=== PATIENT | female | born 1945 | race Caucasian/White ===

== ENCOUNTER → 2016-11-06 | Outpatient (CLI) | payer MEDICARE ==
[~2016-11-06] MED LIST: AC500T PO; ACHYD1T PO; ATRV10T PO; HYDR1TAB PO; LOSA1TAB23 PO; METO25TA2 PO; NFR150C PO; SENN1TAB76 PO; WARF2.5T PO; WRF2.5T PO
--- NOTE | 2016-11-06 19:35 | Diagnostic Imaging Report ---
Renal ultrasound. INDICATION: Chronic renal disease. FINDINGS: The right kidney is 10.9 cm and the left kidney is 9.4 cm in length. No hydronephrosis or focal lesion is seen. The bladder is not seen, probably because it is completely empty. IMPRESSION: No hydronephrosis or focal lesion seen in either kidney. Dictated by: Dictated on workstation # [id number]
== END ==
LOC: RAD 10:40
PROVIDERS: ATTEND Internal Medicine Nephrology
DX: I12.9 Hypertensive chronic kidney disease with stage 1 through stage 4 chronic kidney disease, or unspecified chronic kidney disease (principal); N18.3 Chronic kidney disease, stage 3 (moderate); D50.9 Iron deficiency anemia, unspecified
CPT/HCPCS: 76770

== ENCOUNTER → 2016-12-06 | Outpatient (CLI) | payer MEDICARE ==
--- NOTE | 2016-12-07 09:04 | Diagnostic Imaging Report ---
Bilateral screening mammogram 2D views with tomosynthesis The current study was also evaluated with a Computer Aided Detection (CAD) system. Indication: Screening. No current complaints stated on the questionnaire. COMPARISON: 12/06/15. FINDINGS: The breasts are composed of heterogeneously dense parenchyma which may decrease mammographic sensitivity. There are punctate benign-appearing calcifications seen. Allowing for technique and positional differences, no suspicious change is seen. IMPRESSION: Dense breasts with no definite change. ACR BI-RADS Category 2: Benign findings. Result letter will be mailed to the patient. Note: At least 10% of breast cancer is not imaged by mammography. Dictated by: Dictated on workstation # [id number]
== END ==
LOC: RAD 08:58
PROVIDERS: ATTEND Family Medicine
DX: Z12.31 Encounter for screening mammogram for malignant neoplasm of breast (principal)
CPT/HCPCS: 77067

== ENCOUNTER → 2017-12-23 | Outpatient (CLI) | payer MEDICARE ==
--- NOTE | 2017-12-24 18:59 | Diagnostic Imaging Report ---
INDICATION: Routine screening. Comparison is made with prior exams from 12/06/2016 and 12/06/2015. 2-D and 3-D bilateral screening mammography was performed with computer-aided detection (CAD) system. FINDINGS: Both breasts are heterogeneously dense, limiting the sensitivity of mammography. No mass or malignant-appearing microcalcifications are seen. The axillae are unremarkable. IMPRESSION: No mammographic features suspicious for malignancy are identified. ACR BI-RADS Category 1: Negative. Result letter will be mailed to the patient. Note: At least 10% of breast cancer is not imaged by mammography. Dictated by: Dictated on workstation # [id number]
== END ==
LOC: RAD 11:24
PROVIDERS: ATTEND Family Medicine
DX: Z12.31 Encounter for screening mammogram for malignant neoplasm of breast (principal)
CPT/HCPCS: 77067

== ENCOUNTER → 2018-02-24 | Outpatient (RCR) | payer MEDICARE | END | disposition home or self-care (01) | PROVIDERS: ATTEND Nurse Practitioner | DX: Z47.1 Aftercare following joint replacement surgery (principal); Z96.642 Presence of left artificial hip joint ==

== ENCOUNTER 2018-03-14 15:07 | Outpatient (RCR) | payer MEDICARE | END 2018-05-27 | disposition home or self-care (01) | PROVIDERS: ATTEND Nurse Practitioner | DX: Z47.1 Aftercare following joint replacement surgery (principal); Z96.642 Presence of left artificial hip joint ==

== ENCOUNTER → 2019-01-29 | Outpatient (CLI) | payer MEDICARE ==
[~2019-01-29] MED LIST changes: +GADOBUTROL 10 MMOL/10 ML (GADAVIST) VIAL IV ONE
--- NOTE | 2019-01-29 19:26 | Diagnostic Imaging Report ---
PROCEDURE: MR imaging of the brain with and without contrast. TECHNIQUE: Multiplanar, multisequence MR imaging of the brain was performed with and without contrast. INDICATION: Right frontal mass. COMPARISON: CT head without contrast 01/29/2019. FINDINGS: Large extra-axial enhancing mass overlying the right frontal lobe measuring approximately 4.5 x 7.0 x 6.5 cm. Mass effect results in approximately 1.4 cm right to left midline shift. Moderate edema in the affected right frontal lobe. No other abnormal intracranial mass or enhancement. Normal morphology of the sella, posterior fossa and cerebellar pontine angle. The orbits are unremarkable. Normal intracranial flow voids. No hydrocephalus. Tiny air-fluid level in the left maxillary sinus. Scant fluid in the left mastoid. Normal bone marrow signal. IMPRESSION: Large extra-axial enhancing mass overlying the right frontal lobe measuring up to 7.0 cm should represent a meningioma. This results in approximately 1.4 cm of axrvp-vz-qels midline shift and edema throughout much of the right frontal lobe. Dictated by: Dictated on workstation # [id number]
== END ==
LOC: RAD 18:09
PROVIDERS: ATTEND Family Medicine
DX: J81.1 Chronic pulmonary edema (principal); R91.8 Other nonspecific abnormal finding of lung field
CPT/HCPCS: 70553

== ENCOUNTER → 2019-01-29 | Outpatient (CLI) | payer MEDICARE ==
[~2019-01-29] MED LIST changes: -GADOBUTROL 10 MMOL/10 ML (GADAVIST) VIAL IV ONE
--- NOTE | 2019-01-29 13:20 | Diagnostic Imaging Report ---
INDICATION: Left-sided weakness and facial droop. TECHNIQUE: Multiple contiguous axial images were obtained through the brain without the use of intravenous contrast. Auto Exposure Controls were utilized during the CT exam to meet ALARA standards for radiation dose reduction. COMPARISON: There is no prior study for comparison. FINDINGS: There is a large mass in the right frontal region, measuring about 5.5 x 3.6 cm. A contrast study would be helpful to determine if this is intra-axial or extra-axial. There is about 10 mm of right to left midline shift. There is no focal abnormality in the left hemisphere or posterior fossa. Calvarial windows show no fracture. IMPRESSION: Large right frontal mass as described above with significant midline shift. Recommend MRI for further characterization, pre and post IV contrast. Results were discussed with Dr. Denise at the time of dictation. Dictated by: Dictated on workstation # [id number]
== END ==
LOC: RAD 12:08
PROVIDERS: ATTEND Family Medicine
DX: R29.810 Facial weakness (principal); R22.0 Localized swelling, mass and lump, head
CPT/HCPCS: 70450

== ENCOUNTER 2019-02-09 10:48 | Inpatient (IN) | payer MEDICARE ==
[~2019-02-09] VITALS: Ht 154.9 cm; Wt 113.6 kg
[2019-02-09] MEDS ORDERED: HYDROcodone/APAP 5 MG/325 MG (LORTAB) TAB PO PRN ×2 (12:00→18:15)
[2019-02-09] MEDS ORDERED: ALPRAZolam 0.25 MG (XANAX) TAB PO PRN (12:00)
[2019-02-09] MEDS ORDERED: diphenhydrAMINE 25 MG TAB (BENADRYL) PO PRN (12:00)
[2019-02-09] MEDS ORDERED: CALCIUM CARBONATE 500 MG (TUMS) TAB.CHEW PO PRN (12:00)
[2019-02-09] MEDS ORDERED: FLEET ENEMA ADULT 1 EA BTL PR PRN (12:00)
[2019-02-09] MEDS ORDERED: LACTULOSE SYRUP 10GM/15ML (ENULOSE) 30ML UDC PO PRN (12:00)
[2019-02-09] MEDS ORDERED: DOCUSATE SODIUM 100 MG (COLACE) CAP PO PRN (12:00)
[2019-02-09] MEDS ORDERED: guaiFENesin/CODEINE (ROBITUSSIN AC) 10ML UDC PO PRN (12:00)
[2019-02-09] MEDS ORDERED: LOPERAMIDE 2 MG (IMODIUM) TABLET PO PRN (12:00)
[2019-02-09] MEDS ORDERED: ONDANSETRON 4 MG (ZOFRAN) ORAL DISSOLVE TAB PO PRN (12:00)
--- NOTE | 2019-02-09 15:23 | NUR ---
Pt admitted to room 229-1, with an admitting diagnosis of S/P Craniotomy on 02/09/19 from [facility] via w/c van, accompanied by starting gate driver. CHAGO RUFF introduced to surroundings, call light, bed controls, phone, TV, temperature control, lights, meal times, smoking policy, visitor policy, side rail policy, bathrooms and showers. Patient Rights given to patient in the handbook. CHAGO RUFF verbalizes understanding that [facility] is not responsible for the loss or damage to any personal effects or valuables that are kept in the patients posession during their hospitalization. The following Patient Care Plans were discussed with the pt: Discharge Planning, Self Care Deficit, Potential for fall/injury, alteration in skin integrity. CHAGO RUFF verbalizes understanding of Interdisciplinary Patient Education. Patient and/or family were informed about the Rapid Response Team and its purpose. Patient received Patient Rights Booklet, which includes Privacy Act Statement and Data Collection Information Summary.
[2019-02-09 15:30] VITALS: BP 162/78
[2019-02-09] MEDS ORDERED: ACET325T49 PO (15:57)
[2019-02-09] MEDS ORDERED: ATOR20TA66 PO (15:57)
[2019-02-09] MEDS ORDERED: VIT1CAPS5 PO (15:57)
[2019-02-09] MEDS ORDERED: OMEG1CAP2 PO (15:57)
[2019-02-09] MEDS ORDERED: HYDR-3812 PO (15:57)
[2019-02-09] MEDS ORDERED: SENN-145 PO (15:57)
[2019-02-09] MEDS ORDERED: LOSA100T57 PO (15:57)
[2019-02-09] MEDS ORDERED: [UNRECOGNIZED DRUG - CODE] IV (15:57)
[2019-02-09] MEDS ORDERED: LEVE500T99 PO (15:57)
[2019-02-09] MEDS ORDERED: METO-333 PO (15:57)
[2019-02-09] MEDS ORDERED: DEXA2TAB PO (15:57)
[2019-02-09] MEDS ORDERED: HEPA100D37 IV (15:57)
[2019-02-09] MEDS ORDERED: CHOL400T PO (15:57)
[2019-02-09] MEDS ORDERED: FERR-84 PO (15:57)
[2019-02-09] MEDS ORDERED: HEPARIN SQ (16:01)
--- NOTE | 2019-02-09 16:13 | Physical Therapy Evaluation ---
PT Evaluation-General Medical Diagnosis Admission Date Feb 09, 2019 at 15:23 Medical Diagnosis: menengioma cerebral Onset Date: Feb 09, 2019 Therapy Diagnosis Therapy Diagnosis: abnormal gait Height/Weight Height (Feet): 5 Height (Inches): 1.00 Weight (Pounds): 180 Medical History Pertinent Medical History: Arthritis, HTN Additional Medical History B TKR; left THR, CKD III Current History Elective surgery for cerebral menengioma Reviewed History: Yes Social History Home: Single Level Current Living Status: Alone (good family support) Entry Into Home: Stairs With Railing PT Steps Into Home: 2 Prior Prior Level of Function SCALE: Activities may be completed with or without assistive devices. 9-Vomzrwzliq-aptdstu completes the activity by him/herself with no assistance from a helper. 5-Set-up or Clean-up Assistance-helper sets up or cleans up; patient completes activity. [place] assists only prior to or following the activity. 4-Supervision or Touching Assistance-helper provides verbal cues and/or touching/steadying and/or contact guard assistance as patient completes activ ity. Assistance may be provided throughout the activity or intermittently. 3-Partial/Moderate Assistance-helper does LESS THAN HALF the effort. [place] lifts, holds or supports trunk or limbs, but provides less than half the effort. 2-Substantial/Maximal Assistance-helper does MORE THAN HALF the effort. [place] lifts or holds trunk or limbs and provides more than half the effort. 2-Rrbwasamd-nftpwi does ALL the effort. Patient does none of the effort to complete the activity. Or, the assistance of 2 or more helpers is required for the patient to complete the activity. If activity was not attempted, code reason: 7-Patient Refused. 9-Not Applicable-not attempted and the patient did not perform the activity before the current illness, exacerbation or injury. 10-Not Attempted due to Environmental Limitations-(lack of equipment, weather restraints, etc.). 88-Not Attempted due to Medical Conditions or Safety Concerns. Bed Mobility: 6 Transfers (B,C,W/C): 6 Gait: 6 Stairs: 6 Indoor Mobility (Ambulation): Independent Stairs: Independent Pt is a community ambulator; drives. Lives alone. Pt reports she typically sleeps in her recliner. Reports she is planning to get a lift recliner. PT Evaluation-Current Subjective Agreeable to PT. Pt reports she is exhausted from the trip and the day. Pt falling asleep during treatment session. Pt/Family Goals Her goal is to increase her strength so she can discharge back to her own home. Objective Patient Orientation: Person, Place, Time, Situation ROM/Strength ROM Lower Extremities WFL Strength Lower Extremities Right LE strength is WFL; left LE strength is grossly 3/5 with DF being 2/5 Integumentary/Posture Integumentary refer to nursing notes. Bowel Incontinence: No Bladder Incontinence: Yes Posture rounded shoulders and forward head Neuromuscular (Tone, Coordination, Reflexes) Decreased coordinated movement left LE but reflexes intact and no noted tone deficits. Sensory Vision: Functional Hearing: Functional Hand Dominance: Right Sensation Right Lower Extremit: Intact Sensation Left Lower Extremity: Intact Transfers Roll Left to Right (QC): 2 Sit to Lying (QC): 1 (assist of 2 to transfer; assist to control trunk and to move her legs. ) Lying to Sitting/Side of Bed(Q: 1 (assist of 2 to complete to control her trunk and legs. ) Sit to Stand (QC): 1 (assist of 2 to come to a full stand with cues for sequencing and hand placement) Chair/Wen-bw-Ngkbt Xfer(QC): 2 (uses FWW) Toilet Transfer: 2 Car Transfer (QC): 88 Gait Does the Patient Walk?: Yes Mode of Locomotion: Walk Walk 10 feet (QC): 88 Walk 50 ft with 2 Turns(QC): 88 Walk 150 ft (QC): 88 Walking 10ft/uneven surface-QC: 88 Gait Assistive Device: FWW Comments/Gait Description pt able to take 4 steps forward with FWW with mod assist for safety. Wheelchair Training Does the Pt Use a Wheelchair?: No Stairs 1 Step (curb) (QC): 88 4 Steps (QC): 88 12 Steps (QC): 88 Balance Sitting Static: Poor Sitting Dynamic: Poor Standing Static: Poor Standing Dynamic: Poor Picking up an Object (QC): 88 Treatment Co treat with OT. Need for the skill of 2 clinicians indicated due to complexity of pt. Pt performed self care tasks such as management of clothing and transfers to manage. OT addressed clothing and ADL as PT addressed functional transfers, safety and balance activities. Heavy cues to sequence, initiate as well as much assist physically to complete tasks. Pt requires heavy cues to sequence. Assessment/Needs Post surgery with left sided weakness and balance deficits. Pt is limited with functional bed mobility, transfers and gait as a result. She requires assist of 2 persons (skilled personnel) to effectively complete tasks safely. She was mod indep at OF and will benefit from skilled intervention to address these deficits to allow her return to her PLOF. In addition, she has limited functional activity tolerance and with fatigue, safety is an issue with transfers and upright mobiltiy. Pt exhausted this visit and at the end of treatment session, she was falling asleep while trying to complete tasks. Rehab Potential: Good PT Short Term Goals Short Term Goals Time Frame: Feb 17, 2019 Sit to lyin Lying to sitting on side of be: 3 Sit to stand: 3 Walk 50 feet with two turns: 4 PT Nursing Home Goals Nursing Home Goals PT Shoe Cobbler Goals Time Frame: Mar 03, 2019 Roll Left & Right (QC): 6 Sit to Lying (QC): 6 Lying-Sitting on Side/Bed(QC): 6 Sit to Stand (QC): 6 Chair/Ixp-ti-Saufa Xfer(QC): 6 Toilet Transfer (QC): 6 Car Transfer (QC): 6 Does the Patient Walk: Yes Walk 10 feet (QC): 6 Walk 50ft with 2 Turns (QC): 6 Walk 150 ft (QC): 6 Walking 10ft on Uneven Surface: 5 1 Step (curb) (QC): 6 4 Steps (QC): 6 12 Steps (QC): 9 Picking up an Object (QC): 9 Does the Pt use WC or Scooter?: No PT Plan Problem List Problem List: Activity Tolerance, Functional Strength, Safety, Balance, Gait, Transfer, Bed Mobility Treatment/Plan Treatment Plan: Continue Plan of Care Treatment Plan: Bed Mobility, Education, Functional Activity Scout, Functional Strength, Group Therapy, Gait, Safety, Therapeutic Exercise, Transfers Treatment Duration: Mar 03, 2019 Frequency: Modified Program (IRF) Estimated Hrs Per Day: 1.5 hours per day Patient and/or Family Agrees t: Yes Safety Risks/Education Patient Education: Gait Training, Transfer Techniques, Safety Issues Teaching Recipient: Patient Teaching Methods: Demonstration, Discussion Response to Teaching: Reinforcement Needed Discharge Recommendations Therapy Discharge Recommendati: Post Acute PT Time/GCodes Time In: 1520 Time Out: 1530 ([id number] co treat with OT) Total Billed Treatment Time: 50 Total Billed Treatment visit EVM 10 FA 40 ATTILA PRYOR PT Feb 09, 2019 16:13
--- NOTE | 2019-02-09 16:23 | Occupational Therapy Eval ---
OT Evaluation-General/PLF Medical Diagnosis Admission Date Feb 09, 2019 at 15:23 Medical Diagnosis: elective craniotomy with meningioma resection Onset Date: Feb 09, 2019 Therapy Diagnosis Therapy Diagnosis: Decreased ADL function Height/Weight Height (Feet): 5 Height (Inches): 1.00 Weight (Pounds): 180 Precautions Precautions/Isolations: Standard Precautions Weight Bear Status Weight Bearing Restriction: Weight Bearing/Tolerated Referral Physician: Laly Vera DO Referral Reason: Activity Tolerance, Self Care, Evaluation/Treatment, Strengthening/ROM Medical History Pertinent Medical History: HTN, Renal Insufficiency Additional Medical History HTN, meningioma, obesity, HLD, CKD III, anemia, arthritis, cataracts Current History Pt completed an elective craniotomy with meningioma resection to R side; L weakness noted prior to surgery Reviewed History: Yes Social History Home: Single Level Entry Into Home: Stairs With Railing Steps Into Home: 1 ADL-Prior Level of Function SCALE: Activities may be completed with or without assistive devices. 6-Unayfuzjbj-tfywfyb completes the activity by him/herself with no assistance from a helper. 5-Set-up or Clean-up Assistance-helper sets up or cleans up; patient completes activity. [place] assists only prior to or following the activity. 4-Supervision or Touching Assistance-helper provides verbal cues and/or touching/steadying and/or contact guard assistance as patient completes activity. Assistance may be provided throughout the activity or intermittently. 3-Partial/Moderate Assistance-helper does LESS THAN HALF the effort. [place] lifts, holds or supports trunk or limbs, but provides less than half the effort. 2-Substantial/Maximal Assistance-helper does MORE THAN HALF the effort. [place] lifts or holds trunk or limbs and provides more than half the effort. 3-Yyxngdtrv-hnryqg does ALL the effort. Patient does none of the effort to complete the activity. Or, the assistance of 2 or more helpers is required for the patient to complete the activity. If activity was not attempted, code reason: 7-Patient Refused. 9-Not Applicable-not attempted and the patient did not perform the activity before the current illness, exacerbation or injury. 10-Not Attempted due to Environmental Limitations-(lack of equipment, weather restraints, etc.). 88-Not Attempted due to Medical Conditions or Safety Concerns. ADL PLOF Comments Pt IND without AE Self Care: Independent Functional Cognition: Independent DME/Equipment: Bath Chair DME/Equipment Comments Pt states has shower with ledge (3" or so) Pt educated on use of grab bars and new shower chair. Pt states she is incontinent of urine Occupation: retired Drive Self: Yes OT Current Status Subjective Pt seen in room, supine in bed with PT. Pt denies pain, states fatigue. Pt agreeable to OT evaluation/ OT/ PT cotreatment. Co-treat rendured due to pt's functional mobility status, medical hx, and fatigue. OT addressed ADLs and UE strength while PT managed functional mobility, balance, and functional transfers. Mental Status/Objective Patient Orientation: Person, Place, Situation, Normal For Age Current Glasses/Contacts: Yes Hearing Aids: No Dentures/Partials: Yes Hand Dominance: Right Upper Extremity ROM WFL BUE Upper Extremity Coordination L slightly delayed reactions Upper Extremity Sensation WFL bilaterally, no c/o paresthesias Upper Extremity Strength WFL RUE Decreased strength LUE Edema: slight non-pitting edema LUE ADL-Treatment Eating (QC): 6 Oral Hygiene (QC): 5 (Pt takes out dentures, grandaughter places in denture bottle cleaner.) Shower/Bathe Self (QC): 7 Upper Body Dressing (QC): 3 (mod A to doff UB dress) Lower Body Dressing (QC): 2 (Max A. Pt able to sit to stand with mod A, able to doff L side of pants, requires assist to doff L side and pull to doff/ don) On/Off Footwear (QC): 2 (Pt able to doff with mod A, dons with max A (utilizes sock aide at home, unable to don sock onto sock aide)) Toileting Hygiene (QC): 1 (TD in stance.) Other Treatments OT evaluation from [id number]. PT/ OT cotreat from [id number]. Pt seen in bed, bed mob to sit with max A. Pt reaches EOB with max A, completes sitting balance with SBA. Pt able to sit to stand with mod A x2. Utilizes FWW, ambulates with cues for LLE movement. Pt's chair brought closer for safer transition. Pt sits, states incontinence and need to change brief. Dressing changed as above. Pt's R eye slightly bruised, states was injured in surgery. Pt denies diplopia or vision changes. Pt has many daily from parietal to temporal lobe of R side of head. Pt denies completing additional ADLs. Pt educated on ARU standards and goals of therapy. Pt fatigued, eyes closed as she listens to goals. Pt's granddaughter present through session. Left in chair with granddaughter, all needs met, call light in lap. Education OT Patient Education: Correct positioning, Modified ADL techniques, Purpose of tx/functional activities, Rehab process, Safety issues, Transfer techniques Teaching Recipient: Patient Teaching Methods: Demonstration, Discussion Response to Teaching: Verbalize Understanding, Return Demonstration OT Assisted Goals Supervisor Fur Floor Worker Goals Time Frame: Feb 23, 2019 Eating (QC): 6 Oral Hygiene (QC): 6 Toileting Hygiene (QC): 6 Shower/Bathe Self (QC): 6 Upper Body Dressing (QC): 6 Lower Body Dressing (QC): 6 On/Off Footwear (QC): 6 Additional Goals: 1-Demonstrate ADL Tasks, 2-Verbalize Understanding, 3- ImproveStrength/Scout 1=Demonstrate adherence to instructed precautions during ADL tasks. 2=Patient will verbalize/demonstrate understanding of assistive devices/modifications for ADL. 3=Patient will improve strength/tolerance for activity to enable patient to perform ADL's. OT Education/Plan Problem List/Assessment Assessment: Decreased Activ Tolerance, Decreased UE Strength, Dependent Transfers, Impaired Bed Mobility, Impaired Coordination, Impaired Funct Balance, Impaired I ADL's, Impaired Self-Care Skills Discharge Recommendations Plan/Recommendations: Continue POC Equpiment Recommendations-D/C: Rails on Tub/Shower, Bath Chair, Engineer Second Assistant, Dressing Stick, Rails on Toilet Treatment Plan/Plan of Care Treatment,Training & Education: Yes Patient would benefit from OT for education, treatment and training to promote independence in ADL's, mobility, safety and/or upper extremity function for ADL's. Plan of Care: ADL Retraining, Caregiver Training, Concurrent Therapy, Functional Mobility, Group Exercise/Act as Ind, UE Funct Exercise/Act, UE Neuromus Re-Ed/Coord Treatment Duration: Feb 23, 2019 Frequency: At least 5 of 7 days/Wk (IRF) Estimated Hrs Per Day: 1.5 hours per day Agreement: Yes Rehab Potential: Fair Time/GCodes Start Time: 15:30 Stop Time: 16:20 Total Time Billed (hr/min): 50 Billed Treatment Time 1, EVM (10), ADL 3 (40) OT eval: [id number] OT/ PT cotreat: [id number] ALEIDA DIAZ OTR Feb 09, 2019 16:23
[2019-02-09 16:42] VITALS: BP 129/61
--- NOTE | 2019-02-09 18:11 | PM&R Post Admission Assessment ---
PM&R Date of Visit: Feb 09, 2019 Time of Visit: 18:10 History of Present Illness Chief complaint: Status post craniotomy in need of recovery History present illness: This is a 73-year-old white female of Dr. Denise who presents after a [facility] transfer after undergoing a craniotomy to remove a large meningioma that had caused symptoms to the point of presenting to her primary care provider CT scan showed mass MRI showed meningioma and patient was placed on Decadron due to neurological deficits. I met the patient in the past December 2017 when she underwent a hip replacement. She has been in pretty good health since that time and currently she denies any pain except for on her scalp where the craniotomy had been completed. I did review all of records. She continues to have difficulty with moving her lower extremities and she will require intensive therapy in order to regain enough function to return to independent living in her prior level of functioning. Her bowels are moving for the first time yesterday so we will maintain a good regimen for that and she denies any other significant issues since transferred from . [facility] summary note: Significant PMH: Medical History: Diagnosis Date Arthritis Hip Cataract Chronic kidney disease Stg III - due to Aleve High cholesterol Hypertension Iron deficiency anemia Kidney disease Osteoarthritis of both knees Allergies: Pcn [penicillins] Admission Physical Exam notable for: Glory Montes De Oca is a 73-year-old woman that Dr. Garcia was asked to see by Dr. Nevin Denise regarding the recent discovery of a large convexity meningioma on the right side. She describes about 3 months of left arm and leg and face weakness, but she suspects it has been going on for longer than that. She had her hip replaced a couple of years ago and has basically been walking with the aid of one crutch since then. She has however noted increasing clumsiness of her left hand and the inability to hold objects for long periods of time. She says her daughter is noted that her face appears droopy on the left as well. She went in to see Dr. Denise who ordered a CT scan and then an MRI that shows the above-mentioned tumor. She did have quite a severe headache last week and Dr. Denise put her on some Decadron. A headache is completely resolved since then. She does not notice any demonstrable improvement in her left-sided weakness. She says she feels everything quite normally and has no pain on the left side but it is simply weaker than the right. Physical Exam Alert and oriented PERRL EOMI CN 2-12 Intact, except slight flattening of left NLF VFF DTR 2/4 on right, 3/4 on left, definitely increased on left side Motor 5/5, except diminished fine finger movements on left. Walks with slight antalgic gait, but able to support herself and walk a fair distance with one crutch Sensation grossly intact LT, Proprioception No cerebellar signs Admission Lab/Radiology studies notable for: CT and MRI shows a large right convexity meningioma with nearly 2 cm of shift. This is obviously been there a long time and may indeed be a not so benign meningioma given the degree of shift that she has. However for the relative paucity of symptoms I suspect it is been there for quite some time. Brief Hospital Course: The patient was admitted and the following issues were addressed during this hospitalization: (with pertinent details). Patient was admitted and underwent the procedure listed below. Patient was extubated and tolerated procedure well. Patient was admitted to Neurology ICU in stable condition.Post-operatively, patient's diet was advanced and was mobilized with PT/OT. Post-operatively the patient was slow to wake up. CT head demonstrated persistent edema and shift from preop. Sodium was pushed up to goal of 145-155 with 3% IV drip. Over the next couple days patient's exam improved significantly, sodium goals were weaned off. Pain was controlled. Patient was transferred to floor and dressings removed. Patient continued to work with P T/OT. Rehab was consulted. Patient was discharged to [facility] with follow-up appointment with Dr. Garcia. Condition at Discharge: Stable Discharge Diagnoses: Hospital Problems Active Problems Meningioma (HCC) HTN (hypertension) Brain compression (HCC) Morbid obesity with BMI of 45.0-49.9, adult (HCC) Cerebral edema (HCC) Surgical Procedures: CRANIECTOMY/ BONE FLAP CRANIOTOMY EXCISION SUPRATENTORIAL MENINGIOMA Past Rrjtdhi-Fcdglx-Yojyhd Hx Past Med/Social Hx: Reviewed Nursing Past Med/Soc Hx, Reviewed and Corrections made Patient Social History Marrital Status: single Employed/Student: retired Alcohol Use: Denies Use Smoking Status: Never a Smoker 2nd Hand Smoke Exposure: No Recent Foreign Travel: No Contact w/other who traveled: No Recent Infectious Disease Expo: No Immunizations Up To Date Tetanus Booster (TDap): Unknown Date of Pneumonia Vaccine: Nov 25, 2012 Date of Influenza Vaccine: Nov 25, 2012 Seasonal Allergies Seasonal Allergies: No Past Medical History craniotomy [facility] 02/05 Cardiac: High Cholesterol, Hypertension Neurological: Brain Tumor Reproductive: No Sexually Transmitted Disease: No HIV/AIDS: No Female Reproductive Disorders: Denies Genitourinary: Bladder Infection Gastrointestinal: Chronic Constipation Musculoskeletal: Arthritis Loss of Vision: Denies Adverse Reaction to Blood Mancera: No Family History Cancer 09 SISTER (breast ca) Congestive heart failure 03 MOTHER Family history: Breast disease 09 SISTER Family history: Hypertension 03 FATHER 03 MOTHER 09 SISTER Hypertension Prior Level of Function Bed Mobility: 6 Transfers: 6 Gait: 6 Stairs: 6 Indoor Mobility (Ambulation): Independent Stairs: Independent Self Care: Independent Functional Cognition: Independent Occupation: retired Drive Self: Yes Eatin Oral Hygiene: 5 (Pt takes out dentures, grandaughter places in denture creel cleaner.) Shower/Bathe Self: 7 Upper Body Dressin (mod A to doff UB dress) Lower Body Dressin (Max A. Pt able to sit to stand with mod A, able to doff L side of pants, requires assist to doff L side and pull to doff/ don) On/Off Footwear: 2 (Pt able to doff with mod A, dons with max A (utilizes sock aide at home, unable to don sock onto sock aide)) Toileting Hygiene: 1 (TD in stance.) PM&R Allergy/Meds/Data Review Allergies Coded Allergies: Penicillins (Unverified Allergy, SWELLED UP, 12/16/12) Home Medications Scheduled Atorvastatin Calcium (Atorvastatin Calcium), 20 MG PO HS, (Reported) Cholecalciferol (Vitamin D3) (Vitamin D3), 400 UNIT PO DAILY, (Reported) Dexamethasone (Dexamethasone), 4 MG PO Q8H, (Reported) Ferrous Sulfate (Iron), 325 MG PO BID, (Reported) Levetiracetam (Keppra), 500 MG PO BID, (Reported) Losartan Potassium (Losartan Potassium), 100 MG PO DAILY, (Reported) Metoprolol Tartrate (Metoprolol Tartrate), 25 MG PO BID, (Reported) [place]-3 Fatty Acids/Fish Oil (Sea-[place] 30 Capsule), 1 EACH PO DAILY, (Reported) Sennosides/Docusate Sodium (Senna S Tablet), 1 EACH PO BID, (Reported) Vit A/C/E/Zinc/Co (Preservision Areds Softgel), 1 CAP PO DAILY, (Reported) [Heparin], 0.5 ML SQ Q8H, (Reported) Scheduled PRN Acetaminophen (Acetaminophen), 650 MG PO Q4H PRN for PAIN-MILD (1-4), (Reported) Hydrocodone/Acetaminophen (Hydrocodone-Acetamin 5-325 mg), 1-2 TAB PO Q4H PRN for PAIN-MODERATE (5-7), (Reported) Discontinued Medications Atorvastatin Calcium (Lipitor 10 Mg), 10 MG PO DAILY, (Reported) Discontinued Reason: Prescription changed Heparin Sodium,Porcine/Pf (Heparin 1,000 Unit/10 (100/ml)), 1,000 UNIT IV, (Reported) Discontinued Reason: No Longer Taking Hydrocodone Bit/Acetaminophen (Lorcet Plus 10/325 Mg), 1 EA PO EVERY 4-6 HOURS PRN for PAIN Discontinued Reason: No Longer Taking Losartan/Hydrochlorothiazide (Losartan-Hctz 100-25 Mg Tab), 1 TAB PO DAILY, (Reported) Discontinued Reason: Prescription changed Polysaccharide Iron Complex (Niferex), 150 MG PO BID Discontinued Reason: No Longer Taking Warfarin Sodium (Coumadin), 2.5 MG PO DAILY@1800 Discontinued Reason: No Longer Taking Current Medications Current Medications Reviewed Review of Systems Constitutional: see HPI, dizziness, malaise, weakness Gastrointestinal: constipation Musculoskeletal: back pain, joint pain, muscle stiffness, muscle cramps Psychiatric/Neurological: Numbness, Paresthesia, Tingling, Tremors, Weakness All Other Systems Reviewed Negative Unless Noted: Yes Physical Exam Physical Exam Vital Signs Vital Signs - First Documented 02/09/19 15:30 Temp 36.8 Pulse 59 Resp 16 B/P (MAP) 162/78 (106) Pulse Ox 95 O2 Delivery Room Air Capillary Refill : Height, Weight, BMI Height: 5'1.00" Weight: 180lbs. oz. 81.889241qu; 107.90 BMI Method: General Appearance: No Apparent Distress, WD/WN, Chronically ill, Obese Eyes: Bilateral Eye Normal Inspection, Bilateral Eye PERRL HEENT: PERRL/EOMI, Normal ENT Inspection, Pharynx Normal Neck: Full Range of Motion, Normal Inspection, Non Tender, Supple, Carotid Bruit Respiratory: Chest Non Tender, Lungs Clear, Normal Breath Sounds, No Accessory Muscle Use, No Respiratory Distress, Decreased Breath Sounds Cardiovascular: Regular Rate, Rhythm, No Edema, No Gallop, No JVD, No Murmur, Normal Peripheral Pulses Gastrointestinal: Normal Bowel Sounds, No Organomegaly, No Pulsatile Mass, Non Tender, Soft Back: Normal Inspection, No CVA Tenderness, No Vertebral Tenderness Extremity: Normal Capillary Refill, Normal Inspection, Normal Range of Motion, Non Tender, No Calf Tenderness, No Pedal Edema Neurologic/Psychiatric: Alert, Oriented x3, carpet cleaning technician II-XII Norm as Tested, Abnormal Gait, Depressed Affect, Motor Weakness (lower legs and arms 4/5) Skin: Normal Color, Warm/Dry Lymphatic: No Adenopathy PM&R Medical Assessment & Plan REHAB/MEDICAL ASSESSMENT AND PLAN: REHAB IMPAIRMENT GROUP: Craniotomy and resection of meningioma causing neuro deficits ETIOLOGIC DIAGNOSIS: Craniotomy and resection of meningioma causing neuro deficits The comorbidities that impact the patients function and/or functional outcome by: Severe neuro deficits will require intensive therapies to regain PLOF, Obesity will slow recovery REHAB PLAN: The patient is being admitted to our comprehensive inpatient rehabilitation facility and can tolerate the intensity of service consisting of at least: 180 minutes of therapy a day, 5 out of 7 days a week Rehab treatment will consist of: PT and OT will focus on ambulation and strengthening in order to regain deficits The patient/family has a good understanding of our discharge process and will benefit from an interdisciplinary inpatient rehabilitation program. The patient has potential to make improvement and is in need of at least two of the following multidisciplinary therapies including but not limited to physical, occupational, speech, and prosthetics and orthotics. Additionally the patient will need services from respiratory, nutritional services, wound care, psychology, etc. (Customize this to each patient). Given the patients complex condition and risk of further medical complications, rehabilitation services cannot be safely or effectively provided at a lower level of care such as a snf facility. BARRIERS TO DISCHARGE: Home alone ESTIMATED LOS: 10 days DISPOSITION: Home RELEVANT CHANGES SINCE PREADMISSION SCREENING: I have compared the patients medical and functional status at the time of the preadmission screening and there are: no changes PROGNOSIS: Good REHABILITATION GOALS: 1. PT will help with neuro deficits and strengthening and OT will focus on regaining ADL's All the above goals were reviewed with the patient and he/she is in agreement. By signing this document, I acknowledge that I have personally performed a full physical examination on this patient within 24 hours of admission to this inpatient rehabilitation facility and have determined the patient to be able to tolerate the above course of treatment at an intensive level for a reasonable period of time. I will be completing a detailed individualized Plan of Care for this patient by day #4 of the patients stay based upon the Preadmission Screen, the Post-Admission Evaluation, and the therapy evaluations. Admission Dx/Comorbidities: (1) S/P craniotomy ICD Codes: Z98.890 - Other specified postprocedural states (2) Hypertension ICD Codes: I10 - Essential (primary) hypertension (3) Obesity ICD Codes: E66.9 - Obesity, unspecified (4) Constipation ICD Codes: K59.00 - Constipation, unspecified (5) History of hip replacement, total ICD Codes: Z96.649 - Presence of unspecified artificial hip joint (6) Headache ICD Codes: R51 - Headache (7) Seizure prophylaxis ICD Codes: Z29.8 - Encounter for other specified prophylactic measures EVIE SAPP DO Feb 09, 2019 18:11
[2019-02-09] MEDS ORDERED: HEPARIN SQ SCH (18:15)
[2019-02-09] MEDS ORDERED: RX-HYDROCODONE/APAP 5/325 MG #4 TAB PK PO PRN (18:15)
[2019-02-09] MEDS ORDERED: DEXAMETHASONE 4 MG PO SCH (18:15)
--- NOTE | 2019-02-09 18:22 | NUR ---
Unable to obtain meds of Decadron & heparin from [facility] at this time, when attempted, not profiled.
--- NOTE | 2019-02-09 18:24 | NUR ---
Pt states that her dgtr, Diana is her DPOA. Diana states that she doesn't have the forms completely finished yet, needs to get them notarized, but, dgtr Diana is her only child. When asking pt about code status, pt reports that she is a DNR, doesn't want to prolong her life, states that she has discussed this w her dgtr, Diana also.
--- NOTE | 2019-02-09 19:48 | NUR ---
Notified Dr. Vera of pt request for DNR, rec'd orders.
--- NOTE | 2019-02-09 19:54 | NUR ---
Spoke w Diana jain regarding code status. Now states that she wants Mother to be DNI, not DNR. Wants CPR done if needed, but, no ventilator. Notified Dr. Vera, & rec'd orders.
--- NOTE | 2019-02-09 20:07 | NUR ---
Pt arrived w 1 Saline Lock in Rt A/C, & 2 in Rt hand, will be removed as slightly reddened.
[2019-02-09] MEDS ORDERED: SENNA W/DOCUSATE (SENOKOT S) TABLET PO SCH (21:00)
[2019-02-09] MEDS: POLYETHYLENE GLYCOL 17 GM (MIRALAX) PACK PO SCH (21:47)
[2019-02-09] MEDS: LEVETIRACETAM 500 MG (KEPPRA) TAB PO SCH (21:47)
[2019-02-09] MEDS: MELATONIN 3 MG TABLET PO PRN (21:47)
[2019-02-09] MEDS: meTOprolol TARTRATE 25 MG (LOPRESSOR) TABLET PO SCH (21:47)
[2019-02-09] MEDS: DEXAMETHASONE 4 MG TAB (DECADRON) PO SCH (21:47)
[2019-02-09] MEDS: DOCUSATE SODIUM 100 MG (COLACE) CAP PO SCH (21:47)
[2019-02-09] MEDS: SENNA W/DOCUSATE (SENOKOT S) TABLET PO SCH (21:49)
[2019-02-10 04:53] LABS: BASOPHILS % (AUTO) 0 % (0-10); EOSINOPHILS % (AUTO) 0 % (0-10); HEMATOCRIT 23 % (35-52); HEMOGLOBIN 7.3 G/DL (11.5-16.0); LYMPHOCYTES # (AUTO) 0.7 X 10^3 (1.0-4.0); LYMPHOCYTES % (AUTO) 8 % (12-44); MEAN CORPUSCULAR HEMOGLOBIN 32 PG (25-34); MEAN CORPUSCULAR HGB CONC 32 G/DL (32-36); MEAN CORPUSCULAR VOLUME 98 FL (80-99); MEAN PLATELET VOLUME 12.8 FL (7.4-10.4); MONOCYTES # (AUTO) 0.4 X 10^3 (0.0-1.0); MONOCYTES % (AUTO) 4 % (0-12); NEUTROPHILS # (AUTO) 8.5 X 10^3 (1.8-7.8); NEUTROPHILS % (AUTO) 88 % (42-75); PLATELET COUNT 142 10^3/uL (130-400); WHITE BLOOD COUNT 9.6 10^3/uL (4.3-11.0)
[2019-02-10 05:11] LABS: ALBUMIN 3.1 GM/DL (3.2-4.5); BILIRUBIN,TOTAL 0.3 MG/DL (0.1-1.0); CALCIUM 8.3 MG/DL (8.5-10.1); CREATININE SERUM 1.22 MG/DL (0.60-1.30); POTASSIUM 4.7 MMOL/L (3.6-5.0); TOTAL PROTEIN 5.1 GM/DL (6.4-8.2)
[2019-02-10 05:27] VITALS: BP 147/74
[2019-02-10] MEDS: FERROUS SULF 325 MG (IRON) TAB PO SCH ×2 (06:15→17:57)
[2019-02-10] MEDS: DEXAMETHASONE 4 MG TAB (DECADRON) PO SCH ×3 (06:16→22:22)
[2019-02-10] MEDS: ACETAMINOPHEN 500 MG TAB (TYLENOL) PO PRN ×2 (07:10→22:54)
[2019-02-10] MEDS: OMEGA 3 (FISH OIL) 1000 MG CAP PO SCH (08:23)
[2019-02-10] MEDS: LEVETIRACETAM 500 MG (KEPPRA) TAB PO SCH ×2 (08:24→21:44)
[2019-02-10] MEDS: DOCUSATE SODIUM 100 MG (COLACE) CAP PO SCH ×2 (08:24→21:30)
[2019-02-10] MEDS: meTOprolol TARTRATE 25 MG (LOPRESSOR) TABLET PO SCH ×2 (08:24→21:44)
[2019-02-10] MEDS: SENNA W/DOCUSATE (SENOKOT S) TABLET PO SCH ×2 (08:24→21:30)
[2019-02-10] MEDS: LOSARTAN 100 MG (COZAAR) TABLET PO SCH (08:24)
[2019-02-10] MEDS ORDERED: PRESERVISION AREDS SOFTGEL (BAUSH & LOMB) PO SCH (09:00)
[2019-02-10] MEDS ORDERED: OMEGA PO SCH (09:00)
[2019-02-10] MEDS ORDERED: [UNRECOGNIZED DRUG - OTHER] PO SCH (09:00)
[2019-02-10] MEDS ORDERED: FISH OIL PO SCH (09:00)
[2019-02-10] MEDS ORDERED: FATTY ACIDS PO SCH (09:00)
--- NOTE | 2019-02-10 09:28 | Physical Therapy Daily Note ---
PT Daily Note-Current Subjective Patient in bed pre tx, agrees to PT, has no complaints of pain but states she used to have a headache but got pain meds from the nurse and it is gone now. Will be co-treating with OT due to poor patient mobility, safety awareness, impaired strength, endurance, the need to coordinate UE and LE during activity. Appearance Patient in recliner post tx with nurse call, phone, tray, all needs met. OT to stay in room for a while to continue with UE activity. Mental Status Patient Orientation: Person, Place, Situation Transfers SCALE: Activities may be completed with or without assistive devices. 4-Sgijirkfic-cxwqvpl completes the activity by him/herself with no assistance from a helper. 5-Set-up or Clean-up Assistance-helper sets up or cleans up; patient completes activity. Chapin assists only prior to or following the activity. 4-Supervision or Touching Assistance-helper provides verbal cues and/or touching/steadying and/or contact guard assistance as patient completes activity. Assistance may be provided throughout the activity or intermittently. 3-Partial/Moderate Assistance-helper does LESS THAN HALF the effort. Chapin lifts, holds or supports trunk or limbs, but provides less than half the effort. 2-Substantial/Maximal Assistance-helper does MORE THAN HALF the effort. Chapin lifts or holds trunk or limbs and provides more than half the effort. 1-Xkmjahyop-zvfhqu does ALL the effort. Patient does none of the effort to complete the activity. Or, the assistance of 2 or more helpers is required for the patient to complete the activity. If activity was not attempted, code reason: 7-Patient Refused. 9-Not Applicable-not attempted and the patient did not perform the activity before the current illness, exacerbation or injury. 10-Not Attempted due to Environmental Limitations-(lack of equipment, weather restraints, etc.). 88-Not Attempted due to Medical Conditions or Safety Concerns. Roll Left & Right (QC): 2 Lying to Sitting/Side of Bed(Q: 2 Sit to Stand (QC): 2 Chair/Tmk-iq-Elgue Xfer(QC): 2 Patient leans heavily toward the left side when sitting. Patient gets to the side of the bed and bathes and dresses, needs assist with sitting balance the whole time. Patient then transferred to wheelchair with max assist. Gait Training Distance: 8' Gait Assistive Device: Parallel Bars WC follow, patient is able to advance her left leg with cues but left arm drags behind and needs OT to assist with positioning. Wheelchair Training Does the Pt Use a Wheelchair?: Yes Wheel 50 ft with 2 turns (QC): 3 Wheel 150 ft (QC): 3 Type of Wheelchair: Manual 150'x2, mod assist, patient can push wheel with right arm, cues to use right leg to steer and help propel but she is not able to at this time. Exercises Patient stood in the parallel bars x2 for about 1-2 min each time, needs assist with LUE positioning. Treatments bathing, dressing, ambulation, WC mobility, standing, sitting balance Assessment Current Status: Fair Progress Patient has left neglect, uncoordinated movement of both left extremities. PT Short Term Goals Short Term Goals Time Frame: Feb 17, 2019 Sit to lyin Lying to sitting on side of be: 3 Sit to stand: 3 Walk 50 feet with two turns: 4 PT [employer] Vice President Goals Retirement Goals PT Retirement Goals Time Frame: Mar 03, 2019 Roll Left & Right (QC): 6 Sit to Lying (QC): 6 Lying-Sitting on Side/Bed(QC): 6 Sit to Stand (QC): 6 Chair/Zub-rg-Xylcq Xfer(QC): 6 Toilet Transfer (QC): 6 Car Transfer (QC): 6 Does the Patient Walk: Yes Walk 10 feet (QC): 6 Walk 50ft with 2 Turns (QC): 6 Walk 150 ft (QC): 6 Walking 10ft on Uneven Surface: 5 1 Step (curb) (QC): 6 4 Steps (QC): 6 12 Steps (QC): 9 Picking up an Object (QC): 9 Does the Pt use WC or Scooter?: No PT Plan Problem List Problem List: Activity Tolerance, Functional Strength, Safety, Balance, Gait, Transfer, Bed Mobility, ROM Treatment/Plan Treatment Plan: Continue Plan of Care Treatment Plan: Bed Mobility, Education, Functional Activity Scout, Functional Strength, Group Therapy, Gait, Safety, Therapeutic Exercise, Transfers Treatment Duration: Mar 03, 2019 Frequency: Modified Program (IRF) Estimated Hrs Per Day: 1.5 hours per day Patient and/or Family Agrees t: Yes Safety Risks/Education Patient Education: Gait Training, Transfer Techniques, Correct Positioning, W/C Management, Safety Issues Teaching Recipient: Patient Teaching Methods: Demonstration, Discussion Response to Teaching: Reinforcement Needed Time/GCodes Time In: 0800 Time Out: 929 Total Billed Treatment Time: 90 Total Billed Treatment 1 visit [facility] 30' FA 60' ALEIDA PAZ PT Feb 10, 2019 09:28
--- NOTE | 2019-02-10 09:44 | Occupational Ther Daily Note ---
OT Current Status-Daily Note Subjective Pt seen in bed, states head ache which is decreasing in pain; agreeable to OT/ PT co-treat. Co-treat rendered due to pt's fatigue, complex medical hx, and decreased strength and endurance. OT addressed ADLs and UE strength while PT addressed gross motor movements, transfers, and gait. Mental Status/Objective Patient Orientation: Person, Place, Situation ADL-Treatment Therapy Code Descriptions/Definitions Functional [place] Measure: 0=Not Assessed/NA 4=Minimal Assistance 1=Total Assistance 5=Supervision or Setup 2=Maximal Assistance 6=Modified [place] 3=Moderate Assistance 7=Complete IndependenceSCALE: Activities may be completed with or without assistive devices. 1-Wceoylejlv-wtbuvte completes the activity by him/herself with no assistance from a helper. 5-Set-up or Clean-up Assistance-helper sets up or cleans up; patient completes activity. [place] assists only prior to or following the activity. 4-Supervision or Touching Assistance-helper provides verbal cues and/or touching/steadying and/or contact guard assistance as patient completes activity. Assistance may be provided throughout the activity or intermittently. 3-Partial/Moderate Assistance-helper does LESS THAN HALF the effort. [place] lifts, holds or supports trunk or limbs, but provides less than half the effort. 2-Substantial/Maximal Assistance-helper does MORE THAN HALF the effort. [place] lifts or holds trunk or limbs and provides more than half the effort. 9-Efaknttej-rgzdca does ALL the effort. Patient does none of the effort to complete the activity. Or, the assistance of 2 or more helpers is required for the patient to complete the activity. If activity was not attempted, code reason: 7-Patient Refused. 9-Not Applicable-not attempted and the patient did not perform the activity before the current illness, exacerbation or injury. 10-Not Attempted due to Environmental Limitations-(lack of equipment, weather restraints, etc.). 88-Not Attempted due to Medical Conditions or Safety Concerns. Eating (QC): 5 (Assist with opening pop can.) Bathing Location: L Arm, R Arm, L Upper Leg, R Upper Leg, Chest, Abdomen Shower/Bathe Self (QC): 2 (Pt required cues throughout bathing for initiation of tasks and thoroughness. ) Upper Body Dressing (QC): 4 (min A/ intermittent assist for gown donning) Lower Body Dressing (QC): 2 (assist for threading BLE and donning.) On/Off Footwear: 3 (mod A with use of sock aide due to poor coordination/ initiation of use of L hand for bimanual tasks.) Toileting Hygiene (QC): 1 (TD during bottom hygiene) Toilet Transfer (QC): 2 (Max A- squat pivot to bed side commode per pt/ nursing.) Other Treatment Pt completes bed mob with max A to EOB. Pt unable to maintain balance throughout, requires CGA-min A to right self during sitting tasks. Pt completes dressing/ bathing EOB. Pt completes squat pivot to w/c with max A, mod A for w/c mobility with use of R UE/ LE for mobility. Pt completes standing tasks at parallel bars, able to reach in multiple planes with R hand in stance. Pt requi res rest breaks after ~2 min of standing, completes 3x. Pt completes UE AROM/ PROM of LUE. Pt completes to full range. Pt educated on use of hand sponge to decrease swelling/ increase strength of L hand. Pt completes w/c mob back to room, squat pivot to chair. Pt reclines/ positioned in chair. 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 Single point pinch: R 10lbs, L 6 lbs. Three jaw tae: R 10 lbs, L 6 lbs. Pt places dentures in mouth with s/u due to incoordination/ weakness unable to open container. Edema massage utilized on RUE from fingertips to axilla to decrease edema and increase comfort, ROM, and strength. Pt left in recliner with call light in reach, all needs met. Education OT Patient Education: Correct positioning, Exercise program, Home exercise program, Modified ADL techniques, Progress toward Goal/Update tx plan, Purpose of tx/functional activities, Safety issues, Use of adapted equipment Teaching Recipient: Patient Teaching Methods: Demonstration, Discussion Response to Teaching: Verbalize Understanding, Return Demonstration, Reinforcement Needed OT Insurance Verification Specialist Goals Insurance Verification Specialist Goals Time Frame: Feb 23, 2019 Eating (QC): 6 Oral Hygiene (QC): 6 Toileting Hygiene (QC): 6 Shower/Bathe Self (QC): 6 Upper Body Dressing (QC): 6 Lower Body Dressing (QC): 6 On/Off Footwear (QC): 6 Additional Goals: 1-Demonstrate ADL Tasks, 2-Verbalize Understanding, 3- ImproveStrength/Scout 1=Demonstrate adherence to instructed precautions during ADL tasks. 2=Patient will verbalize/demonstrate understanding of assistive devices/modif ications for ADL. 3=Patient will improve strength/tolerance for activity to enable patient to perform ADL's. OT Education/Plan Problem List/Assessment Assessment: Decreased Activ Tolerance, Decreased UE Strength, Dependent Transfers, Edema, Impaired Bed Mobility, Impaired Coordination, Impaired Funct Balance, Impaired I ADL's, Impaired Self-Care Skills Discharge Recommendations Plan/Recommendations: Continue POC Treatment Plan/Plan of Care Treatment,Training & Education: Yes Patient would benefit from OT for education, treatment and training to promote independence in ADL's, mobility, safety and/or upper extremity function for ADL's. Plan of Care: ADL Retraining, Caregiver Training, Concurrent Therapy, Functional Mobility, Group Exercise/Act as Ind, UE Funct Exercise/Act, UE Neuromus Re-Ed/Coord Treatment Duration: Feb 23, 2019 Frequency: At least 5 of 7 days/Wk (IRF) Estimated Hrs Per Day: 1.5 hours per day Agreement: Yes Rehab Potential: Good Time/GCodes Start Time: 08:00 Stop Time: 09:45 Total Time Billed (hr/min): 105 Billed Treatment Time 1, ADL 3 (45), EX 3(45), FA (15) OT/ PT co-treat from [id number] OT individual tx from [id number] ALEIDA DIAZ OTR Feb 10, 2019 09:44
--- NOTE | 2019-02-10 09:44 | NUR ---
ADMISSION Patient was admitted to ARU 02/09/19 from [facility] with Right Frontal Meningioma, post op craniotomy and resection. Prior to diagnosis and hospitalization, patient resided home alone and was IADLs within her changes in level of functioning from the mass. She did continue to drive until PCP restricted with diagnosis and had been actively walking for exercise [place] at the [place] prior to symptom onset/progression. DME: EMR reflects that patient had continued to use one crutch after having a hip replacement December 2017. She has FWW, wheelchair, stool frame, and handicap accessible shower because of the hip and also knee replacement surgeries. PCP: Dr. Nevin Denise MD, [place]. INSURED: Medicare and [employer] [facility] Supplement. PHARMACY: [facility]. ADVANCED DIRECTIVE: Daughter Diana Thayer is an only child and is assisting with decision-making as needed. Diana and patient have an advanced directive document ready for completion during her stay on ARU. Observed patient working with PT this date. Diana understands the purpose of the Weekly Team Conference and will be a primary person to assist with post hospital care planning. CONTACTS: Diana Thayer, Daughter [address] [place] [address]
[2019-02-10 09:53] VITALS: BP 119/69
[2019-02-10] MEDS: POLYETHYLENE GLYCOL 17 GM (MIRALAX) PACK PO SCH ×2 (09:57→21:30)
--- NOTE | 2019-02-10 10:41 | ST Cognitive Linguistic Eval ---
Speech Evaluation-General Medical Diagnosis elective craniotomy with meningioma resection Onset Date: Feb 09, 2019 Therapy Diagnosis Therapy Diagnosis: Cognitive-communication Referral Referring Physician: Dr. Vera Medical History Pertinent Medical History: HTN, Renal Insufficiency Reviewed History: Yes Social History Current Living Status: Alone (good family support) Speech PLF-Current Status Prior Level of Function Patient lives home alone. She has family near by for assistance as needed for her daily needs. Subjective Patient was pleasant and compliant with the cognitive assessment. Language Eval: Auditory Comprehends Simple Yes/No Ques: Functional Indent/Objects Multiple [place]: Functional Ident/Pics in Multiple [place]: Functional Follows 1-Step Commands: Functional Follows Complex Directions: Mild Follows General Conversations: Functional Language Eval: Verbal Language Completes Spontaneous Greeting: Functional Produces Auto, Serial Info: Functional Imitates Simple Words/Phrases: Functional Word Finding: Mild Requests Basic Needs: Functional States Basic Personal Info: Functional Expresses Complex Ideas: Mild Objective Cognitive Domain Attention: WNL Memory: Mild Problem Solving: Mild Visuospatial Skills: Mild Composite Severity Rating: Mild Clock Drawing Severity Rating: Mild Objective Formal/Standardized Tests [facility] Mental Status ([facility]) Results 26/30, Mild Neurocognitive Disorder Oral Motor/Speech Production Patient has slight slurring s/p brain surgery, however she is intelligible Impression Patient is a pleasant 73 year old female who was admitted to the ARU s/p brain surgery. Patient was given the UMS with a score of 26/30 obtained. This score falls within the MNCD range of function. The patient will receive skilled ST for improving cognitive function with focus on safety awareness and independence. Speech Patient Assess Expression of Ideas/Wants: Exhibits (3) Understanding Verbal Content: Usually Understands (3) Brief Interview-Mental Status: Yes Repetition of Three Words: Three (3) Temporal Orientation: Year: Correct (3) Temporal Orientation: Month: Accurate within 5 days(2) Temporal Orientation: Day: Correct (1) Recall : Wear to say "Sock": Yes,after cueing (1) Recall : Color: Yes, after cueing (1) Recall : Bed: Yes,after cueing (1) Memory/Recall Ability: Current season, That he or she is in a hsp/hsp unit Speech Short Term Goals Short Term Goals Short Term Goals 1) Patient will complete memory tasks related to her daily needs with 90% or greater with minimal cues. 2) Patient will complete safety awareness tasks related to her daily needs with 90% or greater with minimal cues. 3) Patient will complete problem solving tasks related to her daily needs with 90% or greater with minimal cues. Speech Completion Manager Goals Detention Goals Patient will improve cognitive-communication necessary for safety and daily living tasks with minimal assist. Speech-Plan Patient/Family Goals Patient/Family Goals: Patient plans on returning to her home with family support. Treatment Plan Speech Therapy Treatment Plan: Continue Plan of Care Patient will receive skilled cognitive therapy. Treatment Duration: Feb 20, 2019 Frequency: 4 times per week Estimated Hrs Per Day: .5 hour per day Rehab Potential: Good Barriers to Learning: Patient has MNCD, recent brain surgery Pt/Family Agrees to Plan: Yes Safety Risks/Education Teaching Recipient: Patient, Family Teaching Methods: Discussion Response to Teaching: Verbalize Understanding Education Topics Provided: Safety within her room and communication of wants/needs Time Speech Therapy Time In: 10:00 Speech Therapy Time Out: 10:30 Total Billed Time: 30 Billed Treatment Time 1, SPSNDCOMALEX Schwartz Feb 10, 2019 10:41
--- NOTE | 2019-02-10 10:43 | NUR ---
Pastoral care visit.
[2019-02-10] MEDS ORDERED: IRON SUCROSE 200 MG/10 ML (VENOFER) VIAL IV NR (10:50)
--- NOTE | 2019-02-10 11:11 | Physical Therapy Daily Note ---
PT Daily Note-Current Subjective Patient in recliner pre tx, with legs elevated, very tired/lethargic, agrees to PT, no complaints of pain. Patient needs many cues to stay awake/keep on task. Appearance Patient in recliner post tx with nurse call, phone, tray, all needs met, family member in room. Mental Status Patient Orientation: Person, Place, Situation Transfers SCALE: Activities may be completed with or without assistive devices. 5-Dfigqfjlxu-dbksxye completes the activity by him/herself with no assistance from a helper. 5-Set-up or Clean-up Assistance-helper sets up or cleans up; patient completes activity. [place] assists only prior to or following the activity. 4-Supervision or Touching Assistance-helper provides verbal cues and/or touching/steadying and/or contact guard assistance as patient completes activity. Assistance may be provided throughout the activity or intermittently. 3-Partial/Moderate Assistance-helper does LESS THAN HALF the effort. [place] lifts, holds or supports trunk or limbs, but provides less than half the effort. 2-Substantial/Maximal Assistance-helper does MORE THAN HALF the effort. [place] lifts or holds trunk or limbs and provides more than half the effort. 1-Gwkgwwsin-aienkj does ALL the effort. Patient does none of the effort to complete the activity. Or, the assistance of 2 or more helpers is required for the patient to complete the activity. If activity was not attempted, code reason: 7-Patient Refused. 9-Not Applicable-not attempted and the patient did not perform the activity before the current illness, exacerbation or injury. 10-Not Attempted due to Environmental Limitations-(lack of equipment, weather restraints, etc.). 88-Not Attempted due to Medical Conditions or Safety Concerns. Exercises BLE ex x15 (AP, QS, HS, GS) Treatments LE exercise Assessment Current Status: Fair Progress needs extra cues for exercises on the left side due to neglect PT Short Term Goals Short Term Goals Time Frame: Feb 17, 2019 Sit to lyin Lying to sitting on side of be: 3 Sit to stand: 3 Walk 50 feet with two turns: 4 PT Dictaphone Typist Goals Dictaphone Typist Goals PT Longterm Goals Time Frame: Mar 03, 2019 Roll Left & Right (QC): 6 Sit to Lying (QC): 6 Lying-Sitting on Side/Bed(QC): 6 Sit to Stand (QC): 6 Chair/Xgz-vw-Fngxe Xfer(QC): 6 Toilet Transfer (QC): 6 Car Transfer (QC): 6 Does the Patient Walk: Yes Walk 10 feet (QC): 6 Walk 50ft with 2 Turns (QC): 6 Walk 150 ft (QC): 6 Walking 10ft on Uneven Surface: 5 1 Step (curb) (QC): 6 4 Steps (QC): 6 12 Steps (QC): 9 Picking up an Object (QC): 9 Does the Pt use WC or Scooter?: No PT Plan Problem List Problem List: Activity Tolerance, Functional Strength, Safety, Balance, Gait, Transfer, Bed Mobility, ROM Treatment/Plan Treatment Plan: Continue Plan of Care Treatment Plan: Bed Mobility, Education, Functional Activity Scout, Functional Strength, Group Therapy, Gait, Safety, Therapeutic Exercise, Transfers Treatment Duration: Mar 03, 2019 Frequency: Modified Program (IRF) Estimated Hrs Per Day: 1.5 hours per day Patient and/or Family Agrees t: Yes Safety Risks/Education Patient Education: Correct Positioning, Safety Issues Teaching Recipient: Patient Teaching Methods: Demonstration, Discussion Response to Teaching: Reinforcement Needed Time/GCodes Time In: 1100 Time Out: 1115 Total Billed Treatment Time: 15 Total Billed Treatment 1 visit EX ALEIDA MERCEDES PT Feb 10, 2019 11:11
--- NOTE | 2019-02-10 11:17 | NUR ---
Notified Tiara in outpt dept of order for midline for IV Venofer administration. Notified pt of this. Was unable to obtain Vitamin D from [employer] when attempted earlier.
--- NOTE | 2019-02-10 11:24 | PM&R Progress Note ---
Subjective HPI/CC On Admission Date Seen by Provider: Feb 10, 2019 Time Seen by Provider: 10:30 Subjective/Events-last exam Patient sleepy Needs 15/7 slower pace due to severity of debility Sleepiness will be monitored closely Hgb 7.2 so ordered iron level and will empirically start Venofer and start midline No pain is reported except head pain. Incontinence when she stood up with therapy today. [place] out 02/17/19. BM treatment will be started Conferred with RN Reviewed therapy notes Checked meds and labs Review of Systems General: Fatigue Neurological: Weakness, Numbness, Incoordination Objective Exam Vital Signs Vital Signs Date Time Temp Pulse Resp B/P (MAP) Pulse Ox O2 Delivery O2 Flow Rate FiO2 02/10/19 09:53 36.4 64 20 119/69 (86) 97 Room Air Capillary Refill : Less Than 3 Seconds General Appearance: No Apparent Distress, WD/WN, Chronically ill, Obese HEENT: PERRL/EOMI, Normal ENT Inspection, Pharynx Normal Neck: Full Range of Motion, Normal Inspection, Non Tender, Supple, Carotid Bruit Respiratory: Chest Non Tender, Lungs Clear, Normal Breath Sounds, No Accessory Muscle Use, No Respiratory Distress, Decreased Breath Sounds Cardiovascular: Regular Rate, Rhythm, No Edema, No Gallop, No JVD, No Murmur, Normal Peripheral Pulses Gastrointestinal: Normal Bowel Sounds, No Organomegaly, No Pulsatile Mass, Non Tender, Soft Back: Normal Inspection, No CVA Tenderness, No Vertebral Tenderness Extremity: Normal Capillary Refill, Normal Inspection, Normal Range of Motion, Non Tender, No Calf Tenderness, No Pedal Edema Neurologic/Psychiatric: Alert, Oriented x3, assistant grocery II-XII Norm as Tested, Abnormal Gait, Depressed Affect, Motor Weakness (lower legs and arms 4/5) Skin: Normal Color, Warm/Dry Lymphatic: No Adenopathy Results/Procedures Lab Laboratory Tests 02/10/19 04:47 Patient resulted labs reviewed. FIM Transfers Therapy Code Descriptions/Definitions Functional [place] Measure: 0=Not Assessed/NA 4=Minimal Assistance 1=Total Assistance 5=Supervision or Setup 2=Maximal Assistance 6=Modified [place] 3=Moderate Assistance 7=Complete IndependenceSCALE: Activities may be completed with or without assistive devices. 3-Wspjpfkrxe-tyyrcwh completes the activity by him/herself with no assistance from a helper. 5-Set-up or Clean-up Assistance-helper sets up or cleans up; patient completes activity. [place] assists only prior to or following the activity. 4-Supervision or Touching Assistance-helper provides verbal cues and/or touching/steadying and/or contact guard assistance as patient completes activity. Assistance may be provided throughout the activity or intermittently. 3-Partial/Moderate Assistance-helper does LESS THAN HALF the effort. [place] lifts, holds or supports trunk or limbs, but provides less than half the effort. 2-Substantial/Maximal Assistance-helper does MORE THAN HALF the effort. [place] lifts or holds trunk or limbs and provides more than half the effort. 5-Bgdmjunyd-ignzqg does ALL the effort. Patient does none of the effort to complete the activity. Or, the assistance of 2 or more helpers is required for the patient to complete the activity. If activity was not attempted, code reason: 7-Patient Refused. 9-Not Applicable-not attempted and the patient did not perform the activity before the current illness, exacerbation or injury. 10-Not Attempted due to Environmental Limitations-(lack of equipment, weather restraints, etc.). 88-Not Attempted due to Medical Conditions or Safety Concerns. Roll Left to Right (QC): 2 Sit to Lying (QC): 1 (assist of 2 to transfer; assist to control trunk and to move her legs. ) Sit to Stand (QC): 2 Chair/Ykg-mj-Gofgj Xfer(QC): 2 Car Transfer (QC): 88 Gait Training Does the Patient Walk?: Yes Distance: 8' Walk 10 feet (QC): 88 Walk 50 ft with 2 Turns(QC): 88 Walk 150 ft (QC): 88 Walking 10ft/uneven surface-QC: 88 Gait Assistive Device: Parallel Bars Wheelchair Training Does the Pt Use a Wheelchair?: Yes Wheel 50 ft with 2 turns (QC): 3 Wheel 150 ft (QC): 3 Type of Wheelchair: Manual Stair Training 1 Step (curb) (QC): 88 4 Steps (QC): 88 12 Steps (QC): 88 Balance Picking up an Object (QC): 88 ADL-Treatment Eating (QC): 5 (Assist with opening pop can.) Oral Hygiene (QC): 5 (Pt takes out dentures, [facility] places in denture exhibit cleaner.) Bathing Location: L Arm, R Arm, L Upper Leg, R Upper Leg, Chest, Abdomen Shower/Bathe Self (QC): 2 (Pt required cues throughout bathing for initiation of tasks and thoroughness. ) Upper Body Dressing (QC): 4 (min A/ intermittent assist for gown donning) Lower Body Dressing (QC): 2 (assist for threading BLE and donning.) On/Off Footwear (QC): 3 (mod A with use of sock aide due to poor coordination/ initiation of use of L hand for bimanual tasks.) Toileting Hygiene (QC): 1 (TD during bottom hygiene) Toilet Transfer (QC): 2 (Max A- squat pivot to bed side commode per pt/ nursing.) Assessment/Plan Assessment and Plan Assess & Plan/Chief Complaint Assessment: s/p craniotomy at [facility] Meningioma s/p resection Severe debility needs aggressive therapies HTN Anemia iron def ordered Venofer Constipation GRADY? Plan: Monitor closely Venofer Pain control Slow recovery so 01/09 IRF (1) S/P craniotomy (2) Hypertension (3) Obesity (4) Constipation (5) History of hip replacement, total (6) Headache (7) Seizure prophylaxis EVIE SAPP DO Feb 10, 2019 11:24
--- NOTE | 2019-02-10 11:24 | Individualized Plan of Care ---
Individualized Plan of Care Rehab Nursing IPOC Order Admission Date Feb 09, 2019 at 15:23 Current Orders Orders Admission Order(Inpt,Obs,Sdc) (02/09/19 11:56) Vital Signs: Per Unit Policy ( 08,16,00 (02/09/19 11:56) Gian Vanegas , (02/09/19 11:56) Sequential Compression Device Q4H (02/09/19 11:56) Tv Technician-Inpt Rehab Con (02/09/19 11:56) Rehab Nursing Orders-Ipoc (02/09/19 11:56) Physical Therapy Rehab Orders (02/09/19 11:56) Occupational Therapy Rehab Ord (02/09/19 11:56) Speech Therapy Rehab Orders (02/09/19 11:56) Cbc With Automated Diff (02/10/19 06:00) Comprehensive Metabolic Panel (02/10/19 06:00) General/Regular (02/09/19 Dinner) Precautions (Aru) (02/09/19 11:56) Rehab-Intensity Of Therapy (02/09/19 11:56) Acetaminophen Tablet (Tylenol Tablet) (02/09/19 12:00) Alprazolam Tablet (Xanax Tablet) (02/09/19 12:00) Calcium Carbonate Chew Tablet (Antacid C (02/09/19 12:00) Diphenhydramine Tablet (Benadryl Tablet) (02/09/19 12:00) Docusate Sodium Capsule (Colace Capsule) (02/09/19 21:00) Docusate Sodium Capsule (Colace Capsule) (02/09/19 12:00) Bisacodyl Suppository (Dulcolax Supposit (02/09/19 12:00) Lactulose Oral Solution (Enulose Oral So (02/09/19 12:00) Na Phos/Na Biphos Enema (Fleet Enema Emilio (02/09/19 12:00) Guaifenesin/Codeine Syrup (Robitussin Ac (02/09/19 12:00) Hydrocodone/Apap 5/325 Tablet (Lortab 5 (02/09/19 12:00) Loperamide Tablet (Imodium Tablet) (02/09/19 12:00) Melatonin Tablet (Melatonin Tablet) (02/09/19 12:00) Polyethylene Glycol Powder Pkt (Miralax (02/09/19 21:00) Ondansetron Oral Dissolve Tab (Zofran (02/09/19 12:00) Senna S Tablet (Senokot S Tablet) (02/09/19 21:00) Initiate Admission Nursing Pro .admission (02/09/19 11:56) Admission Arrival Bed Request (02/09/19 15:23) Patient Visit (02/09/19 ) Pt Eval Moderate Complexity (02/09/19 ) Functional Activities, Ea 15 (02/09/19 ) Request Ot Evaluate & Treat (02/09/19 16:43) Ambulate 08,12,20 (02/09/19 16:46) Sequential Compression Device Q4H (02/09/19 16:46) Dvt/Vte Risk - Notifiy Physici Q4H (02/09/19 16:46) Acetaminophen Tablet/Caplet (Tylenol T (02/09/19 18:15) Atorvastatin Tablet (Lipitor Tablet) (02/09/19 21:00) Cholecalciferol Capsule/Tablet (Vitamin (02/10/19 09:00) Rx-Hydrocodone/Apap 5-325 Mg (Rx-Vicodin (02/09/19 18:15) Levetiracetam Tablet (Keppra Tablet) (02/09/19 21:00) Losartan Tablet (Cozaar Tablet) (02/10/19 09:00) Metoprolol Tartrate (Ir) Tab (Lopressor (02/09/19 21:00) Senna S Tablet (Senokot S Tablet) (02/09/19 21:00) (Nf) Dexamethasone (02/09/19 18:15) (Nf) [place]-3 Fatty Acids/Fish Oil (Sea-O (02/10/19 09:00) (Nf) [Heparin] (02/09/19 18:15) Ferrous Sulfate Tablet (Feosol Tablet) (02/10/19 07:00) Hydrocodone/Apap 5/325 Tablet (Lortab 5 (02/09/19 18:15) [place] 3 Capsule (Fish Oil Capsule) (02/10/19 09:00) Heparin Injection (Heparin Injection) (02/09/19 22:00) Dexamethasone Tablet (Decadron Tablet) (02/09/19 22:00) Code/Resuscitation (02/09/19 19:48) Code/Resuscitation (02/09/19 19:57) Venous Access Request Order (02/10/19 10:45) Iron Sucrose Injection (Venofer Injectio (02/10/19 10:50) Iron Sucrose Injection (Venofer Injectio (02/12/19 09:00) Iron Test (Fe) (02/10/19 10:48) Patient Visit (02/10/19 ) Functional Activities, Ea 15 (02/10/19 ) Wheelchair Mgmt/Propulsn 15min (02/10/19 ) Exercise Therap, Ea 15 Min (02/10/19 ) Rehab Nursing Orders: Ongoing Assess. of Cognitive Status, Ongoing Assess. of Function Status, Bladder Management, Bladder Scan, Bladder Training, Bowel Management, Bowel Training, Disease Management & Educaiton, DVT Prophylaxis, Fall Prevention, Fluid/Electrolyte/Nutrition Mgmt, Infection Prevention, Medication Management & Education, Management of Risks & Complications, Management of Skin Intergrity, Nutrition Management, Pain Management, Patient/Family Support, Safety Management Intensity of Therapy to be met Patient to be seen: Min.3h per day/5 of 7d PT IPOC Problem List: Activity Tolerance, Functional Strength, Safety, Balance, Gait, Transfer, Bed Mobility, ROM Treatment Plan: Continue Plan of Care Bed Mobility, Education, Functional Activity Scout, Functional Strength, Group Therapy, Gait, Safety, Therapeutic Exercise, Transfers Treatment Duration: Mar 03, 2019 Frequency: Modified Program (IRF) Estimated Hrs Per Day: 1.5 hours per day OT IPOC Problems: Decreased Activ Tolerance, Decreased UE Strength, Dependent Transfers, Edema, Impaired Bed Mobility, Impaired Coordination, Impaired Funct Balance, Impaired I ADL's, Impaired Self-Care Skills OT Treatment, Training and Edu: Yes Plan of Care: ADL Retraining, Caregiver Training, Concurrent Therapy, Functional Mobility, Group Exercise/Act as Ind, UE Funct Exercise/Act, UE Neuromus Re-Ed/Coord Treatment Duration: Feb 23, 2019 Frequency: At least 5 of 7 days/Wk (IRF) Estimated Hrs Per Day: 1.[address] IPOC Speech Therapy Treatment Plan: Continue Plan of Care Treatment Duration: Feb 20, 2019 Frequency: 4 times per week Estimated Hrs Per Day: .5 hour per day Tv Technician/Case Mgmt Tv Technician/Case Managemen: Discharge Planning Dietitian/Seamstress Fitter Dietitian/Seamstress Fitter to monitor nutritional status and make changes and/or recommendations as needed and work with speech pathology on dietary upgrades as the occur. Physician IPOC Medical Issues being managed closely and that require the 24 hour availability of a physician: Severe debility appears to give rise to risk for respiratory insufficiency and severe anemia will require iron infusions and close monitoring Medical Issues: Bowel/Bladder Function, DVT Prophylaxis, Falls Precautions, Fluid/Electrolyte/Nutrition Balance, Infection Protection, Pain Management, Wound Care Brief Synthesis of Preadmission Screen, Post-Admission Evaluation, and Therapy E valuations: PT will focus on ambulation and standing safely OT will help toileting and incontinence care Medical Prognosis: Good Anticipated Length of Stay: 14 days EVIE SAPP DO Feb 10, 2019 11:24
--- NOTE | 2019-02-10 13:39 | Physical Therapy Daily Note ---
PT Daily Note-Current Subjective Patient in recliner pre tx, agrees to PT, would like to get back to bed, will be co-treating with OT due to poor patient mobility, strength, endurance, left hemiplegia, the need to coordinate UE and LE during activity. Appearance Patient in bed post tx with nurse call, phone, tray, all needs met. Mental Status Patient Orientation: Person (patient very lethargic) Transfers SCALE: Activities may be completed with or without assistive devices. 4-Zghuigpqdc-xmiqkhn completes the activity by him/herself with no assistance from a helper. 5-Set-up or Clean-up Assistance-helper sets up or cleans up; patient completes activity. [place] assists only prior to or following the activity. 4-Supervision or Touching Assistance-helper provides verbal cues and/or touching/steadying and/or contact guard assistance as patient completes activity. Assistance may be provided throughout the activity or intermittently. 3-Partial/Moderate Assistance-helper does LESS THAN HALF the effort. [place] lifts, holds or supports trunk or limbs, but provides less than half the effort. 2-Substantial/Maximal Assistance-helper does MORE THAN HALF the effort. [place] lifts or holds trunk or limbs and provides more than half the effort. 7-Jiduxejic-zolrff does ALL the effort. Patient does none of the effort to complete the activity. Or, the assistance of 2 or more helpers is required for the patient to complete the activity. If activity was not attempted, code reason: 7-Patient Refused. 9-Not Applicable-not attempted and the patient did not perform the activity before the current illness, exacerbation or injury. 10-Not Attempted due to Environmental Limitations-(lack of equipment, weather restraints, etc.). 88-Not Attempted due to Medical Conditions or Safety Concerns. Roll Left & Right (QC): 2 Sit to Lying (QC): 1 Sit to Stand (QC): 2 Chair/Sfs-rg-Bldak Xfer(QC): 2 max assist to stand and transfer, max assist of 2 to lay down, pillows for support under left arm and heel lift Treatments bed mobility and transfers Assessment Current Status: Poor Progress patient lethargic, dependent for sit to supine (max assist of 2) PT Short Term Goals Short Term Goals Time Frame: Feb 17, 2019 Sit to lyin Lying to sitting on side of be: 3 Sit to stand: 3 Walk 50 feet with two turns: 4 PT Mcfp Goals [employer] Teacher Goals PT Mcfp Goals Time Frame: Mar 03, 2019 Roll Left & Right (QC): 6 Sit to Lying (QC): 6 Lying-Sitting on Side/Bed(QC): 6 Sit to Stand (QC): 6 Chair/Hwb-ov-Crlbi Xfer(QC): 6 Toilet Transfer (QC): 6 Car Transfer (QC): 6 Does the Patient Walk: Yes Walk 10 feet (QC): 6 Walk 50ft with 2 Turns (QC): 6 Walk 150 ft (QC): 6 Walking 10ft on Uneven Surface: 5 1 Step (curb) (QC): 6 4 Steps (QC): 6 12 Steps (QC): 9 Picking up an Object (QC): 9 Does the Pt use WC or Scooter?: No PT Plan Problem List Problem List: Activity Tolerance, Functional Strength, Safety, Balance, Gait, Transfer, Bed Mobility, ROM Treatment/Plan Treatment Plan: Continue Plan of Care Treatment Plan: Bed Mobility, Education, Functional Activity Scout, Functional Strength, Group Therapy, Gait, Safety, Therapeutic Exercise, Transfers Treatment Duration: Mar 03, 2019 Frequency: Modified Program (IRF) Estimated Hrs Per Day: 1.5 hours per day Patient and/or Family Agrees t: Yes Safety Risks/Education Patient Education: Transfer Techniques, Correct Positioning, Safety Issues Teaching Recipient: Patient Teaching Methods: Demonstration, Discussion Response to Teaching: Reinforcement Needed Time/GCodes Time In: 1320 Time Out: 1332 Total Billed Treatment Time: 12 Total Billed Treatment 1 visit FA 12' Co-treated with OT for 12', PT worked on transfers, standing, bed mobility, OT assisted with transfers and worked on UE positioning and balance during transfer and after laying down. ALEIDA PAZ PT Feb 10, 2019 13:39
--- NOTE | 2019-02-10 13:41 | Occupational Ther Daily Note ---
OT Current Status-Daily Note Subjective Pt sitting in chair finishing lunch, agrees to treatment. ADL-Treatment Pt request to remove dentures. Able to do this without assist. Sit to stand with max assist. Transfer to EOB with max assist. Sit to supine with assist x2. Pt required assist x2 for bed mobility. Pt positioned in bed with needs met after session. Co-treat with PT secondary to decreased mobility, activity tolerance and safety requiring skilled therapists. PT focusing on transfer and LE management. OT focusing on UE management, safety, and sequencing. Therapy Code Descriptions/Definitions Functional [place] Measure: 0=Not Assessed/NA 4=Minimal Assistance 1=Total Assistance 5=Supervision or Setup 2=Maximal Assistance 6=Modified [place] 3=Moderate Assistance 7=Complete IndependenceSCALE: Activities may be completed with or without assistive devices. 7-Pulvahjujq-boeucnd completes the activity by him/herself with no assistance from a helper. 5-Set-up or Clean-up Assistance-helper sets up or cleans up; patient completes activity. [place] assists only prior to or following the activity. 4-Supervision or Touching Assistance-helper provides verbal cues and/or touching/steadying and/or contact guard assistance as patient completes activity. Assistance may be provided throughout the activity or intermittently. 3-Partial/Moderate Assistance-helper does LESS THAN HALF the effort. [place] lifts, holds or supports trunk or limbs, but provides less than half the effort. 2-Substantial/Maximal Assistance-helper does MORE THAN HALF the effort. [place] lifts or holds trunk or limbs and provides more than half the effort. 2-Obbhojfex-rtmfaq does ALL the effort. Patient does none of the effort to complete the activity. Or, the assistance of 2 or more helpers is required for the patient to complete the activity. If activity was not attempted, code reason: 7-Patient Refused. 9-Not Applicable-not attempted and the patient did not perform the activity before the current illness, exacerbation or injury. 10-Not Attempted due to Environmental Limitations-(lack of equipment, weather restraints, etc.). 88-Not Attempted due to Medical Conditions or Safety Concerns. Education OT Patient Education: Disease process OT Float Tender Goals Fpc Goals Time Frame: Feb 23, 2019 Eating (QC): 6 Oral Hygiene (QC): 6 Toileting Hygiene (QC): 6 Shower/Bathe Self (QC): 6 Upper Body Dressing (QC): 6 Lower Body Dressing (QC): 6 On/Off Footwear (QC): 6 Additional Goals: 1-Demonstrate ADL Tasks, 2-Verbalize Understanding, 3- ImproveStrength/Scout 1=Demonstrate adherence to instructed precautions during ADL tasks. 2=Patient will verbalize/demonstrate understanding of assistive devices/modifications for ADL. 3=Patient will improve strength/tolerance for activity to enable patient to perform ADL's. OT Education/Plan Discharge Recommendations Plan/Recommendations: Continue POC Treatment Plan/Plan of Care Patient would benefit from OT for education, treatment and training to promote independence in ADL's, mobility, safety and/or upper extremity function for ADL's. Plan of Care: ADL Retraining, Caregiver Training, Concurrent Therapy, Functional Mobility, Group Exercise/Act as Ind, UE Funct Exercise/Act, UE Neuromus Re-Ed/Coord Treatment Duration: Feb 23, 2019 Frequency: At least 5 of 7 days/Wk (IRF) Estimated Hrs Per Day: 1.5 hours per day Agreement: Yes Rehab Potential: Good Time/GCodes Start Time: 13:20 Stop Time: 13:32 Total Time Billed (hr/min): 12 Billed Treatment Time 1 visit, FA(12minutes) LORENZO LOO OT Feb 10, 2019 13:41
--- NOTE | 2019-02-10 14:00 | NUR ---
ENTERED MED REC USING THE DISCHARGE FROM [facility], WILL UPDATE AFTER I SPEAK WITH THE PT Addendum: 02/13/19 at 1409 by AILEEN [facility]BAN[facility] SPOKE WITH PT AND WAS ABLE TO REMOVE THE MEDS THAT WERE GIVEN WHEN BEING DISCHARGED, THE MEDS REC NOW ONLY SHOWS WHAT SHE WAS TAKING BEFORE HER STAY. THEY FOLLOWING HAVE BEEN REMOVED: VIT D DEXAMETHASONE OMEGA KEPPRA SENNA S NORCO HEPARIN ALL OTHER MEDICATIONS SHE SAYS SHE WAS TAKING BEFORE HER STAY. EXT MED HISTORY SHOWS HCTZ 25MG AND IT WAS PICKED UP ON 01-27-2019 #90, BUT PT SAYS SHE WAS NOT TAKING THIS MEDICATION, FOR THAT REASON I LEFT IT OFF THE MED REC,
[2019-02-10] MEDS ORDERED: IRON SUCROSE 200 MG/10 ML (VENOFER) VIAL IV ONE (14:06)
--- NOTE | 2019-02-10 17:31 | NUR ---
Call made to Pharmacy & asked about vitamin D, bc have not been able to pull from [facility] when attempted several times. Jose states that it was just loaded about an hour ago.
[2019-02-10] MEDS: VITAMIN D3 400 UNITS (CHOLECALCIFEROL) TABLET PO SCH (17:57)
[2019-02-10 18:41] VITALS: BP 109/62
--- NOTE | 2019-02-10 19:12 | NUR ---
bedside report received from TORO SALDIVAR, assume care of pt
--- NOTE | 2019-02-10 19:40 | NUR ---
Notified Dr. Vera Of malodorous urine, rec'd orders.
[2019-02-10] MEDS: MELATONIN 3 MG TABLET PO PRN (21:44)
--- NOTE | 2019-02-10 21:44 | NUR ---
pt refused mirchelix, Seema & An
--- NOTE | 2019-02-10 22:15 | NUR ---
back to bed, straight cath for U/A received 115 cloudy straw colored urine, specimen sent to lab
[2019-02-10 22:36] LABS: BILIRUBIN,URINE NEGATIVE (NEGATIVE); CLARITY,URINE CLEAR; COLOR,URINE YELLOW; GLUCOSE, URINE (UA) NEGATIVE (NEGATIVE); KETONES,URINE NEGATIVE (NEGATIVE); LEUKOCYTE ESTERASE ,URINE 1+ (NEGATIVE); NITRITE,URINE POSITIVE (NEGATIVE); PROTEIN,URINE NEGATIVE (NEGATIVE)
[2019-02-10 22:54] LABS: BACTERIA,URINE LARGE /HPF
--- NOTE | 2019-02-10 22:54 | NUR ---
c/o headache pain level 7/10 on numeric scale, Tylenol 500mg given
--- NOTE | 2019-02-10 23:45 | NUR ---
rates pain level 3/10 on numeric scale
[2019-02-11 06:00] VITALS: BP 137/78
[2019-02-11] MEDS: FERROUS SULF 325 MG (IRON) TAB PO SCH ×2 (06:57→17:19)
[2019-02-11] MEDS: DEXAMETHASONE 4 MG TAB (DECADRON) PO SCH ×2 (06:57→14:13)
[2019-02-11] MEDS: ACETAMINOPHEN 500 MG TAB (TYLENOL) PO PRN (07:10)
--- NOTE | 2019-02-11 07:10 | NUR ---
c/o headache pain level 5/10 on numeric scale, Tylenol 500mg given
--- NOTE | 2019-02-11 07:15 | NUR ---
bedside report given to DIEGO SALDIVAR
[2019-02-11 08:00] VITALS: BP 134/65
--- NOTE | 2019-02-11 08:00 | NUR ---
STATES TYLENOL WORKS WELL FOR HEADACHE. KNOWS AFTER SHE HAS BEEN INCONTINENT AND ENCOURAGED TO CALL NURSE SOON SHE IS SO WE CAN GET HER CHANGED. STATES HAS HAD TOTAL URINARY INCONTINENCE FOR "A LONG TIME". NO BM X 4 DAYS AND SOFTENERS AND DULCOLAX SUPPOSITORY GIVEN.
[2019-02-11] MEDS: LEVETIRACETAM 500 MG (KEPPRA) TAB PO SCH ×2 (09:38→21:18)
[2019-02-11] MEDS: VITAMIN D3 400 UNITS (CHOLECALCIFEROL) TABLET PO SCH (09:38)
[2019-02-11] MEDS: LOSARTAN 100 MG (COZAAR) TABLET PO SCH (09:39)
[2019-02-11] MEDS: meTOprolol TARTRATE 25 MG (LOPRESSOR) TABLET PO SCH ×2 (09:39→21:25)
[2019-02-11] MEDS: OMEGA 3 (FISH OIL) 1000 MG CAP PO SCH (09:40)
[2019-02-11] MEDS: POLYETHYLENE GLYCOL 17 GM (MIRALAX) PACK PO SCH ×2 (09:40→21:34)
[2019-02-11] MEDS: DOCUSATE SODIUM 100 MG (COLACE) CAP PO SCH ×2 (09:46→21:34)
[2019-02-11] MEDS: SENNA W/DOCUSATE (SENOKOT S) TABLET PO SCH ×2 (09:46→21:34)
[2019-02-11] MEDS: BISACODYL 10 MG SUPP (DULCOLAX) PR PRN (09:47)
--- NOTE | 2019-02-11 11:00 | NUR ---
UP TO COMMODE WITH ASSIST OF 2 NURSES AND EXPELLED MODERATE BM.
[2019-02-11] MEDS: cefTRIAXone FOR IV USE 1,000 MG in WATER (STERILE) FOR INJECTION 10 ML IV SCH (11:26)
[2019-02-11] MEDS ORDERED: CATHETER FLUSH 10 ML SYR IV PRN (11:30)
--- NOTE | 2019-02-11 13:00 | NUR ---
ENJOYED EATING LUNCH IN DINING AREA WITH FAMILY. HAS STARTED ON ROCEPHIN FOR UTI.
--- NOTE | 2019-02-11 13:27 | PM&R Progress Note ---
Subjective HPI/CC On Admission Date Seen by Provider: Feb 11, 2019 Time Seen by Provider: 10:15 Subjective/Events-last exam Patient sleeps well at night Needs 15/7 slower pace due to severity of debility Hgb 7.2 so ordered iron level and will empirically start Venofer and start midline No pain is reported except head pain. Incontinence when she stood up with therapy today but that is chronic issue. Maddison out 02/17/19. UTI Proteus so started on Rocephin IV BM treatment will be maintained until results today Conferred with RN Reviewed therapy notes Checked meds and labs Review of Systems General: Fatigue, Malaise Gastrointestinal: Constipation Genitourinary: Incontinence Musculoskeletal: neck pain, back pain Objective Exam Vital Signs Vital Signs Date Time Temp Pulse Resp B/P (MAP) Pulse Ox O2 Delivery O2 Flow Rate FiO2 02/11/19 17:37 36.9 63 22 115/73 (87) 99 Room Air Capillary Refill : Less Than 3 Seconds General Appearance: No Apparent Distress, WD/WN, Chronically ill, Obese HEENT: PERRL/EOMI, Normal ENT Inspection, Pharynx Normal Neck: Full Range of Motion, Normal Inspection, Non Tender, Supple, Carotid Bruit Respiratory: Chest Non Tender, Lungs Clear, Normal Breath Sounds, No Accessory Muscle Use, No Respiratory Distress, Decreased Breath Sounds Cardiovascular: Regular Rate, Rhythm, No Edema, No Gallop, No JVD, No Murmur, Normal Peripheral Pulses Gastrointestinal: Normal Bowel Sounds, No Organomegaly, No Pulsatile Mass, Non Tender, Soft Back: Normal Inspection, No CVA Tenderness, No Vertebral Tenderness Extremity: Normal Capillary Refill, Normal Inspection, Normal Range of Motion, Non Tender, No Calf Tenderness, No Pedal Edema Neurologic/Psychiatric: Alert, Oriented x3, metal fabricator helper II-XII Norm as Tested, Abnormal Gait, Depressed Affect, Motor Weakness (lower legs and arms 4/5) Skin: Normal Color, Warm/Dry Lymphatic: No Adenopathy Results/Procedures Lab Patient resulted labs reviewed. FIM Transfers Therapy Code Descriptions/Definitions Functional [place] Measure: 0=Not Assessed/NA 4=Minimal Assistance 1=Total Assistance 5=Supervision or Setup 2=Maximal Assistance 6=Modified [place] 3=Moderate Assistance 7=Complete IndependenceSCALE: Activities may be completed with or without assistive devices. 4-Vblrmshdta-kljdvpi completes the activity by him/herself with no assistance from a helper. 5-Set-up or Clean-up Assistance-helper sets up or cleans up; patient completes activity. [place] assists only prior to or following the activity. 4-Supervision or Touching Assistance-helper provides verbal cues and/or touching/steadying and/or contact guard assistance as patient completes activity. Assistance may be provided throughout the activity or intermittently. 3-Partial/Moderate Assistance-helper does LESS THAN HALF the effort. [place] lifts, holds or supports trunk or limbs, but provides less than half the effort. 2-Substantial/Maximal Assistance-helper does MORE THAN HALF the effort. [place] lifts or holds trunk or limbs and provides more than half the effort. 9-Cbzrcwjft-jadnbj does ALL the effort. Patient does none of the effort to complete the activity. Or, the assistance of 2 or more helpers is required for the patient to complete the activity. If activity was not attempted, code reason: 7-Patient Refused. 9-Not Applicable-not attempted and the patient did not perform the activity before the current illness, exacerbation or injury. 10-Not Attempted due to Environmental Limitations-(lack of equipment, weather restraints, etc.). 88-Not Attempted due to Medical Conditions or Safety Concerns. Roll Left to Right (QC): 2 Sit to Lying (QC): 1 Sit to Stand (QC): 2 Chair/Itf-oy-Jboez Xfer(QC): 2 Car Transfer (QC): 88 Gait Training Does the Patient Walk?: Yes Distance: 8' Walk 10 feet (QC): 88 Walk 50 ft with 2 Turns(QC): 88 Walk 150 ft (QC): 88 Walking 10ft/uneven surface-QC: 88 Gait Assistive Device: Parallel Bars Wheelchair Training Does the Pt Use a Wheelchair?: Yes Wheel 50 ft with 2 turns (QC): 3 Wheel 150 ft (QC): 3 Type of Wheelchair: Manual Stair Training 1 Step (curb) (QC): 88 4 Steps (QC): 88 12 Steps (QC): 88 Balance Picking up an Object (QC): 88 ADL-Treatment Eating (QC): 5 (Assist with opening pop can.) Oral Hygiene (QC): 5 (Pt takes out dentures, [facility] places in denture grave cleaner.) Bathing Location: L Arm, R Arm, L Upper Leg, R Upper Leg, Chest, Abdomen Shower/Bathe Self (QC): 2 (Pt required cues throughout bathing for initiation of tasks and thoroughness. ) Upper Body Dressing (QC): 4 (min A/ intermittent assist for gown donning) Lower Body Dressing (QC): 2 (assist for threading BLE and donning.) On/Off Footwear (QC): 3 (mod A with use of sock aide due to poor coordination/ initiation of use of L hand for bimanual tasks.) Toileting Hygiene (QC): 1 (TD during bottom hygiene) Toilet Transfer (QC): 2 (Max A- squat pivot to bed side commode per pt/ nursing.) Assessment/Plan Assessment and Plan Assess & Plan/Chief Complaint Assessment: s/p craniotomy at [facility] Meningioma s/p resection Severe debility needs aggressive therapies HTN Anemia iron def ordered Venofer Constipation GRADY? Plan: Monitor closely Venofer Pain control Slow recovery so 01/09 IRF BM regimen (1) S/P craniotomy (2) Hypertension (3) Obesity (4) Constipation (5) History of hip replacement, total (6) Headache (7) Seizure prophylaxis EVIE SAPP DO Feb 11, 2019 13:27
[2019-02-11] MEDS: CATHETER FLUSH 10 ML SYR IV SCH ×2 (14:13→21:19)
[2019-02-11] MEDS: ACETAMINOPHEN 325 MG TABLET PO PRN ×2 (17:20→21:23)
[2019-02-11 17:37] VITALS: BP 115/73
--- NOTE | 2019-02-11 19:00 | NUR ---
LEFT ARM REMAINS WEAK. DAUGHTER, OLGA, STATES [facility] DOCTOR SAID LEFT ARM WEAKNESS WOULD PROBABLY WORSEN BEFORE IT IMPROVED. PATIENT CAN WEAKLY FACTORY WORKER NURSE'S HAND.
[2019-02-11] MEDS: MELATONIN 3 MG TABLET PO PRN (21:22)
[2019-02-12 05:13] VITALS: BP 112/59
[2019-02-12] MEDS: FERROUS SULF 325 MG (IRON) TAB PO SCH ×2 (06:33→17:38)
[2019-02-12] MEDS: CATHETER FLUSH 10 ML SYR IV SCH ×3 (06:33→21:32)
[2019-02-12 09:22] VITALS: BP 99/60
[2019-02-12] MEDS: DEXAMETHASONE 4 MG TAB (DECADRON) PO SCH ×2 (09:23→20:37)
[2019-02-12] MEDS: VITAMIN D3 400 UNITS (CHOLECALCIFEROL) TABLET PO SCH (09:23)
[2019-02-12] MEDS: IRON SUCROSE 200 MG/10 ML (VENOFER) VIAL IV SCH (09:23)
[2019-02-12] MEDS: OMEGA 3 (FISH OIL) 1000 MG CAP PO SCH (09:23)
[2019-02-12] MEDS: LOSARTAN 100 MG (COZAAR) TABLET PO SCH ×2 (09:24→09:32)
[2019-02-12] MEDS: LEVETIRACETAM 500 MG (KEPPRA) TAB PO SCH ×2 (09:24→20:37)
[2019-02-12] MEDS: meTOprolol TARTRATE 25 MG (LOPRESSOR) TABLET PO SCH ×3 (09:24→20:37)
--- NOTE | 2019-02-12 09:24 | Occupational Ther Daily Note ---
OT Current Status-Daily Note Subjective Pt seen in bed, denies current pain. Pt states slept well, but typically does not awake until 9am. Pt states she is drowsy, agreeable to OT/ PT co-treat. Co- treat necessary due to pt's limited functional mobility, decreased balance and safety, and overall complexity. OT addresses ADL functions and UE movement as PT works on functional transfers, LE, and balance. Mental Status/Objective Patient Orientation: Person, Place, Situation ADL-Treatment Therapy Code Descriptions/Definitions Functional [place] Measure: 0=Not Assessed/NA 4=Minimal Assistance 1=Total Assistance 5=Supervision or Setup 2=Maximal Assistance 6=Modified [place] 3=Moderate Assistance 7=Complete IndependenceSCALE: Activities may be completed with or without assistive devices. 5-Ckzuohpbkw-htsyoha completes the activity by him/herself with no assistance from a helper. 5-Set-up or Clean-up Assistance-helper sets up or cleans up; patient completes activity. [place] assists only prior to or following the activity. 4-Supervision or Touching Assistance-helper provides verbal cues and/or touching/steadying and/or contact guard assistance as patient completes activity. Assistance may be provided throughout the activity or intermittently. 3-Partial/Moderate Assistance-helper does LESS THAN HALF the effort. [place] lifts, holds or supports trunk or limbs, but provides less than half the effort. 2-Substantial/Maximal Assistance-helper does MORE THAN HALF the effort. [place] lifts or holds trunk or limbs and provides more than half the effort. 1-Fituuptqr-qhjhrl does ALL the effort. Patient does none of the effort to complete the activity. Or, the assistance of 2 or more helpers is required for the patient to complete the activity. If activity was not attempted, code reason: 7-Patient Refused. 9-Not Applicable-not attempted and the patient did not perform the activity before the current illness, exacerbation or injury. 10-Not Attempted due to Environmental Limitations-(lack of equipment, weather restraints, etc.). 88-Not Attempted due to Medical Conditions or Safety Concerns. Eating (QC): 6 Oral Hygiene (QC): 5 (s/u - difficulty managing fine motor coorsdination to open container.) Bathing Location: L Arm, R Arm, L Upper Leg, R Upper Leg, Chest, Abdomen, Pe rineal Area Shower/Bathe Self (QC): 3 Upper Body Dressing (QC): 4 (intermittent assist to adjust.) Lower Body Dressing (QC): 3 (Pt threads BLE into brief and pants utilizing nut cracker, pt requires mod A to pull to knees, pt able to adjust R side, requires assist to pull up in back and L side.) On/Off Footwear: 3 (Assist with TEX hose and socks on this date.) Toileting Hygiene (QC): 2 (max A in stance.) Other Treatment Pt completes sponge bath EOB, requires CGA-min A to right self. Pt completes bathing/ showering and sit to stands with min A. Pt utilizes FWW to stand-pivot to w/c. Pt addresses w/c mobility with mod A, cues for use of RLE/ RUE. Pt goes to gym and completes standing/ walking at parallel bars with phys/ verbal cues for LUE movement. Pt completes 5 reps of full AROM of LUE and PROM. Pt completes hand squeezes and extends fingers to full range. Pt stand pivots to EOM, co mpletes seated balance tasks while reaching in different planes/ across midline. Completes with min A-SUP for balance task. Pt expresses fatigue, requires tactile cues for LUE placement. Pt returns to recliner chair, positioned for comfort and LUE positioned for edema management, pt educated on hand-squeezes with sponge and continuation of exercise. Pt agrees, left in room with call light in reach, all needs met. Education OT Patient Education: Correct positioning, Energy conservation, Exercise program, Home exercise program, Modified ADL techniques, Purpose of tx/functional activities, Safety issues, Transfer techniques, Use of adapted equipment Teaching Recipient: Patient Teaching Methods: Demonstration, Discussion Response to Teaching: Verbalize Understanding, Return Demonstration, Reinforcement Needed OT Senior Care Goals Petal Cutter Goals Time Frame: Feb 23, 2019 Eating (QC): 6 (met) Oral Hygiene (QC): 6 Toileting Hygiene (QC): 6 Shower/Bathe Self (QC): 6 Upper Body Dressing (QC): 6 Lower Body Dressing (QC): 6 On/Off Footwear (QC): 6 Additional Goals: 1-Demonstrate ADL Tasks, 2-Verbalize Understanding, 3- ImproveStrength/Scout 1=Demonstrate adherence to instructed precautions during ADL tasks. 2=Patient will verbalize/demonstrate understanding of assistive devices/modifications for ADL. 3=Patient will improve strength/tolerance for activity to enable patient to perform ADL's. OT Education/Plan Problem List/Assessment Assessment: Decreased Activ Tolerance, Decreased UE Strength, Dependent Transfers, Edema, Impaired Bed Mobility, Impaired Coordination, Impaired Funct Balance, Impaired I ADL's, Impaired Self-Care Skills Discharge Recommendations Plan/Recommendations: Continue POC Treatment Plan/Plan of Care Treatment,Training & Education: Yes Patient would benefit from OT for education, treatment and training to promote independence in ADL's, mobility, safety and/or upper extremity function for ADL's. Plan of Care: ADL Retraining, Caregiver Training, Concurrent Therapy, Functional Mobility, Group Exercise/Act as Ind, UE Funct Exercise/Act, UE Neuromus Re-Ed/Coord Treatment Duration: Feb 23, 2019 Frequency: At least 5 of 7 days/Wk (IRF) Estimated Hrs Per Day: 1.5 hours per day Agreement: Yes Rehab Potential: Good Time/GCodes Start Time: 08:00 Stop Time: 09:15 Total Time Billed (hr/min): 75 Billed Treatment Time 1, ADL 2, EX 3 (75) ALEIDA DIAZ OTR Feb 12, 2019 09:24
[2019-02-12] MEDS: DOCUSATE SODIUM 100 MG (COLACE) CAP PO SCH ×2 (09:26→20:38)
[2019-02-12] MEDS: POLYETHYLENE GLYCOL 17 GM (MIRALAX) PACK PO SCH ×2 (09:26→20:44)
[2019-02-12] MEDS: SENNA W/DOCUSATE (SENOKOT S) TABLET PO SCH ×2 (09:26→20:38)
--- NOTE | 2019-02-12 09:26 | Physical Therapy Daily Note ---
PT Daily Note-Current Subjective Patient in bed pre tx, agrees to PT, has no complaints of pain, will be co- treating with OT due to poor patient mobility, strength, endurance, sitting and standing balance, the need to coordinate UE and LE during activity. Patient needs bathed and dressed. Appearance Patient in recliner post tx with nurse call, phone, tray, all needs met, legs elevated. Mental Status Patient Orientation: Person, Place, Situation Transfers SCALE: Activities may be completed with or without assistive devices. 7-Olxolsodib-lqiubqp completes the activity by him/herself with no assistance from a helper. 5-Set-up or Clean-up Assistance-helper sets up or cleans up; patient completes activity. [place] assists only prior to or following the activity. 4-Supervision or Touching Assistance-helper provides verbal cues and/or touching/steadying and/or contact guard assistance as patient completes activity. Assistance may be provided throughout the activity or intermittently. 3-Partial/Moderate Assistance-helper does LESS THAN HALF the effort. [place] lifts, holds or supports trunk or limbs, but provides less than half the effort. 2-Substantial/Maximal Assistance-helper does MORE THAN HALF the effort. [place] lifts or holds trunk or limbs and provides more than half the effort. 6-Nmzvqsdyh-rpjrkm does ALL the effort. Patient does none of the effort to complete the activity. Or, the assistance of 2 or more helpers is required for the patient to complete the activity. If activity was not attempted, code reason: 7-Patient Refused. 9-Not Applicable-not attempted and the patient did not perform the activity before the current illness, exacerbation or injury. 10-Not Attempted due to Environmental Limitations-(lack of equipment, weather restraints, etc.). 88-Not Attempted due to Medical Conditions or Safety Concerns. Roll Left & Right (QC): 2 Lying to Sitting/Side of Bed(Q: 3 Sit to Stand (QC): 3 Chair/Xak-to-Mwakn Xfer(QC): 3 stand pivot CGA to the right but mod assist to the left. Slow movement, needs cues for hand placement and positioning. Gait Training Distance: 8'x2 Gait Assistive Device: Parallel Bars mod assist, better advancement of left leg, leaves left arm behind (OT works with LUE placement during ambulation in parallel bars) Wheelchair Training Does the Pt Use a Wheelchair?: Yes Wheel 150 ft (QC): 3 Type of Wheelchair: Manual mod assist, is resistant to using her right leg to propel and steer Exercises sitting balance activity reaching and placing cones Treatments bathing, dressing, bed mobility and transfers, ambulation, WC mobility, balance training Assessment Current Status: Fair Progress improving ambulation, will move on to rolling walker tomorrow PT Short Term Goals Short Term Goals Time Frame: Feb 17, 2019 Sit to lyin Lying to sitting on side of be: 3 Sit to stand: 3 Walk 50 feet with two turns: 4 PT Half-Way Goals Home Appliances Mechanic Goals PT Half-Way Goals Time Frame: Mar 03, 2019 Roll Left & Right (QC): 6 Sit to Lying (QC): 6 Lying-Sitting on Side/Bed(QC): 6 Sit to Stand (QC): 6 Chair/Zzu-ji-Mzelp Xfer(QC): 6 Toilet Transfer (QC): 6 Car Transfer (QC): 6 Does the Patient Walk: Yes Walk 10 feet (QC): 6 Walk 50ft with 2 Turns (QC): 6 Walk 150 ft (QC): 6 Walking 10ft on Uneven Surface: 5 1 Step (curb) (QC): 6 4 Steps (QC): 6 12 Steps (QC): 9 Picking up an Object (QC): 9 Does the Pt use WC or Scooter?: No PT Plan Problem List Problem List: Activity Tolerance, Functional Strength, Safety, Balance, Gait, Transfer, Bed Mobility, ROM Treatment/Plan Treatment Plan: Continue Plan of Care Treatment Plan: Bed Mobility, Education, Functional Activity Scout, Functional Strength, Group Therapy, Gait, Safety, Therapeutic Exercise, Transfers Treatment Duration: Mar 03, 2019 Frequency: Modified Program (IRF) Estimated Hrs Per Day: 1.5 hours per day Patient and/or Family Agrees t: Yes Safety Risks/Education Patient Education: Gait Training, Transfer Techniques, Correct Positioning, W/C Management, Safety Issues Teaching Recipient: Patient Teaching Methods: Demonstration, Discussion Response to Teaching: Reinforcement Needed Time/GCodes Time In: 0800 Time Out: 0915 Total Billed Treatment Time: 75 Total Billed Treatment 1 visit EX 15' FA 60' ALEIDA PAZ PT Feb 12, 2019 09:26
--- NOTE | 2019-02-12 10:00 | NUR ---
Dr. Vera notified of decreased B/P. b/p meds held.
--- NOTE | 2019-02-12 11:07 | PM&R Progress Note ---
Subjective HPI/CC On Admission Date Seen by Provider: Feb 12, 2019 Time Seen by Provider: 09:15 Subjective/Events-last exam Patient sleeps well at night Needs 15/7 slower pace due to severity of debility Hgb 7.2 so ordered iron level and will empirically started Venofer and started midline, iron level XLVI No pain is reported except head pain. Incontinence when she stood up with therapy today but that is chronic issue. [place] out 02/17/19. UTI Proteus so started on Rocephin IV BM treatment will be maintained had BM last night Conferred with RN Reviewed therapy notes Checked meds and labs Review of Systems General: Fatigue, Malaise Neurological: Weakness, Numbness, Incoordination Objective Exam Vital Signs Vital Signs Date Time Temp Pulse Resp B/P (MAP) Pulse Ox O2 Delivery O2 Flow Rate FiO2 02/12/19 09:22 70 20 99/60 (73) 99 Room Air 02/12/19 05:13 36.3 Capillary Refill : Less Than 3 Seconds General Appearance: No Apparent Distress, WD/WN, Chronically ill, Obese HEENT: PERRL/EOMI, Normal ENT Inspection, Pharynx Normal Neck: Full Range of Motion, Normal Inspection, Non Tender, Supple, Carotid Bruit Respiratory: Chest Non Tender, Lungs Clear, Normal Breath Sounds, No Accessory Muscle Use, No Respiratory Distress, Decreased Breath Sounds Cardiovascular: Regular Rate, Rhythm, No Edema, No Gallop, No JVD, No Murmur, Normal Peripheral Pulses Gastrointestinal: Normal Bowel Sounds, No Organomegaly, No Pulsatile Mass, Non Tender, Soft Back: Normal Inspection, No CVA Tenderness, No Vertebral Tenderness Extremity: Normal Capillary Refill, Normal Inspection, Normal Range of Motion, Non Tender, No Calf Tenderness, No Pedal Edema Neurologic/Psychiatric: Alert, Oriented x3, microelectronics assembler II-XII Norm as Tested, Abnormal Gait, Depressed Affect, Motor Weakness (lower legs and arms 4/5) Skin: Normal Color, Warm/Dry Lymphatic: No Adenopathy Results/Procedures Lab Patient resulted labs reviewed. FIM Transfers Therapy Code Descriptions/Definitions Functional [place] Measure: 0=Not Assessed/NA 4=Minimal Assistance 1=Total Assistance 5=Supervision or Setup 2=Maximal Assistance 6=Modified [place] 3=Moderate Assistance 7=Complete IndependenceSCALE: Activities may be completed with or without assistive devices. 1-Canhpkdygm-gajidgu completes the activity by him/herself with no assistance from a helper. 5-Set-up or Clean-up Assistance-helper sets up or cleans up; patient completes activity. [place] assists only prior to or following the activity. 4-Supervision or Touching Assistance-helper provides verbal cues and/or touching/steadying and/or contact guard assistance as patient completes activity. Assistance may be provided throughout the activity or intermittently. 3-Partial/Moderate Assistance-helper does LESS THAN HALF the effort. [place] lifts, holds or supports trunk or limbs, but provides less than half the effort. 2-Substantial/Maximal Assistance-helper does MORE THAN HALF the effort. [place] lifts or holds trunk or limbs and provides more than half the effort. 0-Icrbbukpv-srmmbq does ALL the effort. Patient does none of the effort to complete the activity. Or, the assistance of 2 or more helpers is required for the patient to complete the activity. If activity was not attempted, code reason: 7-Patient Refused. 9-Not Applicable-not attempted and the patient did not perform the activity be fore the current illness, exacerbation or injury. 10-Not Attempted due to Environmental Limitations-(lack of equipment, weather restraints, etc.). 88-Not Attempted due to Medical Conditions or Safety Concerns. Roll Left to Right (QC): 2 Sit to Lying (QC): 1 Sit to Stand (QC): 3 Chair/Usj-cb-Grurm Xfer(QC): 3 Car Transfer (QC): 88 Gait Training Does the Patient Walk?: Yes Distance: 8'x2 Walk 10 feet (QC): 88 Walk 50 ft with 2 Turns(QC): 88 Walk 150 ft (QC): 88 Walking 10ft/uneven surface-QC: 88 Gait Assistive Device: Parallel Bars Wheelchair Training Does the Pt Use a Wheelchair?: Yes Wheel 50 ft with 2 turns (QC): 3 Wheel 150 ft (QC): 3 Type of Wheelchair: Manual Stair Training 1 Step (curb) (QC): 88 4 Steps (QC): 88 12 Steps (QC): 88 Balance Picking up an Object (QC): 88 ADL-Treatment Eating (QC): 6 Oral Hygiene (QC): 5 (s/u - difficulty managing fine motor coorsdination to open container.) Bathing Location: L Arm, R Arm, L Upper Leg, R Upper Leg, Chest, Abdomen, Perineal Area Shower/Bathe Self (QC): 3 Upper Body Dressing (QC): 4 (intermittent assist to adjust.) Lower Body Dressing (QC): 3 (Pt threads BLE into brief and pants utilizing overnight houseperson, pt requires mod A to pull to knees, pt able to adjust R side, requires assist to pull up in back and L side.) On/Off Footwear (QC): 3 (Assist with TEX hose and socks on this date.) Toileting Hygiene (QC): 2 (max A in stance.) Toilet Transfer (QC): 2 (Max A- squat pivot to bed side commode per pt/ nursing.) Assessment/Plan Assessment and Plan Assess & Plan/Chief Complaint Assessment: s/p craniotomy at [facility] Meningioma s/p resection Severe debility needs aggressive therapies HTN Anemia iron def ordered Venofer Constipation GRADY? UTI with Proteus empirically placed on Rocephin after midline started Plan: Monitor closely Venofer Pain control Slow recovery so 01/09 IRF BM regimen to maintain Rocephin until urine culture final (1) S/P craniotomy (2) Hypertension (3) Obesity (4) Constipation (5) History of hip replacement, total (6) Headache (7) Seizure prophylaxis EVIE SAPP DO Feb 12, 2019 11:07
--- NOTE | 2019-02-12 11:24 | Speech Therapy Daily Note ---
Speech Daily Progress Note Subjective Date Seen by Provider: Feb 12, 2019 Time Seen by Provider: 00:30 Patient stated she was sleepy. Daughter was present when I entered her room. Objective Patient completed a series of general information memory tasks with 85% given 20% cues. Assessment Assessment Current Status: Good Progress Treatment Plan Continue Plan of Care Speech Short Term Goals Short Term Goals Short Term Goals 1) Patient will complete memory tasks related to her daily needs with 90% or greater with minimal cues. 2) Patient will complete safety awareness tasks related to her daily needs with 90% or greater with minimal cues. 3) Patient will complete problem solving tasks related to her daily needs with 90% or greater with minimal cues. Speech Bedspread Cutter Hand Goals Bedspread Cutter Hand Goals Patient will improve cognitive-communication necessary for safety and daily living tasks with minimal assist. Speech-Plan Patient/Family Goals Patient/Family Goals: Patient plans on returning to her home with family assistance. Treatment Plan Speech Therapy Treatment Plan: Continue Plan of Care Patient is progressing well. 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 Pt/Family Agrees to Plan: Yes Safety Risks/Education Teaching Recipient: Patient, Family Teaching Methods: Demonstration, Discussion Response to Teaching: Verbalize Understanding, Return Demonstration Education Topics Provided: Continued safety within her room Time Speech Therapy Time In: 10:00 Speech Therapy Time Out: 10:30 Total Billed Time: 30 Billed Treatment Time 1MEHNAZFERDINAND MOYAMIHAI VIVEROS Feb 12, 2019 11:24
[2019-02-12] MEDS: cefTRIAXone FOR IV USE 1,000 MG in WATER (STERILE) FOR INJECTION 10 ML IV SCH (11:39)
--- NOTE | 2019-02-12 12:30 | NUR ---
Weekly Team Conference Weekly team conference was held on 02/10/19, due to holiday. Discussed weekly team conference with patient today. Reviewed findings and team's recommendation that patient be reevaluated at next team conference on 02/17/19. Patient is in agreement with this plan and states she "is not ready to go home." Patient states she is happy to be back in [place]. Patient has no further questions or concerns at this time. Continue with plan of care.
[2019-02-12 15:58] VITALS: BP 123/68
--- NOTE | 2019-02-12 16:16 | NUR ---
RD ASSESSMENT PMHx: craniotomy (01/2019); hypercholesterolemia; HTN; chronic constipation PT INTERACTION: Pt was awake and pleasant during nutrition assessment. Pt states current appetite is pretty good and has been for some time. Note avg PO intake of 79% x3d, per chart review. Pt states following a "low-salt" diet at home, and has no issues with chewing/swallowing food. Pt states no recent issues with n/v/c/d at this time. Note last BM was 02/11 and pt currently on bowel regimen of colace BID; miralax BID; and senna BID, per chart review. Pt states no recent wt changes. Note unable to determine recent wt hx, per chart review. ABNORMAL NUTRITION-RELATED LAB VALUES TAKEN ON 02/10 LOW: Ca 8.3; Pro 5.1; alb 3.1 HIGH: BUN 37; glu 147 Est. kcal needs: 2454-5283 kcal | 25-30 kcal/kg IBW Est. Pro needs: 57-67 g Pro | 1.2-1.4 g Pro/kg IBW PES STATEMENT: Given pt's PO intake, no nutrition diagnosis at this time (NO-1.1) INTERVENTION: Continue with current diet order of Regular diet. Will continue to follow and reassess as pt needs and status change. MONITOR/EVALUATE: PO Intake; Plan of Care; Hydration Status; Weight Status; Lab Values Alayna Ramires, MS, RD, LD
[2019-02-12] MEDS: ACETAMINOPHEN 325 MG TABLET PO PRN (20:37)
[2019-02-12 20:40] VITALS: BP 123/70
[2019-02-12] MEDS: MELATONIN 3 MG TABLET PO PRN (21:30)
[2019-02-13 05:01] VITALS: BP 123/63
[2019-02-13] MEDS: FERROUS SULF 325 MG (IRON) TAB PO SCH ×2 (06:03→18:36)
[2019-02-13] MEDS: CATHETER FLUSH 10 ML SYR IV SCH ×3 (06:03→22:06)
[2019-02-13] MEDS: POLYETHYLENE GLYCOL 17 GM (MIRALAX) PACK PO SCH ×2 (08:45→21:00)
--- NOTE | 2019-02-13 09:00 | Physical Therapy Daily Note ---
PT Daily Note-Current Subjective Patient in bed pre tx, agrees to PT, has no complaints of pain, needs to get dressed and use the commode. Will be co-treating with OT due to poor patient mobility, strength, standing and sitting balance, the need to coordinate UE and LE during activity. Appearance Patient in recliner post tx with nurse call, phone, tray, legs elevated. Mental Status Patient Orientation: Person, Place, Situation Transfers SCALE: Activities may be completed with or without assistive devices. 4-Getarizjoy-cyqrbcv completes the activity by him/herself with no assistance from a helper. 5-Set-up or Clean-up Assistance-helper sets up or cleans up; patient completes activity. [place] assists only prior to or following the activity. 4-Supervision or Touching Assistance-helper provides verbal cues and/or touching/steadying and/or contact guard assistance as patient completes a ctivity. Assistance may be provided throughout the activity or intermittently. 3-Partial/Moderate Assistance-helper does LESS THAN HALF the effort. [place] lifts, holds or supports trunk or limbs, but provides less than half the effort. 2-Substantial/Maximal Assistance-helper does MORE THAN HALF the effort. [place] lifts or holds trunk or limbs and provides more than half the effort. 6-Kflehvvrr-aiqmpv does ALL the effort. Patient does none of the effort to complete the activity. Or, the assistance of 2 or more helpers is required for the patient to complete the activity. If activity was not attempted, code reason: 7-Patient Refused. 9-Not Applicable-not attempted and the patient did not perform the activity before the current illness, exacerbation or injury. 10-Not Attempted due to Environmental Limitations-(lack of equipment, weather restraints, etc.). 88-Not Attempted due to Medical Conditions or Safety Concerns. Roll Left & Right (QC): 3 Lying to Sitting/Side of Bed(Q: 3 Sit to Stand (QC): 3 Chair/Zdv-sy-Bttfs Xfer(QC): 3 Toilet Transfer (QC): 3 Patient transfers to commode from bed with min assist, needs assist with pants and wiping (OT provides this). Gait Training Distance: 20'x3 Walk 10 feet (QC): 3 Gait Assistive Device: FWW Patient ambulates slowly, leans to the left, needs assist with balance and guiding the walker, occasional cues for step through on the left side. Wheelchair Training Does the Pt Use a Wheelchair?: Yes Wheel 50 ft with 2 turns (QC): 3 Type of Wheelchair: Manual mod assist Exercises standing balance activity with reaching and placing rings Treatments toileting, dressing, ambulation, WC mobility, balance training Assessment Current Status: Fair Progress improved ambulation PT Short Term Goals Short Term Goals Time Frame: Feb 17, 2019 Sit to lyin Lying to sitting on side of be: 3 Sit to stand: 3 Walk 50 feet with two turns: 4 PT Cooker Chip Goals Senior Care Goals PT Senior Care Goals Time Frame: Mar 03, 2019 Roll Left & Right (QC): 6 Sit to Lying (QC): 6 Lying-Sitting on Side/Bed(QC): 6 Sit to Stand (QC): 6 Chair/Cno-uo-Flzot Xfer(QC): 6 Toilet Transfer (QC): 6 Car Transfer (QC): 6 Does the Patient Walk: Yes Walk 10 feet (QC): 6 Walk 50ft with 2 Turns (QC): 6 Walk 150 ft (QC): 6 Walking 10ft on Uneven Surface: 5 1 Step (curb) (QC): 6 4 Steps (QC): 6 12 Steps (QC): 9 Picking up an Object (QC): 9 Does the Pt use WC or Scooter?: No PT Plan Problem List Problem List: Activity Tolerance, Functional Strength, Safety, Balance, Gait, Transfer, Bed Mobility, ROM Treatment/Plan Treatment Plan: Continue Plan of Care Treatment Plan: Bed Mobility, Education, Functional Activity Scout, Functional Strength, Group Therapy, Gait, Safety, Therapeutic Exercise, Transfers Treatment Duration: Mar 03, 2019 Frequency: Modified Program (IRF) Estimated Hrs Per Day: 1.5 hours per day Patient and/or Family Agrees t: Yes Safety Risks/Education Patient Education: Gait Training, Transfer Techniques, Correct Positioning, W/C Management, Safety Issues Teaching Recipient: Patient Teaching Methods: Demonstration, Discussion Response to Teaching: Reinforcement Needed Time/GCodes Time In: 800 Time Out: 900 Total Billed Treatment Time: 60 Total Billed Treatment [address] [facility] 10' GT 20' FA 30' Co-treated with OT for 60 min. PT worked on bed mobility and transfers, ambulation, standing balance during dressing and ring activity, WC mobility, OT worked on dressing, toileting, balance activity, assist with transfers and ambulation. ALEIDA PAZ PT Feb 13, 2019 09:00
--- NOTE | 2019-02-13 09:02 | Occupational Ther Daily Note ---
OT Current Status-Daily Note Subjective Pt seen supine in bed, pt states no pain. Pt agreeable to OT/ PT co-treat. Co- treat rendered due to pt's functional mobility and working on higher level functional balance tasks on this date. OT worked on UE strength, range and ADLs, while PT managed transfers, bed mob, and balance. Mental Status/Objective Patient Orientation: Normal For Age ADL-Treatment Therapy Code Descriptions/Definitions Functional [place] Measure: 0=Not Assessed/NA 4=Minimal Assistance 1=Total Assistance 5=Supervision or Setup 2=Maximal Assistance 6=Modified [place] 3=Moderate Assistance 7=Complete IndependenceSCALE: Activities may be completed with or without assistive devices. 4-Zbqcudhlqk-byqnpwe completes the activity by him/herself with no assistance from a helper. 5-Set-up or Clean-up Assistance-helper sets up or cleans up; patient completes activity. [place] assists only prior to or following the activity. 4-Supervision or Touching Assistance-helper provides verbal cues and/or touching/steadying and/or contact guard assistance as patient completes act ivity. Assistance may be provided throughout the activity or intermittently. 3-Partial/Moderate Assistance-helper does LESS THAN HALF the effort. [place] lifts, holds or supports trunk or limbs, but provides less than half the effort. 2-Substantial/Maximal Assistance-helper does MORE THAN HALF the effort. [place] lifts or holds trunk or limbs and provides more than half the effort. 6-Rtzufzfvj-tkqbvq does ALL the effort. Patient does none of the effort to complete the activity. Or, the assistance of 2 or more helpers is required for the patient to complete the activity. If activity was not attempted, code reason: 7-Patient Refused. 9-Not Applicable-not attempted and the patient did not perform the activity before the current illness, exacerbation or injury. 10-Not Attempted due to Environmental Limitations-(lack of equipment, weather restraints, etc.). 88-Not Attempted due to Medical Conditions or Safety Concerns. Eating (QC): 6 Oral Hygiene (QC): 7 Upper Body Dressing (QC): 7 Lower Body Dressing (QC): 3 (min A for LUE use during pulling up and CGA throughout pulling over hips. Pt utilized LUE with more spontaneous use on this date.) Toileting Hygiene (QC): 3 (CGA and min A for urination hygiene) Toilet Transfer (QC): 4 (CGA-min A) Other Treatment Pt completes pant donning without AE on this date EOB with CGA during. Pt sit to stand with FWW with CGA, stand pivot to commode. Completes and transfers to w/c, w/c mobility with max cues for utilization and safety of LUE. Pt does not maintain use and requires rest on arm rest. Pt completes w/c mob with mod A; walks with PT with w/c to follow with cues for posture (leaning to L side) and cues for larger steps with LLE. Pt completes 3 rounds of walking, fewer cues throughout. Pt stands at FWW and completes standing balance task while utilizing BUE one at a time to reach in multiple planes. Pt completes with CGA, sits and completes shoulder hikes with tactile cues for L shoulder raises. Pt states "upstairs" is tired, pointing to head. Pt returns to chair with FWW use, positioned for comfort. Decreased LUE edema noted. Pt's UE still positioned for edema management. Pt left with call light in reach, all needs met. Education OT Patient Education: Correct positioning, Exercise program, Purpose of tx/functional activities, Transfer techniques, W/C management Teaching Recipient: Patient Teaching Methods: Demonstration, Discussion, Audiovisual OT Alf Goals [employer] Planner Goals Time Frame: Feb 23, 2019 Eating (QC): 6 (met) Oral Hygiene (QC): 6 Toileting Hygiene (QC): 6 Shower/Bathe Self (QC): 6 Upper Body Dressing (QC): 6 Lower Body Dressing (QC): 6 On/Off Footwear (QC): 6 Additional Goals: 1-Demonstrate ADL Tasks, 2-Verbalize Understanding, 3-ImproveStrength/Scout 1=Demonstrate adherence to instructed precautions during ADL tasks. 2=Patient will verbalize/demonstrate understanding of assistive devices/modifications for ADL. 3=Patient will improve strength/tolerance for activity to enable patient to per form ADL's. OT Education/Plan Problem List/Assessment Assessment: Decreased Activ Tolerance, Decreased UE Strength, Dependent Transfers, Impaired Bed Mobility, Impaired Coordination, Impaired Funct Balance, Impaired I ADL's, Impaired Self-Care Skills Discharge Recommendations Plan/Recommendations: Continue POC Treatment Plan/Plan of Care Treatment,Training & Education: Yes Patient would benefit from OT for education, treatment and training to promote independence in ADL's, mobility, safety and/or upper extremity function for ADL's. Plan of Care: ADL Retraining, Caregiver Training, Concurrent Therapy, Functional Mobility, Group Exercise/Act as Ind, UE Funct Exercise/Act, UE Neuromus Re-Ed/Coord Treatment Duration: Feb 23, 2019 Frequency: At least 5 of 7 days/Wk (IRF) Estimated Hrs Per Day: 1.5 hours per day Agreement: Yes Rehab Potential: Good Time/GCodes Start Time: 08:00 Stop Time: 09:00 Total Time Billed (hr/min): 60 Billed Treatment Time 1, ADL (15), EX 3 (45)= 60 ALEIDA DIAZ OTR Feb 13, 2019 09:02
--- NOTE | 2019-02-13 09:37 | Consultation ---
History of Present Illness History of Present Illness Patient Consulted On(uriel/time) 02/13/19 09:37 Date Seen by Provider: Feb 13, 2019 Time Seen by Provider: 09:30 Reason for Visit: BRAIN TUMOR POST-OPERATIVE REHAB History of Present Illness PT IS A 73 Y/O FEMALE WHO IS WELL KNOWN TO ME FROM CLINIC. 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 SHE WAS KEPT AT FOR A SHORT TIME POST-OPERATIVELY AND WAS THEN TRANSFERRED TO INPATIENT REHAB FOR FURTHER RECOVERY, STRENGTHENING AND CLOSE MONITORING POST-OPERATIVELY. Allergies and Home Medications Allergies Coded Allergies: Penicillins (Unverified Allergy, Unknown, SWELLED UP, pt has received Rocephin in the past, 02/13/19) Home Medications Acetaminophen 325 Mg Tablet, 650 MG PO Q4H PRN for PAIN-MILD (1-4), (Reported) TAKE 2 (325MG) TABS Atorvastatin Calcium 20 Mg Tablet, 20 MG PO HS, (Reported) Ferrous Sulfate 325 Mg Tablet, 325 MG PO BID, (Reported) TAKE AT LEAST 1 HOUR BEFORE OR 2 HOURS AFTER FOOD Losartan Potassium 100 Mg Tablet, 100 MG PO DAILY, (Reported) Metoprolol Tartrate 25 Mg Tablet, 25 MG PO BID, (Reported) Vit A/C/E/Zinc/Co 1 Cap Capsule, 1 CAP PO DAILY, (Reported) Patient Home Medication List Home Medication List Reviewed: Yes Past Iebhryo-Zeumws-Dsvfgq Hx Past Med/Social Hx: Reviewed Nursing Past Med/Soc Hx, Reviewed and Corrections made Patient Social History Alcohol Use: Denies Use Recreational Drug Use: No Smoking Status: Never a Smoker 2nd Hand Smoke Exposure: No Recent Foreign Travel: No Contact w/Someone Who Travel: No Recent Infectious Disease Expo: No Recent Hopitalizations: Yes ([facility]) Immunizations Up To Date Tetanus Booster (TDap): Unknown Date of Pneumonia Vaccine: Nov 25, 2012 Date of Influenza Vaccine: Dec 10, 2018 Seasonal Allergies Seasonal Allergies: Yes Past Medical History Surgeries: Yes Neurological, Orthopedic Respiratory: No Cardiac: Yes High Cholesterol, Hypertension Neurological: Yes Brain Tumor : No Reproductive Disorders: No Female Reproductive Disorders: Denies Sexually Transmitted Disease: No HIV/AIDS: No Genitourinary: Yes (Stage 3 Chronic Kidney Dx) Bladder Infection Gastrointestinal: Yes Chronic Constipation Musculoskeletal: Yes (DJD BILAT KNEES) Arthritis Endocrine: No HEENT: Yes Cataract Loss of Vision: Denies Cancer: No Psychosocial: No Integumentary: No Blood Disorders: No Adverse Reaction/Blood Tranf: No Family Medical History Reviewed Nursing Family Hx Cancer 09 SISTER (breast ca) Congestive heart failure 03 MOTHER Family history: Breast disease 09 SISTER Family history: Hypertension 03 FATHER 03 MOTHER 09 SISTER Heart Disease, Cancer, Hypertension Review of Systems-General Constitutional: dizziness (MILD), malaise, weakness EENTM: hearing loss, other (NO THROAT PAIN, DYSPHAGIA) Respiratory: other (NO COUGH, SHORTNESS OF BREATH, DYSPNEA ON EXERTION) Cardiovascular: other (NO CHEST PAIN, PALPITATIONS) Genitourinary: no symptoms reported Musculoskeletal: back pain, muscle weakness Skin: other (SURGICAL SITE RIGHT SCALP WITH MONIQUE IN PLACE) Psychiatric/Neurological: Anxiety, Weakness All Other Systems Reviewed Negative Unless Noted: Yes Physical Exam-General Problems Physical Exam Vital Signs Vital Signs - First Documented 02/09/19 15:30 Temp 36.8 Pulse 59 Resp 16 B/P (MAP) 162/78 (106) Pulse Ox 95 O2 Delivery Room Air Capillary Refill : Less Than 3 Seconds General Appearance: WD/WN, no apparent distress HEENT: pharynx normal, other (SLIGHT LEFT SIDED FACIAL DROOP, SURGICAL SITE WITH MONIQUE AND BLOOD ON SCALP ON RIGHT BEHIND RIGH TEAR) Neck: non-tender, supple, normal inspection Respiratory: chest non-tender, lungs clear, normal breath sounds, no respiratory distress, no accessory muscle use Cardiovascular: regular rate, rhythm Gastrointestinal: normal bowel sounds, non tender, soft, no organomegaly, no pulsatile mass Back: no vertebral tenderness, other (KYPHOSIS) Extremities: normal range of motion, non-tender, normal inspection, no pedal edema, no calf tenderness, normal capillary refill Neurologic/Psychiatric: alert, normal mood/affect, oriented x 3, other (SLIGHT LEFT SIDED FACIAL DROOP) Skin: warm/dry Lymphatic: no adenopathy Assessment/Plan Assessment/Plan Admission Diagnosis/Plan MENINGIOMA HYPERTENSION CHRONIC OSTEOARTHRITIS MUSCLE WEAKNESS LEFT SIDED MUSCLE WEAKNESS, LEFT SIDED FACIAL DROOP CHRONIC ANEMIA HYPERLIPIDEMIA MENINGIOMA - STATUS POST SURGICAL INTERVENTION - KEEP POST-OP FOLLOW UP WITH DR. MCCULLOUGH AT [facility] - MONIQUE TO BE REMOVED PER THEIR RECOMMENDATIONS HYPERTENSION - MONITOR BLOOD PRESSURE, HOME REGIMEN RESTARTED CHRONIC OSTEOARTHRITIS WITH MUSCLE WEAKNESS - SUPPORTIVE CARE WITH THERAPY AND STRENGTHENING OF MUSCLES PLANNED. LEFT SIDED MUSCLE WEAKNESS, LEFT SIDED FACIAL DROOP - ANTICIPATE IMPROVEMENT WITH THERAPY CHRONIC ANEMIA - MONITOR HGB SERIALLY HYPERLIPIDEMIA - HOME REGIMEN TO OK RESTARTED Admission Status: Inpatient Order (span 2 midnights) Reason for Inpatient Admission: INPATIENT REHAB ADMISSION ANTICIPATE 2 WEEKS - 3 WEEKS Clinical Quality Measures DVT/VTE Risk/Contraindication: Risk Factor Score Per Nursin RFS Level Per Nursing on Admit: 4+=Very High JOSEPH INMAN MD Feb 13, 2019 09:37
--- NOTE | 2019-02-13 09:41 | PM&R Progress Note ---
Subjective HPI/CC On Admission Date Seen by Provider: Feb 13, 2019 Time Seen by Provider: 09:45 Subjective/Events-last exam Patient sleeps well at night and last night was a pretty good night to Needs 15/7 slower pace due to severity of debility Hgb 7.2 so reviewed iron level and empirically started Venofer after started midline, iron level 46 No pain is reported except head pain. Incontinence when she stood up with therapy today but that is chronic issue. Madd[place] out 02/17/19. UTI Proteus so started on Rocephin IV and reviewed sensitivities so will finish off with Omnicef 300 MG twice daily for an additional 5 days BM treatment will be maintained Conferred with RN Reviewed therapy notes Checked meds and labs Review of Systems General: Fatigue Neurological: Weakness, Numbness, Incoordination Objective Exam Vital Signs Vital Signs Date Time Temp Pulse Resp B/P (MAP) Pulse Ox O2 Delivery O2 Flow Rate FiO2 02/13/19 05:01 36.2 56 20 123/63 (83) 97 Room Air Capillary Refill : Less Than 3 Seconds General Appearance: No Apparent Distress, WD/WN, Chronically ill, Obese HEENT: PERRL/EOMI, Normal ENT Inspection, Pharynx Normal Neck: Full Range of Motion, Normal Inspection, Non Tender, Supple, Carotid Bruit Respiratory: Chest Non Tender, Lungs Clear, Normal Breath Sounds, No Accessory Muscle Use, No Respiratory Distress, Decreased Breath Sounds Cardiovascular: Regular Rate, Rhythm, No Edema, No Gallop, No JVD, No Murmur, Normal Peripheral Pulses Gastrointestinal: Normal Bowel Sounds, No Organomegaly, No Pulsatile Mass, Non Tender, Soft Back: Normal Inspection, No CVA Tenderness, No Vertebral Tenderness Extremity: Normal Capillary Refill, Normal Inspection, Normal Range of Motion, Non Tender, No Calf Tenderness, No Pedal Edema Neurologic/Psychiatric: Alert, Oriented x3, volunteer services manager II-XII Norm as Tested, Abnormal Gait, Depressed Affect, Motor Weakness (lower legs and arms 4/5) Skin: Normal Color, Warm/Dry, Other (craniotomy maddison in place no drainage or redness) Lymphatic: No Adenopathy Results/Procedures Lab Patient resulted labs reviewed. FIM Transfers Therapy Code Descriptions/Definitions Functional [place] Measure: 0=Not Assessed/NA 4=Minimal Assistance 1=Total Assistance 5=Supervision or Setup 2=Maximal Assistance 6=Modified [place] 3=Moderate Assistance 7=Complete IndependenceSCALE: Activities may be completed with or without assistive devices. 0-Fxcrphffto-htsrcyc completes the activity by him/herself with no assistance from a helper. 5-Set-up or Clean-up Assistance-helper sets up or cleans up; patient completes activity. [place] assists only prior to or following the activity. 4-Supervision or Touching Assistance-helper provides verbal cues and/or touching/steadying and/or contact guard assistance as patient completes activity. Assistance may be provided throughout the activity or intermittently. 3-Partial/Moderate Assistance-helper does LESS THAN HALF the effort. [place] lifts, holds or supports trunk or limbs, but provides less than half the effort. 2-Substantial/Maximal Assistance-helper does MORE THAN HALF the effort. [place] lifts or holds trunk or limbs and provides more than half the effort. 8-Ljlezjezy-dfzttr does ALL the effort. Patient does none of the effort to complete the activity. Or, the assistance of 2 or more helpers is required for the patient to complete the activity. If activity was not attempted, code reason: 7-Patient Refused. 9-Not Applicable-not attempted and the patient did not perform the activity before the current illness, exacerbation or injury. 10-Not Attempted due to Environmental Limitations-(lack of equipment, weather restraints, etc.). 88-Not Attempted due to Medical Conditions or Safety Concerns. Roll Left to Right (QC): 3 Sit to Lying (QC): 1 Sit to Stand (QC): 3 Chair/Gmk-ww-Hofmb Xfer(QC): 3 Car Transfer (QC): 88 Gait Training Does the Patient Walk?: Yes Distance: 20'x3 Walk 10 feet (QC): 3 Walk 50 ft with 2 Turns(QC): 88 Walk 150 ft (QC): 88 Walking 10ft/uneven surface-QC: 88 Gait Assistive Device: FWW Wheelchair Training Does the Pt Use a Wheelchair?: Yes Wheel 50 ft with 2 turns (QC): 3 Wheel 150 ft (QC): 3 Type of Wheelchair: Manual Stair Training 1 Step (curb) (QC): 88 4 Steps (QC): 88 12 Steps (QC): 88 Balance Picking up an Object (QC): 88 ADL-Treatment Eating (QC): 6 Oral Hygiene (QC): 7 Bathing Location: L Arm, R Arm, L Upper Leg, R Upper Leg, Chest, Abdomen, Perineal Area Shower/Bathe Self (QC): 3 Upper Body Dressing (QC): 7 Lower Body Dressing (QC): 3 (min A for LUE use during pulling up and CGA throughout pulling over hips. Pt utilized LUE with more spontaneous use on this date.) On/Off Footwear (QC): 3 (Assist with TEX hose and socks on this date.) Toileting Hygiene (QC): 3 (CGA and min A for urination hygiene) Toilet Transfer (QC): 4 (CGA-min A) Assessment/Plan Assessment and Plan Assess & Plan/Chief Complaint Assessment: s/p craniotomy at [facility] Meningioma s/p resection Severe debility needs aggressive therapies HTN Anemia iron def initiated Venofer Constipation GRADY? UTI with Proteus completer Rocephin for 3 days and will complete Omnicef oral transition Plan: Monitor closely Venofer Pain control Slow recovery so 01/09 IRF BM regimen to maintain Omnicef (1) S/P craniotomy (2) Hypertension (3) Obesity (4) Constipation (5) History of hip replacement, total (6) Headache (7) Seizure prophylaxis EVIE SAPP DO Feb 13, 2019 09:41
[2019-02-13] MEDS: VITAMIN D3 400 UNITS (CHOLECALCIFEROL) TABLET PO SCH (10:07)
[2019-02-13] MEDS: LEVETIRACETAM 500 MG (KEPPRA) TAB PO SCH ×2 (10:07→20:51)
[2019-02-13] MEDS: SENNA W/DOCUSATE (SENOKOT S) TABLET PO SCH ×2 (10:08→20:51)
[2019-02-13] MEDS: meTOprolol TARTRATE 25 MG (LOPRESSOR) TABLET PO SCH ×2 (10:08→20:51)
[2019-02-13] MEDS: DOCUSATE SODIUM 100 MG (COLACE) CAP PO SCH ×2 (10:08→20:51)
[2019-02-13] MEDS: OMEGA 3 (FISH OIL) 1000 MG CAP PO SCH (10:08)
[2019-02-13] MEDS: DEXAMETHASONE 4 MG TAB (DECADRON) PO SCH ×2 (10:08→20:51)
[2019-02-13] MEDS: LOSARTAN 100 MG (COZAAR) TABLET PO SCH (10:08)
[2019-02-13] MEDS: cefTRIAXone FOR IV USE 1,000 MG in WATER (STERILE) FOR INJECTION 10 ML IV SCH (10:08)
[2019-02-13] MEDS ORDERED: CEFDINIR 300 MG (OMNICEF) CAP PO NR (11:15)
--- NOTE | 2019-02-13 11:50 | Occupational Ther Daily Note ---
OT Current Status-Daily Note Subjective Pt seen in recliner chair, denies pain. Agreeable to OT tx session. ADL-Treatment Therapy Code Descriptions/Definitions Functional [place] Measure: 0=Not Assessed/NA 4=Minimal Assistance 1=Total Assistance 5=Supervision or Setup 2=Maximal Assistance 6=Modified [place] 3=Moderate Assistance 7=Complete IndependenceSCALE: Activities may be completed with or without assistive devices. 2-Wccdihspni-omwouds completes the activity by him/herself with no assistance from a helper. 5-Set-up or Clean-up Assistance-helper sets up or cleans up; patient completes activity. [place] assists only prior to or following the activity. 4-Supervision or Touching Assistance-helper provides verbal cues and/or t ouching/steadying and/or contact guard assistance as patient completes activity. Assistance may be provided throughout the activity or intermittently. 3-Partial/Moderate Assistance-helper does LESS THAN HALF the effort. [place] lifts, holds or supports trunk or limbs, but provides less than half the effort. 2-Substantial/Maximal Assistance-helper does MORE THAN HALF the effort. [place] lifts or holds trunk or limbs and provides more than half the effort. 7-Hcjkvhisx-gkwqsw does ALL the effort. Patient does none of the effort to complete the activity. Or, the assistance of 2 or more helpers is required for the patient to complete the activity. If activity was not attempted, code reason: 7-Patient Refused. 9-Not Applicable-not attempted and the patient did not perform the activity before the current illness, exacerbation or injury. 10-Not Attempted due to Environmental Limitations-(lack of equipment, weather restraints, etc.). 88-Not Attempted due to Medical Conditions or Safety Concerns. Eating (QC): 6 Oral Hygiene (QC): 5 (s/u to open denture container.) Other Treatment Pt completes AROM/ PROM to full range in recliner chair of LUE. Pt educated over AAROM and utilization of RUE to guide LUE to full range. Pt completes 5 reps of each exercise against gravity: shoulder flexion, shoulder abduction, elbow flexion/ extension, horizontal ab/ adduction with PROM to full range. Pt completes fine motor peg manipulation while reaching in different planes with shoulder flexion. Pt educated over theraputty exercises for hand strengthening and coordination. Pharmacist'S Aide strength assessed: L 22, R 40lbs. Pt left in recliner chair, call light in reach, all needs met. Education OT Patient Education: Correct positioning, Exercise program, Home exercise program, Progress toward Goal/Update tx plan, Purpose of tx/functional activities Teaching Recipient: Patient Teaching Methods: Demonstration, Discussion Response to Teaching: Verbalize Understanding, Return Demonstration OT Expediter Service Order Goals Expediter Service Order Goals Time Frame: Feb 23, 2019 Eating (QC): 6 (met) Oral Hygiene (QC): 6 Toileting Hygiene (QC): 6 Shower/Bathe Self (QC): 6 Upper Body Dressing (QC): 6 Lower Body Dressing (QC): 6 On/Off Footwear (QC): 6 Additional Goals: 1-Demonstrate ADL Tasks, 2-Verbalize Understanding, 3-Im proveStrength/Scout 1=Demonstrate adherence to instructed precautions during ADL tasks. 2=Patient will verbalize/demonstrate understanding of assistive devices/modifications for ADL. 3=Patient will improve strength/tolerance for activity to enable patient to perform ADL's. OT Education/Plan Problem List/Assessment Assessment: Decreased Activ Tolerance, Decreased UE Strength, Dependent Transfers, Impaired Bed Mobility, Impaired Coordination, Impaired Funct Balance, Impaired I ADL's, Impaired Self-Care Skills Discharge Recommendations Plan/Recommendations: Continue POC Treatment Plan/Plan of Care Treatment,Training & Education: Yes Patient would benefit from OT for education, treatment and training to promote independence in ADL's, mobility, safety and/or upper extremity function for ADL's. Plan of Care: ADL Retraining, Caregiver Training, Concurrent Therapy, Functional Mobility, Group Exercise/Act as Ind, UE Funct Exercise/Act, UE Neuromus Re-Ed/Coord Treatment Duration: Feb 23, 2019 Frequency: At least 5 of 7 days/Wk (IRF) Estimated Hrs Per Day: 1.5 hours per day Agreement: Yes Rehab Potential: Good Time/GCodes Start Time: 10:30 Stop Time: 11:00 Total Time Billed (hr/min): 30 Billed Treatment Time 1, EX 2 (30) ALEIDA DIAZ OTR Feb 13, 2019 11:49
--- NOTE | 2019-02-13 13:33 | Speech Therapy Daily Note ---
Speech Daily Progress Note Subjective Date Seen by Provider: Feb 13, 2019 Time Seen by Provider: 00:30 Patient was more alert and stated she was feeling better every day. Objective Patient completed a series of fill in the blank sentences with 90% given 15% verbal cues. Assessment Assessment Current Status: Good Progress Treatment Plan Continue Plan of Care Speech Short Term Goals Short Term Goals Short Term Goals 1) Patient will complete memory tasks related to her daily needs with 90% or greater with minimal cues. 2) Patient will complete safety awareness tasks related to her daily needs with 90% or greater with minimal cues. 3) Patient will complete problem solving tasks related to her daily needs with 90% or greater with minimal cues. Speech Shelter Goals Academic Support Director Goals Patient will improve cognitive-communication necessary for safety and daily living tasks with minimal assist. Speech-Plan Patient/Family Goals Patient/Family Goals: Patient plans on returning to her home with family support. Treatment Plan Speech Therapy Treatment Plan: Continue Plan of Care Patient is making progress every day. Treatment Duration: Feb 20, 2019 Frequency: 4 times per week Estimated Hrs Per Day: .5 hour per day Rehab Potential: Good Barriers to Learning: Patient has mild cognitive deficits. Pt/Family Agrees to Plan: Yes Safety Risks/Education Teaching Recipient: Patient Teaching Methods: Demonstration, Discussion Response to Teaching: Verbalize Understanding, Return Demonstration Education Topics Provided: Continued safety and communication of wants/needs. Time Speech Therapy Time In: 10:00 Speech Therapy Time Out: 10:30 Total Billed Time: 30 Billed Treatment Time 1MEHNAZ [address] ST Feb 13, 2019 13:33
--- NOTE | 2019-02-13 13:35 | Physical Therapy Daily Note ---
PT Daily Note-Current Subjective Patient in recliner pre tx, agrees to PT, has no complaints of pain. Appearance Patient in recliner post tx with nurse call,phone, tray, all needs met, family in the room. Mental Status Patient Orientation: Person, Place, Situation Transfers SCALE: Activities may be completed with or without assistive devices. 3-Bejugczayv-lyyzpop completes the activity by him/herself with no assistance from a helper. 5-Set-up or Clean-up Assistance-helper sets up or cleans up; patient completes activity. [place] assists only prior to or following the activity. 4-Supervision or Touching Assistance-helper provides verbal cues and/or touching/steadying and/or contact guard assistance as patient completes activity. Assistance may be provided throughout the activity or intermittently. 3-Partial/Moderate Assistance-helper does LESS THAN HALF the effort. [place] lifts, holds or supports trunk or limbs, but provides less than half the effort. 2-Substantial/Maximal Assistance-helper does MORE THAN HALF the effort. [place] lifts or holds trunk or limbs and provides more than half the effort. 4-Ehbylfhaj-hyjqhl does ALL the effort. Patient does none of the effort to complete the activity. Or, the assistance of 2 or more helpers is required for the patient to complete the activity. If activity was not attempted, code reason: 7-Patient Refused. 9-Not Applicable-not attempted and the patient did not perform the activity before the current illness, exacerbation or injury. 10-Not Attempted due to Environmental Limitations-(lack of equipment, weather restraints, etc.). 88-Not Attempted due to Medical Conditions or Safety Concerns. Sit to Stand (QC): 3 Chair/Etq-ki-Izddv Xfer(QC): 3 Needs assist guiding walker with transfers Gait Training Distance: 40'x2 Gait Persons Needed: 1 Gait Assistive Device: FWW slow, leans to the left, had a hard time advancing her left leg on the first walk but did better with it on the way back. Exercises Seated Therapy Exercises: Ankle pumps, Long arc quads, Hip flexion Seated Reps: 20 Treatments transfers, ambulation, LE ROM Assessment Current Status: Fair Progress improving ambulation PT Short Term Goals Short Term Goals Time Frame: Feb 17, 2019 Sit to lyin Lying to sitting on side of be: 3 Sit to stand: 3 Walk 50 feet with two turns: 4 PT Vehicle Safety Inspector Goals Vehicle Safety Inspector Goals PT Vehicle Safety Inspector Goals Time Frame: Mar 03, 2019 Roll Left & Right (QC): 6 Sit to Lying (QC): 6 Lying-Sitting on Side/Bed(QC): 6 Sit to Stand (QC): 6 Chair/Xcm-sv-Lmmow Xfer(QC): 6 Toilet Transfer (QC): 6 Car Transfer (QC): 6 Does the Patient Walk: Yes Walk 10 feet (QC): 6 Walk 50ft with 2 Turns (QC): 6 Walk 150 ft (QC): 6 Walking 10ft on Uneven Surface: 5 1 Step (curb) (QC): 6 4 Steps (QC): 6 12 Steps (QC): 9 Picking up an Object (QC): 9 Does the Pt use WC or Scooter?: No PT Plan Problem List Problem List: Activity Tolerance, Functional Strength, Safety, Balance, Gait, Transfer, Bed Mobility, ROM Treatment/Plan Treatment Plan: Continue Plan of Care Treatment Plan: Bed Mobility, Education, Functional Activity Scout, Functional Strength, Group Therapy, Gait, Safety, Therapeutic Exercise, Transfers Treatment Duration: Mar 03, 2019 Frequency: Modified Program (IRF) Estimated Hrs Per Day: 1.5 hours per day Patient and/or Family Agrees t: Yes Safety Risks/Education Patient Education: Gait Training, Transfer Techniques, Correct Positioning, Safety Issues Teaching Recipient: Patient Teaching Methods: Demonstration, Discussion Response to Teaching: Reinforcement Needed Time/GCodes Time In: 1305 Time Out: 1335 Total Billed Treatment Time: 30 Total Billed Treatment 1 visit GT 20' EX 10' ALEIDA PAZ PT Feb 13, 2019 13:35
[2019-02-13 15:38] VITALS: BP 124/71
[2019-02-13] MEDS: CEFDINIR 300 MG (OMNICEF) CAP PO SCH (20:51)
[2019-02-14] MEDS: FERROUS SULF 325 MG (IRON) TAB PO SCH ×2 (06:01→16:37)
[2019-02-14] MEDS: CATHETER FLUSH 10 ML SYR IV SCH ×3 (06:01→21:21)
[2019-02-14 06:21] VITALS: BP 144/82
[2019-02-14 08:00] VITALS: BP 124/62
[2019-02-14] MEDS: meTOprolol TARTRATE 25 MG (LOPRESSOR) TABLET PO SCH ×2 (08:23→20:53)
[2019-02-14] MEDS: VITAMIN D3 400 UNITS (CHOLECALCIFEROL) TABLET PO SCH (08:23)
[2019-02-14] MEDS: DEXAMETHASONE 4 MG TAB (DECADRON) PO SCH ×2 (08:23→20:52)
[2019-02-14] MEDS: LEVETIRACETAM 500 MG (KEPPRA) TAB PO SCH ×2 (08:24→20:53)
[2019-02-14] MEDS: SENNA W/DOCUSATE (SENOKOT S) TABLET PO SCH ×3 (08:24→20:53)
[2019-02-14] MEDS: BISACODYL 10 MG SUPP (DULCOLAX) PR PRN (08:24)
[2019-02-14] MEDS: DOCUSATE SODIUM 100 MG (COLACE) CAP PO SCH ×3 (08:24→20:53)
[2019-02-14] MEDS: CEFDINIR 300 MG (OMNICEF) CAP PO SCH ×2 (08:24→20:53)
[2019-02-14] MEDS: LOSARTAN 100 MG (COZAAR) TABLET PO SCH (08:24)
--- NOTE | 2019-02-14 08:30 | NUR ---
MOVING LEFT ARM MUCH BETTER COMPARED TO SATURDAY AND ABLE TO WALK BETTER TODAY ALSO. DENIES ANY PAIN. NO BM X 3 DAYS AND MEDICATED WITH DULCOLAX SUPPOSITORY.
[2019-02-14] MEDS: POLYETHYLENE GLYCOL 17 GM (MIRALAX) PACK PO SCH ×2 (09:00→19:27)
--- NOTE | 2019-02-14 09:30 | Occupational Ther Daily Note ---
OT Current Status-Daily Note Subjective Pt seen in room, supine in bed. Pt denies pain, pt agreeable to OT tx session. PT/ OT co-treat from 8817-3985 due to high level mobility tasks and balance/ safety necessary. OT addressed ADL function while PT addressed functional mobility Mental Status/Objective Patient Orientation: Normal For Age ADL-Treatment Therapy Code Descriptions/Definitions Functional [place] Measure: 0=Not Assessed/NA 4=Minimal Assistance 1=Total Assistance 5=Supervision or Setup 2=Maximal Assistance 6=Modified [place] 3=Moderate Assistance 7=Complete IndependenceSCALE: Activities may be completed with or without assistive devices. 6-Mvodmhspfl-vkohpoq completes the activity by him/herself with no assistance from a helper. 5-Set-up or Clean-up Assistance-helper sets up or cleans up; patient completes activity. [place] assists only prior to or following the activity. 4-Supervision or Touching Assistance-helper provides verbal cues and/or touching/steadying and/or contact guard assistance as patient completes activity. Assistance may be provided throughout the activity or intermittently. 3-Partial/Moderate Assistance-helper does LESS THAN HALF the effort. [place] lifts, holds or supports trunk or limbs, but provides less than half the effort. 2-Substantial/Maximal Assistance-helper does MORE THAN HALF the effort. [place] lifts or holds trunk or limbs and provides more than half the effort. 9-Srlvbmnmm-qwfatc does ALL the effort. Patient does none of the effort to complete the activity. Or, the assistance of 2 or more helpers is required for the patient to complete the activity. If activity was not attempted, code reason: 7-Patient Refused. 9-Not Applicable-not attempted and the patient did not perform the activity before the current illness, exacerbation or injury. 10-Not Attempted due to Environmental Limitations-(lack of equipment, weather restraints, etc.). 88-Not Attempted due to Medical Conditions or Safety Concerns. Eating (QC): 6 Shower/Bathe Self (QC): 3 (assist with CGA in stance, back, and bottom. Pt completes LB with LHS) Upper Body Dressing (QC): 5 (s/u) Lower Body Dressing (QC): 3 (mod A for L side of pants over hips.) On/Off Footwear: 5 (s/u sock aide.) Other Treatment Pt completes bed mob with max A. Sits EOB with increased endurance/ balance. Pt completes sponge bath with intermittent CGA, able to reach LE with increased bending/ balance. Pt completes dressing EOB; utilizes FWW to walk to chair. Completes AROM of shoulder flexion, scaption, and abduction and PROM to full range with no c/o pain. Pt able to complete hand sponge squeezes, education over pinch exercises. Pt completes functional mobility with FWW and w/c to follow with CGA and sperts of ~30 feet. Pt left with PT at end of session at 0930. Education OT Patient Education: Correct positioning, Exercise program, Home exercise program, Modified ADL techniques, Progress toward Goal/Update tx plan, Safety issues, Transfer techniques Teaching Recipient: Patient Teaching Methods: Demonstration, Discussion Response to Teaching: Verbalize Understanding, Return Demonstration, Reinforcement Needed OT Paper Latcher Goals Paper Latcher Goals Time Frame: Feb 23, 2019 Eating (QC): 6 (met) Oral Hygiene (QC): 6 Toileting Hygiene (QC): 6 Shower/Bathe Self (QC): 6 Upper Body Dressing (QC): 6 Lower Body Dressing (QC): 6 On/Off Footwear (QC): 6 Additional Goals: 1-Demonstrate ADL Tasks, 2-Verbalize Understanding, 3- ImproveStrength/Scout 1=Demonstrate adherence to instructed precautions during ADL tasks. 2=Patient will verbalize/demonstrate understanding of assistive devices/modifications for ADL. 3=Patient will improve strength/tolerance for activity to enable patient to perform ADL's. OT Education/Plan Problem List/Assessment Assessment: Decreased Activ Tolerance, Decreased UE Strength, Dependent Transfers, Impaired Bed Mobility, Impaired Coordination, Impaired Funct Balance, Impaired I ADL's, Impaired Self-Care Skills Discharge Recommendations Plan/Recommendations: Continue POC Treatment Plan/Plan of Care Treatment,Training & Education: Yes Patient would benefit from OT for education, treatment and training to promote independence in ADL's, mobility, safety and/or upper extremity function for ADL's. Plan of Care: ADL Retraining, Caregiver Training, Concurrent Therapy, Functional Mobility, Group Exercise/Act as Ind, UE Funct Exercise/Act, UE Neuromus Re-Ed/Coord Treatment Duration: Feb 23, 2019 Frequency: At least 5 of 7 days/Wk (IRF) Estimated Hrs Per Day: 1.5 hours per day Agreement: Yes Rehab Potential: Good Time/GCodes Start Time: 08:00 Stop Time: 09:30 Total Time Billed (hr/min): 90 Billed Treatment Time 1, ADL 4 (60), EX 2 (30) PT/ OT co-treat from [id number] due to high level mobility tasks and balance/ safety necessary. OT addressed ADL function while PT addressed functional mobility ALEIDA DIAZ OTR Feb 14, 2019 09:30
[2019-02-14] MEDS: OMEGA 3 (FISH OIL) 1000 MG CAP PO SCH (10:09)
[2019-02-14] MEDS: IRON SUCROSE 200 MG/10 ML (VENOFER) VIAL IV SCH (10:09)
--- NOTE | 2019-02-14 11:30 | NUR ---
EXPELLED MODERATE SIZE BM. FAMILY VISITED.
--- NOTE | 2019-02-14 11:55 | Physical Therapy Daily Note ---
PT Daily Note-Current Subjective Pt seen in room, supine in bed. Pt denies pain, pt agreeable to PT/OT tx session. PT/ OT co-treat from [id number] due to high level mobility tasks and balance/ safety necessary. OT addressed ADL function while PT addressed functional mobility. Pain Location: No Pain Reported Mental Status Patient Orientation: Person, Place, Situation Attachments: IV Transfers SCALE: Activities may be completed with or without assistive devices. 3-Ehdgvnufea-lzitrya completes the activity by him/herself with no assistance from a helper. 5-Set-up or Clean-up Assistance-helper sets up or cleans up; patient completes activity. [place] assists only prior to or following the activity. 4-Supervision or Touching Assistance-helper provides verbal cues and/or touching/steadying and/or contact guard assistance as patient completes a ctivity. Assistance may be provided throughout the activity or intermittently. 3-Partial/Moderate Assistance-helper does LESS THAN HALF the effort. [place] lifts, holds or supports trunk or limbs, but provides less than half the effort. 2-Substantial/Maximal Assistance-helper does MORE THAN HALF the effort. [place] lifts or holds trunk or limbs and provides more than half the effort. 7-Isyrucstb-tahjfl does ALL the effort. Patient does none of the effort to complete the activity. Or, the assistance of 2 or more helpers is required for the patient to complete the activity. If activity was not attempted, code reason: 7-Patient Refused. 9-Not Applicable-not attempted and the patient did not perform the activity before the current illness, exacerbation or injury. 10-Not Attempted due to Environmental Limitations-(lack of equipment, weather restraints, etc.). 88-Not Attempted due to Medical Conditions or Safety Concerns. Sit to Stand (QC): 4 Weight Bearing Full Weight Bearing Full Weight Bearing Gait Training Does the Patient Walk?: Yes Distance: 50' x3 Walk 10 feet (QC): 5 Walk 50 ft with 2 Turns(QC): 5 Gait Assistive Device: FWW Wheelchair Training Does the Pt Use a Wheelchair?: Yes Wheel 50 ft with 2 turns (QC): 3 Type of Wheelchair: Manual Pt has difficulty using L UE to propel. Exercises Seated Therapy Exercises: Ankle pumps, Long arc quads, Hip flexion, Kicking activity, Hip abd/add Seated Reps: 20 Treatments Pt completes bed mob with max A. Sits EOB with increased endurance/ balance. Pt completes sponge bath with intermittent CGA, able to reach LE with increased bending/ balance. Pt completes dressing EOB; utilizes FWW to walk to chair. Completes AROM of shoulder flexion, scaption, and abduction and PROM to full range with no c/o pain. Pt able to complete hand sponge squeezes, education over pinch exercises. Pt completes functional mobility with FWW and w/c to follow with CGA and sperts of ~30 feet. Pt completes Seated Ex in W/C before returning to room to use restroom. Pt feels as though she might be a while so given pull call light for when finished. Assessment Current Status: Good Progress Pt needs encouragement at times but will complete tasks given when given additional time to complete. PT Short Term Goals Short Term Goals Time Frame: Feb 17, 2019 Sit to lyin Lying to sitting on side of be: 3 Sit to stand: 3 Walk 50 feet with two turns: 4 PT Jail Goals Jail Goals PT Buffing Wheel Raker Goals Time Frame: Mar 03, 2019 Roll Left & Right (QC): 6 Sit to Lying (QC): 6 Lying-Sitting on Side/Bed(QC): 6 Sit to Stand (QC): 6 Chair/Mlb-rd-Owivn Xfer(QC): 6 Toilet Transfer (QC): 6 Car Transfer (QC): 6 Does the Patient Walk: Yes Walk 10 feet (QC): 6 Walk 50ft with 2 Turns (QC): 6 Walk 150 ft (QC): 6 Walking 10ft on Uneven Surface: 5 1 Step (curb) (QC): 6 4 Steps (QC): 6 12 Steps (QC): 9 Picking up an Object (QC): 9 Does the Pt use WC or Scooter?: No PT Plan Problem List Problem List: Activity Tolerance, Functional Strength, Safety, Balance, Gait, Transfer, Bed Mobility Treatment/Plan Treatment Plan: Continue Plan of Care Treatment Plan: Bed Mobility, Education, Functional Activity Scout, Functional Strength, Group Therapy, Gait, Safety, Therapeutic Exercise, Transfers Treatment Duration: Mar 03, 2019 Frequency: Modified Program (IRF) Estimated Hrs Per Day: 1.5 hours per day Patient and/or Family Agrees t: Yes Safety Risks/Education Patient Education: Gait Training, Transfer Techniques, Correct Positioning, W/C Management, Safety Issues Teaching Recipient: Patient Teaching Methods: Discussion Response to Teaching: Verbalize Understanding Time/GCodes Time In: 815 Time Out: 945 Total Billed Treatment Time: 90 Total Billed Treatment 1, WCH (15m), GT (20m), FA x2 (30m) & EX x2 (25m) Co-treat w/OT from 815-930 (75m) CAYLA ELLIS MULTIPLE SPINDLE SCREW MACHINE OPERATOR Feb 14, 2019 11:55
--- NOTE | 2019-02-14 12:50 | PM&R Progress Note ---
Subjective HPI/CC On Admission Date Seen by Provider: Feb 14, 2019 Time Seen by Provider: 13:00 Subjective/Events-last exam Patient having dramatic improvement since admitted Needs 15/7 slower pace due to severity of debility IV iron infusions are tolerated well No pain is reported today Incontinence when she stood up with therapy today but that is chronic issue. [place] out 02/17/19. UTI Proteus so started on Rocephin IV and reviewed sensitivities so will finish off with Omnicef 300 MG twice daily for an additional 5 days BM treatment will be maintained since last BM was several days ago suppository was given and had a bowel movement this morning Daughter at the bedside pleased with her recovery Left hand and arm doing much better Conferred with RN Reviewed therapy notes Checked meds and labs Review of Systems General: Fatigue Musculoskeletal: arm pain, hand pain Neurological: Weakness, Numbness, Incoordination Objective Exam Vital Signs Vital Signs Date Time Temp Pulse Resp B/P (MAP) Pulse Ox O2 Delivery O2 Flow Rate FiO2 02/14/19 09:00 Room Air 02/14/19 06:21 36.6 51 20 144/82 (102) 99 Capillary Refill : Less Than 3 Seconds General Appearance: No Apparent Distress, WD/WN, Chronically ill, Obese HEENT: PERRL/EOMI, Normal ENT Inspection, Pharynx Normal Neck: Full Range of Motion, Normal Inspection, Non Tender, Supple, Carotid Bruit Respiratory: Chest Non Tender, Lungs Clear, Normal Breath Sounds, No Accessory Muscle Use, No Respiratory Distress, Decreased Breath Sounds Cardiovascular: Regular Rate, Rhythm, No Edema, No Gallop, No JVD, No Murmur, Normal Peripheral Pulses Gastrointestinal: Normal Bowel Sounds, No Organomegaly, No Pulsatile Mass, Non Tender, Soft Back: Normal Inspection, No CVA Tenderness, No Vertebral Tenderness Extremity: Normal Capillary Refill, Normal Inspection, Normal Range of Motion, Non Tender, No Calf Tenderness, No Pedal Edema Neurologic/Psychiatric: Alert, Oriented x3, editor producer II-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 FIM Transfers Therapy Code Descriptions/Definitions Functional [place] Measure: 0=Not Assessed/NA 4=Minimal Assistance 1=Total Assistance 5=Supervision or Setup 2=Maximal Assistance 6=Modified [place] 3=Moderate Assistance 7=Complete IndependenceSCALE: Activities may be completed with or without assistive devices. 5-Umjyqwlctn-enqiffq completes the activity by him/herself with no assistance from a helper. 5-Set-up or Clean-up Assistance-helper sets up or cleans up; patient completes activity. [place] assists only prior to or following the activity. 4-Supervision or Touching Assistance-helper provides verbal cues and/or touching/steadying and/or contact guard assistance as patient completes activity. Assistance may be provided throughout the activity or intermittently. 3-Partial/Moderate Assistance-helper does LESS THAN HALF the effort. [place] lifts, holds or supports trunk or limbs, but provides less than half the effort. 2-Substantial/Maximal Assistance-helper does MORE THAN HALF the effort. [place] lifts or holds trunk or limbs and provides more than half the effort. 2-Ldgjpknls-rsntnd does ALL the effort. Patient does none of the effort to complete the activity. Or, the assistance of 2 or more helpers is required for the patient to complete the activity. If activity was not attempted, code reason: 7-Patient Refused. 9-Not Applicable-not attempted and the patient did not perform the activity before the current illness, exacerbation or injury. 10-Not Attempted due to Environmental Limitations-(lack of equipment, weather restraints, etc.). 88-Not Attempted due to Medical Conditions or Safety Concerns. Roll Left to Right (QC): 3 Sit to Lying (QC): 1 Sit to Stand (QC): 4 Chair/Jka-un-Wxhff Xfer(QC): 3 Car Transfer (QC): 88 Gait Training Does the Patient Walk?: Yes Distance: 50' x3 Walk 10 feet (QC): 5 Walk 50 ft with 2 Turns(QC): 5 Walk 150 ft (QC): 88 Walking 10ft/uneven surface-QC: 88 Gait Persons Needed: 1 Gait Assistive Device: FWW Wheelchair Training Does the Pt Use a Wheelchair?: Yes Wheel 50 ft with 2 turns (QC): 3 Wheel 150 ft (QC): 3 Type of Wheelchair: Manual Stair Training 1 Step (curb) (QC): 88 4 Steps (QC): 88 12 Steps (QC): 88 Balance Picking up an Object (QC): 88 ADL-Treatment Eating (QC): 6 Oral Hygiene (QC): 5 (s/u to open denture container.) Bathing Location: L Arm, R Arm, L Upper Leg, R Upper Leg, Chest, Abdomen, Perineal Area Shower/Bathe Self (QC): 3 (assist with CGA in stance, back, and bottom. Pt completes LB with LHS) Upper Body Dressing (QC): 5 (s/u) Lower Body Dressing (QC): 3 (mod A for L side of pants over hips.) On/Off Footwear (QC): 5 (s/u sock aide.) Toileting Hygiene (QC): 3 (CGA and min A for urination hygiene) Toilet Transfer (QC): 4 (CGA-min A) Assessment/Plan Assessment and Plan Assess & Plan/Chief Complaint Assessment: s/p craniotomy at [facility] Meningioma s/p resection Severe debility needs aggressive therapies HTN Anemia iron def initiated Venofer Constipation GRADY? UTI with Proteus completer Rocephin for 2 more days and will complete Omnicef oral transition Plan: Monitor closely Venofer Pain control Slow recovery so 15/ IRF BM regimen to maintain Omnicef (1) S/P craniotomy (2) Hypertension (3) Obesity (4) Constipation (5) History of hip replacement, total (6) Headache (7) Seizure prophylaxis EVIE SAPP DO Feb 14, 2019 12:50
[2019-02-14 18:51] VITALS: BP 123/57
[2019-02-15] MEDS: CATHETER FLUSH 10 ML SYR IV SCH ×3 (05:50→19:51)
[2019-02-15] MEDS: FERROUS SULF 325 MG (IRON) TAB PO SCH ×2 (05:50→17:03)
[2019-02-15 05:58] VITALS: BP 110/70
[2019-02-15 08:00] VITALS: BP 124/68
--- NOTE | 2019-02-15 08:00 | NUR ---
COMPLAIN "RINGING" IN RIGHT EAR WHICH IS NEW. LEFT SIDE CONTINUES TO GET STRONGER.
[2019-02-15] MEDS: LEVETIRACETAM 500 MG (KEPPRA) TAB PO SCH ×2 (09:44→19:50)
[2019-02-15] MEDS: VITAMIN D3 400 UNITS (CHOLECALCIFEROL) TABLET PO SCH (09:44)
[2019-02-15] MEDS: DEXAMETHASONE 4 MG TAB (DECADRON) PO SCH ×2 (09:44→19:50)
[2019-02-15] MEDS: meTOprolol TARTRATE 25 MG (LOPRESSOR) TABLET PO SCH ×2 (09:44→19:50)
[2019-02-15] MEDS: CEFDINIR 300 MG (OMNICEF) CAP PO SCH ×2 (09:45→19:49)
[2019-02-15] MEDS: OMEGA 3 (FISH OIL) 1000 MG CAP PO SCH (09:45)
[2019-02-15] MEDS: POLYETHYLENE GLYCOL 17 GM (MIRALAX) PACK PO SCH ×2 (09:45→19:39)
[2019-02-15] MEDS: LOSARTAN 100 MG (COZAAR) TABLET PO SCH (09:45)
[2019-02-15] MEDS: SENNA W/DOCUSATE (SENOKOT S) TABLET PO SCH ×2 (09:49→19:50)
[2019-02-15] MEDS: DOCUSATE SODIUM 100 MG (COLACE) CAP PO SCH ×2 (09:49→19:49)
--- NOTE | 2019-02-15 14:52 | PM&R Progress Note ---
Subjective HPI/CC On Admission Date Seen by Provider: Feb 15, 2019 Time Seen by Provider: 12:15 Subjective/Events-last exam Patient having dramatic improvement since admitted Needs 15/7 slower pace due to severity of debility IV iron infusions are tolerated well and will complete No pain is reported today Incontinence when she stood up with therapy today but that is chronic issue. [place] out 02/17/19. UTI Proteus so started on Rocephin IV and reviewed sensitivities so will finish off with Omnicef 300 MG twice daily for an additional 3 days BM treatment will be maintained since last BM was several days ago suppository was given and had a bowel movement yesterday Daughter at the bedside pleased with her recovery so took her out to the group room to eat lunch with her Left hand and arm doing much better Conferred with RN Reviewed therapy notes Checked meds and labs Review of Systems General: Fatigue Genitourinary: Incontinence Neurological: Weakness, Numbness, Incoordination Objective Exam Vital Signs Vital Signs Date Time Temp Pulse Resp B/P (MAP) Pulse Ox O2 Delivery O2 Flow Rate FiO2 02/15/19 09:00 Room Air 02/15/19 05:58 36.9 57 16 110/70 (83) 98 Capillary Refill : Less Than 3 Seconds General Appearance: No Apparent Distress, WD/WN, Chronically ill, Obese HEENT: PERRL/EOMI, Normal ENT Inspection, Pharynx Normal Neck: Full Range of Motion, Normal Inspection, Non Tender, Supple, Carotid Bruit Respiratory: Chest Non Tender, Lungs Clear, Normal Breath Sounds, No Accessory Muscle Use, No Respiratory Distress, Decreased Breath Sounds Cardiovascular: Regular Rate, Rhythm, No Edema, No Gallop, No JVD, No Murmur, Normal Peripheral Pulses Gastrointestinal: Normal Bowel Sounds, No Organomegaly, No Pulsatile Mass, Non Tender, Soft Back: Normal Inspection, No CVA Tenderness, No Vertebral Tenderness Extremity: Normal Capillary Refill, Normal Inspection, Normal Range of Motion, Non Tender, No Calf Tenderness, No Pedal Edema Neurologic/Psychiatric: Alert, Oriented x3, obiee report developer II-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 FIM Transfers Therapy Code Descriptions/Definitions Functional [place] Measure: 0=Not Assessed/NA 4=Minimal Assistance 1=Total Assistance 5=Supervision or Setup 2=Maximal Assistance 6=Modified [place] 3=Moderate Assistance 7=Complete IndependenceSCALE: Activities may be completed with or without assistive devices. 5-Epveyixkel-iudhnvc completes the activity by him/herself with no assistance from a helper. 5-Set-up or Clean-up Assistance-helper sets up or cleans up; patient completes activity. [place] assists only prior to or following the activity. 4-Supervision or Touching Assistance-helper provides verbal cues and/or touching/steadying and/or contact guard assistance as patient completes activity. Assistance may be provided throughout the activity or intermittently. 3-Partial/Moderate Assistance-helper does LESS THAN HALF the effort. [place] lifts, holds or supports trunk or limbs, but provides less than half the effort. 2-Substantial/Maximal Assistance-helper does MORE THAN HALF the effort. [place] lifts or holds trunk or limbs and provides more than half the effort. 2-Hzmwedogg-zwmvsy does ALL the effort. Patient does none of the effort to complete the activity. Or, the assistance of 2 or more helpers is required for the patient to complete the activity. If activity was not attempted, code reason: 7-Patient Refused. 9-Not Applicable-not attempted and the patient did not perform the activity befo re the current illness, exacerbation or injury. 10-Not Attempted due to Environmental Limitations-(lack of equipment, weather re straints, etc.). 88-Not Attempted due to Medical Conditions or Safety Concerns. Roll Left to Right (QC): 3 Sit to Lying (QC): 1 Sit to Stand (QC): 4 Chair/Jls-uc-Kttcd Xfer(QC): 3 Car Transfer (QC): 88 Gait Training Does the Patient Walk?: Yes Distance: 50' x3 Walk 10 feet (QC): 5 Walk 50 ft with 2 Turns(QC): 5 Walk 150 ft (QC): 88 Walking 10ft/uneven surface-QC: 88 Gait Persons Needed: 1 Gait Assistive Device: FWW Wheelchair Training Does the Pt Use a Wheelchair?: Yes Wheel 50 ft with 2 turns (QC): 3 Wheel 150 ft (QC): 3 Type of Wheelchair: Manual Stair Training 1 Step (curb) (QC): 88 4 Steps (QC): 88 12 Steps (QC): 88 Balance Picking up an Object (QC): 88 ADL-Treatment Eating (QC): 6 Oral Hygiene (QC): 5 (s/u to open denture container.) Bathing Location: L Arm, R Arm, L Upper Leg, R Upper Leg, Chest, Abdomen, Perineal Area Shower/Bathe Self (QC): 3 (assist with CGA in stance, back, and bottom. Pt completes LB with LHS) Upper Body Dressing (QC): 5 (s/u) Lower Body Dressing (QC): 3 (mod A for L side of pants over hips.) On/Off Footwear (QC): 5 (s/u sock aide.) Toileting Hygiene (QC): 3 (CGA and min A for urination hygiene) Toilet Transfer (QC): 4 (CGA-min A) Assessment/Plan Assessment and Plan Assess & Plan/Chief Complaint Assessment: s/p craniotomy at [facility] Meningioma s/p resection Severe debility needs aggressive therapies HTN Anemia iron def initiated Venofer Constipation GRADY? UTI with Proteus completed Rocephin for 3 days and will complete Omnicef oral transition Plan: Monitor closely Venofer Pain control Slow recovery so 15/ IRF BM regimen to maintain Omnicef (1) S/P craniotomy (2) Hypertension (3) Obesity (4) Constipation (5) History of hip replacement, total (6) Headache (7) Seizure prophylaxis EVIE SAPP DO Feb 15, 2019 14:52
[2019-02-15 18:00] VITALS: BP 126/67
--- NOTE | 2019-02-15 18:00 | NUR ---
A GOOD DAY. DAUGHTER HERE MOST OF DAY. DAUGHTER GENTLY WASHED HAIR AROUND 2 INCISIONS.
--- NOTE | 2019-02-15 21:16 | NUR ---
Pt up to bsc from chair. Pt required min assist to get up from seated position. Pt able to stand and pivot with FWW and SBA. Pt needed max assist for yanni-care and clothing adjustment. Pt transfers from BSC with SBA and needed min-mod assist to get legs into bed as well as positioning in bed. Pt has improved greatly over the last three nocs. Cont to monitor.
[2019-02-16 05:30] VITALS: BP 137/72
[2019-02-16 05:55] LABS: BASOPHILS % (AUTO) 0 % (0-10); EOSINOPHILS # (AUTO) 0.1 10^3/uL (0.0-0.3); EOSINOPHILS % (AUTO) 1 % (0-10); HEMATOCRIT 25 % (35-52); HEMOGLOBIN 8.1 G/DL (11.5-16.0); LYMPHOCYTES # (AUTO) 0.7 X 10^3 (1.0-4.0); LYMPHOCYTES % (AUTO) 7 % (12-44); MEAN CORPUSCULAR HEMOGLOBIN 32 PG (25-34); MEAN CORPUSCULAR HGB CONC 32 G/DL (32-36); MEAN CORPUSCULAR VOLUME 100 FL (80-99); MEAN PLATELET VOLUME 12.7 FL (7.4-10.4); MONOCYTES # (AUTO) 0.5 X 10^3 (0.0-1.0); MONOCYTES % (AUTO) 5 % (0-12); NEUTROPHILS # (AUTO) 9.2 X 10^3 (1.8-7.8); NEUTROPHILS % (AUTO) 87 % (42-75); PLATELET COUNT 172 10^3/uL (130-400); WHITE BLOOD COUNT 10.6 10^3/uL (4.3-11.0)
[2019-02-16] MEDS: CATHETER FLUSH 10 ML SYR IV SCH ×3 (06:03→21:01)
[2019-02-16] MEDS: FERROUS SULF 325 MG (IRON) TAB PO SCH ×2 (06:03→17:06)
[2019-02-16] MEDS: ACETAMINOPHEN 500 MG TAB (TYLENOL) PO PRN ×2 (06:07→17:07)
[2019-02-16 06:20] LABS: ALBUMIN 3.4 GM/DL (3.2-4.5); BILIRUBIN,TOTAL 0.3 MG/DL (0.1-1.0); CALCIUM 8.5 MG/DL (8.5-10.1); CREATININE SERUM 1.36 MG/DL (0.60-1.30); TOTAL PROTEIN 5.5 GM/DL (6.4-8.2)
[2019-02-16] MEDS: DOCUSATE SODIUM 100 MG (COLACE) CAP PO SCH ×2 (08:18→20:58)
[2019-02-16] MEDS: DEXAMETHASONE 4 MG TAB (DECADRON) PO SCH (08:18)
[2019-02-16] MEDS: CEFDINIR 300 MG (OMNICEF) CAP PO SCH ×2 (08:18→20:57)
[2019-02-16] MEDS: VITAMIN D3 400 UNITS (CHOLECALCIFEROL) TABLET PO SCH (08:18)
[2019-02-16] MEDS: LOSARTAN 100 MG (COZAAR) TABLET PO SCH (08:18)
[2019-02-16] MEDS: OMEGA 3 (FISH OIL) 1000 MG CAP PO SCH (08:18)
[2019-02-16] MEDS: meTOprolol TARTRATE 25 MG (LOPRESSOR) TABLET PO SCH ×2 (08:18→20:57)
[2019-02-16] MEDS: LEVETIRACETAM 500 MG (KEPPRA) TAB PO SCH ×2 (08:20→20:58)
[2019-02-16] MEDS: POLYETHYLENE GLYCOL 17 GM (MIRALAX) PACK PO SCH ×2 (08:22→20:58)
[2019-02-16] MEDS: SENNA W/DOCUSATE (SENOKOT S) TABLET PO SCH ×2 (08:22→20:58)
[2019-02-16] MEDS: IRON SUCROSE 200 MG/10 ML (VENOFER) VIAL IV SCH (09:55)
--- NOTE | 2019-02-16 10:07 | Physical Therapy Daily Note ---
PT Daily Note-Current Subjective Pt. in chair and agrees to Rx. Co Rx with OT secondary to lower level of function and degree of skill needed to manage balance issues during functional tasks. Pt. states she did not sleep well Pain Location: No Pain Reported Mental Status Patient Orientation: Person, Place, Situation Transfers SCALE: Activities may be completed with or without assistive devices. 8-Pxxyozheks-agbhdtn completes the activity by him/herself with no assistance from a helper. 5-Set-up or Clean-up Assistance-helper sets up or cleans up; patient completes activity. [place] assists only prior to or following the activity. 4-Supervision or Touching Assistance-helper provides verbal cues and/or touching/steadying and/or contact guard assistance as patient completes activity. Assistance may be provided throughout the activity or intermittently. 3-Partial/Moderate Assistance-helper does LESS THAN HALF the effort. [place] lifts, holds or supports trunk or limbs, but provides less than half the effort. 2-Substantial/Maximal Assistance-helper does MORE THAN HALF the effort. [place] lifts or holds trunk or limbs and provides more than half the effort. 0-Gsoswhsyv-mjusid does ALL the effort. Patient does none of the effort to com plete the activity. Or, the assistance of 2 or more helpers is required for the patient to complete the activity. If activity was not attempted, code reason: 7-Patient Refused. 9-Not Applicable-not attempted and the patient did not perform the activity before the current illness, exacerbation or injury. 10-Not Attempted due to Environmental Limitations-(lack of equipment, weather restraints, etc.). 88-Not Attempted due to Medical Conditions or Safety Concerns. Roll Left & Right (QC): 6 Sit to Lying (QC): 6 Lying to Sitting/Side of Bed(Q: 6 Sit to Stand (QC): 5 Chair/Yyd-tw-Jwzsc Xfer(QC): 5 Toilet Transfer (QC): 5 instruction in safe rolling and sup to sit TRF Weight Bearing Full Weight Bearing Full Weight Bearing Gait Training Does the Patient Walk?: Yes Walk 10 feet (QC): 4 Walk 50 ft with 2 Turns(QC): 4 Walk 150 ft (QC): 4 Gait Persons Needed: 1 Gait Assistive Device: FWW pt. with assymetrical position in FWW frequently kicks FWW with LLE foot and is nto square inside perimeters of FWW for safety and good handling. Much instruction on this with minimal improvement Exercises Supine Ex: Bridging, Ankle pumps, Rolling, Heel Slides, Scooting, Hip abd/add Supine Reps: 12 Seated Therapy Exercises: Ankle pumps, Sit to stand, Long arc quads, Hip flexion Seated Reps: 12 Standing: Hip Abduction, Hamstring curls, Heel/toe raises, Marching Standing Reps: 12 Treatments pt. doffed pants and toileted and cleaned and managed pants up down with assist and instruction Assessment Current Status: Good Progress improved balance, improved gait stability, increased endurance PT Short Term Goals Short Term Goals Time Frame: Feb 17, 2019 Sit to lyin Lying to sitting on side of be: 3 Sit to stand: 3 Walk 50 feet with two turns: 4 PT Group Home Goals Group Home Goals PT Group Home Goals Time Frame: Mar 03, 2019 Roll Left & Right (QC): 6 Sit to Lying (QC): 6 Lying-Sitting on Side/Bed(QC): 6 Sit to Stand (QC): 6 Chair/Wpb-zp-Amxmd Xfer(QC): 6 Toilet Transfer (QC): 6 Car Transfer (QC): 6 Does the Patient Walk: Yes Walk 10 feet (QC): 6 Walk 50ft with 2 Turns (QC): 6 Walk 150 ft (QC): 6 Walking 10ft on Uneven Surface: 5 1 Step (curb) (QC): 6 4 Steps (QC): 6 12 Steps (QC): 9 Picking up an Object (QC): 9 Does the Pt use WC or Scooter?: No PT Plan Treatment/Plan Treatment Plan: Continue Plan of Care Treatment Plan: Bed Mobility, Education, Functional Activity Scout, Functional Strength, Group Therapy, Gait, Safety, Therapeutic Exercise, Transfers Treatment Duration: Mar 03, 2019 Frequency: Modified Program (IRF) Estimated Hrs Per Day: 1.5 hours per day Patient and/or Family Agrees t: Yes Safety Risks/Education Patient Education: Gait Training, Transfer Techniques, Correct Positioning, Disease Process, Safety Issues Teaching Recipient: Patient Teaching Methods: Demonstration, Discussion Response to Teaching: Verbalize Understanding, Return Demonstration, Reinforcement Needed Time/GCodes Time In: 900 Time Out: 1000 Total Billed Treatment Time: 60 Total Billed Treatment 1,FA25m,EX20m,GT15m RADHA CHEW EMBEDDED FIRMWARE ENGINEER Feb 16, 2019 10:07
--- NOTE | 2019-02-16 10:40 | Occupational Ther Daily Note ---
OT Current Status-Daily Note Subjective Pt seen in recliner chair, states poor sleep last night due to noise outside her door. Pt states slight headache, agreeable to OT/ PT co-treat. Co-treat rendered due to high level balance and functional mobility tasks with a need of 2 skilled therapists. OT focused on UE and problem solving while PT focused on functional ambulation and balance. Mental Status/Objective Patient Orientation: Normal For Age ADL-Treatment Therapy Code Descriptions/Definitions Functional [place] Measure: 0=Not Assessed/NA 4=Minimal Assistance 1=Total Assistance 5=Supervision or Setup 2=Maximal Assistance 6=Modified [place] 3=Moderate Assistance 7=Complete IndependenceSCALE: Activities may be completed with or without assistive devices. 8-Jllcdgiyjm-ttpwdfy completes the activity by him/herself with no assistance from a helper. 5-Set-up or Clean-up Assistance-helper sets up or cleans up; patient completes activity. [place] assists only prior to or following the activity. 4-Supervision or Touching Assistance-helper provides verbal cues and/or touching/steadying and/or contact guard assistance as patient completes activity. Assistance may be provided throughout the activity or intermittently. 3-Partial/Moderate Assistance-helper does LESS THAN HALF the effort. [place] lifts, holds or supports trunk or limbs, but provides less than half the effort. 2-Substantial/Maximal Assistance-helper does MORE THAN HALF the effort. [place] l ifts or holds trunk or limbs and provides more than half the effort. 2-Sidirijnm-nqqvob does ALL the effort. Patient does none of the effort to complete the activity. Or, the assistance of 2 or more helpers is required for the patient to complete the activity. If activity was not attempted, code reason: 7-Patient Refused. 9-Not Applicable-not attempted and the patient did not perform the activity before the current illness, exacerbation or injury. 10-Not Attempted due to Environmental Limitations-(lack of equipment, weather restraints, etc.). 88-Not Attempted due to Medical Conditions or Safety Concerns. Eating (QC): 6 Oral Hygiene (QC): 5 (s/u for opening container.) Shower/Bathe Self (QC): 3 (Pt completes all areas other than back and bottom. CGA in stance. Pt utilizes LHS for LB) Upper Body Dressing (QC): 6 Lower Body Dressing (QC): 4 (intermittent asisst for L side, cues for sequencing. Pt utilzies car rental sales assistant for breif and CGA- min A for pants.) On/Off Footwear: 2 (socks with sock aide. Shoes with max A. post-shower pt TD with rachael vicente.) Toileting Hygiene (QC): 2 (pt able to reach yanni area, assist with BM hygiene) Toilet Transfer (QC): 4 (CGA) Other Treatment Pt seen with PT/ OT co-treat: [id number]. Pt completes seated UE/ LE exercises with cues for AAROM of LUE with RUE. pt progressively decreases AROM with fatigue, requires tactile cues. Pt completes sit to stand with CGA, completes toileting. Pt ambulates to gym without break. Sits EOM, completes bed mob with increased IND- cues for positioning. Pt able to bring self from supine to sit wihtout use of UE, returns to EOM with increased time. Pt completes UE/ LE exercises at parallel bars in stance, cues for positioning and focus. Pt returns to recliner chair, daughter present at start of OT individual session: 1000- 1030. pt completes sponge bath in recliner chair, requests bathroom after LB wash/ dressing. Pt and OT discuss safety at home and progress throughout rehab. Pt and OT discuss possibility for pt d/c home vs daughter's home. Pt states she does not want to inconvenience daughter, pt and OT agree home is the anticipated d/c location but to continue working on goals to attain safety during mobility and ADLs due to decreased balance and fatigue. Pt left in recliner, all needs met, call light in reach. Education OT Patient Education: Correct positioning, Exercise program, Home exercise program, Modified ADL techniques, Progress toward Goal/Update tx plan, Rehab process, Transfer techniques, Use of adapted equipment Teaching Recipient: Patient Teaching Methods: Demonstration, Discussion Response to Teaching: Verbalize Understanding, Return Demonstration OT Rib Builder Goals Rib Builder Goals Time Frame: Feb 23, 2019 Eating (QC): 6 (met) Oral Hygiene (QC): 6 Toileting Hygiene (QC): 6 Shower/Bathe Self (QC): 6 Upper Body Dressing (QC): 6 (met) Lower Body Dressing (QC): 6 On/Off Footwear (QC): 6 Additional Goals: 1-Demonstrate ADL Tasks, 2-Verbalize Understanding, 3- ImproveStrength/Scout 1=Demonstrate adherence to instructed precautions during ADL tasks. 2=Patient will verbalize/demonstrate understanding of assistive devices/modifications for ADL. 3=Patient will improve strength/tolerance for activity to enable patient to perform ADL's. OT Education/Plan Problem List/Assessment Assessment: Decreased Activ Tolerance, Decreased UE Strength, Impaired Funct Balance, Impaired I ADL's, Impaired Self-Care Skills Discharge Recommendations Plan/Recommendations: Continue POC Treatment Plan/Plan of Care Treatment,Training & Education: Yes Patient would benefit from OT for education, treatment and training to promote independence in ADL's, mobility, safety and/or upper extremity function for ADL's. Plan of Care: ADL Retraining, Caregiver Training, Concurrent Therapy, Functional Mobility, Group Exercise/Act as Ind, UE Funct Exercise/Act, UE Neuromus Re-Ed/Coord Treatment Duration: Feb 23, 2019 Frequency: At least 5 of 7 days/Wk (IRF) Estimated Hrs Per Day: 1.5 hours per day Agreement: Yes Rehab Potential: Good Time/GCodes Start Time: 09:00 Stop Time: 10:30 Total Time Billed (hr/min): 90 Billed Treatment Time 1, EX 3 (45), ADL 3 (45)= 90 OT/ PT co-treat: [id number] OT individual treat: [id number] ALEIDA DIAZ OTR Feb 16, 2019 10:40
--- NOTE | 2019-02-16 11:04 | PM&R Progress Note ---
Subjective HPI/CC On Admission Date Seen by Provider: Feb 16, 2019 Time Seen by Provider: 09:00 Subjective/Events-last exam Hgb 8.1, tolerating iron infusion Midline flushes only but its functioning okay Creatinine 1.36 BM was yesterday Left hand and arm doing much better Conferred with RN Reviewed therapy notes Checked meds and labs Review of Systems General: Fatigue Neurological: Weakness, Numbness, Incoordination Objective Exam Vital Signs Vital Signs Date Time Temp Pulse Resp B/P (MAP) Pulse Ox O2 Delivery O2 Flow Rate FiO2 02/16/19 20:56 66 128/65 (86) 100 Room Air 02/16/19 17:25 36.2 18 Capillary Refill : Less Than 3 Seconds General Appearance: No Apparent Distress, WD/WN, Chronically ill, Obese HEENT: PERRL/EOMI, Normal ENT Inspection, Pharynx Normal Neck: Full Range of Motion, Normal Inspection, Non Tender, Supple, Carotid Bruit Respiratory: Chest Non Tender, Lungs Clear, Normal Breath Sounds, No Accessory Muscle Use, No Respiratory Distress, Decreased Breath Sounds Cardiovascular: Regular Rate, Rhythm, No Edema, No Gallop, No JVD, No Murmur, Normal Peripheral Pulses Gastrointestinal: Normal Bowel Sounds, No Organomegaly, No Pulsatile Mass, Non Tender, Soft Back: Normal Inspection, No CVA Tenderness, No Vertebral Tenderness Extremity: Normal Capillary Refill, Normal Inspection, Normal Range of Motion, Non Tender, No Calf Tenderness, No Pedal Edema Neurologic/Psychiatric: Alert, Oriented x3, gill tender II-XII Norm as Tested, Abnormal Gait, Depressed Affect, Motor Weakness (lower legs and arms 4/5) Skin: Normal Color, Warm/Dry, Other (craniotomy daily in place no drainage or redness) Lymphatic: No Adenopathy Results/Procedures Lab Laboratory Tests 02/16/19 05:20 Patient resulted labs reviewed. FIM Transfers Therapy Code Descriptions/Definitions Functional [place] Measure: 0=Not Assessed/NA 4=Minimal Assistance 1=Total Assistance 5=Supervision or Setup 2=Maximal Assistance 6=Modified [place] 3=Moderate Assistance 7=Complete IndependenceSCALE: Activities may be completed with or without assistive devices. 8-Hjfsgqhfwy-jmphtjm completes the activity by him/herself with no assistance from a helper. 5-Set-up or Clean-up Assistance-helper sets up or cleans up; patient completes activity. [place] assists only prior to or following the activity. 4-Supervision or Touching Assistance-helper provides verbal cues and/or touchi ng/steadying and/or contact guard assistance as patient completes activity. Assistance may be provided throughout the activity or intermittently. 3-Partial/Moderate Assistance-helper does LESS THAN HALF the effort. [place] lifts, holds or supports trunk or limbs, but provides less than half the effort. 2-Substantial/Maximal Assistance-helper does MORE THAN HALF the effort. [place] lifts or holds trunk or limbs and provides more than half the effort. 2-Tkfylpfak-gndina does ALL the effort. Patient does none of the effort to complete the activity. Or, the assistance of 2 or more helpers is required for the patient to complete the activity. If activity was not attempted, code reason: 7-Patient Refused. 9-Not Applicable-not attempted and the patient did not perform the activity befo re the current illness, exacerbation or injury. 10-Not Attempted due to Environmental Limitations-(lack of equipment, weather restraints, etc.). 88-Not Attempted due to Medical Conditions or Safety Concerns. Roll Left to Right (QC): 6 Sit to Lying (QC): 6 Sit to Stand (QC): 5 Chair/Mqe-jy-Bnsow Xfer(QC): 5 Car Transfer (QC): 88 Gait Training Does the Patient Walk?: Yes Distance: 50' x3 Walk 10 feet (QC): 4 Walk 50 ft with 2 Turns(QC): 4 Walk 150 ft (QC): 4 Walking 10ft/uneven surface-QC: 88 Gait Persons Needed: 1 Gait Assistive Device: FWW Wheelchair Training Does the Pt Use a Wheelchair?: Yes Wheel 50 ft with 2 turns (QC): 3 Wheel 150 ft (QC): 3 Type of Wheelchair: Manual Stair Training 1 Step (curb) (QC): 88 4 Steps (QC): 88 12 Steps (QC): 88 Balance Picking up an Object (QC): 88 ADL-Treatment Eating (QC): 6 Oral Hygiene (QC): 5 Bathing Location: L Arm, R Arm, L Upper Leg, R Upper Leg, Chest, Abdomen, Perineal Area Shower/Bathe Self (QC): 3 Upper Body Dressing (QC): 6 Lower Body Dressing (QC): 4 On/Off Footwear (QC): 2 Toileting Hygiene (QC): 2 Toilet Transfer (QC): 4 Assessment/Plan Assessment and Plan Assess & Plan/Chief Complaint Assessment: s/p craniotomy at [facility] Meningioma s/p resection Severe debility needs aggressive therapies HTN Anemia iron def initiated Venofer Constipation GRADY? UTI with Proteus completed Rocephin for 3 days and will complete Omnicef oral transition Plan: Monitor closely Venofer Pain control Slow recovery so 01/09 IRF BM regimen to maintain Omnicef (1) S/P craniotomy (2) Hypertension (3) Obesity (4) Constipation (5) History of hip replacement, total (6) Headache (7) Seizure prophylaxis EVIE SAPP DO Feb 16, 2019 11:04
--- NOTE | 2019-02-16 11:45 | NUR ---
Pt up to w/c and out to table in main hallway to eat lunch with friend. Sub[employer] sandwich consumed. Friends exchange pleasantries and enjoy company with each other throughout meal. Pt returns to room with friend, to continue fellowship time. No c/o at this time.
--- NOTE | 2019-02-16 12:15 | Speech Therapy Daily Note ---
Speech Daily Progress Note Subjective Date Seen by Provider: Feb 16, 2019 Time Seen by Provider: 00:30 Patient stated her sister was bringing her lunch today. Objective Patient completed a word chain from 3-6 letter words with 25% verbal cues and/or repetitions. Assessment Assessment Current Status: Good Progress Treatment Plan Continue Plan of Care Speech Short Term Goals Short Term Goals Short Term Goals 1) Patient will complete memory tasks related to her daily needs with 90% or greater with minimal cues. 2) Patient will complete safety awareness tasks related to her daily needs with 90% or greater with minimal cues. 3) Patient will complete problem solving tasks related to her daily needs with 90% or greater with minimal cues. Speech Correction Goals Child Welfare Director Goals Patient will improve cognitive-communication necessary for safety and daily living tasks with minimal assist. Speech-Plan Patient/Family Goals Patient/Family Goals: Patient plans on returning to her home upon rehab discharge. She will have good family support near by. Treatment Plan Speech Therapy Treatment Plan: Continue Plan of Care Patient is progressing well toward meeting ST goals. Treatment Duration: Feb 20, 2019 Frequency: 4 times per week Estimated Hrs Per Day: .5 hour per day Rehab Potential: Good Barriers to Learning: Mild cognitive deficits Pt/Family Agrees to Plan: Yes Safety Risks/Education Teaching Recipient: Patient Teaching Methods: Demonstration, Discussion Response to Teaching: Verbalize Understanding, Return Demonstration Education Topics Provided: Continued safety and communication of wants/needs Time Speech Therapy Time In: 11:15 Speech Therapy Time Out: 11:45 Total Billed Time: 30 Billed Treatment Time 1, MEHNAZ POWERSFERDINAND MOYAMIHAI VIVEROS Feb 16, 2019 12:15
[2019-02-16 16:09] VITALS: BP 124/64
[2019-02-16 17:25] VITALS: BP 134/76
[2019-02-16 20:56] VITALS: BP 128/65
[2019-02-17 04:15] VITALS: BP 133/60
[2019-02-17] MEDS: CATHETER FLUSH 10 ML SYR IV SCH ×3 (05:58→20:07)
[2019-02-17] MEDS: FERROUS SULF 325 MG (IRON) TAB PO SCH ×2 (05:58→17:33)
[2019-02-17] MEDS: DOCUSATE SODIUM 100 MG (COLACE) CAP PO SCH ×2 (07:40→19:21)
[2019-02-17] MEDS: POLYETHYLENE GLYCOL 17 GM (MIRALAX) PACK PO SCH ×2 (07:41→19:21)
[2019-02-17] MEDS: SENNA W/DOCUSATE (SENOKOT S) TABLET PO SCH ×2 (07:41→19:21)
[2019-02-17] MEDS: OMEGA 3 (FISH OIL) 1000 MG CAP PO SCH (07:59)
[2019-02-17] MEDS: DEXAMETHASONE 4 MG TAB (DECADRON) PO SCH (07:59)
[2019-02-17] MEDS: LEVETIRACETAM 500 MG (KEPPRA) TAB PO SCH ×2 (07:59→20:06)
[2019-02-17] MEDS: CEFDINIR 300 MG (OMNICEF) CAP PO SCH ×2 (07:59→20:06)
[2019-02-17] MEDS: LOSARTAN 100 MG (COZAAR) TABLET PO SCH (07:59)
[2019-02-17] MEDS: meTOprolol TARTRATE 25 MG (LOPRESSOR) TABLET PO SCH ×2 (07:59→20:06)
[2019-02-17] MEDS: VITAMIN D3 400 UNITS (CHOLECALCIFEROL) TABLET PO SCH (07:59)
--- NOTE | 2019-02-17 09:07 | Physical Therapy Daily Note ---
PT Daily Note-Current Subjective Pt sitting in recliner upon arrival. Pt agrees to PT/OT co-treat. Pain Location: No Pain Reported Mental Status Patient Orientation: Person, Place, Situation Pt demonstrates occasional confusion. Transfers SCALE: Activities may be completed with or without assistive devices. 8-Cxmbwgmjqd-zikwhyy completes the activity by him/herself with no assistance from a helper. 5-Set-up or Clean-up Assistance-helper sets up or cleans up; patient completes activity. [place] assists only prior to or following the activity. 4-Supervision or Touching Assistance-helper provides verbal cues and/or touching/steadying and/or contact guard assistance as patient completes activity. Assistance may be provided throughout the activity or intermittently. 3-Partial/Moderate Assistance-helper does LESS THAN HALF the effort. [place] lifts, holds or supports trunk or limbs, but provides less than half the effort. 2-Substantial/Maximal Assistance-helper does MORE THAN HALF the effort. [place] lifts or holds trunk or limbs and provides more than half the effort. 6-Ldoqujirt-mxqhfd does ALL the effort. Patient does none of the effort to complete the activity. Or, the assistance of 2 or more helpers is required for the patient to complete the activity. If activity was not attempted, code reason: 7-Patient Refused. 9-Not Applicable-not attempted and the patient did not perform the activity before the current illness, exacerbation or injury. 10-Not Attempted due to Environmental Limitations-(lack of equipment, weather restraints, etc.). 88-Not Attempted due to Medical Conditions or Safety Concerns. Sit to Stand (QC): 4 Toilet Transfer (QC): 4 Weight Bearing Full Weight Bearing Full Weight Bearing Gait Training Does the Patient Walk?: Yes Distance: 15' Walk 10 feet (QC): 4 Gait Persons Needed: 1 Gait Assistive Device: FWW Pt walks limited distance to BS as well as during balance activity in Therapy Gym. Pt fatigues easily. Wheelchair Training Does the Pt Use a Wheelchair?: Yes Wheel 50 ft with 2 turns (QC): 3 Wheel 150 ft (QC): 3 Type of Wheelchair: Manual Pt needs VC and assistance to turn due to drifting to L side since L UE affected weakness. Exercises Seated Therapy Exercises: Ankle pumps, Long arc quads, Hip flexion, Kicking activity Seated Reps: 20 Treatments Pt participates in PT/OT co-treat which consists of PT working on W/C mobility, transfers & LE strengthening through EX while OT focus on EX & ROM for UE, proper hand placement especially during W/C mobility as well as pinching & fine motors skills with upright balance. Pt continues to work with OT at end of PT Rx. Pt completes UE AROM exercises while squeezing hand sponge. Completes 3 sets of 10 reps in forward flexion, abduction, and horizontal ab/ adduction (pt requires max A to reach full horizontal abduction due to limited strength). Pt sit to stand with SBA to FWW, toilet tx with SBA. Pt completes toileting / cleansing, able to complete pant donning over hips with CGA (L hand brings over hips with IND). Pt wheels to therapy gym with max breaks, cues for use of LUE alongside RUE (when not cued pt leaves L hand near w/c wheel). Pt completes seated/ standing exercises (crosses midline with BUE). Pt takes clothes pins from opposite side of body and attaches to bars in different planes, requires break after ~3 min of standing. Pt sits EOM and gathers clothes pins from clothing in all areas with L UE- able to reach back/ bottom and R side with CGA in standing. Assessment PT/ OT co-treat due to high level balance and exercise tasks addressed on this date which requires the skill of 2 skilled therapists that an aide could not provide. OT addressed ADLs and UE use/ balance as PT addressed gait, balance, functional transfers. Pt states no pain on this date, pt states she slept well last night but "still asleep." Pt fatigues through the session. PT Short Term Goals Short Term Goals Time Frame: Feb 17, 2019 Sit to lyin Lying to sitting on side of be: 3 Sit to stand: 3 Walk 50 feet with two turns: 4 PT [place] Operator Goals Care Home Goals PT Care Home Goals Time Frame: Mar 03, 2019 Roll Left & Right (QC): 6 Sit to Lying (QC): 6 Lying-Sitting on Side/Bed(QC): 6 Sit to Stand (QC): 6 Chair/Yvg-jm-Mawyr Xfer(QC): 6 Toilet Transfer (QC): 6 Car Transfer (QC): 6 Does the Patient Walk: Yes Walk 10 feet (QC): 6 Walk 50ft with 2 Turns (QC): 6 Walk 150 ft (QC): 6 Walking 10ft on Uneven Surface: 5 1 Step (curb) (QC): 6 4 Steps (QC): 6 12 Steps (QC): 9 Picking up an Object (QC): 9 Does the Pt use WC or Scooter?: No PT Plan Problem List Problem List: Activity Tolerance, Functional Strength, Safety, Balance, Gait, Transfer Treatment/Plan Treatment Plan: Continue Plan of Care Treatment Plan: Bed Mobility, Education, Functional Activity Scout, Functional Strength, Group Therapy, Gait, Safety, Therapeutic Exercise, Transfers Treatment Duration: Mar 03, 2019 Frequency: Modified Program (IRF) Estimated Hrs Per Day: 1.5 hours per day Patient and/or Family Agrees t: Yes Safety Risks/Education Patient Education: Gait Training, Transfer Techniques, Correct Positioning, W/C Management, Safety Issues Teaching Recipient: Patient Teaching Methods: Discussion Response to Teaching: Reinforcement Needed Time/GCodes Time In: 800 Time Out: 900 Total Billed Treatment Time: 60 Total Billed Treatment 1, EX (15m), FA (15m), WCH (15m) & GT (15m) Co-treat w/OT (60m) CAYLA ELLIS PTA Feb 17, 2019 09:07
--- NOTE | 2019-02-17 11:06 | Occupational Ther Daily Note ---
OT Current Status-Daily Note Subjective Pt seen in recliner chair, PT/ OT co-treat due to high level balance and exercise tasks addressed on this date which requires the skill of 2 skilled therapists that an aide could not provide. OT addressed ADLs and UE use/ balance as PT addressed gait, balance, functional transfers. Pt states no pain on this date, pt states she slept well last night but "still asleep." Pt fatigues through the session. Mental Status/Objective Patient Orientation: Normal For Age ADL-Treatment Therapy Code Descriptions/Definitions Functional [place] Measure: 0=Not Assessed/NA 4=Minimal Assistance 1=Total Assistance 5=Supervision or Setup 2=Maximal Assistance 6=Modified [place] 3=Moderate Assistance 7=Complete IndependenceSCALE: Activities may be completed with or without assistive devices. 1-Vrhlfgfmui-lmttbph completes the activity by him/herself with no assistance from a helper. 5-Set-up or Clean-up Assistance-helper sets up or cleans up; patient completes activity. [place] assists only prior to or following the activity. 4-Supervision or Touching Assistance-helper provides verbal cues and/or touching/steadying and/or contact guard assistance as patient completes activity. Assistance may be provided throughout the activity or intermittently. 3-Partial/Moderate Assistance-helper does LESS THAN HALF the effort. [place] lifts, holds or supports trunk or limbs, but provides less than half the effort. 2-Substantial/Maximal Assistance-helper does MORE THAN HALF the effort. [place] lifts or holds trunk or limbs and provides more than half the effort. 2-Bdbhfsmmj-cwvhkk does ALL the effort. Patient does none of the effort to complete the activity. Or, the assistance of 2 or more helpers is required for the patient to complete the activity. If activity was not attempted, code reason: 7-Patient Refused. 9-Not Applicable-not attempted and the patient did not perform the activity before the current illness, exacerbation or injury. 10-Not Attempted due to Environmental Limitations-(lack of equipment, weather restraints, etc.). 88-Not Attempted due to Medical Conditions or Safety Concerns. Eating (QC): 6 Shower/Bathe Self (QC): 7 Upper Body Dressing (QC): 6 Lower Body Dressing (QC): 7 On/Off Footwear: 7 Toileting Hygiene (QC): 3 (Pt able to reach bottom with R hand, unable to cleanse self thoroughly; requires min A for thoroughness) Toilet Transfer (QC): 4 (SBA with FWW to [facility]) Other Treatment Pt completes UE AROM exercises while squeezing hand sponge. Completes 3 sets of 10 reps in forward flexion, abduction, and horizontal ab/ adduction (pt requires max A to reach full horizontal abduction due to limited strength). Pt sit to stand with SBA to FWW, toilet tx with SBA. pt completes toileting / cleansing, able to complete pant donning over hips with CGA (L hand brings over hips with IND). Pt wheels to therapy gym with max breaks, cues for use of LUE alongside RUE (when not cued pt leaves L hand near w/c wheel). Pt completes seated/ standing exercises (crosses midline with BUE). Pt takes clothes pins from opposite side of body and attaches to bars in different planes, requires break after ~3 min of standing. Pt sits EOM and gathers clothes pins from clothing in all areas with L UE- able to reach back/ bottom and R side with CGA in standing. Pt returns to room, sit to stand and transfers to chair with SBA, left in room with call light in reach, all needs met. Stitch Cleaner strength: R:47lbs, L 36lbs. Pinch strength: R: 10 lbs, L: 10lbs. Education OT Patient Education: Exercise program, Home exercise program, Modified ADL techniques, Progress toward Goal/Update tx plan, Purpose of tx/functional activities, Reviewed precautions, Transfer techniques, W/C management Teaching Recipient: Patient Teaching Methods: Demonstration, Discussion Response to Teaching: Verbalize Understanding, Return Demonstration OT Custodial Goals Custodial Goals Time Frame: Feb 23, 2019 Eating (QC): 6 (met) Oral Hygiene (QC): 6 Toileting Hygiene (QC): 6 Shower/Bathe Self (QC): 6 Upper Body Dressing (QC): 6 (met) Lower Body Dressing (QC): 6 On/Off Footwear (QC): 6 Additional Goals: 1-Demonstrate ADL Tasks, 2-Verbalize Understanding, 3- ImproveStrength/Scout 1=Demonstrate adherence to instructed precautions during ADL tasks. 2=Patient will verbalize/demonstrate understanding of assistive devices/modifications for ADL. 3=Patient will improve strength/tolerance for activity to enable patient to perform ADL's. OT Education/Plan Problem List/Assessment Assessment: Decreased Activ Tolerance, Decreased UE Strength, Dependent Transfers, Impaired Funct Balance, Impaired I ADL's, Impaired Self-Care Skills Discharge Recommendations Plan/Recommendations: Continue POC Therapy Discharge Recommendati: Intermittent Supervision, Home & Family Treatment Plan/Plan of Care Treatment,Training & Education: Yes Patient would benefit from OT for education, treatment and training to promote independence in ADL's, mobility, safety and/or upper extremity function for ADL's. Plan of Care: ADL Retraining, Caregiver Training, Concurrent Therapy, Functional Mobility, Group Exercise/Act as Ind, UE Funct Exercise/Act, UE Neuro mus Re-Ed/Coord Treatment Duration: Feb 23, 2019 Frequency: At least 5 of 7 days/Wk (IRF) Estimated Hrs Per Day: 1.5 hours per day Agreement: Yes Rehab Potential: Good Time/GCodes Start Time: 08:00 Stop Time: 09:30 Total Time Billed (hr/min): 90 Billed Treatment Time 1, ADL 2 (30), EX 4 (60)= 90 OT/PT cotreat: [id number] OT individual: [id number] ALEIDA DIAZ OTR Feb 17, 2019 11:06
--- NOTE | 2019-02-17 11:29 | PM&R Progress Note ---
Subjective HPI/CC On Admission Date Seen by Provider: Feb 17, 2019 Time Seen by Provider: 10:30 Subjective/Events-last exam Doing very well but still working on left arm weakness but her left hand pharmacists is much improved Need to recheck next week since she is progressing and still has work to do Bowels are moving well Daily were to be removed today but they do not appear to be ready yet so we'll check on and likely remove every other staple No pain is reported Omnicef 1 more dose today been done 1 more dose of iron infusion then will discontinue the midline too Conferred with RN Reviewed therapy notes Checked meds and labs Review of Systems Neurological: Weakness, Numbness, Incoordination Objective Exam Vital Signs Vital Signs Date Time Temp Pulse Resp B/P (MAP) Pulse Ox O2 Delivery O2 Flow Rate FiO2 02/17/19 08:03 Room Air 02/17/19 04:15 36.4 61 18 133/60 (84) 98 Capillary Refill : Less Than 3 Seconds General Appearance: No Apparent Distress, WD/WN, Chronically ill, Obese HEENT: PERRL/EOMI, Normal ENT Inspection, Pharynx Normal Neck: Full Range of Motion, Normal Inspection, Non Tender, Supple, Carotid Bruit Respiratory: Chest Non Tender, Lungs Clear, Normal Breath Sounds, No Accessory Muscle Use, No Respiratory Distress, Decreased Breath Sounds Cardiovascular: Regular Rate, Rhythm, No Edema, No Gallop, No JVD, No Murmur, N ormal Peripheral Pulses Gastrointestinal: Normal Bowel Sounds, No Organomegaly, No Pulsatile Mass, Non Tender, Soft Back: Normal Inspection, No CVA Tenderness, No Vertebral Tenderness Extremity: Normal Capillary Refill, Normal Inspection, Normal Range of Motion, Non Tender, No Calf Tenderness, No Pedal Edema Neurologic/Psychiatric: Alert, Oriented x3, national sales associate II-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 FIM Transfers Therapy Code Descriptions/Definitions Functional [place] Measure: 0=Not Assessed/NA 4=Minimal Assistance 1=Total Assistance 5=Supervision or Setup 2=Maximal Assistance 6=Modified [place] 3=Moderate Assistance 7=Complete IndependenceSCALE: Activities may be completed with or without assistive devices. 7-Wuqmkpgvqk-xsdpgsb completes the activity by him/herself with no assistance from a helper. 5-Set-up or Clean-up Assistance-helper sets up or cleans up; patient completes activity. [place] assists only prior to or following the activity. 4-Supervision or Touching Assistance-helper provides verbal cues and/or touching/steadying and/or contact guard assistance as patient completes activity. Assistance may be provided throughout the activity or intermittently. 3-Partial/Moderate Assistance-helper does LESS THAN HALF the effort. [place] lifts, holds or supports trunk or limbs, but provides less than half the effort. 2-Substantial/Maximal Assistance-helper does MORE THAN HALF the effort. [place] lifts or holds trunk or limbs and provides more than half the effort. 3-Bxoaswxhf-tfsmne does ALL the effort. Patient does none of the effort to complete the activity. Or, the assistance of 2 or more helpers is required for the patient to complete the activity. If activity was not attempted, code reason: 7-Patient Refused. 9-Not Applicable-not attempted and the patient did not perform the activity before the current illness, exacerbation or injury. 10-Not Attempted due to Environmental Limitations-(lack of equipment, weather restraints, etc.). 88-Not Attempted due to Medical Conditions or Safety Concerns. Roll Left to Right (QC): 6 Sit to Lying (QC): 6 Sit to Stand (QC): 4 Chair/Jch-zk-Umkyz Xfer(QC): 5 Car Transfer (QC): 88 Gait Training Does the Patient Walk?: Yes Distance: 15' Walk 10 feet (QC): 4 Walk 50 ft with 2 Turns(QC): 4 Walk 150 ft (QC): 4 Walking 10ft/uneven surface-QC: 88 Gait Persons Needed: 1 Gait Assistive Device: FWW Wheelchair Training Does the Pt Use a Wheelchair?: Yes Wheel 50 ft with 2 turns (QC): 3 Wheel 150 ft (QC): 3 Type of Wheelchair: Manual Stair Training 1 Step (curb) (QC): 88 4 Steps (QC): 88 12 Steps (QC): 88 Balance Picking up an Object (QC): 88 ADL-Treatment Eating (QC): 6 Oral Hygiene (QC): 5 Bathing Location: L Arm, R Arm, L Upper Leg, R Upper Leg, Chest, Abdomen, Perineal Area Shower/Bathe Self (QC): 7 Upper Body Dressing (QC): 6 Lower Body Dressing (QC): 7 On/Off Footwear (QC): 7 Toileting Hygiene (QC): 3 (Pt able to reach bottom with R hand, unable to cleanse self thoroughly; requires min A for thoroughness) Toilet Transfer (QC): 4 (SBA with FWW to [facility]) Assessment/Plan Assessment and Plan Assess & Plan/Chief Complaint Assessment: s/p craniotomy at [facility] Meningioma s/p resection Severe debility needs aggressive therapies HTN Anemia iron def initiated Venofer 1 last dose then will discontinue the midline Constipation GRADY? UTI with Proteus completed Rocephin for 3 days and will complete Omnicef oral transition today Plan: Monitor closely Venofer Pain control Slow recovery so 01/09 IRF BM regimen to maintain Omnicef completed today (1) S/P craniotomy (2) Hypertension (3) Obesity (4) Constipation (5) History of hip replacement, total (6) Headache (7) Seizure prophylaxis EVIE SAPP DO Feb 17, 2019 11:28
--- NOTE | 2019-02-17 12:27 | Speech Therapy Daily Note ---
Speech Daily Progress Note Subjective Date Seen by Provider: Feb 17, 2019 Time Seen by Provider: 00:30 Patient was resting in her recliner when I entered her room. She was much more alert today. Objective Patient completed a series of general information questions with 90% given 20% verbal cuing. Assessment Assessment Current Status: Good Progress Treatment Plan Continue Plan of Care Speech Short Term Goals Short Term Goals Short Term Goals 1) Patient will complete memory tasks related to her daily needs with 90% or greater with minimal cues. 2) Patient will complete safety awareness tasks related to her daily needs with 90% or greater with minimal cues. 3) Patient will complete problem solving tasks related to her daily needs with 90% or greater with minimal cues. Speech Alf Goals Meat Carrier Goals Patient will improve cognitive-communication necessary for safety and daily living tasks with minimal assist. Speech-Plan Patient/Family Goals Patient/Family Goals: Patient plans on returning to her home where she lives alone. She has great family support near by. Treatment Plan Speech Therapy Treatment Plan: Continue Plan of Care Patient Treatment Duration: Feb 20, 2019 Frequency: 4 times per week Estimated Hrs Per Day: .5 hour per day Rehab Potential: Good Barriers to Learning: Patient's recent brain surgery. Pt/Family Agrees to Plan: Yes Safety Risks/Education Teaching Recipient: Patient Teaching Methods: Demonstration, Discussion Response to Teaching: Verbalize Understanding, Return Demonstration Education Topics Provided: Continued safety within her room Time Speech Therapy Time In: 10:30 Speech Therapy Time Out: 11:00 Total Billed Time: 30 Billed Treatment Time 1, MEHNAZ POWERSALEX MOYA Feb 17, 2019 12:27
--- NOTE | 2019-02-17 14:56 | Physical Therapy Daily Note ---
PT Daily Note-Current Subjective Pt sitting in recliner visiting with daughter upon arrival. Pt agrees to walk with CONTINUOUS WELD PIPE MILL SUPERVISOR for Rx. Pain Location: No Pain Reported Mental Status Patient Orientation: Person, Place, Situation Transfers SCALE: Activities may be completed with or without assistive devices. 7-Rxvhpnhxwx-mnqemoz completes the activity by him/herself with no assistance from a helper. 5-Set-up or Clean-up Assistance-helper sets up or cleans up; patient completes activity. [place] assists only prior to or following the activity. 4-Supervision or Touching Assistance-helper provides verbal cues and/or to uching/steadying and/or contact guard assistance as patient completes activity. Assistance may be provided throughout the activity or intermittently. 3-Partial/Moderate Assistance-helper does LESS THAN HALF the effort. [place] lifts, holds or supports trunk or limbs, but provides less than half the effort. 2-Substantial/Maximal Assistance-helper does MORE THAN HALF the effort. [place] lifts or holds trunk or limbs and provides more than half the effort. 2-Ngnnookdf-whqrrc does ALL the effort. Patient does none of the effort to complete the activity. Or, the assistance of 2 or more helpers is required for the patient to complete the activity. If activity was not attempted, code reason: 7-Patient Refused. 9-Not Applicable-not attempted and the patient did not perform the activity before the current illness, exacerbation or injury. 10-Not Attempted due to Environmental Limitations-(lack of equipment, weather restraints, etc.). 88-Not Attempted due to Medical Conditions or Safety Concerns. Sit to Stand (QC): 5 Toilet Transfer (QC): 5 Weight Bearing Full Weight Bearing Full Weight Bearing Gait Training Does the Patient Walk?: Yes Distance: 75', 75', 125' Walk 10 feet (QC): 5 Walk 50 ft with 2 Turns(QC): 5 Walk 150 ft (QC): 4 Gait Persons Needed: 1 Gait Assistive Device: FWW Pt needs RB for fatigue. Treatments Pt transfers from recliner to standing then ambulates in hallway, see above. Pt returns to room to use BSC then rest in recliner at end of Rx. Pt has all needs met, call light in hand. Assessment Current Status: Good Progress Pt is gaining strength, demonstrated by improved transfers and activity tolerance. PT Short Term Goals Short Term Goals Time Frame: Feb 17, 2019 Sit to lyin Lying to sitting on side of be: 3 Sit to stand: 3 Walk 50 feet with two turns: 4 PT Centerpuncher Goals Snf Goals PT Snf Goals Time Frame: Mar 03, 2019 Roll Left & Right (QC): 6 Sit to Lying (QC): 6 Lying-Sitting on Side/Bed(QC): 6 Sit to Stand (QC): 6 Chair/Cwp-wa-Bsrpf Xfer(QC): 6 Toilet Transfer (QC): 6 Car Transfer (QC): 6 Does the Patient Walk: Yes Walk 10 feet (QC): 6 Walk 50ft with 2 Turns (QC): 6 Walk 150 ft (QC): 6 Walking 10ft on Uneven Surface: 5 1 Step (curb) (QC): 6 4 Steps (QC): 6 12 Steps (QC): 9 Picking up an Object (QC): 9 Does the Pt use WC or Scooter?: No PT Plan Problem List Problem List: Activity Tolerance, Gait Treatment/Plan Treatment Plan: Continue Plan of Care Treatment Plan: Bed Mobility, Education, Functional Activity Scout, Functional Strength, Group Therapy, Gait, Safety, Therapeutic Exercise, Transfers Treatment Duration: Mar 03, 2019 Frequency: Modified Program (IRF) Estimated Hrs Per Day: 1.5 hours per day Patient and/or Family Agrees t: Yes Safety Risks/Education Patient Education: Gait Training, Transfer Techniques, Correct Positioning, Safety Issues Teaching Recipient: Patient Teaching Methods: Discussion Response to Teaching: Verbalize Understanding Time/GCodes Time In: 1345 Time Out: 1415 Total Billed Treatment Time: 30 Total Billed Treatment 1, GT (20m) & FA (10m) CAYLA ELLIS CONTINUOUS WELD PIPE MILL SUPERVISOR Feb 17, 2019 14:56
--- NOTE | 2019-02-17 16:44 | NUR ---
WEEKLY TEAM CONFERENCE SUMMARY Reviewed with patient and she is in agreement to a continued stay with review 02/25/19. Her goal is to return to her own home but if she is not immediately able to do that she states she will go to the home of her daughter, Diana Thayer. Patient appears improved overall. Continue intermittent reviews of her progress and relative post hospital care plan.
[2019-02-17 18:00] VITALS: BP 104/61
[2019-02-18 05:55] VITALS: BP 144/73
[2019-02-18] MEDS: CATHETER FLUSH 10 ML SYR IV SCH ×2 (06:09→09:13)
[2019-02-18] MEDS: FERROUS SULF 325 MG (IRON) TAB PO SCH ×2 (06:09→17:50)
--- NOTE | 2019-02-18 08:55 | Physical Therapy Daily Note ---
PT Daily Note-Current Subjective Pt. agrees to Rx. States she still doesnt have much energy but feels she is making progress. Pt states she prefers to go home but will go to her daughters house after DC if needed. Pain Location: No Pain Reported Mental Status Patient Orientation: Normal For Age Transfers SCALE: Activities may be completed with or without assistive devices. 8-Mhoyfaizjy-amslich completes the activity by him/herself with no assistance from a helper. 5-Set-up or Clean-up Assistance-helper sets up or cleans up; patient completes activity. [place] assists only prior to or following the activity. 4-Supervision or Touching Assistance-helper provides verbal cues and/or touching/steadying and/or contact guard assistance as patient completes activity. Assistance may be provided throughout the activity or intermittently. 3-Partial/Moderate Assistance-helper does LESS THAN HALF the effort. [place] lifts, holds or supports trunk or limbs, but provides less than half the effort. 2-Substantial/Maximal Assistance-helper does MORE THAN HALF the effort. [place] lifts or holds trunk or limbs and provides more than half the effort. 0-Ngxxkiyaf-urcehx does ALL the effort. Patient does none of the effort to complete the activity. Or, the assistance of 2 or more helpers is required for the patient to complete the activity. If activity was not attempted, code reason: 7-Patient Refused. 9-Not Applicable-not attempted and the patient did not perform the activity before the current illness, exacerbation or injury. 10-Not Attempted due to Environmental Limitations-(lack of equipment, weather restraints, etc.). 88-Not Attempted due to Medical Conditions or Safety Concerns. Roll Left & Right (QC): 6 Sit to Lying (QC): 6 Lying to Sitting/Side of Bed(Q: 6 Sit to Stand (QC): 6 Chair/Dqe-kc-Tkfpu Xfer(QC): 6 Toilet Transfer (QC): 6 needed instruction for safety for reaching back for arms of chair before sitting as pt. plops a few times without making sure she is touching chair with LEs Weight Bearing Full Weight Bearing Full Weight Bearing Gait Training Does the Patient Walk?: Yes Walk 10 feet (QC): 4 Walk 50 ft with 2 Turns(QC): 4 Walk 150 ft (QC): 4 Gait Persons Needed: 1 Gait Assistive Device: FWW improved position in FWW since last seen by this DIRECTOR OF ARCHITECTURE. slow and took standing rest breaks today but much improved pattern and endurance and safety Wheelchair Training Does the Pt Use a Wheelchair?: Yes Wheel 50 ft with 2 turns (QC): 3 Type of Wheelchair: Manual pt. required verbal instruction as well as hand over hand instruction as she cannot coordinate use of malcolm LUE hand for w/c mob. pt. is indep to lock brakes bilat Exercises Supine Ex: Bridging, Ankle pumps, Rolling, Heel Slides, Scooting, Straight leg raise, Hip abd/add Supine Reps: 15 Seated Therapy Exercises: Ankle pumps, Sit to stand, Long arc quads, Hip flexion, Hip abd/add Seated Reps: 10 NuStep Minutes: 10 NuStep Workload: 5 Assessment Current Status: Good Progress PT Short Term Goals Short Term Goals Time Frame: Feb 17, 2019 Sit to lyin Lying to sitting on side of be: 3 Sit to stand: 3 Walk 50 feet with two turns: 4 PT Fuse Cup Expander Goals Fuse Cup Expander Goals PT Fuse Cup Expander Goals Time Frame: Mar 03, 2019 Roll Left & Right (QC): 6 Sit to Lying (QC): 6 Lying-Sitting on Side/Bed(QC): 6 Sit to Stand (QC): 6 Chair/Ork-zt-Sqidp Xfer(QC): 6 Toilet Transfer (QC): 6 Car Transfer (QC): 6 Does the Patient Walk: Yes Walk 10 feet (QC): 6 Walk 50ft with 2 Turns (QC): 6 Walk 150 ft (QC): 6 Walking 10ft on Uneven Surface: 5 1 Step (curb) (QC): 6 4 Steps (QC): 6 12 Steps (QC): 9 Picking up an Object (QC): 9 Does the Pt use WC or Scooter?: No PT Plan Treatment/Plan Treatment Plan: Continue Plan of Care Treatment Plan: Bed Mobility, Education, Functional Activity Scout, Functional Strength, Group Therapy, Gait, Safety, Therapeutic Exercise, Transfers Treatment Duration: Mar 03, 2019 Frequency: Modified Program (IRF) Estimated Hrs Per Day: 1.5 hours per day Patient and/or Family Agrees t: Yes Safety Risks/Education Patient Education: Gait Training, Transfer Techniques, Correct Positioning, W/C Management, Disease Process, Safety Issues Teaching Recipient: Patient Teaching Methods: Demonstration, Discussion Response to Teaching: Verbalize Understanding, Return Demonstration, Reinforcement Needed Time/GCodes Time In: 800 Time Out: 900 Total Billed Treatment Time: 60 Total Billed Treatment 1,EX25m,FA15m,GT20m RADHA CHEW DIRECTOR OF ARCHITECTURE Feb 18, 2019 08:55
[2019-02-18 09:04] VITALS: BP 100/55
[2019-02-18] MEDS: VITAMIN D3 400 UNITS (CHOLECALCIFEROL) TABLET PO SCH (09:08)
[2019-02-18] MEDS: OMEGA 3 (FISH OIL) 1000 MG CAP PO SCH (09:09)
[2019-02-18] MEDS: IRON SUCROSE 200 MG/10 ML (VENOFER) VIAL IV SCH (09:09)
[2019-02-18] MEDS: LEVETIRACETAM 500 MG (KEPPRA) TAB PO SCH ×2 (09:09→21:06)
[2019-02-18] MEDS: LOSARTAN 100 MG (COZAAR) TABLET PO SCH (09:10)
[2019-02-18] MEDS: DOCUSATE SODIUM 100 MG (COLACE) CAP PO SCH ×2 (09:10→21:07)
[2019-02-18] MEDS: SENNA W/DOCUSATE (SENOKOT S) TABLET PO SCH ×2 (09:11→21:06)
[2019-02-18] MEDS: meTOprolol TARTRATE 25 MG (LOPRESSOR) TABLET PO SCH ×2 (09:11→21:06)
[2019-02-18] MEDS: POLYETHYLENE GLYCOL 17 GM (MIRALAX) PACK PO SCH ×2 (09:11→21:07)
--- NOTE | 2019-02-18 10:45 | Occupational Ther Daily Note ---
OT Current Status-Daily Note Subjective Pt seen in room, up in recliner, agreeable to OT. No pain mentioned. Appearance Alert, cooperative ADL-Treatment Pt adjusted lift chair without help to stand and got up with CGA. Walked CGA, FWW to bathroom, about 15 feet. Completed toileting with CGA, then walked CGA, FWW to sink to wash hands. Pt educ walker placement at sink. Cues for hand placement to sit in w/c. Pt had difficulty propelling w/c to door, due to weakness L UE. Pt transported to gym per w/c. Therapy Code Descriptions/Definitions Functional [place] Measure: 0=Not Assessed/NA 4=Minimal Assistance 1=Total Assistance 5=Supervision or Setup 2=Maximal Assistance 6=Modified [place] 3=Moderate Assistance 7=Complete IndependenceSCALE: Activities may be completed with or without assistive devices. 5-Vtsieyxdxo-ypsrkof completes the activity by him/herself with no assistance from a helper. 5-Set-up or Clean-up Assistance-helper sets up or cleans up; patient completes activity. Ray assists only prior to or following the activity. 4-Supervision or Touching Assistance-helper provides verbal cues and/or touching/steadying and/or contact guard assistance as patient completes activity. Assistance may be provided throughout the activity or intermittently. 3-Partial/Moderate Assistance-helper does LESS THAN HALF the effort. Ray lifts, holds or supports trunk or limbs, but provides less than half the effort. 2-Substantial/Maximal Assistance-helper does MORE THAN HALF the effort. Ray lifts or holds trunk or limbs and provides more than half the effort. 1-Kfmdjpwoz-eokads does ALL the effort. Patient does none of the effort to complete the activity. Or, the assistance of 2 or more helpers is required for the patient to complete the activity. If activity was not attempted, code reason: 7-Patient Refused. 9-Not Applicable-not attempted and the patient did not perform the activity before the current illness, exacerbation or injury. 10-Not Attempted due to Environmental Limitations-(lack of equipment, weather restraints, etc.). 88-Not Attempted due to Medical Conditions or Safety Concerns. Toileting Hygiene (QC): 4 (CGA for clothing management and hygiene (done in standing). FWW, tall toilet, grab bar) Toilet Transfer (QC): 4 (CGA, FWW, tall toilet, grab bar) Other Treatment Pt completed 5 minutes bilat UE exercise on arm bike, set at 15W resistance, at times using only L UE. Required frequent recovery breaks. Also completed activity with graded clothespins and was able to manipulate all grades with L hand, although R hand helped position some pins. Both activities to strengthen hands and arms to help with ADLs. Pt propelled w/c out of the gym, with additional pt educ on compensating with R UE when it is stronger than L. Pt left up at table in commons, per her request, all needs met. She was able to lock and unlock w/c brakes with L hand. Education OT Patient Education: Progress toward Goal/Update tx plan, Purpose of tx/functional activities, Safety issues, Transfer techniques Teaching Recipient: Patient Teaching Methods: Demonstration, Discussion Response to Teaching: Verbalize Understanding, Return Demonstration, Reinforcement Needed OT [facility] Goals Paediatric Thoracic Physician Goals Time Frame: Feb 23, 2019 Eating (QC): 6 (met) Oral Hygiene (QC): 6 Toileting Hygiene (QC): 6 Shower/Bathe Self (QC): 6 Upper Body Dressing (QC): 6 (met) Lower Body Dressing (QC): 6 On/Off Footwear (QC): 6 Additional Goals: 1-Demonstrate ADL Tasks, 2-Verbalize Understanding, 3-Impro veStrength/Scout 1=Demonstrate adherence to instructed precautions during ADL tasks. 2=Patient will verbalize/demonstrate understanding of assistive devices/modifications for ADL. 3=Patient will improve strength/tolerance for activity to enable patient to perform ADL's. OT Education/Plan Discharge Recommendations Plan/Recommendations: Continue POC Treatment Plan/Plan of Care Patient would benefit from OT for education, treatment and training to promote independence in ADL's, mobility, safety and/or upper extremity function for ADL's. Plan of Care: ADL Retraining, Caregiver Training, Concurrent Therapy, Functional Mobility, Group Exercise/Act as Ind, UE Funct Exercise/Act, UE Neuromus Re-Ed/Coord Treatment Duration: Feb 23, 2019 Frequency: At least 5 of 7 days/Wk (IRF) Estimated Hrs Per Day: 1.5 hours per day Agreement: Yes Rehab Potential: Good Time/GCodes Start Time: 09:30 Stop Time: 10:30 Total Time Billed (hr/min): 60 Billed Treatment Time visit, 25 minutes ADL, 35 minutes exercise WILFRID CRAMER OT Feb 18, 2019 10:45
--- NOTE | 2019-02-18 11:55 | PM&R Progress Note ---
Subjective HPI/CC On Admission Date Seen by Provider: Feb 18, 2019 Time Seen by Provider: 12:00 Subjective/Events-last exam Doing very well and now walking around and looking strong Need to recheck next week since she is progressing and still has work to do Bowels are moving well Bishop weren't ready for DC Saturday so will recheck and june DC every other one No pain is reported Omnicef completed 1 more dose of iron infusion completed so will DC midline Conferred with RN Reviewed therapy notes Checked meds and labs Review of Systems Musculoskeletal: arm pain Neurological: Weakness, Numbness, Incoordination Objective Exam Vital Signs Vital Signs Date Time Temp Pulse Resp B/P (MAP) Pulse Ox O2 Delivery O2 Flow Rate FiO2 02/18/19 16:00 36.2 82 20 119/53 (75) 99 Room Air Capillary Refill : Less Than 3 Seconds General Appearance: No Apparent Distress, WD/WN, Chronically ill, Obese HEENT: PERRL/EOMI, Normal ENT Inspection, Pharynx Normal Neck: Full Range of Motion, Normal Inspection, Non Tender, Supple, Carotid Bruit Respiratory: Chest Non Tender, Lungs Clear, Normal Breath Sounds, No Accessory Muscle Use, No Respiratory Distress, Decreased Breath Sounds Cardiovascular: Regular Rate, Rhythm, No Edema, No Gallop, No JVD, No Murmur, Normal Peripheral Pulses Gastrointestinal: Normal Bowel Sounds, No Organomegaly, No Pulsatile Mass, Non Tender, Soft Back: Normal Inspection, No CVA Tenderness, No Vertebral Tenderness Extremity: Normal Capillary Refill, Normal Inspection, Normal Range of Motion, Non Tender, No Calf Tenderness, No Pedal Edema Neurologic/Psychiatric: Alert, Oriented x3, industrial chemistry teacher II-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 FIM Transfers Therapy Code Descriptions/Definitions Functional [place] Measure: 0=Not Assessed/NA 4=Minimal Assistance 1=Total Assistance 5=Supervision or Setup 2=Maximal Assistance 6=Modified [place] 3=Moderate Assistance 7=Complete IndependenceSCALE: Activities may be completed with or without assistive devices. 9-Xzfmaukjbz-lgnzqum completes the activity by him/herself with no assistance from a helper. 5-Set-up or Clean-up Assistance-helper sets up or cleans up; patient completes activity. [place] assists only prior to or following the activity. 4-Supervision or Touching Assistance-helper provides verbal cues and/or touching/steadying and/or contact guard assistance as patient completes activity. Assistance may be provided throughout the activity or intermittently. 3-Partial/Moderate Assistance-helper does LESS THAN HALF the effort. [place] lifts, holds or supports trunk or limbs, but provides less than half the effort. 2-Substantial/Maximal Assistance-helper does MORE THAN HALF the effort. [place] lifts or holds trunk or limbs and provides more than half the effort. 1-Njseqpvzj-xkmgcr does ALL the effort. Patient does none of the effort to complete the activity. Or, the assistance of 2 or more helpers is required for the patient to complete the activity. If activity was not attempted, code reason: 7-Patient Refused. 9-Not Applicable-not attempted and the patient did not perform the activity before the current illness, exacerbation or injury. 10-Not Attempted due to Environmental Limitations-(lack of equipment, weather restraints, etc.). 88-Not Attempted due to Medical Conditions or Safety Concerns. Roll Left to Right (QC): 6 Sit to Lying (QC): 6 Sit to Stand (QC): 6 Chair/Otx-bl-Yfvug Xfer(QC): 6 Car Transfer (QC): 88 Gait Training Does the Patient Walk?: Yes Distance: 75', 75', 125' Walk 10 feet (QC): 4 Walk 50 ft with 2 Turns(QC): 4 Walk 150 ft (QC): 4 Walking 10ft/uneven surface-QC: 88 Gait Persons Needed: 1 Gait Assistive Device: FWW Wheelchair Training Does the Pt Use a Wheelchair?: Yes Wheel 50 ft with 2 turns (QC): 3 Wheel 150 ft (QC): 3 Type of Wheelchair: Manual Stair Training 1 Step (curb) (QC): 88 4 Steps (QC): 88 12 Steps (QC): 88 Balance Picking up an Object (QC): 88 ADL-Treatment Eating (QC): 6 Oral Hygiene (QC): 5 Bathing Location: L Arm, R Arm, L Upper Leg, R Upper Leg, Chest, Abdomen, Perineal Area Shower/Bathe Self (QC): 7 Upper Body Dressing (QC): 6 Lower Body Dressing (QC): 7 On/Off Footwear (QC): 7 Toileting Hygiene (QC): 4 (CGA for clothing management and hygiene (done in standing). FWW, tall toilet, grab bar) Toilet Transfer (QC): 4 (CGA, FWW, tall toilet, grab bar) Assessment/Plan Assessment and Plan Assess & Plan/Chief Complaint Assessment: s/p craniotomy at [facility] Meningioma s/p resection Severe debility needs aggressive therapies HTN Anemia iron def completed Venofer 5 doses with midline Constipation GRADY? UTI with Proteus completed abx Plan: Monitor closely Venofer completed Pain control Slow recovery so 01/09 IRF BM regimen to maintain Omnicef completed today (1) S/P craniotomy (2) Hypertension (3) Obesity (4) Constipation (5) History of hip replacement, total (6) Headache (7) Seizure prophylaxis EVIE SAPP DO Feb 18, 2019 11:55
--- NOTE | 2019-02-18 14:10 | Therapy Group Daily Note ---
Therapy Daily Group Note Patient Education Topic Other List Below (setting new goals) Exercises LE Seated Exercise, Fine Motor, UE Exercise Session Ratio (pt:therapist): 4:1 Goal of Session: Other (list) (critical thinking, social interaction through Holiday game participation) Goal Met for this Session: Yes Pt Benefit of Group: Contributions to Others, Improved Cognition, Socialization Other/Notes Pt. participated in team/group PT OT session. Pt. ambulated to and from with FWW and SBA. Pts. all introduced themselves and shared New Yrs resolutions they had made in the past and whether they had kept them or not. Pts. enjoyed a "dirty Stacy" type gift exchange involving reading and problem solving via number drawing and reading directions on board. Pts were all required to coordinate with one another to follow directions for game , often exchanging, moving gifts to left or right or passing etc. Pts all participated as well in seated U&L extremity exercises. Pt. to room after group with needs met maldonado at hand Start Time: 12:30 Stop Time: 13:45 Total Billed Treatment Time: 75 Total Billed Treatment 1,GRP RADHA CHEW PTA Feb 18, 2019 14:10 ATTILA OSMAN Feb 19, 2019 07:13
--- NOTE | 2019-02-18 15:37 | NUR ---
Lt upper arm midline IV removed as ordered by Dr. Vera, & requested by pt. Pt has received all of her Venofer infusions as ordered. Removed easily w/o difficulty. Tip intact. No bleeding from site. No redness or edema. Sterile drsg applied. Pt tolerated well.
[2019-02-18 16:00] VITALS: BP 119/53
[2019-02-19 06:03] VITALS: BP 145/71
[2019-02-19] MEDS: FERROUS SULF 325 MG (IRON) TAB PO SCH ×2 (06:30→17:04)
[2019-02-19 08:24] VITALS: BP 133/51
[2019-02-19] MEDS: meTOprolol TARTRATE 25 MG (LOPRESSOR) TABLET PO SCH ×2 (08:32→20:13)
[2019-02-19] MEDS: LEVETIRACETAM 500 MG (KEPPRA) TAB PO SCH ×2 (08:32→20:13)
[2019-02-19] MEDS: OMEGA 3 (FISH OIL) 1000 MG CAP PO SCH (08:32)
[2019-02-19] MEDS: LOSARTAN 100 MG (COZAAR) TABLET PO SCH (08:32)
[2019-02-19] MEDS: VITAMIN D3 400 UNITS (CHOLECALCIFEROL) TABLET PO SCH (08:32)
[2019-02-19] MEDS: POLYETHYLENE GLYCOL 17 GM (MIRALAX) PACK PO SCH ×2 (08:34→19:27)
[2019-02-19] MEDS: DOCUSATE SODIUM 100 MG (COLACE) CAP PO SCH ×2 (08:34→19:27)
[2019-02-19] MEDS: SENNA W/DOCUSATE (SENOKOT S) TABLET PO SCH ×2 (08:34→19:27)
--- NOTE | 2019-02-19 10:47 | Occupational Ther Daily Note ---
OT Current Status-Daily Note Subjective Pt seen in chair, states did not sleep well as there was noise last night. Pt agreeable to session with encouragement. Pt denies pain. Mental Status/Objective Patient Orientation: Normal For Age ADL-Treatment Therapy Code Descriptions/Definitions Functional [place] Measure: 0=Not Assessed/NA 4=Minimal Assistance 1=Total Assistance 5=Supervision or Setup 2=Maximal Assistance 6=Modified [place] 3=Moderate Assistance 7=Complete IndependenceSCALE: Activities may be completed with or without assistive devices. 2-Pavrvgwrgs-lafkthm completes the activity by him/herself with no assistance from a helper. 5-Set-up or Clean-up Assistance-helper sets up or cleans up; patient completes activity. [place] assists only prior to or following the activity. 4-Supervision or Touching Assistance-helper provides verbal cues and/or touching/steadying and/or contact guard assistance as patient completes activity. Assistance may be provided throughout the activity or intermittently. 3-Partial/Moderate Assistance-helper does LESS THAN HALF the effort. [place] lifts, holds or supports trunk or limbs, but provides less than half the effort. 2-Substantial/Maximal Assistance-helper does MORE THAN HALF the effort. [place] lifts or holds trunk or limbs and provides more than half the effort. 6-Qpfzugghc-tfpqca does ALL the effort. Patient does none of the effort to complete the activity. Or, the assistance of 2 or more helpers is required for the patient to complete the activity. If activity was not attempted, code reason: 7-Patient Refused. 9-Not Applicable-not attempted and the patient did not perform the activity before the current illness, exacerbation or injury. 10-Not Attempted due to Environmental Limitations-(lack of equipment, weather restraints, etc.). 88-Not Attempted due to Medical Conditions or Safety Concerns. Eating (QC): 6 Oral Hygiene (QC): 5 Shower/Bathe Self (QC): 4 (SBA in stance at FWW. pt able to reach all areas excluding back.) Upper Body Dressing (QC): 6 Lower Body Dressing (QC): 4 (SBA in stance to pull up. Pt requires intermittent assist to pull up L side, cues utilized to pull completely over hips. Pt unable to complete, min A to pull up.) On/Off Footwear: 4 (cues for use of sock aide as pt's socks donned but excess material toward toe.) Toileting Hygiene (QC): 4 (SBA in stance.) Toilet Transfer (QC): 4 (SBA to BSC.) Other Treatment Pt completes toileting start of session, UB wash/ dress on commode. Stands to complete bottom hygiene, sit to stands with SBA with FWW. Pt ambulates to bed, sits EOB to complete remainder of bathing task. Pt able to sit EOB for 20 min with good balance. Pt educated on abilities upon entry as she states she isn't able to see her progress as much as she's been told. Pt educated over qu antitative geosciences associate professor/ pinch strength abilities. Pt admits she is progressing, concerned about how much more she needs to work on prior to return home. Pt educated over increasing safety during functional tasks during mobilization and balance. OT/ pt discuss home environment and shower chair vs shower bench. Pt educated over use of bench rather than chair to ease transfer in shower with ~4" rim. Pt denies, stating she does not like benches. Pt and OT discuss grab bars. Pt agrees, states back is beginning to get tired, completes 10 reps of exercises for back /UE EOB with min cues and then returns to chair. Pt completes UE shoulder exercises, pinch/ geosciences associate professor with theraputty. Pt left in room with call light in reach, all needs met. Education OT Patient Education: Correct positioning, Exercise program, Home exercise program, Progress toward Goal/Update tx plan, Purpose of tx/functional activities, Safety issues Teaching Recipient: Patient Teaching Methods: Demonstration, Discussion Response to Teaching: Verbalize Understanding, Return Demonstration OT Nursing Home Goals Nursing Home Goals Time Frame: Feb 23, 2019 Eating (QC): 6 (met) Oral Hygiene (QC): 6 Toileting Hygiene (QC): 6 Shower/Bathe Self (QC): 6 Upper Body Dressing (QC): 6 (met) Lower Body Dressing (QC): 6 On/Off Footwear (QC): 6 Additional Goals: 1-Demonstrate ADL Tasks, 2-Verbalize Understanding, 3- ImproveStrength/Scout 1=Demonstrate adherence to instructed precautions during ADL tasks. 2=Patient will verbalize/demonstrate understanding of assistive devices/modifications for ADL. 3=Patient will improve strength/tolerance for activity to enable patient to perform ADL's. OT Education/Plan Problem List/Assessment Assessment: Decreased Activ Tolerance, Decreased UE Strength, Impaired Funct Balance, Impaired I ADL's, Impaired Self-Care Skills Discharge Recommendations Plan/Recommendations: Continue POC Treatment Plan/Plan of Care Treatment,Training & Education: Yes Patient would benefit from OT for education, treatment and training to promote independence in ADL's, mobility, safety and/or upper extremity function for ADL's. Plan of Care: ADL Retraining, Caregiver Training, Concurrent Therapy, Functional Mobility, Group Exercise/Act as Ind, UE Funct Exercise/Act, UE Neuromus Re-Ed/Coord Treatment Duration: Feb 23, 2019 Frequency: At least 5 of 7 days/Wk (IRF) Estimated Hrs Per Day: 1.5 hours per day Agreement: Yes Rehab Potential: Good Time/GCodes Start Time: 09:15 Stop Time: 10:30 Total Time Billed (hr/min): 75 Billed Treatment Time 1, ADL 4 (60), EX (15)= 75 ALEIDA DIAZ OTR Feb 19, 2019 10:47
--- NOTE | 2019-02-19 11:00 | PM&R Progress Note ---
Subjective HPI/CC On Admission Date Seen by Provider: Feb 19, 2019 Time Seen by Provider: 10:00 Subjective/Events-last exam Incontinence continues but that is chronic Slept well last night BM yesterday and those are regular now Conferred with RN Reviewed therapy notes Checked meds and labs Review of Systems Genitourinary: Incontinence Neurological: Weakness, Numbness, Incoordination Objective Exam Vital Signs Vital Signs Date Time Temp Pulse Resp B/P (MAP) Pulse Ox O2 Delivery O2 Flow Rate FiO2 02/19/19 20:33 Room Air 02/19/19 16:51 36.6 80 16 119/54 (75) 98 Capillary Refill : Less Than 3 Seconds General Appearance: No Apparent Distress, WD/WN, Chronically ill, Obese HEENT: PERRL/EOMI, Normal ENT Inspection, Pharynx Normal Neck: Full Range of Motion, Normal Inspection, Non Tender, Supple, Carotid Bruit Respiratory: Chest Non Tender, Lungs Clear, Normal Breath Sounds, No Accessory Muscle Use, No Respiratory Distress, Decreased Breath Sounds Cardiovascular: Regular Rate, Rhythm, No Edema, No Gallop, No JVD, No Murmur, Normal Peripheral Pulses Gastrointestinal: Normal Bowel Sounds, No Organomegaly, No Pulsatile Mass, Non Tender, Soft Back: Normal Inspection, No CVA Tenderness, No Vertebral Tenderness Extremity: Normal Capillary Refill, Normal Inspection, Normal Range of Motion, Non Tender, No Calf Tenderness, No Pedal Edema Neurologic/Psychiatric: Alert, Oriented x3, pulper II-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 FIM Transfers Therapy Code Descriptions/Definitions Functional [place] Measure: 0=Not Assessed/NA 4=Minimal Assistance 1=Total Assistance 5=Supervision or Setup 2=Maximal Assistance 6=Modified [place] 3=Moderate Assistance 7=Complete IndependenceSCALE: Activities may be completed with or without assistive devices. 7-Cvkolakysl-xldsmmk completes the activity by him/herself with no assistance from a helper. 5-Set-up or Clean-up Assistance-helper sets up or cleans up; patient completes activity. [place] assists only prior to or following the activity. 4-Supervision or Touching Assistance-helper provides verbal cues and/or touching/steadying and/or contact guard assistance as patient completes activity. Assistance may be provided throughout the activity or intermittently. 3-Partial/Moderate Assistance-helper does LESS THAN HALF the effort. [place] lifts, holds or supports trunk or limbs, but provides less than half the effort. 2-Substantial/Maximal Assistance-helper does MORE THAN HALF the effort. [place] lifts or holds trunk or limbs and provides more than half the effort. 2-Fddipddek-yojotm does ALL the effort. Patient does none of the effort to complete the activity. Or, the assistance of 2 or more helpers is required for the patient to complete the activity. If activity was not attempted, code reason: 7-Patient Refused. 9-Not Applicable-not attempted and the patient did not perform the activity before the current illness, exacerbation or injury. 10-Not Attempted due to Environmental Limitations-(lack of equipment, weather restraints, etc.). 88-Not Attempted due to Medical Conditions or Safety Concerns. Roll Left to Right (QC): 6 Sit to Lying (QC): 6 Sit to Stand (QC): 6 Chair/Kvs-rm-Qpqnk Xfer(QC): 6 Car Transfer (QC): 88 Gait Training Does the Patient Walk?: Yes Distance: 75', 75', 125' Walk 10 feet (QC): 4 Walk 50 ft with 2 Turns(QC): 4 Walk 150 ft (QC): 4 Walking 10ft/uneven surface-QC: 88 Gait Persons Needed: 1 Gait Assistive Device: FWW Wheelchair Training Does the Pt Use a Wheelchair?: Yes Wheel 50 ft with 2 turns (QC): 3 Wheel 150 ft (QC): 3 Type of Wheelchair: Manual Stair Training 1 Step (curb) (QC): 88 4 Steps (QC): 88 12 Steps (QC): 88 Balance Picking up an Object (QC): 88 ADL-Treatment Eating (QC): 6 Oral Hygiene (QC): 5 Bathing Location: L Arm, R Arm, L Upper Leg, R Upper Leg, Chest, Abdomen, Perineal Area Shower/Bathe Self (QC): 4 (SBA in stance at FWW. pt able to reach all areas excluding back.) Upper Body Dressing (QC): 6 Lower Body Dressing (QC): 4 (SBA in stance to pull up. Pt requires intermittent assist to pull up L side, cues utilized to pull completely over hips. Pt unable to complete, min A to pull up.) On/Off Footwear (QC): 4 (cues for use of sock aide as pt's socks donned but excess material toward toe.) Toileting Hygiene (QC): 4 (SBA in stance.) Toilet Transfer (QC): 4 (SBA to BSC.) Assessment/Plan Assessment and Plan Assess & Plan/Chief Complaint Assessment: s/p craniotomy at [facility] Meningioma s/p resection Severe debility needs aggressive therapies HTN Anemia iron def completed Venofer 5 doses with midline Constipation GRADY? UTI with Proteus completed abx Plan: Monitor closely Venofer completed Pain control Slow recovery so 01/09 IRF BM regimen to maintain Omnicef completed (1) S/P craniotomy (2) Hypertension (3) Obesity (4) Constipation (5) History of hip replacement, total (6) Headache (7) Seizure prophylaxis EVIE SAPP DO Feb 19, 2019 11:00
--- NOTE | 2019-02-19 11:54 | Physical Therapy Daily Note ---
PT Daily Note-Current Subjective Pt sitting in recliner upon arrival. Pt agrees to PT but limits self during Rx. RAIL CAR REPAIR CARMAN encourages. Pain Location: No Pain Reported Mental Status Patient Orientation: Person, Place, Situation Transfers SCALE: Activities may be completed with or without assistive devices. 7-Qxqjmcnwzl-zyxulmt completes the activity by him/herself with no assistance from a helper. 5-Set-up or Clean-up Assistance-helper sets up or cleans up; patient completes activity. [place] assists only prior to or following the activity. 4-Supervision or Touching Assistance-helper provides verbal cues and/or touching/steadying and/or contact guard assistance as patient completes activity. Assistance may be provided throughout the activity or intermittently. 3-Partial/Moderate Assistance-helper does LESS THAN HALF the effort. [place] lifts, holds or supports trunk or limbs, but provides less than half the effort. 2-Substantial/Maximal Assistance-helper does MORE THAN HALF the effort. [place] lifts or holds trunk or limbs and provides more than half the effort. 2-Uhyumolmg-iapgjs does ALL the effort. Patient does none of the effort to complete the activity. Or, the assistance of 2 or more helpers is required for the patient to complete the activity. If activity was not attempted, code reason: 7-Patient Refused. 9-Not Applicable-not attempted and the patient did not perform the activity before the current illness, exacerbation or injury. 10-Not Attempted due to Environmental Limitations-(lack of equipment, weather restraints, etc.). 88-Not Attempted due to Medical Conditions or Safety Concerns. Sit to Stand (QC): 5 Toilet Transfer (QC): 5 (VC for hand placement) Weight Bearing Full Weight Bearing Full Weight Bearing Gait Training Does the Patient Walk?: Yes Distance: 50', 125' & 125' Walk 10 feet (QC): 5 Walk 50 ft with 2 Turns(QC): 5 Walk 150 ft (QC): 5 Gait Persons Needed: 1 Gait Assistive Device: FWW Pt needs VC for stay w/in FWW as well as pushing self to walk as far as she feels she can. Exercises Seated Therapy Exercises: Ankle pumps, Long arc quads, Hip flexion, Kicking activity Seated Reps: 20 Treatments Pt transfers from recliner and ambulates to restroom. After using restroom, pt ambulates in hallway until needing RB. Pt again walks, resting in chair in Therapy Gym. Pt completes Seated Ex before ambulating back to daughter at table in Therapy Commons. Pt has all needs met. Assessment Current Status: Fair Progress Pt self limits and needs encouragement to continue ambulating. PT Short Term Goals Short Term Goals Time Frame: Feb 17, 2019 Sit to lyin Lying to sitting on side of be: 3 Sit to stand: 3 Walk 50 feet with two turns: 4 PT Machine Etcher Goals Machine Etcher Goals PT Chcf Goals Time Frame: Mar 03, 2019 Roll Left & Right (QC): 6 Sit to Lying (QC): 6 Lying-Sitting on Side/Bed(QC): 6 Sit to Stand (QC): 6 Chair/Rqn-ye-Kyeyq Xfer(QC): 6 Toilet Transfer (QC): 6 Car Transfer (QC): 6 Does the Patient Walk: Yes Walk 10 feet (QC): 6 Walk 50ft with 2 Turns (QC): 6 Walk 150 ft (QC): 6 Walking 10ft on Uneven Surface: 5 1 Step (curb) (QC): 6 4 Steps (QC): 6 12 Steps (QC): 9 Picking up an Object (QC): 9 Does the Pt use WC or Scooter?: No PT Plan Problem List Problem List: Activity Tolerance, Functional Strength Treatment/Plan Treatment Plan: Continue Plan of Care Treatment Plan: Bed Mobility, Education, Functional Activity Scout, Functional Strength, Group Therapy, Gait, Safety, Therapeutic Exercise, Transfers Treatment Duration: Mar 03, 2019 Frequency: Modified Program (IRF) Estimated Hrs Per Day: 1.5 hours per day Patient and/or Family Agrees t: Yes Safety Risks/Education Patient Education: Gait Training, Transfer Techniques, Correct Positioning, Safety Issues Teaching Recipient: Patient Teaching Methods: Discussion Response to Teaching: Verbalize Understanding, Reinforcement Needed Time/GCodes Time In: 1100 Time Out: 1145 Total Billed Treatment Time: 45 Total Billed Treatment 1, GT (20m), FA (10m) & EX (15m) CAYLA ELLIS RAIL CAR REPAIR CARMAN Feb 19, 2019 11:54
--- NOTE | 2019-02-19 12:13 | Speech Therapy Daily Note ---
Speech Daily Progress Note Subjective Date Seen by Provider: Feb 19, 2019 Time Seen by Provider: 00:30 Patient was resting in her recliner, alert and participated well today. Objective Patient completed a series of problem tasks with scenario cards at 90% with 10% cues. Assessment Assessment Current Status: Good Progress Treatment Plan Continue Plan of Care Speech Short Term Goals Short Term Goals Short Term Goals 1) Patient will complete memory tasks related to her daily needs with 90% or greater with minimal cues. 2) Patient will complete safety awareness tasks related to her daily needs with 90% or greater with minimal cues. 3) Patient will complete problem solving tasks related to her daily needs with 90% or greater with minimal cues. Speech School Bus Inspector Goals Longterm Goals Patient will improve cognitive-communication necessary for safety and daily living tasks with minimal assist. Speech-Plan Patient/Family Goals Patient/Family Goals: Patient plans on returning home with family support near by as needed. Treatment Plan Speech Therapy Treatment Plan: Continue Plan of Care Patient is progressing very well toward meeting ST goals. Treatment Duration: Feb 27, 2019 Frequency: 4 times per week Estimated Hrs Per Day: .5 hour per day Rehab Potential: Good Barriers to Learning: Patient has mild cognitive deficits, however these are resolving Pt/Family Agrees to Plan: Yes Safety Risks/Education Teaching Recipient: Patient Teaching Methods: Demonstration, Discussion Response to Teaching: Verbalize Understanding, Return Demonstration Education Topics Provided: Contiued safety and communication of wants/needs Time Speech Therapy Time In: 10:30 Speech Therapy Time Out: 11:00 Total Billed Time: 30 Billed Treatment Time 1, SLALEX Porter Feb 19, 2019 12:13
--- NOTE | 2019-02-19 14:10 | NUR ---
"RD ASSESSMENT PMHx: craniotomy (01/2019); HTN; hypercholesterolemia; chronic constipation PT INTERACTION: Pt was awake and pleasant during nutrition assessment. Pt states she has been eating well since last assessment. Note avg PO intake 91% x4d, per chart review. Pt states no recent issues with n/v/c/d at this time. Note last BM was 1/2 and pt currently on bowel regimen of colace BID; senna BID; miralax BID, per chart review. ABNORMAL NUTRITION-RELATED LAB VALUES TAKEN 02/16/19 LOW: Pro 5.5 HIGH: BUN 35; cr 1.36; glu 112 Est. kcal needs: 8145-3086 kcal | 25-30 kcal/kg IBW Est. Pro needs: 57-67 g Pro | 1.2-1.4 g Pro/kg IBW PES STATEMENT: Given pt's PO intake, no nutrition diagnosis at this time (NO-1.1) INTERVENTION: Continue with current diet order of Regular diet. Will continue to follow and reassess as pt needs and status change. MONITOR/EVALUATE: PO Intake; Plan of Care; Hydration Status; Weight Status; Lab Values Alayna Ramires, MS, RD, LD"
--- NOTE | 2019-02-19 14:35 | Physical Therapy Daily Note ---
PT Daily Note-Current Subjective Pt asleep Supine in bed upon arrival. Pt agrees to PT. Pain Location: No Pain Reported Mental Status Patient Orientation: Person, Place, Situation Transfers SCALE: Activities may be completed with or without assistive devices. 1-Wjlbkymvtj-wuarqre completes the activity by him/herself with no assistance from a helper. 5-Set-up or Clean-up Assistance-helper sets up or cleans up; patient completes activity. [place] assists only prior to or following the activity. 4-Supervision or Touching Assistance-helper provides verbal cues and/or touching/steadying and/or contact guard assistance as patient completes activity. Assistance may be provided throughout the activity or intermittently. 3-Partial/Moderate Assistance-helper does LESS THAN HALF the effort. [place] lifts, holds or supports trunk or limbs, but provides less than half the effort. 2-Substantial/Maximal Assistance-helper does MORE THAN HALF the effort. [place] lifts or holds trunk or limbs and provides more than half the effort. 0-Vbmfdlgxx-twnewv does ALL the effort. Patient does none of the effort to complete the activity. Or, the assistance of 2 or more helpers is required for the patient to complete the activity. If activity was not attempted, code reason: 7-Patient Refused. 9-Not Applicable-not attempted and the patient did not perform the activity before the current illness, exacerbation or injury. 10-Not Attempted due to Environmental Limitations-(lack of equipment, weather restraints, etc.). 88-Not Attempted due to Medical Conditions or Safety Concerns. Roll Left & Right (QC): 5 Sit to Lying (QC): 5 Lying to Sitting/Side of Bed(Q: 5 Sit to Stand (QC): 5 Chair/Mde-hd-Ozjfm Xfer(QC): 5 Toilet Transfer (QC): 5 Weight Bearing Full Weight Bearing Full Weight Bearing Exercises Seated Therapy Exercises: Ankle pumps, Long arc quads, Hip flexion, Kicking activity, Glut set Seated Reps: 20 Treatments Pt transfers from Supine to EOB to Standing with extra time given to complete tasks. Pt transfers to recliner and completes Seated EX. Pt asks to use restroom at end of Rx. APPRENTICE PAINTER BRUSH assists pt to restroom and pt will pull call light when finished. Assessment Current Status: Good Progress Pt tolerates Rx well. PT Short Term Goals Short Term Goals Time Frame: Feb 17, 2019 Sit to lyin Lying to sitting on side of be: 3 Sit to stand: 3 Walk 50 feet with two turns: 4 PT Group Home Goals [employer] Mail Carrier Goals PT Group Home Goals Time Frame: Mar 03, 2019 Roll Left & Right (QC): 6 Sit to Lying (QC): 6 Lying-Sitting on Side/Bed(QC): 6 Sit to Stand (QC): 6 Chair/Kin-dj-Pletk Xfer(QC): 6 Toilet Transfer (QC): 6 Car Transfer (QC): 6 Does the Patient Walk: Yes Walk 10 feet (QC): 6 Walk 50ft with 2 Turns (QC): 6 Walk 150 ft (QC): 6 Walking 10ft on Uneven Surface: 5 1 Step (curb) (QC): 6 4 Steps (QC): 6 12 Steps (QC): 9 Picking up an Object (QC): 9 Does the Pt use WC or Scooter?: No PT Plan Problem List Problem List: Activity Tolerance, Functional Strength, Safety, Balance, Gait Treatment/Plan Treatment Plan: Continue Plan of Care Treatment Plan: Bed Mobility, Education, Functional Activity Scout, Functional Strength, Group Therapy, Gait, Safety, Therapeutic Exercise, Transfers Treatment Duration: Mar 03, 2019 Frequency: Modified Program (IRF) Estimated Hrs Per Day: 1.5 hours per day Patient and/or Family Agrees t: Yes Safety Risks/Education Patient Education: Transfer Techniques, Correct Positioning, Safety Issues Teaching Recipient: Patient Teaching Methods: Discussion Response to Teaching: Verbalize Understanding Time/GCodes Time In: 1345 Time Out: 1415 Total Billed Treatment Time: 30 Total Billed Treatment 1, EX (20m) & FA (10m) CAYLA ELLIS APPRENTICE PAINTER BRUSH Feb 19, 2019 14:35
[2019-02-19 16:51] VITALS: BP 119/54
[2019-02-20 05:41] VITALS: BP 134/67
[2019-02-20] MEDS: FERROUS SULF 325 MG (IRON) TAB PO SCH ×2 (06:00→17:08)
[2019-02-20] MEDS: VITAMIN D3 400 UNITS (CHOLECALCIFEROL) TABLET PO SCH (08:15)
[2019-02-20] MEDS: POLYETHYLENE GLYCOL 17 GM (MIRALAX) PACK PO SCH ×2 (08:15→22:03)
[2019-02-20] MEDS: OMEGA 3 (FISH OIL) 1000 MG CAP PO SCH (08:15)
[2019-02-20] MEDS: meTOprolol TARTRATE 25 MG (LOPRESSOR) TABLET PO SCH ×2 (08:15→21:42)
[2019-02-20] MEDS: SENNA W/DOCUSATE (SENOKOT S) TABLET PO SCH ×2 (08:15→22:03)
[2019-02-20] MEDS: LEVETIRACETAM 500 MG (KEPPRA) TAB PO SCH ×2 (08:15→21:42)
[2019-02-20] MEDS: LOSARTAN 100 MG (COZAAR) TABLET PO SCH (08:15)
[2019-02-20] MEDS: DOCUSATE SODIUM 100 MG (COLACE) CAP PO SCH ×2 (08:16→22:03)
[2019-02-20 08:18] VITALS: BP 112/73
--- NOTE | 2019-02-20 09:20 | Occupational Ther Daily Note ---
OT Current Status-Daily Note Subjective Pt seen in bed, agreeable to OT tx session. Pt denies pain, states she went to bathroom ~10x since waking, states she urinated in bed and needs to change. Mental Status/Objective Patient Orientation: Normal For Age ADL-Treatment Therapy Code Descriptions/Definitions Functional [place] Measure: 0=Not Assessed/NA 4=Minimal Assistance 1=Total Assistance 5=Supervision or Setup 2=Maximal Assistance 6=Modified [place] 3=Moderate Assistance 7=Complete IndependenceSCALE: Activities may be completed with or without assistive devices. 5-Hdaycpadgq-xggkhyq completes the activity by him/herself with no assistance from a helper. 5-Set-up or Clean-up Assistance-helper sets up or cleans up; patient completes activity. [place] assists only prior to or following the activity. 4-Supervision or Touching Assistance-helper provides verbal cues and/or touching/steadying and/or contact guard assistance as patient completes acti vity. Assistance may be provided throughout the activity or intermittently. 3-Partial/Moderate Assistance-helper does LESS THAN HALF the effort. [place] lifts, holds or supports trunk or limbs, but provides less than half the effort. 2-Substantial/Maximal Assistance-helper does MORE THAN HALF the effort. [place] lifts or holds trunk or limbs and provides more than half the effort. 1-Kdjbekvwh-jugrgh does ALL the effort. Patient does none of the effort to complete the activity. Or, the assistance of 2 or more helpers is required for the patient to complete the activity. If activity was not attempted, code reason: 7-Patient Refused. 9-Not Applicable-not attempted and the patient did not perform the activity before the current illness, exacerbation or injury. 10-Not Attempted due to Environmental Limitations-(lack of equipment, weather restraints, etc.). 88-Not Attempted due to Medical Conditions or Safety Concerns. Eating (QC): 6 Oral Hygiene (QC): 6 Upper Body Dressing (QC): 5 Lower Body Dressing (QC): 4 (intermittent assist for L side over hips, pt able to complete rest of process with SUP) On/Off Footwear: 4 (intermittent assist due to tighter socks on sock aide. TEX hose donned with TD.) Toileting Hygiene (QC): 4 (SBA. ) Toilet Transfer (QC): 4 (SBA to standard toilet. Cues for use of toilet to push self up, pt utilizes GBs on L side and toilet to sit to stand with SBA. States she has rails on both sides at home, but daughter has standard toilet without GBs.) Other Treatment Pt completes bed mob with min A for LLE. Pt sit to stand with SUP, goes to toilet in bathroom. Pt educated on directing tx session on this date, able to tell OT all items needed in bathroom without cues. Pt returns to recliner chair, sits in chair to complete LB dressing with SUP/ min A for L side pulling over hips. Pt completes dentures in front of sink (completes with IND), ambulates to gym with FWW with one break. Pt sits EOM in gym, completes sit to stands without FWW, utilzies FWW to walk 2 steps up/ 2 steps back to EOM and completes return to sit with good control. Pt completes reaching in different planes, crossing midline, and placing cones on each side of body with BUE. Pt completes same activity in stance, walks to room with one break and sits in recliner chair end of session. Pt utilizes BUE to open and apply chapstick- pt educated on spontaneous use of BUE and progress from start of therapy. Pt acknowledges achievement. Pt positioned for comfort and edema management for LLE in recliner, retrograde edema massage completed to LLE foot up to knee. Pt left in recliner chair, all needs met, call light in reach. Education OT Patient Education: Correct positioning, Exercise program, Modified ADL t echniques, Purpose of tx/functional activities, Safety issues Teaching Recipient: Patient Teaching Methods: Demonstration, Discussion Response to Teaching: Verbalize Understanding, Return Demonstration OT Snf Goals Fish Hatchery Laborer Goals Time Frame: Feb 23, 2019 Eating (QC): 6 (met) Oral Hygiene (QC): 6 (met) Toileting Hygiene (QC): 6 Shower/Bathe Self (QC): 6 Upper Body Dressing (QC): 6 (met) Lower Body Dressing (QC): 6 On/Off Footwear (QC): 6 Additional Goals: 1-Demonstrate ADL Tasks, 2-Verbalize Understanding, 3- ImproveStrength/Scout 1=Demonstrate adherence to instructed precautions during ADL tasks. 2=Patient will verbalize/demonstrate understanding of assistive devices/modifications for ADL. 3=Patient will improve strength/tolerance for activity to enable patient to perform ADL's. OT Education/Plan Problem List/Assessment Assessment: Decreased Activ Tolerance, Decreased UE Strength, Edema, Impaired Bed Mobility, Impaired Funct Balance, Impaired I ADL's, Impaired Self-Care Skills Discharge Recommendations Plan/Recommendations: Continue POC Therapy Discharge Recommendati: Intermittent Supervision, Scheduled Assistance, Homemaker Support, Post Acute OT Treatment Plan/Plan of Care Treatment,Training & Education: Yes Patient would benefit from OT for education, treatment and training to promote independence in ADL's, mobility, safety and/or upper extremity function for ADL's. Plan of Care: ADL Retraining, Caregiver Training, Concurrent Therapy, Functio nal Mobility, Group Exercise/Act as Ind, UE Funct Exercise/Act, UE Neuromus Re- Ed/Coord Treatment Duration: Feb 23, 2019 Frequency: At least 5 of 7 days/Wk (IRF) Estimated Hrs Per Day: 1.5 hours per day Agreement: Yes Rehab Potential: Good Time/GCodes Start Time: 08:00 Stop Time: 09:15 Total Time Billed (hr/min): 75 Billed Treatment Time 1, ADL 3 (45), EX 2 (30)= 75 ALEIDA DIAZ OTR Feb 20, 2019 09:20
--- NOTE | 2019-02-20 10:24 | NUR ---
DR. SAPP TO THE FLOOR WITH ORDERS FOR A LEFT LEG VENOUS ULTRASOUND. WIDE DESTINY WRAP TO LEFT LOWER EXTREMITY IF US IS NEGATIVE. REMOVE EVERY OTHER STAPLE TODAY, 02/20/2019.
--- NOTE | 2019-02-20 11:04 | Diagnostic Imaging Report ---
INDICATION: Left leg swelling. Left leg venous Doppler study was performed in the routine fashion with color flow Doppler and waveform analysis. FINDINGS: The left common femoral vein, superficial femoral vein, popliteal vein and visualized portion of the posterior tibial vein show normal compressibility and venous flow patterns. There is normal augmentation. IMPRESSION: No evidence of deep vein thrombosis of the major veins of the left leg. Dictated by: Dictated on workstation # [id number]
--- NOTE | 2019-02-20 11:15 | PM&R Progress Note ---
Subjective HPI/CC On Admission Date Seen by Provider: Feb 20, 2019 Time Seen by Provider: 09:30 Subjective/Events-last exam Incontinence continues but that is chronic and she wears a Depends at night at home regularly Slept well last night BM yesterday and those are regular now Overall much improved Will take every other staple out of scalp today and then will remove the rest in 2-3 days Left leg a bit more edema than the right leg so will order venous doppler and then place DESTINY wraps to help over the TEX's Conferred with RN Reviewed therapy notes Checked meds and labs Review of Systems Cardiovascular: Edema Musculoskeletal: arm pain Neurological: Weakness, Numbness, Incoordination Objective Exam Vital Signs Vital Signs Date Time Temp Pulse Resp B/P (MAP) Pulse Ox O2 Delivery O2 Flow Rate FiO2 02/20/19 17:30 36.8 78 18 119/58 (78) 99 Room Air Capillary Refill : Less Than 3 Seconds General Appearance: No Apparent Distress, WD/WN, Chronically ill, Obese HEENT: PERRL/EOMI, Normal ENT Inspection, Pharynx Normal Neck: Full Range of Motion, Normal Inspection, Non Tender, Supple, Carotid Bruit Respiratory: Chest Non Tender, Lungs Clear, Normal Breath Sounds, No Accessory Muscle Use, No Respiratory Distress, Decreased Breath Sounds Cardiovascular: Regular Rate, Rhythm, No Edema, No Gallop, No JVD, No Murmur, Normal Peripheral Pulses Gastrointestinal: Normal Bowel Sounds, No Organomegaly, No Pulsatile Mass, Non Tender, Soft Back: Normal Inspection, No CVA Tenderness, No Vertebral Tenderness Extremity: Normal Capillary Refill, Normal Inspection, Normal Range of Motion, Non Tender, No Calf Tenderness, No Pedal Edema, Pedal Edema (left leg only) Neurologic/Psychiatric: Alert, Oriented x3, 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 FIM Transfers Therapy Code Descriptions/Definitions Functional [place] Measure: 0=Not Assessed/NA 4=Minimal Assistance 1=Total Assistance 5=Supervision or Setup 2=Maximal Assistance 6=Modified [place] 3=Moderate Assistance 7=Complete IndependenceSCALE: Activities may be completed with or without assistive devices. 0-Qspwikleuu-rcfavpj completes the activity by him/herself with no assistance from a helper. 5-Set-up or Clean-up Assistance-helper sets up or cleans up; patient completes activity. [place] assists only prior to or following the activity. 4-Supervision or Touching Assistance-helper provides verbal cues and/or touching/steadying and/or contact guard assistance as patient completes activ ity. Assistance may be provided throughout the activity or intermittently. 3-Partial/Moderate Assistance-helper does LESS THAN HALF the effort. [place] lifts, holds or supports trunk or limbs, but provides less than half the effort. 2-Substantial/Maximal Assistance-helper does MORE THAN HALF the effort. [place] lifts or holds trunk or limbs and provides more than half the effort. 2-Mplxhwjkb-tpyows does ALL the effort. Patient does none of the effort to complete the activity. Or, the assistance of 2 or more helpers is required for the patient to complete the activity. If activity was not attempted, code reason: 7-Patient Refused. 9-Not Applicable-not attempted and the patient did not perform the activity before the current illness, exacerbation or injury. 10-Not Attempted due to Environmental Limitations-(lack of equipment, weather restraints, etc.). 88-Not Attempted due to Medical Conditions or Safety Concerns. Roll Left to Right (QC): 5 Sit to Lying (QC): 5 Sit to Stand (QC): 5 Chair/Dcv-cd-Lsfxn Xfer(QC): 5 Car Transfer (QC): 88 Gait Training Does the Patient Walk?: Yes Distance: 50', 125' & 125' Walk 10 feet (QC): 5 Walk 50 ft with 2 Turns(QC): 5 Walk 150 ft (QC): 5 Walking 10ft/uneven surface-QC: 88 Gait Persons Needed: 1 Gait Assistive Device: FWW Wheelchair Training Does the Pt Use a Wheelchair?: Yes Wheel 50 ft with 2 turns (QC): 3 Wheel 150 ft (QC): 3 Type of Wheelchair: Manual Stair Training 1 Step (curb) (QC): 88 4 Steps (QC): 88 12 Steps (QC): 88 Balance Picking up an Object (QC): 88 ADL-Treatment Eating (QC): 6 Oral Hygiene (QC): 6 Bathing Location: L Arm, R Arm, L Upper Leg, R Upper Leg, Chest, Abdomen, Perineal Area Shower/Bathe Self (QC): 4 (SBA in stance at FWW. pt able to reach all areas excluding back.) Upper Body Dressing (QC): 5 Lower Body Dressing (QC): 4 (intermittent assist for L side over hips, pt able to complete rest of process with SUP) On/Off Footwear (QC): 4 (intermittent assist due to tighter socks on sock aide. TEX hose donned with TD.) Toileting Hygiene (QC): 4 (SBA. ) Toilet Transfer (QC): 4 (SBA to standard toilet. Cues for use of toilet to push self up, pt utilizes GBs on L side and toilet to sit to stand with SBA. States she has rails on both sides at home, but daughter has standard toilet without GBs.) Assessment/Plan Assessment and Plan Assess & Plan/Chief Complaint Assessment: s/p craniotomy at [facility] Meningioma s/p resection Severe debility needs aggressive therapies HTN Anemia iron def completed Venofer 5 doses with midline Constipation GRADY? UTI with Proteus completed abx Left leg edema venous doppler normal so initiated DESTINY wraps Plan: Monitor closely Venofer completed Pain control Slow recovery so 15/ IRF BM regimen to maintain Omnicef completed Left leg DESTINY wraps for edema since doppler negative for DVT Staple removal every other one today (1) S/P craniotomy (2) Hypertension (3) Obesity (4) Constipation (5) History of hip replacement, total (6) Headache (7) Seizure prophylaxis EVIE SAPP DO Feb 20, 2019 11:15
--- NOTE | 2019-02-20 11:20 | Progress Note ---
Subjective Date Seen by a Provider: Feb 20, 2019 Time Seen by a Provider: 10:00 Subjective/Events-last exam Fwup Meningioma--S/P craniotomy, HTN, Anemia, Weakness, Urinary Incontinence. C/O left leg puffiness. Objective Exam Vital Signs Date Time Temp Pulse Resp B/P (MAP) Pulse Ox O2 Delivery O2 Flow Rate FiO2 02/20/19 09:59 Room Air 02/20/19 08:18 91 18 112/73 (86) 99 Room Air 02/20/19 05:41 36.8 73 16 134/67 (89) 100 Room Air 02/19/19 20:33 Room Air 02/19/19 16:51 36.6 80 16 119/54 (75) 98 Room Air I & O 02/20/19 07:00 Intake Total 1630 ml Balance 1630 ml Capillary Refill : Less Than 3 Seconds General Appearance: No Apparent Distress Neck: Supple Respiratory: Lungs Clear Cardiovascular: Regular Rate, Rhythm Gastrointestinal: normal bowel sounds, non tender, soft Extremity: Non Tender, No Calf Tenderness, Pedal Edema (Minimal to left, TEX hose in place) Neurologic/Psychiatric: Alert, Oriented x3 Skin: Other (scalp daily in place with evidence of healing and no erythema) Results Lab Microbiology 02/10/19 Urine Culture - Final, Complete Proteus mirabilis Assessment/Plan Assessment/Plan Assess & Plan/Chief Complaint 1. Meningioma--S/P Craniotomy 2. Hypertension--stable 3. Weakness--PT/OT 4. Urinary Incontinence--chronic 5. Anemia--S/P venofer tx 6. LLE swelling--check venous doppler Clinical Quality Measures DVT/VTE Risk/Contraindication: Risk Factor Score Per Nursin RFS Level Per Nursing on Admit: 4+=Very High MARIE LIVE DO Feb 20, 2019 11:20
--- NOTE | 2019-02-20 12:16 | Physical Therapy Daily Note ---
PT Daily Note-Current Subjective Pt. states she is better and feels she is making regular progress. Pain Location: No Pain Reported Mental Status Patient Orientation: Person, Place, Time, Situation, Normal For Age Transfers SCALE: Activities may be completed with or without assistive devices. 9-Idfppszdeb-zsfzvem completes the activity by him/herself with no assistance from a helper. 5-Set-up or Clean-up Assistance-helper sets up or cleans up; patient completes activity. [place] assists only prior to or following the activity. 4-Supervision or Touching Assistance-helper provides verbal cues and/or touching/steadying and/or contact guard assistance as patient completes activity. Assistance may be provided throughout the activity or intermittently. 3-Partial/Moderate Assistance-helper does LESS THAN HALF the effort. [place] lifts, holds or supports trunk or limbs, but provides less than half the effort. 2-Substantial/Maximal Assistance-helper does MORE THAN HALF the effort. [place] lifts or holds trunk or limbs and provides more than half the effort. 0-Jqgffnmre-gpfujr does ALL the effort. Patient does none of the effort to complete the activity. Or, the assistance of 2 or more helpers is required for the patient to complete the activity. If activity was not attempted, code reason: 7-Patient Refused. 9-Not Applicable-not attempted and the patient did not perform the activity before the current illness, exacerbation or injury. 10-Not Attempted due to Environmental Limitations-(lack of equipment, weather restraints, etc.). 88-Not Attempted due to Medical Conditions or Safety Concerns. Roll Left & Right (QC): 6 Sit to Lying (QC): 6 Lying to Sitting/Side of Bed(Q: 6 Sit to Stand (QC): 6 Chair/Nsd-kl-Bvzsi Xfer(QC): 6 Toilet Transfer (QC): 6 Car Transfer (QC): 5 slow for all TRFs with some instruction required for car TRF Weight Bearing Full Weight Bearing Full Weight Bearing Gait Training Does the Patient Walk?: Yes Walk 10 feet (QC): 5 Walk 50 ft with 2 Turns(QC): 5 Walk 150 ft (QC): 5 Gait Persons Needed: 1 Gait Assistive Device: FWW no LOB, slow, improving gait pattern Exercises Supine Ex: Bridging, Ankle pumps, Quad Set, Rolling, Glut sets, Heel Slides, Short Arc Quads, Scooting, Straight leg raise, Hip abd/add Supine Reps: 15 (x2) Seated Therapy Exercises: Ankle pumps, Sit to stand, Long arc quads, Hip flexion, Hip abd/add Seated Reps: 15 NuStep Minutes: 12 NuStep Workload: 5 Treatments toileted ans washed hands with SBA and cues. Assessment Current Status: Good Progress slow to move for all of Rx. improving safety and function PT Short Term Goals Short Term Goals Time Frame: Feb 17, 2019 Sit to lyin Lying to sitting on side of be: 3 Sit to stand: 3 Walk 50 feet with two turns: 4 PT Professor Of Literature Goals Group Home Goals PT Group Home Goals Time Frame: Mar 03, 2019 Roll Left & Right (QC): 6 Sit to Lying (QC): 6 Lying-Sitting on Side/Bed(QC): 6 Sit to Stand (QC): 6 Chair/Rtz-qw-Nwosx Xfer(QC): 6 Toilet Transfer (QC): 6 Car Transfer (QC): 6 Does the Patient Walk: Yes Walk 10 feet (QC): 6 Walk 50ft with 2 Turns (QC): 6 Walk 150 ft (QC): 6 Walking 10ft on Uneven Surface: 5 1 Step (curb) (QC): 6 4 Steps (QC): 6 12 Steps (QC): 9 Picking up an Object (QC): 9 Does the Pt use WC or Scooter?: No PT Plan Treatment/Plan Treatment Plan: Continue Plan of Care Treatment Plan: Bed Mobility, Education, Functional Activity Scout, Functional Strength, Group Therapy, Gait, Safety, Therapeutic Exercise, Transfers Treatment Duration: Mar 03, 2019 Frequency: Modified Program (IRF) Estimated Hrs Per Day: 1.5 hours per day Patient and/or Family Agrees t: Yes Safety Risks/Education Patient Education: Gait Training, Transfer Techniques, Correct Positioning, Disease Process, Safety Issues Teaching Recipient: Patient Teaching Methods: Demonstration, Discussion Response to Teaching: Verbalize Understanding, Return Demonstration, Reinforcement Needed Time/GCodes Time In: 1100 Time Out: 1215 Total Billed Treatment Time: 75 Total Billed Treatment 1,GT20m,FA30,EX25m RADHA CHEW FERMENTATION OPERATOR Feb 20, 2019 12:16
--- NOTE | 2019-02-20 13:03 | NUR ---
DESTINY WRAP TO LEFT LOWER EXTREMITY. EVERY OTHER STAPLE REMOVED PER ORDERS. PATIENT TOLERATED WELL. INCISION IS WELL APPROXIMATED. NO DRAINAGE NOTED.
--- NOTE | 2019-02-20 14:18 | Speech Therapy Daily Note ---
Speech Daily Progress Note Subjective Date Seen by Provider: Feb 20, 2019 Time Seen by Provider: 00:30 Patient seen this afternoon after her sister left from her visit. Objective Patient completed safety awareness tasks with 90% given minimal cues. Assessment Assessment Current Status: Good Progress Treatment Plan Continue Plan of Care Speech Short Term Goals Short Term Goals Short Term Goals 1) Patient will complete memory tasks related to her daily needs with 90% or greater with minimal cues. 2) Patient will complete safety awareness tasks related to her daily needs with 90% or greater with minimal cues. 3) Patient will complete problem solving tasks related to her daily needs with 90% or greater with minimal cues. Speech [facility] Goals Ramp And Cargo Supervisor Goals Patient will improve cognitive-communication necessary for safety and daily living tasks with minimal assist. Speech-Plan Patient/Family Goals Patient/Family Goals: Patient plans on returning home alone with strong family support close by. Treatment Plan Speech Therapy Treatment Plan: Continue Plan of Care Patient is progressing well toward meeting ST goals. Treatment Duration: Feb 27, 2019 Frequency: 4 times per week Estimated Hrs Per Day: .5 hour per day Rehab Potential: Good Barriers to Learning: Mild cognitive deficits Pt/Family Agrees to Plan: Yes Safety Risks/Education Teaching Recipient: Patient Teaching Methods: Demonstration, Discussion Response to Teaching: Verbalize Understanding, Return Demonstration Education Topics Provided: Safety within her room Time Speech Therapy Time In: 13:30 Speech Therapy Time Out: 14:00 Total Billed Time: 30 Billed Treatment Time [address]ME[address] Feb 20, 2019 14:18
[2019-02-20 17:30] VITALS: BP 119/58
[2019-02-21 05:50] VITALS: BP 111/69
[2019-02-21] MEDS: FERROUS SULF 325 MG (IRON) TAB PO SCH ×2 (06:29→17:48)
[2019-02-21 09:47] VITALS: BP 111/44
[2019-02-21] MEDS: LEVETIRACETAM 500 MG (KEPPRA) TAB PO SCH ×2 (09:47→21:30)
[2019-02-21] MEDS: VITAMIN D3 400 UNITS (CHOLECALCIFEROL) TABLET PO SCH (09:47)
[2019-02-21] MEDS: OMEGA 3 (FISH OIL) 1000 MG CAP PO SCH (09:47)
[2019-02-21] MEDS: meTOprolol TARTRATE 25 MG (LOPRESSOR) TABLET PO SCH ×2 (09:51→21:34)
[2019-02-21] MEDS: LOSARTAN 100 MG (COZAAR) TABLET PO SCH (09:51)
[2019-02-21] MEDS: POLYETHYLENE GLYCOL 17 GM (MIRALAX) PACK PO SCH ×2 (09:53→21:34)
[2019-02-21] MEDS: DOCUSATE SODIUM 100 MG (COLACE) CAP PO SCH ×2 (09:53→21:34)
[2019-02-21] MEDS: SENNA W/DOCUSATE (SENOKOT S) TABLET PO SCH ×2 (09:53→21:34)
--- NOTE | 2019-02-21 12:31 | Physical Therapy Daily Note ---
PT Daily Note-Current Subjective 1st attempt: pt with nursing receiving meds and dressing wounds on L arm. 2nd attempt: Pt agreeable to PT session. Pain Numeric Pain Scale: 0-No Pain Appearance upon arrival, pt sitting up in recliner with nurse present. Pt requesting and assisted to bathroom. At end of session, pt sitting up in recliner with call light, phone and bedside table within reach Mental Status Patient Orientation: Normal For Age Transfers SCALE: Activities may be completed with or without assistive devices. 4-Hjcaqdtihm-ugcuseu completes the activity by him/herself with no assistance from a helper. 5-Set-up or Clean-up Assistance-helper sets up or cleans up; patient completes activity. [place] assists only prior to or following the activity. 4-Supervision or Touching Assistance-helper provides verbal cues and/or touching/steadying and/or contact guard assistance as patient completes activity. Assistance may be provided throughout the activity or intermittently. 3-Partial/Moderate Assistance-helper does LESS THAN HALF the effort. [place] lifts, holds or supports trunk or limbs, but provides less than half the effort. 2-Substantial/Maximal Assistance-helper does MORE THAN HALF the effort. [place] lifts or holds trunk or limbs and provides more than half the effort. 6-Iwdhnliue-twphlq does ALL the effort. Patient does none of the effort to complete the activity. Or, the assistance of 2 or more helpers is required for the patient to complete the activity. If activity was not attempted, code reason: 7-Patient Refused. 9-Not Applicable-not attempted and the patient did not perform the activity before the current illness, exacerbation or injury. 10-Not Attempted due to Environmental Limitations-(lack of equipment, weather restraints, etc.). 88-Not Attempted due to Medical Conditions or Safety Concerns. Sit to Stand (QC): 4 (improving but still requiring effort) Toilet Transfer (QC): 4 (use of grab bar, min inst for technique and hand placement) Weight Bearing Full Weight Bearing Full Weight Bearing Gait Training Does the Patient Walk?: Yes Distance: 200 Walk 10 feet (QC): 4 Walk 50 ft with 2 Turns(QC): 4 Walk 150 ft (QC): 4 Gait Persons Needed: 1 Gait Assistive Device: FWW fatigues easily requiring 1 sitting rest break ~3/4 distance before completing 200 ft. Treatments education, safety, transfers from multiple surfaces, toileting, yanni care, washing hands at sink, gait, functional mobility, activity tolerance Assessment improving strength and mobility with transfers and gait, continues to fatigue easily PT Short Term Goals Short Term Goals Time Frame: Feb 17, 2019 Sit to lyin Lying to sitting on side of be: 3 Sit to stand: 3 Walk 50 feet with two turns: 4 PT Residential Goals Automobile Body Repair Supervisor Goals PT Residential Goals Time Frame: Mar 03, 2019 Roll Left & Right (QC): 6 Sit to Lying (QC): 6 Lying-Sitting on Side/Bed(QC): 6 Sit to Stand (QC): 6 Chair/Vfn-se-Ncofh Xfer(QC): 6 Toilet Transfer (QC): 6 Car Transfer (QC): 6 Does the Patient Walk: Yes Walk 10 feet (QC): 6 Walk 50ft with 2 Turns (QC): 6 Walk 150 ft (QC): 6 Walking 10ft on Uneven Surface: 5 1 Step (curb) (QC): 6 4 Steps (QC): 6 12 Steps (QC): 9 Picking up an Object (QC): 9 Does the Pt use WC or Scooter?: No PT Plan Treatment/Plan Treatment Plan: Continue Plan of Care Treatment Plan: Bed Mobility, Education, Functional Activity Scout, Functional Strength, Group Therapy, Gait, Safety, Therapeutic Exercise, Transfers Treatment Duration: Mar 03, 2019 Frequency: Modified Program (IRF) Estimated Hrs Per Day: 1.5 hours per day Patient and/or Family Agrees t: Yes Safety Risks/Education Patient Education: Gait Training, Transfer Techniques, Safety Issues Teaching Recipient: Patient Teaching Methods: Demonstration, Discussion Response to Teaching: Verbalize Understanding, Return Demonstration Time/GCodes Time In: 957 Time Out: 1020 Total Billed Treatment Time: 23 Total Billed Treatment 1 visit, GT x1 unit, FA x1 unit GAYLA MCCRARY PTA Feb 21, 2019 12:31
--- NOTE | 2019-02-21 12:41 | PM&R Progress Note ---
Subjective HPI/CC On Admission Date Seen by Provider: Feb 21, 2019 Time Seen by Provider: 12:45 Subjective/Events-last exam Patient feels great Slept well last night BM regular Overall much improved Every other staple not removed yesterday will be removed in a couple of days Left leg USG negative for DVT so wrapping DESTINY wraps over the TEX's Conferred with RN Reviewed therapy notes Checked meds and labs Review of Systems General: Fatigue Cardiovascular: Edema Neurological: Weakness, Numbness, Incoordination Objective Exam Vital Signs Vital Signs Date Time Temp Pulse Resp B/P (MAP) Pulse Ox O2 Delivery O2 Flow Rate FiO2 02/21/19 09:47 81 20 111/44 (66) 99 Room Air 02/21/19 05:50 37.0 Capillary Refill : Less Than 3 Seconds General Appearance: No Apparent Distress, WD/WN, Chronically ill, Obese HEENT: PERRL/EOMI, Normal ENT Inspection, Pharynx Normal Neck: Full Range of Motion, Normal Inspection, Non Tender, Supple, Carotid Bruit Respiratory: Chest Non Tender, Lungs Clear, Normal Breath Sounds, No Accessory Muscle Use, No Respiratory Distress, Decreased Breath Sounds Cardiovascular: Regular Rate, Rhythm, No Edema, No Gallop, No JVD, No Murmur, Normal Peripheral Pulses Gastrointestinal: Normal Bowel Sounds, No Organomegaly, No Pulsatile Mass, Non Tender, Soft Back: Normal Inspection, No CVA Tenderness, No Vertebral Tenderness Extremity: Normal Capillary Refill, Normal Inspection, Normal Range of Motion, Non Tender, No Calf Tenderness, No Pedal Edema, Pedal Edema (left leg only) Neurologic/Psychiatric: Alert, Oriented x3, office associate II-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 FIM Transfers Therapy Code Descriptions/Definitions Functional [place] Measure: 0=Not Assessed/NA 4=Minimal Assistance 1=Total Assistance 5=Supervision or Setup 2=Maximal Assistance 6=Modified [place] 3=Moderate Assistance 7=Complete IndependenceSCALE: Activities may be completed with or without assistive devices. 1-Umwkcjcagp-ygojmoc completes the activity by him/herself with no assistance from a helper. 5-Set-up or Clean-up Assistance-helper sets up or cleans up; patient completes activity. [place] assists only prior to or following the activity. 4-Supervision or Touching Assistance-helper provides verbal cues and/or touching/steadying and/or contact guard assistance as patient completes activity. Assistance may be provided throughout the activity or intermittently. 3-Partial/Moderate Assistance-helper does LESS THAN HALF the effort. [place] lifts, holds or supports trunk or limbs, but provides less than half the effort. 2-Substantial/Maximal Assistance-helper does MORE THAN HALF the effort. [place] lifts or holds trunk or limbs and provides more than half the effort. 4-Kdnqvdugx-zdzewp does ALL the effort. Patient does none of the effort to complete the activity. Or, the assistance of 2 or more helpers is required for the patient to complete the activity. If activity was not attempted, code reason: 7-Patient Refused. 9-Not Applicable-not attempted and the patient did not perform the activity before the current illness, exacerbation or injury. 10-Not Attempted due to Environmental Limitations-(lack of equipment, weather restraints, etc.). 88-Not Attempted due to Medical Conditions or Safety Concerns. Roll Left to Right (QC): 6 Sit to Lying (QC): 6 Sit to Stand (QC): 4 (improving but still requiring effort) Chair/Hod-sg-Luwix Xfer(QC): 6 Car Transfer (QC): 5 Gait Training Does the Patient Walk?: Yes Distance: 200 Walk 10 feet (QC): 4 Walk 50 ft with 2 Turns(QC): 4 Walk 150 ft (QC): 4 Walking 10ft/uneven surface-QC: 88 Gait Persons Needed: 1 Gait Assistive Device: FWW Wheelchair Training Does the Pt Use a Wheelchair?: Yes Wheel 50 ft with 2 turns (QC): 3 Wheel 150 ft (QC): 3 Type of Wheelchair: Manual Stair Training 1 Step (curb) (QC): 88 4 Steps (QC): 88 12 Steps (QC): 88 Balance Picking up an Object (QC): 88 ADL-Treatment Eating (QC): 6 Oral Hygiene (QC): 6 Bathing Location: L Arm, R Arm, L Upper Leg, R Upper Leg, Chest, Abdomen, Perineal Area Shower/Bathe Self (QC): 4 (SBA in stance at FWW. pt able to reach all areas excluding back.) Upper Body Dressing (QC): 5 Lower Body Dressing (QC): 4 (intermittent assist for L side over hips, pt able to complete rest of process with SUP) On/Off Footwear (QC): 4 (intermittent assist due to tighter socks on sock aide. TEX hose donned with TD.) Toileting Hygiene (QC): 4 (SBA. ) Toilet Transfer (QC): 4 (SBA to standard toilet. Cues for use of toilet to push self up, pt utilizes GBs on L side and toilet to sit to stand with SBA. States she has rails on both sides at home, but daughter has standard toilet without GBs.) Assessment/Plan Assessment and Plan Assess & Plan/Chief Complaint Assessment: s/p craniotomy at [facility] Meningioma s/p resection Severe debility needs aggressive therapies HTN Anemia iron def completed Venofer 5 doses with midline Constipation GRADY? UTI with Proteus completed abx Left leg edema venous doppler normal so initiated DESTINY wraps Plan: Monitor closely Venofer completed Pain control Slow recovery so 15 IRF BM regimen to maintain Omnicef completed Left leg DESTINY wraps for edema since doppler negative for DVT Staple removal every other one not removed yesterday in a couple of days (1) S/P craniotomy (2) Hypertension (3) Obesity (4) Constipation (5) History of hip replacement, total (6) Headache (7) Seizure prophylaxis EVIE SAPP DO Feb 21, 2019 12:41
[2019-02-21 15:53] VITALS: BP 96/49
[2019-02-22] MEDS: FERROUS SULF 325 MG (IRON) TAB PO SCH ×2 (06:10→17:04)
[2019-02-22 06:30] VITALS: BP 105/64
[2019-02-22 09:57] VITALS: BP 112/54
[2019-02-22] MEDS: VITAMIN D3 400 UNITS (CHOLECALCIFEROL) TABLET PO SCH (09:58)
[2019-02-22] MEDS: LEVETIRACETAM 500 MG (KEPPRA) TAB PO SCH ×2 (09:58→20:32)
[2019-02-22] MEDS: OMEGA 3 (FISH OIL) 1000 MG CAP PO SCH (09:58)
[2019-02-22] MEDS: LOSARTAN 100 MG (COZAAR) TABLET PO SCH (09:59)
[2019-02-22] MEDS: meTOprolol TARTRATE 25 MG (LOPRESSOR) TABLET PO SCH ×2 (09:59→20:32)
[2019-02-22] MEDS: SENNA W/DOCUSATE (SENOKOT S) TABLET PO SCH ×2 (10:10→20:33)
[2019-02-22] MEDS: POLYETHYLENE GLYCOL 17 GM (MIRALAX) PACK PO SCH ×2 (10:10→20:33)
[2019-02-22] MEDS: DOCUSATE SODIUM 100 MG (COLACE) CAP PO SCH ×2 (10:10→20:32)
--- NOTE | 2019-02-22 13:37 | PM&R Progress Note ---
Subjective HPI/CC On Admission Date Seen by Provider: Feb 22, 2019 Time Seen by Provider: 12:00 Subjective/Events-last exam Patient feels great Slept well last night again BM regular and feels like she back to her normal on that Overall much improved Every other staple not removed yesterday will be removed tomorrow Left leg USG negative for DVT so wrapping DESTINY wraps over the TEX's which is helping Conferred with RN Reviewed therapy notes Checked meds and labs Review of Systems Cardiovascular: Edema Musculoskeletal: leg pain Neurological: Weakness, Numbness, Incoordination Objective Exam Vital Signs Vital Signs Date Time Temp Pulse Resp B/P (MAP) Pulse Ox O2 Delivery O2 Flow Rate FiO2 02/22/19 17:45 37.2 77 18 123/77 (92) 100 Room Air Capillary Refill : Less Than 3 Seconds General Appearance: No Apparent Distress, WD/WN, Chronically ill, Obese HEENT: PERRL/EOMI, Normal ENT Inspection, Pharynx Normal Neck: Full Range of Motion, Normal Inspection, Non Tender, Supple, Carotid Bruit Respiratory: Chest Non Tender, Lungs Clear, Normal Breath Sounds, No Accessory Muscle Use, No Respiratory Distress, Decreased Breath Sounds Cardiovascular: Regular Rate, Rhythm, No Edema, No Gallop, No JVD, No Murmur, Normal Peripheral Pulses Gastrointestinal: Normal Bowel Sounds, No Organomegaly, No Pulsatile Mass, Non Tender, Soft Back: Normal Inspection, No CVA Tenderness, No Vertebral Tenderness Extremity: Normal Capillary Refill, Normal Inspection, Normal Range of Motion, Non Tender, No Calf Tenderness, No Pedal Edema, Pedal Edema (left leg only) Neurologic/Psychiatric: Alert, Oriented x3, 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 FIM Transfers Therapy Code Descriptions/Definitions Functional [place] Measure: 0=Not Assessed/NA 4=Minimal Assistance 1=Total Assistance 5=Supervision or Setup 2=Maximal Assistance 6=Modified [place] 3=Moderate Assistance 7=Complete IndependenceSCALE: Activities may be completed with or without assistive devices. 0-Ogskmgievf-hzlttbd completes the activity by him/herself with no assistance from a helper. 5-Set-up or Clean-up Assistance-helper sets up or cleans up; patient completes activity. [place] assists only prior to or following the activity. 4-Supervision or Touching Assistance-helper provides verbal cues and/or touching/steadying and/or contact guard assistance as patient completes activity. Assistance may be provided throughout the activity or intermittently. 3-Partial/Moderate Assistance-helper does LESS THAN HALF the effort. [place] lifts, holds or supports trunk or limbs, but provides less than half the effort. 2-Substantial/Maximal Assistance-helper does MORE THAN HALF the effort. [place] lifts or holds trunk or limbs and provides more than half the effort. 1-Tnczdzoja-puiivq does ALL the effort. Patient does none of the effort to complete the activity. Or, the assistance of 2 or more helpers is required for the patient to complete the activity. If activity was not attempted, code reason: 7-Patient Refused. 9-Not Applicable-not attempted and the patient did not perform the activity before the current illness, exacerbation or injury. 10-Not Attempted due to Environmental Limitations-(lack of equipment, weather restraints, etc.). 88-Not Attempted due to Medical Conditions or Safety Concerns. Roll Left to Right (QC): 6 Sit to Lying (QC): 6 Sit to Stand (QC): 4 (improving but still requiring effort) Chair/Sdi-yf-Tbjqr Xfer(QC): 6 Car Transfer (QC): 5 Gait Training Does the Patient Walk?: Yes Distance: 200 Walk 10 feet (QC): 4 Walk 50 ft with 2 Turns(QC): 4 Walk 150 ft (QC): 4 Walking 10ft/uneven surface-QC: 88 Gait Persons Needed: 1 Gait Assistive Device: FWW Wheelchair Training Does the Pt Use a Wheelchair?: Yes Wheel 50 ft with 2 turns (QC): 3 Wheel 150 ft (QC): 3 Type of Wheelchair: Manual Stair Training 1 Step (curb) (QC): 88 4 Steps (QC): 88 12 Steps (QC): 88 Balance Picking up an Object (QC): 88 ADL-Treatment Eating (QC): 6 Oral Hygiene (QC): 6 Bathing Location: L Arm, R Arm, L Upper Leg, R Upper Leg, Chest, Abdomen, Perineal Area Shower/Bathe Self (QC): 4 (SBA in stance at FWW. pt able to reach all areas excluding back.) Upper Body Dressing (QC): 5 Lower Body Dressing (QC): 4 (intermittent assist for L side over hips, pt able to complete rest of process with SUP) On/Off Footwear (QC): 4 (intermittent assist due to tighter socks on sock aide. TEX hose donned with TD.) Toileting Hygiene (QC): 4 (SBA. ) Toilet Transfer (QC): 4 (SBA to standard toilet. Cues for use of toilet to push self up, pt utilizes GBs on L side and toilet to sit to stand with SBA. States she has rails on both sides at home, but daughter has standard toilet without GBs.) Assessment/Plan Assessment and Plan Assess & Plan/Chief Complaint Assessment: s/p craniotomy at [facility] Meningioma s/p resection Severe debility needs aggressive therapies HTN Anemia iron def completed Venofer 5 doses with midline Constipation GRADY? UTI with Proteus completed abx Left leg edema venous doppler normal so initiated DESTINY wraps Plan: Monitor closely Venofer completed Pain control Slow recovery so 01/09 IRF BM regimen to maintain Omnicef completed Left leg DESTINY wraps for edema since doppler negative for DVT Staple removal every other one not removed yesterday tomorrow (1) S/P craniotomy (2) Hypertension (3) Obesity (4) Constipation (5) History of hip replacement, total (6) Headache (7) Seizure prophylaxis EVIE SAPP DO Feb 22, 2019 13:37
[2019-02-22 17:45] VITALS: BP 123/77
[2019-02-23 05:45] VITALS: BP 127/75
[2019-02-23 05:59] LABS: BASOPHILS % (AUTO) 0 % (0-10); EOSINOPHILS # (AUTO) 0.2 10^3/uL (0.0-0.3); EOSINOPHILS % (AUTO) 3 % (0-10); HEMATOCRIT 24 % (35-52); HEMOGLOBIN 7.5 G/DL (11.5-16.0); LYMPHOCYTES # (AUTO) 0.6 X 10^3 (1.0-4.0); LYMPHOCYTES % (AUTO) 12 % (12-44); MEAN CORPUSCULAR HEMOGLOBIN 32 PG (25-34); MEAN CORPUSCULAR HGB CONC 31 G/DL (32-36); MEAN CORPUSCULAR VOLUME 103 FL (80-99); MEAN PLATELET VOLUME 11.8 FL (7.4-10.4); MONOCYTES # (AUTO) 0.4 X 10^3 (0.0-1.0); MONOCYTES % (AUTO) 7 % (0-12); NEUTROPHILS # (AUTO) 3.8 X 10^3 (1.8-7.8); NEUTROPHILS % (AUTO) 77 % (42-75); PLATELET COUNT 120 10^3/uL (130-400); RED CELL DISTRIBUTION WIDTH 15.3 % (10.0-14.5); WHITE BLOOD COUNT 4.9 10^3/uL (4.3-11.0)
[2019-02-23] MEDS: FERROUS SULF 325 MG (IRON) TAB PO SCH ×2 (06:08→17:32)
[2019-02-23 06:26] LABS: ALBUMIN 3.3 GM/DL (3.2-4.5); BILIRUBIN,TOTAL 0.2 MG/DL (0.1-1.0); CALCIUM 8.8 MG/DL (8.5-10.1); CREATININE SERUM 1.37 MG/DL (0.60-1.30); POTASSIUM 4.6 MMOL/L (3.6-5.0); TOTAL PROTEIN 5.7 GM/DL (6.4-8.2)
[2019-02-23] MEDS: SENNA W/DOCUSATE (SENOKOT S) TABLET PO SCH ×2 (08:02→20:36)
[2019-02-23] MEDS: POLYETHYLENE GLYCOL 17 GM (MIRALAX) PACK PO SCH ×2 (08:02→20:35)
[2019-02-23] MEDS: meTOprolol TARTRATE 25 MG (LOPRESSOR) TABLET PO SCH ×2 (09:01→20:35)
[2019-02-23] MEDS: DOCUSATE SODIUM 100 MG (COLACE) CAP PO SCH ×2 (09:01→20:35)
[2019-02-23] MEDS: LEVETIRACETAM 500 MG (KEPPRA) TAB PO SCH ×2 (09:02→20:35)
[2019-02-23] MEDS: VITAMIN D3 400 UNITS (CHOLECALCIFEROL) TABLET PO SCH (09:02)
[2019-02-23] MEDS: OMEGA 3 (FISH OIL) 1000 MG CAP PO SCH (09:02)
[2019-02-23] MEDS: LOSARTAN 100 MG (COZAAR) TABLET PO SCH (09:02)
--- NOTE | 2019-02-23 09:21 | Occupational Ther Daily Note ---
OT Current Status-Daily Note Subjective Pt seen on EOB, states good weekend/ good sleep. Pt alert/ talkative on this date. Pt agreeable to OT tx session with no c/o pain. ADL-Treatment Therapy Code Descriptions/Definitions Functional [place] Measure: 0=Not Assessed/NA 4=Minimal Assistance 1=Total Assistance 5=Supervision or Setup 2=Maximal Assistance 6=Modified [place] 3=Moderate Assistance 7=Complete IndependenceSCALE: Activities may be completed with or without assistive devices. 9-Ivmcpuwnra-cpjtzca completes the activity by him/herself with no assistance from a helper. 5-Set-up or Clean-up Assistance-helper sets up or cleans up; patient completes activity. [place] assists only prior to or following the activity. 4-Supervision or Touching Assistance-helper provides verbal cues and/or touching/steadying and/or contact guard assistance as patient completes activity. Assistance may be provided throughout the activity or intermittently. 3-Partial/Moderate Assistance-helper does LESS THAN HALF the effort. [place] lifts, holds or supports trunk or limbs, but provides less than half the effort. 2-Substantial/Maximal Assistance-helper does MORE THAN HALF the effort. [place] lifts or holds trunk or limbs and provides more than half the effort. 4-Wtwntlhzq-ucpajh does ALL the effort. Patient does none of the effort to complete the activity. Or, the assistance of 2 or more helpers is required for the patient to complete the activity. If activity was not attempted, code reason: 7-Patient Refused. 9-Not Applicable-not attempted and the patient did not perform the activity before the current illness, exacerbation or injury. 10-Not Attempted due to Environmental Limitations-(lack of equipment, weather restraints, etc.). 88-Not Attempted due to Medical Conditions or Safety Concerns. Eating (QC): 6 Oral Hygiene (QC): 6 Shower/Bathe Self (QC): 5 (Pt completes sponge bath with s/u- OT hands all wash cloths to pt, pt requires assist with back but does not wash at home as she lets water run off of back. Pt and OT practice shower transfers, discussion of FWW placement and grab bar placement. Discussion of drying off floor prior to exiting shower. Pt return demonstrates with SBA.) Upper Body Dressing (QC): 6 Lower Body Dressing (QC): 4 (Pt gathers clothing items from closet. Sits EOB with SUP to complete LB washing/ drying/ dressing. Pt does not require assist on this date, utilizes dressing stick to doff clothing items .) On/Off Footwear: 6 (TEX hose donned with max A, DESTINY wrap applied to LLE with decreasing tension to mid-calf. Pt dons socks with IND with sock aide.) Toileting Hygiene (QC): 4 (SUP at FWW, pt able to reach bottom and complete with thoroughness.) Toilet Transfer (QC): 4 (SUP- pt completes sit to stand from EOB and ambulates to toilet, completes transfer with SUP, walks back to EOB with IND.) Other Treatment Pt completes ADLs within room. Pt completes with increased energy and IND, questions why she is not ab carmel at the moment. Pt educated on need to see consistency in functional mobility and will discuss with PT. Pt completes functional ambulation, reaching tasks with good safety awareness and balance. Post- ADLs, pt completes kitchen mobility tasks, gathers zamarripa from lower level, transfers to oven, pt educated on proper position with FWW beside oven, able to complete with safety and move zamarripa from oven to fridge with IND. Places zamarripa back into lower cabinet with SUP, good safety. Pt returns to chair, call light in reach, all needs met. Hot pack applied to pt's UE for pain reduction due to irritated IV site (removed), pt left in room with nursing. Education OT Patient Education: Modified ADL techniques, Progress toward Goal/Update tx plan, Purpose of tx/functional activities, Safety issues, Transfer techniques Teaching Recipient: Patient Teaching Methods: Demonstration, Discussion Response to Teaching: Verbalize Understanding, Return Demonstration OT Director Power Goals Long-Term Goals Time Frame: Feb 23, 2019 Eating (QC): 6 (met) Oral Hygiene (QC): 6 (met) Toileting Hygiene (QC): 6 Shower/Bathe Self (QC): 6 Upper Body Dressing (QC): 6 (met) Lower Body Dressing (QC): 6 On/Off Footwear (QC): 6 Additional Goals: 1-Demonstrate ADL Tasks, 2-Verbalize Understanding, 3- ImproveStrength/Scout 1=Demonstrate adherence to instructed precautions during ADL tasks. 2=Patient will verbalize/demonstrate understanding of assistive devices/modifications for ADL. 3=Patient will improve strength/tolerance for activity to enable patient to perform ADL's. OT Education/Plan Problem List/Assessment Assessment: Decreased Activ Tolerance, Edema, Impaired I ADL's Discharge Recommendations Plan/Recommendations: Continue POC Therapy Discharge Recommendati: Home & Family Treatment Plan/Plan of Care Treatment,Training & Education: Yes Patient would benefit from OT for education, treatment and training to promote independence in ADL's, mobility, safety and/or upper extremity function for ADL's. Plan of Care: ADL Retraining, Caregiver Training, Concurrent Therapy, Functional Mobility, Group Exercise/Act as Ind, UE Funct Exercise/Act, UE Neuromus Re-Ed/Coord Treatment Duration: Feb 23, 2019 Frequency: At least 5 of 7 days/Wk (IRF) Estimated Hrs Per Day: 1.5 hours per day Agreement: Yes Rehab Potential: Good Time/GCodes Start Time: 08:00 Stop Time: 09:15 Total Time Billed (hr/min): 75 Billed Treatment Time 1, ADL 4 (60), FA (15)= 75 ALEIDA DIAZ OTR Feb 23, 2019 09:21
--- NOTE | 2019-02-23 09:45 | PM&R Progress Note ---
Subjective HPI/CC On Admission Date Seen by Provider: Feb 23, 2019 Time Seen by Provider: 08:45 Subjective/Events-last exam Anemia is chronic. Hgb remains at 7.5. Doing pretty well. Bowels are moving okay. Removing daily every other one that were left after removed on . Left leg USG negative for DVT so wrapping DESTINY wraps over the TEX's which is helping Conferred with RN Reviewed therapy notes Checked meds and labs Review of Systems Cardiovascular: Edema Neurological: Weakness, Incoordination Objective Exam Vital Signs Vital Signs Date Time Temp Pulse Resp B/P (MAP) Pulse Ox O2 Delivery O2 Flow Rate FiO2 02/23/19 20:00 Room Air 02/23/19 15:59 36.9 77 16 101/62 (75) 100 Capillary Refill : Less Than 3 Seconds General Appearance: No Apparent Distress, WD/WN, Chronically ill, Obese HEENT: PERRL/EOMI, Normal ENT Inspection, Pharynx Normal Neck: Full Range of Motion, Normal Inspection, Non Tender, Supple, Carotid Bruit Respiratory: Chest Non Tender, Lungs Clear, Normal Breath Sounds, No Accessory Muscle Use, No Respiratory Distress, Decreased Breath Sounds Cardiovascular: Regular Rate, Rhythm, No Edema, No Gallop, No JVD, No Murmur, Normal Peripheral Pulses Gastrointestinal: Normal Bowel Sounds, No Organomegaly, No Pulsatile Mass, Non Tender, Soft Back: Normal Inspection, No CVA Tenderness, No Vertebral Tenderness Extremity: Normal Capillary Refill, Normal Inspection, Normal Range of Motion, Non Tender, No Calf Tenderness, No Pedal Edema, Pedal Edema (left leg only) Neurologic/Psychiatric: Alert, 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 FIM Transfers Therapy Code Descriptions/Definitions Functional [place] Measure: 0=Not Assessed/NA 4=Minimal Assistance 1=Total Assistance 5=Supervision or Setup 2=Maximal Assistance 6=Modified [place] 3=Moderate Assistance 7=Complete IndependenceSCALE: Activities may be completed with or without assistive devices. 7-Chfuieladg-tqpysum completes the activity by him/herself with no assistance from a helper. 5-Set-up or Clean-up Assistance-helper sets up or cleans up; patient completes activity. [place] assists only prior to or following the activity. 4-Supervision or Touching Assistance-helper provides verbal cues and/or touching/steadying and/or contact guard assistance as patient completes activity. Assistance may be provided throughout the activity or intermittently. 3-Partial/Moderate Assistance-helper does LESS THAN HALF the effort. [place] lifts, holds or supports trunk or limbs, but provides less than half the effort. 2-Substantial/Maximal Assistance-helper does MORE THAN HALF the effort. [place] lifts or holds trunk or limbs and provides more than half the effort. 2-Qtvqthtos-yccpyo does ALL the effort. Patient does none of the effort to complete the activity. Or, the assistance of 2 or more helpers is required for the patient to complete the activity. If activity was not attempted, code reason: 7-Patient Refused. 9-Not Applicable-not attempted and the patient did not perform the activity before the current illness, exacerbation or injury. 10-Not Attempted due to Environmental Limitations-(lack of equipment, weather restraints, etc.). 88-Not Attempted due to Medical Conditions or Safety Concerns. Roll Left to Right (QC): 6 Sit to Lying (QC): 6 Sit to Stand (QC): 4 (improving but still requiring effort) Chair/Dve-ep-Kbljh Xfer(QC): 6 Car Transfer (QC): 5 Gait Training Does the Patient Walk?: Yes Distance: 200 Walk 10 feet (QC): 4 Walk 50 ft with 2 Turns(QC): 4 Walk 150 ft (QC): 4 Walking 10ft/uneven surface-QC: 88 Gait Persons Needed: 1 Gait Assistive Device: FWW Wheelchair Training Does the Pt Use a Wheelchair?: Yes Wheel 50 ft with 2 turns (QC): 3 Wheel 150 ft (QC): 3 Type of Wheelchair: Manual Stair Training 1 Step (curb) (QC): 88 4 Steps (QC): 88 12 Steps (QC): 88 Balance Picking up an Object (QC): 88 ADL-Treatment Eating (QC): 6 Oral Hygiene (QC): 6 Bathing Location: L Arm, R Arm, L Upper Leg, R Upper Leg, Chest, Abdomen, Perineal Area Shower/Bathe Self (QC): 5 (Pt completes sponge bath with s/u- OT hands all wash cloths to pt, pt requires assist with back but does not wash at home as she lets water run off of back. Pt and OT practice shower transfers, discussion of FWW placement and grab bar placement. Discussion of drying off floor prior to exiting shower. Pt return demonstrates with SBA.) Upper Body Dressing (QC): 6 Lower Body Dressing (QC): 4 (Pt gathers clothing items from closet. Sits EOB with SUP to complete LB washing/ drying/ dressing. Pt does not require assist on this date, utilizes dressing stick to doff clothing items .) On/Off Footwear (QC): 6 (TEX hose donned with max A, DESTINY wrap applied to LLE with decreasing tension to mid-calf. Pt dons socks with IND with sock aide.) Toileting Hygiene (QC): 4 (SUP at FWW, pt able to reach bottom and complete with thoroughness.) Toilet Transfer (QC): 4 (SUP- pt completes sit to stand from EOB and ambulates to toilet, completes transfer with SUP, walks back to EOB with IND.) Assessment/Plan Assessment and Plan Assess & Plan/Chief Complaint Assessment: s/p craniotomy at [facility] Meningioma s/p resection Severe debility needs aggressive therapies HTN Anemia iron def completed Venofer 5 doses with midline but has a chronic condition Constipation GRADY? UTI with Proteus completed abx Left leg edema venous doppler normal so initiated DESTINY wraps Plan: Monitor closely Venofer completed Pain control Slow recovery so 15/7 IRF BM regimen to maintain Omnicef completed Left leg DESTINY wraps for edema since doppler negative for DVT Staple removal every other one not removed yesterday tomorrow (1) S/P craniotomy (2) Hypertension (3) Obesity (4) Constipation (5) History of hip replacement, total (6) Headache (7) Seizure prophylaxis EVIE SAPP DO Feb 23, 2019 09:45
--- NOTE | 2019-02-23 11:58 | Physical Therapy Daily Note ---
PT Daily Note-Current Subjective Pt. states she feels so much better and notices progress daily. Pain Location: No Pain Reported Mental Status Patient Orientation: Normal For Age Transfers SCALE: Activities may be completed with or without assistive devices. 0-Iwmybjgrku-idalmev completes the activity by him/herself with no assistance from a helper. 5-Set-up or Clean-up Assistance-helper sets up or cleans up; patient completes activity. [place] assists only prior to or following the activity. 4-Supervision or Touching Assistance-helper provides verbal cues and/or touching/steadying and/or contact guard assistance as patient completes activity. Assistance may be provided throughout the activity or intermittently. 3-Partial/Moderate Assistance-helper does LESS THAN HALF the effort. [place] lifts, holds or supports trunk or limbs, but provides less than half the effort. 2-Substantial/Maximal Assistance-helper does MORE THAN HALF the effort. [place] lifts or holds trunk or limbs and provides more than half the effort. 4-Diiqnacfc-vjiylk does ALL the effort. Patient does none of the effort to complete the activity. Or, the assistance of 2 or more helpers is required for the patient to complete the activity. If activity was not attempted, code reason: 7-Patient Refused. 9-Not Applicable-not attempted and the patient did not perform the activity before the current illness, exacerbation or injury. 10-Not Attempted due to Environmental Limitations-(lack of equipment, weather restraints, etc.). 88-Not Attempted due to Medical Conditions or Safety Concerns. Roll Left & Right (QC): 6 Sit to Lying (QC): 6 Lying to Sitting/Side of Bed(Q: 6 Sit to Stand (QC): 6 Chair/Gue-sm-Vhivi Xfer(QC): 6 Toilet Transfer (QC): 6 Weight Bearing Full Weight Bearing Full Weight Bearing Gait Training Does the Patient Walk?: Yes Walk 10 feet (QC): 6 Walk 50 ft with 2 Turns(QC): 6 Walk 150 ft (QC): 6 Gait Persons Needed: 0 Gait Assistive Device: FWW pt. improving with gait, still flexed at trunk but no juan LOB, Stair Training Stair Training: Handrails/: 2 handrails #of Steps: 4 1 Step (curb) (QC): 5 4 Steps (QC): 5 Stairs: Pattern: Step to Exercises Supine Ex: Bridging, Ankle pumps, Quad Set, Rolling, Heel Slides, Scooting, Straight leg raise, Hip abd/add Supine Reps: 12 NuStep Minutes: 10 NuStep Workload: 5 Treatments toileted x 2 during Rx and washed hands standing at sink x 2 all with SBA no LOB Assessment Current Status: Good Progress PT Short Term Goals Short Term Goals Time Frame: Feb 17, 2019 Sit to lyin Lying to sitting on side of be: 3 Sit to stand: 3 Walk 50 feet with two turns: 4 PT Mcfp Goals Machine Puller And Laster Goals PT Mcfp Goals Time Frame: Mar 03, 2019 Roll Left & Right (QC): 6 Sit to Lying (QC): 6 Lying-Sitting on Side/Bed(QC): 6 Sit to Stand (QC): 6 Chair/Csa-np-Zqiud Xfer(QC): 6 Toilet Transfer (QC): 6 Car Transfer (QC): 6 Does the Patient Walk: Yes Walk 10 feet (QC): 6 Walk 50ft with 2 Turns (QC): 6 Walk 150 ft (QC): 6 Walking 10ft on Uneven Surface: 5 1 Step (curb) (QC): 6 4 Steps (QC): 6 12 Steps (QC): 9 Picking up an Object (QC): 9 Does the Pt use WC or Scooter?: No PT Plan Treatment/Plan Treatment Plan: Continue Plan of Care Treatment Plan: Bed Mobility, Education, Functional Activity Scout, Functional Strength, Group Therapy, Gait, Safety, Therapeutic Exercise, Transfers Treatment Duration: Mar 03, 2019 Frequency: Modified Program (IRF) Estimated Hrs Per Day: 1.5 hours per day Patient and/or Family Agrees t: Yes Safety Risks/Education Patient Education: Gait Training, Transfer Techniques, Steps, Correct Positioning, Disease Process, Safety Issues Teaching Recipient: Patient Teaching Methods: Demonstration, Discussion Response to Teaching: Verbalize Understanding, Return Demonstration, Reinforcement Needed Time/GCodes Time In: 1100 Time Out: 1200 Total Billed Treatment Time: 60 Total Billed Treatment 1,EX20m,FA25m,GT15m RADHA CHEW BELT PICKER Feb 23, 2019 11:57
--- NOTE | 2019-02-23 13:50 | Physical Therapy Daily Note ---
PT Daily Note-Current Subjective Pt. sat in dining area with family for lunch and states she is ready to have Rx and then go back to room to meet her family there Pain Location: No Pain Reported Mental Status Patient Orientation: Normal For Age Transfers SCALE: Activities may be completed with or without assistive devices. 0-Azriqwidiq-fiahldg completes the activity by him/herself with no assistance from a helper. 5-Set-up or Clean-up Assistance-helper sets up or cleans up; patient completes activity. [place] assists only prior to or following the activity. 4-Supervision or Touching Assistance-helper provides verbal cues and/or touching/steadying and/or contact guard assistance as patient completes activity. Assistance may be provided throughout the activity or intermittently. 3-Partial/Moderate Assistance-helper does LESS THAN HALF the effort. [place] lifts, holds or supports trunk or limbs, but provides less than half the effort. 2-Substantial/Maximal Assistance-helper does MORE THAN HALF the effort. [place] lifts or holds trunk or limbs and provides more than half the effort. 2-Alebwfgjz-wwdxyr does ALL the effort. Patient does none of the effort to complete the activity. Or, the assistance of 2 or more helpers is required for the patient to complete the activity. If activity was not attempted, code reason: 7-Patient Refused. 9-Not Applicable-not attempted and the patient did not perform the activity before the current illness, exacerbation or injury. 10-Not Attempted due to Environmental Limitations-(lack of equipment, weather restraints, etc.). 88-Not Attempted due to Medical Conditions or Safety Concerns. all sup to sit and sit to sup and sit to stand SBA to Mod I Weight Bearing Full Weight Bearing Full Weight Bearing Gait Training Gait Assistive Device: FWW 165, 70 SBA Exercises Supine Ex: Bridging, Ankle pumps, Rolling, Heel Slides, Short Arc Quads, Scooting, Straight leg raise, Hip abd/add Supine Reps: 15 Standing: Hip Abduction, Heel/toe raises, Marching Standing Reps: 15 Assessment Current Status: Good Progress PT Short Term Goals Short Term Goals Time Frame: Feb 17, 2019 Sit to lyin Lying to sitting on side of be: 3 Sit to stand: 3 Walk 50 feet with two turns: 4 PT [facility] Goals [facility] Goals PT [facility] Goals Time Frame: Mar 03, 2019 Roll Left & Right (QC): 6 Sit to Lying (QC): 6 Lying-Sitting on Side/Bed(QC): 6 Sit to Stand (QC): 6 Chair/Hcy-bf-Quavc Xfer(QC): 6 Toilet Transfer (QC): 6 Car Transfer (QC): 6 Does the Patient Walk: Yes Walk 10 feet (QC): 6 Walk 50ft with 2 Turns (QC): 6 Walk 150 ft (QC): 6 Walking 10ft on Uneven Surface: 5 1 Step (curb) (QC): 6 4 Steps (QC): 6 12 Steps (QC): 9 Picking up an Object (QC): 9 Does the Pt use WC or Scooter?: No PT Plan Treatment/Plan Treatment Plan: Continue Plan of Care Treatment Plan: Bed Mobility, Education, Functional Activity Scout, Functional Strength, Group Therapy, Gait, Safety, Therapeutic Exercise, Transfers Treatment Duration: Mar 03, 2019 Frequency: Modified Program (IRF) Estimated Hrs Per Day: 1.5 hours per day Patient and/or Family Agrees t: Yes Safety Risks/Education Patient Education: Gait Training, Transfer Techniques, Correct Positioning, Disease Process, Safety Issues Teaching Recipient: Patient Teaching Methods: Demonstration, Discussion Response to Teaching: Verbalize Understanding, Return Demonstration, Reinforcement Needed Time/GCodes Time In: 1320 Time Out: 1345 Total Billed Treatment Time: 25 Total Billed Treatment 1,EX15,GT10 RADHA CHEW PROCESS CONTROL OPERATOR Feb 23, 2019 13:50
--- NOTE | 2019-02-23 15:28 | Speech Therapy Daily Note ---
Speech Daily Progress Note Subjective Date Seen by Provider: Feb 23, 2019 Time Seen by Provider: 00:30 Patient was visiting with her sister during our session today. Objective Patient completed conversational activities with sister and clinician at 90% with minimal cues. Assessment Assessment Current Status: Good Progress Treatment Plan Continue Plan of Care Speech Short Term Goals Short Term Goals Short Term Goals 1) Patient will complete memory tasks related to her daily needs with 90% or greater with minimal cues. 2) Patient will complete safety awareness tasks related to her daily needs with 90% or greater with minimal cues. 3) Patient will complete problem solving tasks related to her daily needs with 90% or greater with minimal cues. Speech [place] Goals Customs Guard Goals Patient will improve cognitive-communication necessary for safety and daily living tasks with minimal assist. Speech-Plan Patient/Family Goals Patient/Family Goals: Patient plans on returning home alone with strong family support. Treatment Plan Speech Therapy Treatment Plan: Continue Plan of Care Patient has progressed well toward meeting ST goals. Treatment Duration: Feb 27, 2019 Frequency: 4 times per week Estimated Hrs Per Day: .5 hour per day Rehab Potential: Good Barriers to Learning: Patient's recent brain surgery after affects. Pt/Family Agrees to Plan: Yes Safety Risks/Education Teaching Recipient: Patient, Family Teaching Methods: Discussion Response to Teaching: Verbalize Understanding Education Topics Provided: Continued communication of his wants/needs Time Speech Therapy Time In: 13:30 Speech Therapy Time Out: 14:00 Total Billed Time: 30 Billed Treatment Time 1MEHNAZ [address] [facility] Feb 23, 2019 15:28
[2019-02-23 15:59] VITALS: BP 101/62
[2019-02-24 05:20] VITALS: BP 121/74
[2019-02-24] MEDS: FERROUS SULF 325 MG (IRON) TAB PO SCH ×2 (06:45→17:02)
[2019-02-24] MEDS: OMEGA 3 (FISH OIL) 1000 MG CAP PO SCH (08:10)
[2019-02-24] MEDS: meTOprolol TARTRATE 25 MG (LOPRESSOR) TABLET PO SCH ×2 (08:10→21:25)
[2019-02-24] MEDS: LOSARTAN 100 MG (COZAAR) TABLET PO SCH (08:10)
[2019-02-24] MEDS: LEVETIRACETAM 500 MG (KEPPRA) TAB PO SCH ×2 (08:10→21:21)
[2019-02-24] MEDS: VITAMIN D3 400 UNITS (CHOLECALCIFEROL) TABLET PO SCH (08:10)
[2019-02-24 08:11] VITALS: BP 130/68
[2019-02-24] MEDS: DOCUSATE SODIUM 100 MG (COLACE) CAP PO SCH ×2 (08:11→21:22)
[2019-02-24] MEDS: POLYETHYLENE GLYCOL 17 GM (MIRALAX) PACK PO SCH ×2 (08:11→21:22)
[2019-02-24] MEDS: SENNA W/DOCUSATE (SENOKOT S) TABLET PO SCH ×2 (08:11→21:24)
--- NOTE | 2019-02-24 09:19 | PM&R Progress Note ---
Subjective HPI/CC On Admission Date Seen by Provider: Feb 24, 2019 Time Seen by Provider: 08:45 Subjective/Events-last exam Bowels moved yesterday No significant issues DC is planned soon Completed iron therapy but Hgb remains 7.[address] Madrigal to see if she would like any other consultations at time of rehab course Conferred with RN Reviewed therapy notes Checked meds and labs Review of Systems General: Fatigue Neurological: Weakness, Numbness, Incoordination Objective Exam Vital Signs Vital Signs Date Time Temp Pulse Resp B/P (MAP) Pulse Ox O2 Delivery O2 Flow Rate FiO2 02/24/19 21:30 Room Air 02/24/19 21:25 79 18 127/72 (90) 98 02/24/19 16:59 36.2 Capillary Refill : Less Than 3 Seconds General Appearance: No Apparent Distress, WD/WN, Chronically ill, Obese HEENT: PERRL/EOMI, Normal ENT Inspection, Pharynx Normal Neck: Full Range of Motion, Normal Inspection, Non Tender, Supple, Carotid Bruit Respiratory: Chest Non Tender, Lungs Clear, Normal Breath Sounds, No Accessory Muscle Use, No Respiratory Distress, Decreased Breath Sounds Cardiovascular: Regular Rate, Rhythm, No Edema, No Gallop, No JVD, No Murmur, Normal Peripheral Pulses Gastrointestinal: Normal Bowel Sounds, No Organomegaly, No Pulsatile Mass, Non Tender, Soft Back: Normal Inspection, No CVA Tenderness, No Vertebral Tenderness Extremity: Normal Capillary Refill, Normal Inspection, Normal Range of Motion, Non Tender, No Calf Tenderness, No Pedal Edema, Pedal Edema (left leg only) Neurologic/Psychiatric: Alert, Oriented x3, hydrometer calibrator II-XII Norm as Tested, Abnormal Gait, Depressed Affect, Motor Weakness (lower legs and arms 4/5) Skin: Normal Color, Warm/Dry, Other (craniotomy daily in place no drainage or redness) Lymphatic: No Adenopathy Results/Procedures Lab Laboratory Tests 02/24/19 09:23 Patient resulted labs reviewed. FIM Transfers Therapy Code Descriptions/Definitions Functional [place] Measure: 0=Not Assessed/NA 4=Minimal Assistance 1=Total Assistance 5=Supervision or Setup 2=Maximal Assistance 6=Modified [place] 3=Moderate Assistance 7=Complete IndependenceSCALE: Activities may be completed with or without assistive devices. 6-Qgrxoikvri-gwlqmkh completes the activity by him/herself with no assistance from a helper. 5-Set-up or Clean-up Assistance-helper sets up or cleans up; patient completes activity. [place] assists only prior to or following the activity. 4-Supervision or Touching Assistance-helper provides verbal cues and/or touching/steadying and/or contact guard assistance as patient completes activity. Assistance may be provided throughout the activity or intermittently. 3-Partial/Moderate Assistance-helper does LESS THAN HALF the effort. [place] lifts, holds or supports trunk or limbs, but provides less than half the effort. 2-Substantial/Maximal Assistance-helper does MORE THAN HALF the effort. [place] lifts or holds trunk or limbs and provides more than half the effort. 0-Xoycgefop-qwyhry does ALL the effort. Patient does none of the effort to complete the activity. Or, the assistance of 2 or more helpers is required for the patient to complete the activity. If activity was not attempted, code reason: 7-Patient Refused. 9-Not Applicable-not attempted and the patient did not perform the activity before the current illness, exacerbation or injury. 10-Not Attempted due to Environmental Limitations-(lack of equipment, weather restraints, etc.). 88-Not Attempted due to Medical Conditions or Safety Concerns. Roll Left to Right (QC): 6 Sit to Lying (QC): 6 Sit to Stand (QC): 6 Chair/Bzv-bv-Okbue Xfer(QC): 6 Car Transfer (QC): 5 Gait Training Does the Patient Walk?: Yes Distance: 200 Walk 10 feet (QC): 6 Walk 50 ft with 2 Turns(QC): 6 Walk 150 ft (QC): 6 Walking 10ft/uneven surface-QC: 88 Gait Persons Needed: 0 Gait Assistive Device: FWW Wheelchair Training Does the Pt Use a Wheelchair?: Yes Wheel 50 ft with 2 turns (QC): 3 Wheel 150 ft (QC): 3 Type of Wheelchair: Manual Stair Training Stair Training: Handrails/: 2 handrails #of Steps: 4 1 Step (curb) (QC): 5 4 Steps (QC): 5 12 Steps (QC): 88 Stairs: Pattern: Step to Balance Picking up an Object (QC): 88 ADL-Treatment Eating (QC): 6 Oral Hygiene (QC): 6 Bathing Location: L Arm, R Arm, L Upper Leg, R Upper Leg, Chest, Abdomen, Perineal Area Shower/Bathe Self (QC): 5 (Pt completes sponge bath with s/u- OT hands all wash cloths to pt, pt requires assist with back but does not wash at home as she lets water run off of back. Pt and OT practice shower transfers, discussion of FWW placement and grab bar placement. Discussion of drying off floor prior to exiting shower. Pt return demonstrates with SBA.) Upper Body Dressing (QC): 6 Lower Body Dressing (QC): 4 (Pt gathers clothing items from closet. Sits EOB with SUP to complete LB washing/ drying/ dressing. Pt does not require assist on this date, utilizes dressing stick to doff clothing items .) On/Off Footwear (QC): 6 (TEX hose donned with max A, DESTINY wrap applied to LLE with decreasing tension to mid-calf. Pt dons socks with IND with sock aide.) Toileting Hygiene (QC): 4 (SUP at FWW, pt able to reach bottom and complete with thoroughness.) Toilet Transfer (QC): 4 (SUP- pt completes sit to stand from EOB and ambulates to toilet, completes transfer with SUP, walks back to EOB with IND.) Assessment/Plan Assessment and Plan Assess & Plan/Chief Complaint Assessment: s/p craniotomy at [facility] Meningioma s/p resection Severe debility needs aggressive therapies HTN Anemia iron def completed Venofer 5 doses with midline but has a chronic co ndition Constipation GRADY? UTI with Proteus completed abx Left leg edema venous doppler normal so initiated DESTINY wraps Plan: Monitor closely Venofer completed Pain control Slow recovery so 15 IRF BM regimen to maintain Omnicef completed Left leg DESTINY wraps for edema since doppler negative for DVT [place] completely removed (1) S/P craniotomy (2) Hypertension (3) Obesity (4) Constipation (5) History of hip replacement, total (6) Headache (7) Seizure prophylaxis EVIE SAPP DO Feb 24, 2019 09:19
--- NOTE | 2019-02-24 09:23 | Occupational Ther Daily Note ---
OT Current Status-Daily Note Subjective Pt seen in recliner chair, states a dull pain from R hip, states may have slept wrong. Pt agreeable to OT tx session with goals of balance and washing hair. Nursing states pt cleared to wash hair/ pat dry. Mental Status/Objective Patient Orientation: Normal For Age ADL-Treatment Therapy Code Descriptions/Definitions Functional [place] Measure: 0=Not Assessed/NA 4=Minimal Assistance 1=Total Assistance 5=Supervision or Setup 2=Maximal Assistance 6=Modified [place] 3=Moderate Assistance 7=Complete IndependenceSCALE: Activities may be completed with or without assistive devices. 8-Ezcszsnywh-vxmaxaj completes the activity by him/herself with no assistance from a helper. 5-Set-up or Clean-up Assistance-helper sets up or cleans up; patient completes activity. [place] assists only prior to or following the activity. 4-Supervision or Touching Assistance-helper provides verbal cues and/or touching/steadying and/or contact guard assistance as patient completes activity. Assistance may be provided throughout the activity or intermittently. 3-Partial/Moderate Assistance-helper does LESS THAN HALF the effort. [place] lifts, holds or supports trunk or limbs, but provides less than half the effort. 2-Substantial/Maximal Assistance-helper does MORE THAN HALF the effort. [place] lifts or holds trunk or limbs and provides more than half the effort. 6-Jjhzrbysn-rlmlbr does ALL the effort. Patient does none of the effort to complete the activity. Or, the assistance of 2 or more helpers is required for the patient to complete the activity. If activity was not attempted, code reason: 7-Patient Refused. 9-Not Applicable-not attempted and the patient did not perform the activity before the current illness, exacerbation or injury. 10-Not Attempted due to Environmental Limitations-(lack of equipment, weather restraints, etc.). 88-Not Attempted due to Medical Conditions or Safety Concerns. Eating (QC): 6 Oral Hygiene (QC): 6 Toileting Hygiene (QC): 6 Toilet Transfer (QC): 6 Other Treatment Pt completes UE exercises while in recliner chair, able to flex shoulder to WFL, abduct to WFL, but brings LUE to full range with AAROM with R UE. Pt completes 10 reps of each exercise. Nursing states pt clear to wash hair, utilize baby shampoo and warm cloths. Pt soaks hair with cloths, brushes with IND while seated in chair in front of sink. Pt able to complete hair grooming, sit to stand and utilizes bathroom with IND. Pt and OT discuss home environment, pt states has riser and bars on each side of toilet, discuss placement for grab bars in shower. Pt ambulates to therapy gym, completes standing/ bending exercises; maintains safety and balance, completes with SBA. Pt gathers cones, mcdonough bags, and small coins all with safety. Sitting balance exercises completed on EOM, completes with good tolerance/ endurance and balance. Pt completes sit to stand, ambulates to coffee pot, able to navigate cabinets to find items needed for hot chocolate, completes with IND while standing. Pt left in ARU commons with fourdrinier operator and nursing present. Pt agrees to contact nursing to go back to room. Education OT Patient Education: Correct positioning, Exercise program, Modified ADL techniques, Progress toward Goal/Update tx plan, Purpose of tx/functional activities, Safety issues Teaching Recipient: Patient Teaching Methods: Demonstration, Discussion Response to Teaching: Verbalize Understanding, Return Demonstration OT Multiple Knife Edge Trimmer Operator Goals Multiple Knife Edge Trimmer Operator Goals Time Frame: Feb 23, 2019 Eating (QC): 6 (met) Oral Hygiene (QC): 6 (met) Toileting Hygiene (QC): 6 (met) Shower/Bathe Self (QC): 6 Upper Body Dressing (QC): 6 (met) Lower Body Dressing (QC): 6 On/Off Footwear (QC): 6 Additional Goals: 1-Demonstrate ADL Tasks, 2-Verbalize Understanding, 3- ImproveStrength/Scout 1=Demonstrate adherence to instructed precautions during ADL tasks. 2=Patient will verbalize/demonstrate understanding of assistive devices/modifications for ADL. 3=Patient will improve strength/tolerance for activity to enable patient to perform ADL's. OT Education/Plan Problem List/Assessment Assessment: Decreased Activ Tolerance, Impaired I ADL's Discharge Recommendations Plan/Recommendations: Continue POC Therapy Discharge Recommendati: Home & Family Equpiment Recommendations-D/C: Rails on Tub/Shower, Dressing Stick Treatment Plan/Plan of Care Treatment,Training & Education: Yes Patient would benefit from OT for education, treatment and training to promote independence in ADL's, mobility, safety and/or upper extremity function for ADL's. Plan of Care: ADL Retraining, Caregiver Training, Concurrent Therapy, Functional Mobility, Group Exercise/Act as Ind, UE Funct Exercise/Act, UE Neuromus Re-Ed/Coord Treatment Duration: Feb 23, 2019 Frequency: At least 5 of 7 days/Wk (IRF) Estimated Hrs Per Day: 1.5 hours per day Agreement: Yes Rehab Potential: Good Time/GCodes Start Time: 08:00 Stop Time: 09:15 Total Time Billed (hr/min): 75 Billed Treatment Time 1, ADL 3 (45), EX 2 (30)= 75 ALEIDA DIAZ OTR Feb 24, 2019 09:23
[2019-02-24 09:32] LABS: HEMOGLOBIN 8.2 G/DL (11.5-16.0)
--- NOTE | 2019-02-24 10:52 | Physical Therapy Daily Note ---
PT Daily Note-Current Subjective Pt sitting in recliner upon arrival. Pt agrees to PT and reports feeling ready to D/C. Pain Location: No Pain Reported Mental Status Patient Orientation: Person, Place, Situation Transfers SCALE: Activities may be completed with or without assistive devices. 9-Bktwoesosj-hvhkgya completes the activity by him/herself with no assistance from a helper. 5-Set-up or Clean-up Assistance-helper sets up or cleans up; patient completes activity. [place] assists only prior to or following the activity. 4-Supervision or Touching Assistance-helper provides verbal cues and/or touching/steadying and/or contact guard assistance as patient completes activity. Assistance may be provided throughout the activity or intermittently. 3-Partial/Moderate Assistance-helper does LESS THAN HALF the effort. [place] lifts, holds or supports trunk or limbs, but provides less than half the effort. 2-Substantial/Maximal Assistance-helper does MORE THAN HALF the effort. [place] lifts or holds trunk or limbs and provides more than half the effort. 8-Iplpmxhfz-abuhfo does ALL the effort. Patient does none of the effort to complete the activity. Or, the assistance of 2 or more helpers is required for the patient to complete the activity. If activity was not attempted, code reason: 7-Patient Refused. 9-Not Applicable-not attempted and the patient did not perform the activity before the current illness, exacerbation or injury. 10-Not Attempted due to Environmental Limitations-(lack of equipment, weather restraints, etc.). 88-Not Attempted due to Medical Conditions or Safety Concerns. Sit to Stand (QC): 6 Chair/Plq-xe-Ulbwf Xfer(QC): 6 Toilet Transfer (QC): 5 Car Transfer (QC): 6 Weight Bearing Full Weight Bearing Full Weight Bearing Gait Training Does the Patient Walk?: Yes Distance: 150' x2 Walk 10 feet (QC): 5 Walk 50 ft with 2 Turns(QC): 5 Walk 150 ft (QC): 5 Gait Persons Needed: 1 Gait Assistive Device: FWW Stair Training Stair Training: Handrails/: 2 handrails #of Steps: 4 1 Step (curb) (QC): 5 4 Steps (QC): 5 Stairs: Pattern: Step to Exercises NuStep Minutes: 15 NuStep Workload: 4 Treatments Pt transfers to standing and ambulates in hallway. Pt completes car transfer and ambulates 4 steps. Pt then uses NuStep for 15m at WL 4 before ambulating back to room to use restroom then return to recliner to rest. Pt has all needs met, call light in hand. Assessment Current Status: Good Progress Pt tolerates Rx well and has made progress with strength and activity tolerance. Pt still has moments where pt fatigues and needs RB. PT Short Term Goals Short Term Goals Time Frame: Feb 17, 2019 Sit to lyin Lying to sitting on side of be: 3 Sit to stand: 3 Walk 50 feet with two turns: 4 PT Longterm Goals Longterm Goals PT Intensive Care Nurse Goals Time Frame: Mar 03, 2019 Roll Left & Right (QC): 6 Sit to Lying (QC): 6 Lying-Sitting on Side/Bed(QC): 6 Sit to Stand (QC): 6 Chair/Xhl-pg-Prqvq Xfer(QC): 6 Toilet Transfer (QC): 6 Car Transfer (QC): 6 Does the Patient Walk: Yes Walk 10 feet (QC): 6 Walk 50ft with 2 Turns (QC): 6 Walk 150 ft (QC): 6 Walking 10ft on Uneven Surface: 5 1 Step (curb) (QC): 6 4 Steps (QC): 6 12 Steps (QC): 9 Picking up an Object (QC): 9 Does the Pt use WC or Scooter?: No PT Plan Problem List Problem List: Activity Tolerance Treatment/Plan Treatment Plan: Continue Plan of Care Treatment Plan: Bed Mobility, Education, Functional Activity Scout, Functional Strength, Group Therapy, Gait, Safety, Therapeutic Exercise, Transfers Treatment Duration: Mar 03, 2019 Frequency: Modified Program (IRF) Estimated Hrs Per Day: 1.5 hours per day Patient and/or Family Agrees t: Yes Safety Risks/Education Patient Education: Gait Training, Transfer Techniques, Steps, Correct Positioning, Safety Issues Teaching Recipient: Patient Teaching Methods: Discussion Response to Teaching: Verbalize Understanding Time/GCodes Time In: 1000 Time Out: 1045 Total Billed Treatment Time: 45 Total Billed Treatment 1, GT (15m), FA (15m) & EX (15m) CAYLA ELLIS [employer] Feb 24, 2019 10:52
--- NOTE | 2019-02-24 13:36 | NUR ---
PER THERAPY, PATIENT MAY BE UP AD MIGUE IN ROOM WITH A FWW.
--- NOTE | 2019-02-24 13:41 | Speech Therapy Daily Note ---
Speech Daily Progress Note Subjective Date Seen by Provider: Feb 24, 2019 Time Seen by Provider: 00:30 Patient was sitting in the commons area enjoying hot chocolate when we began our session. Objective Patient completed a series of memory tasks with progress noted at the 80% with decreased cuing. Assessment Assessment Current Status: Good Progress Speech Short Term Goals Short Term Goals Short Term Goals 1) Patient will complete memory tasks related to her daily needs with 90% or greater with minimal cues. 2) Patient will complete safety awareness tasks related to her daily needs with 90% or greater with minimal cues. 3) Patient will complete problem solving tasks related to her daily needs with 90% or greater with minimal cues. Speech [facility] Goals [facility] Goals Patient will improve cognitive-communication necessary for safety and daily living tasks with minimal assist. Speech-Plan Patient/Family Goals Patient/Family Goals: Patient plans on returning home with a strong family support. Treatment Plan Speech Therapy Treatment Plan: Continue Plan of Care Patient is progressing with meeting ST goals. Treatment Duration: Feb 27, 2019 Frequency: 4 times per week Estimated Hrs Per Day: .5 hour per day Rehab Potential: Good Barriers to Learning: Patient's recent brain surgery. Pt/Family Agrees to Plan: Yes Safety Risks/Education Teaching Recipient: Patient Teaching Methods: Demonstration, Discussion Response to Teaching: Verbalize Understanding, Return Demonstration Education Topics Provided: Continued safety and communication of wants/needs. Time Speech Therapy Time In: 09:30 Speech Therapy Time Out: 10:00 Total Billed Time: 30 Billed Treatment Time 1MEHNAZ [address] Feb 24, 2019 13:41
--- NOTE | 2019-02-24 13:53 | Physical Therapy Daily Note ---
PT Daily Note-Current Subjective Pt sitting in recliner upon arrival. Pt agrees to PT. Pain Location: No Pain Reported Mental Status Patient Orientation: Person, Place, Situation Transfers SCALE: Activities may be completed with or without assistive devices. 1-Qtcrgqwbso-tzwytda completes the activity by him/herself with no assistance from a helper. 5-Set-up or Clean-up Assistance-helper sets up or cleans up; patient completes activity. [place] assists only prior to or following the activity. 4-Supervision or Touching Assistance-helper provides verbal cues and/or touching/steadying and/or contact guard assistance as patient completes activity. Assistance may be provided throughout the activity or intermittently. 3-Partial/Moderate Assistance-helper does LESS THAN HALF the effort. [place] lifts, holds or supports trunk or limbs, but provides less than half the effort. 2-Substantial/Maximal Assistance-helper does MORE THAN HALF the effort. [place] lifts or holds trunk or limbs and provides more than half the effort. 6-Mwgvwqjxg-alwbba does ALL the effort. Patient does none of the effort to complete the activity. Or, the assistance of 2 or more helpers is required for the patient to complete the activity. If activity was not attempted, code reason: 7-Patient Refused. 9-Not Applicable-not attempted and the patient did not perform the activity before the current illness, exacerbation or injury. 10-Not Attempted due to Environmental Limitations-(lack of equipment, weather restraints, etc.). 88-Not Attempted due to Medical Conditions or Safety Concerns. Roll Left & Right (QC): 5 Sit to Lying (QC): 5 Lying to Sitting/Side of Bed(Q: 5 Sit to Stand (QC): 6 Chair/Pbw-nl-Jbpoi Xfer(QC): 6 Toilet Transfer (QC): 6 Car Transfer (QC): 6 Weight Bearing Full Weight Bearing Full Weight Bearing Gait Training Does the Patient Walk?: Yes Distance: 150' x2 Walk 10 feet (QC): 5 Walk 50 ft with 2 Turns(QC): 5 Walk 150 ft (QC): 5 Gait Persons Needed: 1 Gait Assistive Device: Cane Large Base Quad Pt ambulates w/LBQC but still wants to more practice before D/C. Pt will be Ad carmel in room using FWW at this time. Wheelchair Training Does the Pt Use a Wheelchair?: No Treatments Pt transfers from recliner to standing then ambulates in hallway using LBQC. Pt completes car transfer before returning to room. Pt rests in recliner at end of Rx, call light next to pt. Pt will use FWW unless with Therapists and feels more comfortable. Assessment Current Status: Good Progress Pt has improved with strength and activity tolerance and is now working on less restrictive AD. PT Short Term Goals Short Term Goals Time Frame: Feb 17, 2019 Sit to lyin Lying to sitting on side of be: 3 Sit to stand: 3 Walk 50 feet with two turns: 4 PT Penitentiary Goals Penitentiary Goals PT Penitentiary Goals Time Frame: Mar 03, 2019 Roll Left & Right (QC): 6 Sit to Lying (QC): 6 Lying-Sitting on Side/Bed(QC): 6 Sit to Stand (QC): 6 Chair/Yvz-wl-Zeovv Xfer(QC): 6 Toilet Transfer (QC): 6 Car Transfer (QC): 6 Does the Patient Walk: Yes Walk 10 feet (QC): 6 Walk 50ft with 2 Turns (QC): 6 Walk 150 ft (QC): 6 Walking 10ft on Uneven Surface: 5 1 Step (curb) (QC): 6 4 Steps (QC): 6 12 Steps (QC): 9 Picking up an Object (QC): 9 Does the Pt use WC or Scooter?: No PT Plan Problem List Problem List: Activity Tolerance Treatment/Plan Treatment Plan: Continue Plan of Care Treatment Plan: Bed Mobility, Education, Functional Activity Scout, Functional Strength, Group Therapy, Gait, Safety, Therapeutic Exercise, Transfers Treatment Duration: Mar 03, 2019 Frequency: Modified Program (IRF) Estimated Hrs Per Day: 1.5 hours per day Patient and/or Family Agrees t: Yes Safety Risks/Education Patient Education: Gait Training, Transfer Techniques, Correct Positioning, Safety Issues Teaching Recipient: Patient Teaching Methods: Discussion Response to Teaching: Verbalize Understanding Time/GCodes Time In: 1300 Time Out: 1330 Total Billed Treatment Time: 30 Total Billed Treatment 1, GT (20m) & FA (10m) CAYLA ELLIS HEAD GAUGE UNIT OPERATOR Feb 24, 2019 13:53
--- NOTE | 2019-02-24 14:15 | NUR ---
REMAINING 3 SUTURES REMOVED FROM SCALP INCISION PER DR. SAPP'S ORDER.
--- NOTE | 2019-02-24 15:52 | NUR ---
HGB, HCT, IRON, TIBC, UNSATURATED IBC, AND TRANSFERRIN % SAT LAB RESULTS FAXED TO DR. INMAN'S OFFICE. FERRITIN AND VITAMIN B12 ARE STILL PENDING. SPOKE WITH CONTINUOUS IMPROVEMENT BLACK BELT WHO STATES THAT SHE WILL PRINT OUT AND GIVE TO DR. INMAN.
[2019-02-24 16:59] VITALS: BP 115/69
--- NOTE | 2019-02-24 19:23 | NUR ---
BEDSIDE REPORT RECEIVED FROM KINGSLEY SALDIVAR, ASSUME CARE OF PATIENT
[2019-02-24 21:25] VITALS: BP 127/72
--- NOTE | 2019-02-24 21:29 | NUR ---
PT REFUSED COLACE, MIRALAX & JUNG, V/S 79-18-98%- 127/72, DENIES PAIN
[2019-02-25 06:00] VITALS: BP 149/74
[2019-02-25] MEDS: FERROUS SULF 325 MG (IRON) TAB PO SCH (06:23)
[2019-02-25 08:11] VITALS: BP 139/59
[2019-02-25] MEDS: LEVETIRACETAM 500 MG (KEPPRA) TAB PO SCH ×2 (08:12→21:44)
[2019-02-25] MEDS: LOSARTAN 100 MG (COZAAR) TABLET PO SCH (08:12)
[2019-02-25] MEDS: meTOprolol TARTRATE 25 MG (LOPRESSOR) TABLET PO SCH ×2 (08:12→21:41)
[2019-02-25] MEDS: OMEGA 3 (FISH OIL) 1000 MG CAP PO SCH (08:12)
[2019-02-25] MEDS: VITAMIN D3 400 UNITS (CHOLECALCIFEROL) TABLET PO SCH (08:12)
--- NOTE | 2019-02-25 09:04 | Progress Note ---
Subjective Date Seen by a Provider: Feb 24, 2019 Time Seen by a Provider: 09:00 Subjective/Events-last exam PT IS A 73 Y/O FEMALE WHO IS WELL KNOWN TO ME FROM CLINIC - SHE HAS MENINGIOMA WITH LEFT SIDED WEAKNESS FOR WHICH SHE IS RECEIVING PHYSICAL AND OCCUPATIONAL THERAPY SHE STATES THAT SHE IS DOING WELL WITH THE THERAPIES. THEY REPORT THAT SHE HAS PROGRESSED NICELY AND IS MUCH STRONGER AND LESS WEAK ON LEFT SIDE WHEN COMPARED TO ADMISSION. Review of Systems PT DENIES CHEST PAIN, SHORTNESS OF BREATH, ABDOMINAL PAIN, NAUSEA, CONSTIPATION, URINARY CONCERNS Objective Exam Last Set of Vital Signs Vital Signs Date Time Temp Pulse Resp B/P (MAP) Pulse Ox O2 Delivery O2 Flow Rate FiO2 02/25/19 08:11 81 139/59 (85) 02/25/19 06:00 36.3 18 97 Room Air Capillary Refill : Less Than 3 Seconds I&O Intake and Output 02/25/19 00:00 Intake Total 1050 ml Balance 1050 ml Intake Oral 1050 ml # Voids 5 General: Alert, Oriented X3, Cooperative HEENT: Other Neck: Supple Lungs: Clear to Auscultation Heart: Regular Rate Abdomen: Normal Bowel Sounds, Soft Extremities: No Cyanosis Skin: Other (SURGICAL SITE ON RIGHT SCALP BEHIND EAR - WELL HEALED) Neuro: Cranial Nerves 3-12 NL Psych/Mental Status: Mental Status NL, Mood NL Results Lab Laboratory Tests 02/24/19 09:23: Hemoglobin 8.2L, Hematocrit 27L, Iron Level 65, Total Iron Binding Capacity 279L , Unsaturated Iron Binding Capacity 214, Transferrin % Saturation 23, Ferritin 1225.6H, Vitamin B12 Level 357 Microbiology 02/10/19 Urine Culture - Final, Complete Proteus mirabilis Assessment/Plan Assessment/Plan Assess & Plan/Chief Complaint MENINGIOMA HYPERTENSION CHRONIC OSTEOARTHRITIS MUSCLE WEAKNESS LEFT SIDED MUSCLE WEAKNESS, LEFT SIDED FACIAL DROOP CHRONIC ANEMIA HYPERLIPIDEMIA MENINGIOMA - STATUS POST SURGICAL INTERVENTION - MONIQUE REMOVED - SITE HEALING WELL HYPERTENSION - MONITOR BLOOD PRESSURE, HOME REGIMEN RESTARTED CHRONIC OSTEOARTHRITIS WITH MUSCLE WEAKNESS - SUPPORTIVE CARE WITH THERAPY AND STRENGTHENING OF MUSCLES PLANNED. LEFT SIDED MUSCLE WEAKNESS, LEFT SIDED FACIAL DROOP - ANTICIPATE IMPROVEMENT WITH THERAPY CHRONIC ANEMIA - MONITOR HGB SERIALLY - SHE WAS GIVEN IV IRON, WILL CHECK VITAMIN B LEVEL HYPERLIPIDEMIA - HOME REGIMEN TO ME RESTARTED Clinical Quality Measures DVT/VTE Risk/Contraindication: Risk Factor Score Per Nursin RFS Level Per Nursing on Admit: 4+=Very High JOSEPH INMAN MD Feb 25, 2019 09:04
--- NOTE | 2019-02-25 09:14 | Occupational Ther Daily Note ---
OT Current Status-Daily Note Subjective Pt seen in recliner chair, alert. Pt agrees to shower in shower on this morning, no c/o pain. Mental Status/Objective Patient Orientation: Normal For Age ADL-Treatment Therapy Code Descriptions/Definitions Functional [place] Measure: 0=Not Assessed/NA 4=Minimal Assistance 1=Total Assistance 5=Supervision or Setup 2=Maximal Assistance 6=Modified [place] 3=Moderate Assistance 7=Complete IndependenceSCALE: Activities may be completed with or without assistive devices. 0-Neclmzkeuv-riusjqn completes the activity by him/herself with no assistance from a helper. 5-Set-up or Clean-up Assistance-helper sets up or cleans up; patient completes activity. [place] assists only prior to or following the activity. 4-Supervision or Touching Assistance-helper provides verbal cues and/or touching/steadying and/or contact guard assistance as patient completes activity. Assistance may be provided throughout the activity or intermittently. 3-Partial/Moderate Assistance-helper does LESS THAN HALF the effort. [place] lifts, holds or supports trunk or limbs, but provides less than half the effort. 2-Substantial/Maximal Assistance-helper does MORE THAN HALF the effort. [place] lifts or holds trunk or limbs and provides more than half the effort. 8-Mcglmyfbd-rkptgk does ALL the effort. Patient does none of the effort to complete the activity. Or, the assistance of 2 or more helpers is required for the patient to complete the activity. If activity was not attempted, code reason: 7-Patient Refused. 9-Not Applicable-not attempted and the patient did not perform the activity before the current illness, exacerbation or injury. 10-Not Attempted due to Environmental Limitations-(lack of equipment, weather restraints, etc.). 88-Not Attempted due to Medical Conditions or Safety Concerns. Eating (QC): 6 Oral Hygiene (QC): 6 Shower/Bathe Self (QC): 4 (SUP while in stance. Pt and OT discuss options of seating while in shower. Pt states no room for shower chair/ bench in shower. Pt completes majority of showering while in stance, good standing balance gbs for support. ) Upper Body Dressing (QC): 6 Lower Body Dressing (QC): 6 On/Off Footwear: 6 (Pt able to don socks with mod I. Pt educated on TEX hose donning, requires min A for application onto sock aide. ) Toileting Hygiene (QC): 6 Toilet Transfer (QC): 6 Other Treatment Pt completes sit to stand, utilizes four point cane to ambulate to toilet, undresses/ toilets, ambulates to shower. Pt transfers from cane to gbs within shower with SUP, showers with SUP. Pt ambulates to recliner chair with SBA and dresses in chair. Pt educated on TEX vicente, completes post-s/u. Pt states she is ready for home, OT and pt discuss safety within the home and progress to LTGs. Pt completes hair grooming in front of sink, ambulates to kitchen area with SBA with GROUP HOME and completes simple kitchen task with good safety and abilities. Pt returns to recliner chair, left in room with call light in reach, all needs met. Education OT Patient Education: Modified ADL techniques, Progress toward Goal/Update tx plan, Use of adapted equipment Teaching Recipient: Patient Teaching Methods: Demonstration, Discussion Response to Teaching: Verbalize Understanding, Return Demonstration OT Mcfp Goals Housekeeper Home Goals Time Frame: Feb 23, 2019 Eating (QC): 6 (met) Oral Hygiene (QC): 6 (met) Toileting Hygiene (QC): 6 (met) Shower/Bathe Self (QC): 6 Upper Body Dressing (QC): 6 (met) Lower Body Dressing (QC): 6 (met) On/Off Footwear (QC): 6 (met) Additional Goals: 1-Demonstrate ADL Tasks, 2-Verbalize Understanding, 3- ImproveStrength/Scout 1=Demonstrate adherence to instructed precautions during ADL tasks. 2=Patient will verbalize/demonstrate understanding of assistive sneha tamika/modifications for ADL. 3=Patient will improve strength/tolerance for activity to enable patient to perform ADL's. OT Education/Plan Problem List/Assessment Assessment: Decreased Activ Tolerance, Impaired I ADL's Discharge Recommendations Plan/Recommendations: Continue POC Therapy Discharge Recommendati: Home & Family Equpiment Recommendations-D/C: Rails on Tub/Shower Treatment Plan/Plan of Care Treatment,Training & Education: Yes Patient would benefit from OT for education, treatment and training to promote independence in ADL's, mobility, safety and/or upper extremity function for ADL's. Plan of Care: ADL Retraining, Caregiver Training, Concurrent Therapy, Functional Mobility, Group Exercise/Act as Ind, UE Funct Exercise/Act, UE Neuromus Re-Ed/Coord Treatment Duration: Feb 23, 2019 Frequency: At least 5 of 7 days/Wk (IRF) Estimated Hrs Per Day: 1.5 hours per day Agreement: Yes Rehab Potential: Good Time/GCodes Start Time: 08:00 Stop Time: 09:15 Total Time Billed (hr/min): 75 Billed Treatment Time 1, ADL 5 (75) ALEIDA DIAZ OTR Feb 25, 2019 09:14
[2019-02-25] MEDS: DOCUSATE SODIUM 100 MG (COLACE) CAP PO SCH ×2 (09:17→21:45)
[2019-02-25] MEDS: POLYETHYLENE GLYCOL 17 GM (MIRALAX) PACK PO SCH ×2 (09:18→21:45)
[2019-02-25] MEDS: SENNA W/DOCUSATE (SENOKOT S) TABLET PO SCH ×2 (09:18→21:45)
--- NOTE | 2019-02-25 10:05 | PM&R Progress Note ---
Subjective HPI/CC On Admission Date Seen by Provider: Feb 25, 2019 Time Seen by Provider: 09:00 Subjective/Events-last exam Bowels are moving regularly No significant issues DC is planned soon she feels very confident with that Completed iron therapy but Hgb remains 7.5 and ferritin was checked by PCP and it was very elevated but she had just completed 1 g of iron Vitamin B-12 level normal Patient able to perform ADLs much better now Conferred with RN Reviewed therapy notes Checked meds and labs Review of Systems Neurological: Weakness, Numbness, Incoordination Objective Exam Vital Signs Vital Signs Date Time Temp Pulse Resp B/P (MAP) Pulse Ox O2 Delivery O2 Flow Rate FiO2 02/25/19 09:00 Room Air 02/25/19 08:11 81 139/59 (85) 02/25/19 06:00 36.3 18 97 Capillary Refill : Less Than 3 Seconds General Appearance: No Apparent Distress, WD/WN, Chronically ill, Obese HEENT: PERRL/EOMI, Normal ENT Inspection, Pharynx Normal Neck: Full Range of Motion, Normal Inspection, Non Tender, Supple, Carotid Bruit Respiratory: Chest Non Tender, Lungs Clear, Normal Breath Sounds, No Accessory Muscle Use, No Respiratory Distress, Decreased Breath Sounds Cardiovascular: Regular Rate, Rhythm, No Edema, No Gallop, No JVD, No Murmur, Normal Peripheral Pulses Gastrointestinal: Normal Bowel Sounds, No Organomegaly, No Pulsatile Mass, Non Tender, Soft Back: Normal Inspection, No CVA Tenderness, No Vertebral Tenderness Extremity: Normal Capillary Refill, Normal Inspection, Normal Range of Motion, Non Tender, No Calf Tenderness, No Pedal Edema, Pedal Edema (left leg only) Neurologic/Psychiatric: Alert, Oriented x3, banquet director II-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 FIM Transfers Therapy Code Descriptions/Definitions Functional [place] Measure: 0=Not Assessed/NA 4=Minimal Assistance 1=Total Assistance 5=Supervision or Setup 2=Maximal Assistance 6=Modified [place] 3=Moderate Assistance 7=Complete IndependenceSCALE: Activities may be completed with or without assistive devices. 9-Obyawjakyl-dxxfxld completes the activity by him/herself with no assistance from a helper. 5-Set-up or Clean-up Assistance-helper sets up or cleans up; patient completes activity. [place] assists only prior to or following the activity. 4-Supervision or Touching Assistance-helper provides verbal cues and/or touching/steadying and/or contact guard assistance as patient completes activity. Assistance may be provided throughout the activity or intermittently. 3-Partial/Moderate Assistance-helper does LESS THAN HALF the effort. [place] lifts, holds or supports trunk or limbs, but provides less than half the effort. 2-Substantial/Maximal Assistance-helper does MORE THAN HALF the effort. [place] lifts or holds trunk or limbs and provides more than half the effort. 0-Owxfkfqtd-xhvurf does ALL the effort. Patient does none of the effort to complete the activity. Or, the assistance of 2 or more helpers is required for the patient to complete the activity. If activity was not attempted, code reason: 7-Patient Refused. 9-Not Applicable-not attempted and the patient did not perform the activity before the current illness, exacerbation or injury. 10-Not Attempted due to Environmental Limitations-(lack of equipment, weather restraints, etc.). 88-Not Attempted due to Medical Conditions or Safety Concerns. Roll Left to Right (QC): 5 Sit to Lying (QC): 5 Sit to Stand (QC): 6 Chair/Phr-ht-Xragy Xfer(QC): 6 Car Transfer (QC): 6 Gait Training Does the Patient Walk?: Yes Distance: 150' x2 Walk 10 feet (QC): 5 Walk 50 ft with 2 Turns(QC): 5 Walk 150 ft (QC): 5 Walking 10ft/uneven surface-QC: 88 Gait Persons Needed: 1 Gait Assistive Device: Cane Large Base Quad Wheelchair Training Does the Pt Use a Wheelchair?: No Wheel 50 ft with 2 turns (QC): 3 Wheel 150 ft (QC): 3 Stair Training Stair Training: Handrails/: 2 handrails #of Steps: 4 1 Step (curb) (QC): 5 4 Steps (QC): 5 12 Steps (QC): 88 Stairs: Pattern: Step to Balance Picking up an Object (QC): 88 ADL-Treatment Eating (QC): 6 Oral Hygiene (QC): 6 Bathing Location: L Arm, R Arm, L Upper Leg, R Upper Leg, Chest, Abdomen, Perineal Area Shower/Bathe Self (QC): 4 (SUP while in stance. Pt and OT discuss options of seating while in shower. Pt states no room for shower chair/ bench in shower. Pt completes majority of showering while in stance, good standing balance gbs for support. ) Upper Body Dressing (QC): 6 Lower Body Dressing (QC): 6 On/Off Footwear (QC): 6 (Pt able to don socks with mod I. Pt educated on TEX hose donning, requires min A for application onto sock aide. ) Toileting Hygiene (QC): 6 Toilet Transfer (QC): 6 Assessment/Plan Assessment and Plan Assess & Plan/Chief Complaint Assessment: s/p craniotomy at [facility] Meningioma s/p resection Severe debility needs aggressive therapies HTN Anemia iron def completed Venofer 5 doses with midline but has a chronic condition Constipation GRADY? UTI with Proteus completed abx Left leg edema venous doppler normal so initiated DESTINY wraps Plan: Monitor closely Venofer completed Pain control Slow recovery so 15/ IRF BM regimen to maintain Omnicef completed Left leg DESTINY wraps for edema since doppler negative for DVT Daily completely removed Disposition pending (1) S/P craniotomy (2) Hypertension (3) Obesity (4) Constipation (5) History of hip replacement, total (6) Headache (7) Seizure prophylaxis EVIE SAPP DO Feb 25, 2019 10:05
--- NOTE | 2019-02-25 11:00 | Physical Therapy Daily Note ---
PT Daily Note-Current Subjective Pt sitting in recliner upon arrival. Pt agrees to PT. Pain Location: No Pain Reported Mental Status Patient Orientation: Person, Place, Time, Situation Transfers SCALE: Activities may be completed with or without assistive devices. 6-Hsxuskgoqc-pjeafee completes the activity by him/herself with no assistance from a helper. 5-Set-up or Clean-up Assistance-helper sets up or cleans up; patient completes activity. [place] assists only prior to or following the activity. 4-Supervision or Touching Assistance-helper provides verbal cues and/or touching/steadying and/or contact guard assistance as patient completes activity. Assistance may be provided throughout the activity or intermittently. 3-Partial/Moderate Assistance-helper does LESS THAN HALF the effort. [place] lifts, holds or supports trunk or limbs, but provides less than half the effort. 2-Substantial/Maximal Assistance-helper does MORE THAN HALF the effort. [place] lifts or holds trunk or limbs and provides more than half the effort. 6-Lncrmzguc-ihyrsq does ALL the effort. Patient does none of the effort to complete the activity. Or, the assistance of 2 or more helpers is required for the patient to complete the activity. If activity was not attempted, code reason: 7-Patient Refused. 9-Not Applicable-not attempted and the patient did not perform the activity bef ore the current illness, exacerbation or injury. 10-Not Attempted due to Environmental Limitations-(lack of equipment, weather r estraints, etc.). 88-Not Attempted due to Medical Conditions or Safety Concerns. Sit to Stand (QC): 6 Toilet Transfer (QC): 6 Weight Bearing Full Weight Bearing Full Weight Bearing Gait Training Does the Patient Walk?: Yes Distance: 150' x2 Walk 10 feet (QC): 6 Walk 50 ft with 2 Turns(QC): 6 Walk 150 ft (QC): 6 Gait Persons Needed: 1 Gait Assistive Device: FWW Pt takes RB as needed. Pt walks with slow tati but this is same as PLOF. Wheelchair Training Does the Pt Use a Wheelchair?: No Stair Training Stair Training: Handrails/: 2 handrails #of Steps: 4 1 Step (curb) (QC): 6 4 Steps (QC): 6 Stairs: Pattern: Step to Exercises NuStep Minutes: 10 NuStep Workload: 5 Treatments Pt transfers from recliner and uses restroom before leaving room. Pt ambulates in hallway. Pt then uses NuStep for 10m at WL 5 before ambulating set of steps. Pt again ambulates in hallway before returning to room to rest with all needs met, call light in hand. Assessment Current Status: Good Progress Pt has improved with strength and activity tolerance even though this will continue to need to be addressed. Pt would like to D/C soon. PT Short Term Goals Short Term Goals Time Frame: Feb 17, 2019 Sit to lyin Lying to sitting on side of be: 3 Sit to stand: 3 Walk 50 feet with two turns: 4 PT Senior Electrical Design Engineer Goals Correction Goals PT Correction Goals Time Frame: Mar 03, 2019 Roll Left & Right (QC): 6 Sit to Lying (QC): 6 Lying-Sitting on Side/Bed(QC): 6 Sit to Stand (QC): 6 Chair/Apk-ly-Kmhdk Xfer(QC): 6 Toilet Transfer (QC): 6 Car Transfer (QC): 6 Does the Patient Walk: Yes Walk 10 feet (QC): 6 Walk 50ft with 2 Turns (QC): 6 Walk 150 ft (QC): 6 Walking 10ft on Uneven Surface: 5 1 Step (curb) (QC): 6 4 Steps (QC): 6 12 Steps (QC): 9 Picking up an Object (QC): 9 Does the Pt use WC or Scooter?: No PT Plan Problem List Problem List: Activity Tolerance Treatment/Plan Treatment Plan: Continue Plan of Care Treatment Plan: Bed Mobility, Education, Functional Activity Scout, Functional Strength, Group Therapy, Gait, Safety, Therapeutic Exercise, Transfers Treatment Duration: Mar 03, 2019 Frequency: Modified Program (IRF) Estimated Hrs Per Day: 1.5 hours per day Patient and/or Family Agrees t: Yes Safety Risks/Education Patient Education: Gait Training, Transfer Techniques, Steps, Correct Positioning, Safety Issues Teaching Recipient: Patient Teaching Methods: Discussion Response to Teaching: Verbalize Understanding Time/GCodes Time In: 1000 Time Out: 1045 Total Billed Treatment Time: 45 Total Billed Treatment 1, GT x2 (30m) & EX (15m) CAYLA ELLIS MEDIA SPECIALIST Feb 25, 2019 11:00
--- NOTE | 2019-02-25 11:55 | Speech Therapy Daily Note ---
Speech Daily Progress Note Subjective Date Seen by Provider: Feb 25, 2019 Time Seen by Provider: 00:30 Patient was very pleasant and in good spirits today. Objective Patient completed conversational tasks related to her daily needs and her home situation with 95% given minimal cues. Assessment Assessment Current Status: Good Progress Treatment Plan Continue Plan of Care Speech Short Term Goals Short Term Goals Short Term Goals 1) Patient will complete memory tasks related to her daily needs with 90% or greater with minimal cues. 2) Patient will complete safety awareness tasks related to her daily needs with 90% or greater with minimal cues. 3) Patient will complete problem solving tasks related to her daily needs with 90% or greater with minimal cues. Speech Field Checker Goals Field Checker Goals Patient will improve cognitive-communication necessary for safety and daily living tasks with minimal assist. Speech-Plan Patient/Family Goals Patient/Family Goals: Patient plans on returning home where she lives alone. She does have excellent family support. Treatment Plan Speech Therapy Treatment Plan: Continue Plan of Care Patient is meeting her ST goals. Treatment Duration: Feb 27, 2019 Frequency: 4 times per week Estimated Hrs Per Day: .5 hour per day Rehab Potential: Good Barriers to Learning: Patient has had cognitive deficits, however these are mostly resolved. Pt/Family Agrees to Plan: Yes Safety Risks/Education Teaching Recipient: Patient Teaching Methods: Demonstration, Discussion Response to Teaching: Verbalize Understanding, Return Demonstration Education Topics Provided: Continued communication of wants/needs Time Speech Therapy Time In: 09:30 Speech Therapy Time Out: 10:00 Total Billed Time: 30 Billed Treatment Time 1, COGN TEST, COGNDEVEL No ALEX CROSS Feb 25, 2019 11:55
--- NOTE | 2019-02-25 13:48 | Physical Therapy Daily Note ---
PT Daily Note-Current Subjective Pt sitting in recliner visiting with daughter and friend upon arrival. Pt agrees to PT. Pain Location: No Pain Reported Mental Status Patient Orientation: Person, Place, Time, Situation Transfers SCALE: Activities may be completed with or without assistive devices. 9-Aslchweiuo-uslqrfd completes the activity by him/herself with no assistance from a helper. 5-Set-up or Clean-up Assistance-helper sets up or cleans up; patient completes activity. [place] assists only prior to or following the activity. 4-Supervision or Touching Assistance-helper provides verbal cues and/or samson yvonne/steadying and/or contact guard assistance as patient completes activity. Assistance may be provided throughout the activity or intermittently. 3-Partial/Moderate Assistance-helper does LESS THAN HALF the effort. [place] lifts, holds or supports trunk or limbs, but provides less than half the effort. 2-Substantial/Maximal Assistance-helper does MORE THAN HALF the effort. [place] lifts or holds trunk or limbs and provides more than half the effort. 6-Utizkxtst-dkzlqb does ALL the effort. Patient does none of the effort to complete the activity. Or, the assistance of 2 or more helpers is required for the patient to complete the activity. If activity was not attempted, code reason: 7-Patient Refused. 9-Not Applicable-not attempted and the patient did not perform the activity before the current illness, exacerbation or injury. 10-Not Attempted due to Environmental Limitations-(lack of equipment, weather restraints, etc.). 88-Not Attempted due to Medical Conditions or Safety Concerns. Sit to Stand (QC): 6 Toilet Transfer (QC): 6 Weight Bearing Full Weight Bearing Full Weight Bearing Gait Training Does the Patient Walk?: Yes Distance: 150' x2 Walk 10 feet (QC): 6 Walk 50 ft with 2 Turns(QC): 6 Walk 150 ft (QC): 6 Gait Persons Needed: 1 Gait Assistive Device: Cane Large Base Quad Pt takes short RB on way back to room. Wheelchair Training Does the Pt Use a Wheelchair?: No Stair Training Stair Training: Handrails/: 2 handrails #of Steps: 4 1 Step (curb) (QC): 6 4 Steps (QC): 6 Treatments Pt transfers from recliner to standing and ambulates in hallway using FWW. Pt ambulates set of stairs to show daughter progress. Pt then returns to room to use restroom. Pt is able to return to recliner as she finishes due to Ad carmel in room. Assessment Current Status: Good Progress Pt has made good progress and is ambulating with [facility] well. Pt would like to D/C Saturday after daughter is off work. PT Short Term Goals Short Term Goals Time Frame: Feb 17, 2019 Sit to lyin Lying to sitting on side of be: 3 Sit to stand: 3 Walk 50 feet with two turns: 4 PT Senior Technical Trainer Goals Group Home Goals PT Senior Technical Trainer Goals Time Frame: Mar 03, 2019 Roll Left & Right (QC): 6 Sit to Lying (QC): 6 Lying-Sitting on Side/Bed(QC): 6 Sit to Stand (QC): 6 Chair/Dgd-ok-Gmuph Xfer(QC): 6 Toilet Transfer (QC): 6 Car Transfer (QC): 6 Does the Patient Walk: Yes Walk 10 feet (QC): 6 Walk 50ft with 2 Turns (QC): 6 Walk 150 ft (QC): 6 Walking 10ft on Uneven Surface: 5 1 Step (curb) (QC): 6 4 Steps (QC): 6 12 Steps (QC): 9 Picking up an Object (QC): 9 Does the Pt use WC or Scooter?: No PT Plan Problem List Problem List: Activity Tolerance Treatment/Plan Treatment Plan: Continue Plan of Care Treatment Plan: Bed Mobility, Education, Functional Activity Scout, Functional Strength, Group Therapy, Gait, Safety, Therapeutic Exercise, Transfers Treatment Duration: Mar 03, 2019 Frequency: Modified Program (IRF) Estimated Hrs Per Day: 1.5 hours per day Patient and/or Family Agrees t: Yes Safety Risks/Education Patient Education: Gait Training, Transfer Techniques, Steps, Correct Positioning, Safety Issues Teaching Recipient: Patient Teaching Methods: Discussion Response to Teaching: Verbalize Understanding Time/GCodes Time In: 1300 Time Out: 1330 Total Billed Treatment Time: 30 Total Billed Treatment 1, GT (20m) & FA (10m) CAYLA ELLIS TUBING MACHINE OPERATOR Feb 25, 2019 13:48
--- NOTE | 2019-02-25 15:00 | NUR ---
Weekly Team Conference Met with patient and her daughter, Diana, to discuss weekly team conference. The team recommended a discharge date of 02/28/2019; however, both the patient and her daughter would like to move the discharge date to 02/27/2019. The patient will be discharging to her home with assistance from her family. Diana states that she will be staying with her mother through the weekend to determine what she may need throughout the week. The patient will most likely be alone between the hours of 0730 and 1200; however, Diana states she does have additional help she can contact if needed to assist the patient during this time. The patient would like to continue outpatient PT with [facility] as she was utilizing this clinic prior to hospitalization. Home health care was discussed and the patient declined these services, stating she would really like to return to outpatient PT. Diana reports they will be able to arrange transportation to and from outpatient therapy for the patient. Patient reports she has a quad cane and walker at home. Patient also requests [facility] for healthcare decision paperwork. This paperwork was provided to the patient. The patient and her daughter voiced no further questions or concerns. Discussed change of discharge date to Saturday02/27/2019 with the rehab team. The team is agreeable to discharge date of 02/27/2019 with resumption of outpatient PT.
[2019-02-25 18:00] VITALS: BP 142/69
--- NOTE | 2019-02-25 19:05 | NUR ---
bedside report received from SHI SALDIVAR, assume care of pt
[2019-02-25 21:42] VITALS: BP 104/66
--- NOTE | 2019-02-25 21:45 | NUR ---
pt refused Colace, miralax & Seema, v/s [id number]/66-0/10
[2019-02-26 05:44] VITALS: BP 119/69
[2019-02-26 07:29] VITALS: BP 117/55
[2019-02-26] MEDS: VITAMIN D3 400 UNITS (CHOLECALCIFEROL) TABLET PO SCH (07:29)
[2019-02-26] MEDS: LEVETIRACETAM 500 MG (KEPPRA) TAB PO SCH ×2 (07:30→21:49)
[2019-02-26] MEDS: OMEGA 3 (FISH OIL) 1000 MG CAP PO SCH (07:30)
[2019-02-26] MEDS: LOSARTAN 100 MG (COZAAR) TABLET PO SCH (07:30)
[2019-02-26] MEDS: ACETAMINOPHEN 500 MG TAB (TYLENOL) PO PRN (07:30)
[2019-02-26] MEDS: meTOprolol TARTRATE 25 MG (LOPRESSOR) TABLET PO SCH ×2 (07:30→21:49)
--- NOTE | 2019-02-26 08:47 | PM&R Progress Note ---
Subjective HPI/CC On Admission Date Seen by Provider: Feb 26, 2019 Time Seen by Provider: 09:00 Subjective/Events-last exam Pt discharging tomorrow Having some knee pain at times Sent in the Keppra prescription 500mg twice daily to pharmacy Pt denies any significant pain Bowels are moving Outpatient PT ordered Patient able to perform ADLs much better now Conferred with RN Reviewed therapy notes Checked meds and labs Review of Systems General: Fatigue Neurological: Weakness Objective Exam Vital Signs Vital Signs Date Time Temp Pulse Resp B/P (MAP) Pulse Ox O2 Delivery O2 Flow Rate FiO2 02/27/19 16:29 36.2 82 20 139/68 96 Room Air Capillary Refill : Less Than 3 Seconds General Appearance: No Apparent Distress, WD/WN, Chronically ill, Obese HEENT: PERRL/EOMI, Normal ENT Inspection, Pharynx Normal Neck: Full Range of Motion, Normal Inspection, Non Tender, Supple, Carotid Bruit Respiratory: Chest Non Tender, Lungs Clear, Normal Breath Sounds, No Accessory Muscle Use, No Respiratory Distress, Decreased Breath Sounds Cardiovascular: Regular Rate, Rhythm, No Edema, No Gallop, No JVD, No Murmur, Normal Peripheral Pulses Gastrointestinal: Normal Bowel Sounds, No Organomegaly, No Pulsatile Mass, Non Tender, Soft Back: Normal Inspection, No CVA Tenderness, No Vertebral Tenderness Extremity: Normal Capillary Refill, Normal Inspection, Normal Range of Motion, Non Tender, No Calf Tenderness, No Pedal Edema, Pedal Edema (left leg only) Neurologic/Psychiatric: Alert, Oriented x3, die press operator II-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 FIM Transfers Therapy Code Descriptions/Definitions Functional [place] Measure: 0=Not Assessed/NA 4=Minimal Assistance 1=Total Assistance 5=Supervision or Setup 2=Maximal Assistance 6=Modified [place] 3=Moderate Assistance 7=Complete IndependenceSCALE: Activities may be completed with or without assistive devices. 9-Iekmktmokt-vcjxfir completes the activity by him/herself with no assistance from a helper. 5-Set-up or Clean-up Assistance-helper sets up or cleans up; patient completes activity. [place] assists only prior to or following the activity. 4-Supervision or Touching Assistance-helper provides verbal cues and/or touching/steadying and/or contact guard assistance as patient completes activity. Assistance may be provided throughout the activity or intermittently. 3-Partial/Moderate Assistance-helper does LESS THAN HALF the effort. [place] lifts, holds or supports trunk or limbs, but provides less than half the effort. 2-Substantial/Maximal Assistance-helper does MORE THAN HALF the effort. [place] lifts or holds trunk or limbs and provides more than half the effort. 8-Otwmjkbga-ltruwq does ALL the effort. Patient does none of the effort to complete the activity. Or, the assistance of 2 or more helpers is required for the patient to complete the activity. If activity was not attempted, code reason: 7-Patient Refused. 9-Not Applicable-not attempted and the patient did not perform the activity before the current illness, exacerbation or injury. 10-Not Attempted due to Environmental Limitations-(lack of equipment, weather restraints, etc.). 88-Not Attempted due to Medical Conditions or Safety Concerns. Roll Left to Right (QC): 5 Sit to Lying (QC): 5 Sit to Stand (QC): 6 Chair/[place] Xfer(QC): 6 Car Transfer (QC): 6 Gait Training Does the Patient Walk?: Yes Distance: 150' x2 Walk 10 feet (QC): 6 Walk 50 ft with 2 Turns(QC): 6 Walk 150 ft (QC): 6 Walking 10ft/uneven surface-QC: 88 Gait Persons Needed: 1 Gait Assistive Device: Cane Large Base Quad Wheelchair Training Does the Pt Use a Wheelchair?: No Wheel 50 ft with 2 turns (QC): 3 Wheel 150 ft (QC): 3 Stair Training Stair Training: Handrails/: 2 handrails #of Steps: 4 1 Step (curb) (QC): 6 4 Steps (QC): 6 12 Steps (QC): 88 Stairs: Pattern: Step to Balance Picking up an Object (QC): 88 ADL-Treatment Eating (QC): 6 Oral Hygiene (QC): 6 Bathing Location: L Arm, R Arm, L Upper Leg, R Upper Leg, Chest, Abdomen, Perineal Area Shower/Bathe Self (QC): 4 (SUP while in stance. Pt and OT discuss options of seating while in shower. Pt states no room for shower chair/ bench in shower. Pt completes majority of showering while in stance, good standing balance gbs for support. ) Upper Body Dressing (QC): 6 Lower Body Dressing (QC): 6 On/Off Footwear (QC): 6 (Pt able to don socks with mod I. Pt educated on TEX hose donning, requires min A for application onto sock aide. ) Toileting Hygiene (QC): 6 Toilet Transfer (QC): 6 Assessment/Plan Assessment and Plan Assess & Plan/Chief Complaint Assessment: s/p craniotomy at [facility] Meningioma s/p resection Severe debility needs aggressive therapies HTN Anemia iron def completed Venofer 5 doses with midline but has a chronic condition Constipation GRADY? UTI with Proteus completed abx Left leg edema venous doppler normal so initiated DESTINY wraps Plan: Monitor closely Venofer completed Pain control Slow recovery so 15/ IRF BM regimen to maintain Omnicef completed Left leg DESTINY wraps for edema since doppler negative for DVT [place] completely removed Disposition home tomorrow with outpatient therapy (1) S/P craniotomy (2) Hypertension (3) Obesity (4) Constipation Qualifiers: Qualified Codes: K59.01 - Slow transit constipation (5) History of hip replacement, total (6) Headache (7) Seizure prophylaxis EVIE SAPP DO Feb 26, 2019 08:47
[2019-02-26] MEDS ORDERED: LEVE500T6 PO (08:53)
[2019-02-26] MEDS: POLYETHYLENE GLYCOL 17 GM (MIRALAX) PACK PO SCH ×2 (09:24→21:53)
[2019-02-26] MEDS: SENNA W/DOCUSATE (SENOKOT S) TABLET PO SCH ×2 (09:24→21:53)
[2019-02-26] MEDS: DOCUSATE SODIUM 100 MG (COLACE) CAP PO SCH ×2 (09:24→21:54)
--- NOTE | 2019-02-26 10:52 | Physical Therapy Daily Note ---
PT Daily Note-Current Subjective Pt sitting in recliner upon arrival. Pt agrees to PT. Pt reports feeling ready to D/C and excited that she gets to tomorrow (02/27). Pain Location: No Pain Reported Mental Status Patient Orientation: Person, Place, Time, Situation Transfers SCALE: Activities may be completed with or without assistive devices. 0-Wablbovvua-deaqshd completes the activity by him/herself with no assistance from a helper. 5-Set-up or Clean-up Assistance-helper sets up or cleans up; patient completes activity. [place] assists only prior to or following the activity. 4-Supervision or Touching Assistance-helper provides verbal cues and/or touching/steadying and/or contact guard assistance as patient completes activity. Assistance may be provided throughout the activity or intermittently. 3-Partial/Moderate Assistance-helper does LESS THAN HALF the effort. [place] lifts, holds or supports trunk or limbs, but provides less than half the effort. 2-Substantial/Maximal Assistance-helper does MORE THAN HALF the effort. [place] lifts or holds trunk or limbs and provides more than half the effort. 8-Lbjytarvc-xuyhyc does ALL the effort. Patient does none of the effort to complete the activity. Or, the assistance of 2 or more helpers is required for the patient to complete the activity. If activity was not attempted, code reason: 7-Patient Refused. 9-Not Applicable-not attempted and the patient did not perform the activity before the current illness, exacerbation or injury. 10-Not Attempted due to Environmental Limitations-(lack of equipment, weather restraints, etc.). 88-Not Attempted due to Medical Conditions or Safety Concerns. Roll Left & Right (QC): 6 Sit to Lying (QC): 6 Lying to Sitting/Side of Bed(Q: 6 Sit to Stand (QC): 6 Chair/Unu-kt-Iarng Xfer(QC): 6 Toilet Transfer (QC): 6 Car Transfer (QC): 6 Weight Bearing Full Weight Bearing Full Weight Bearing Gait Training Does the Patient Walk?: Yes Distance: 150' x2 Walk 10 feet (QC): 6 Walk 50 ft with 2 Turns(QC): 6 Walk 150 ft (QC): 6 Walking 10ft/uneven surface-QC: 6 Gait Persons Needed: 1 Gait Assistive Device: Cane Large Base Quad Wheelchair Training Does the Pt Use a Wheelchair?: No Stair Training Stair Training: Handrails/: 2 handrails #of Steps: 8 1 Step (curb) (QC): 6 4 Steps (QC): 6 12 Steps (QC): 7 Stairs: Pattern: Step to Pt reports feeling as though 8 steps was enough and didn't need to complete another 4. Balance Picking up an Object (QC): 6 Exercises NuStep Minutes: 15 NuStep Workload: 5 Treatments Pt transfers from recliner to standing and uses restroom. Pt ambulates in hallway. Pt completes QC scoring items (see above). Pt uses NuStep for 15m at WL 5. Pt returns to room at end of Rx to rest in recliner. Pt has all needs met, call light in hand. Assessment Pt tolerates Rx well and is excited to D/C tomorrow (02/27). PT Short Term Goals Short Term Goals Time Frame: Feb 17, 2019 Sit to lyin Lying to sitting on side of be: 3 Sit to stand: 3 Walk 50 feet with two turns: 4 PT Pickler Helper Goals Care Home Goals PT Care Home Goals Time Frame: Mar 03, 2019 Roll Left & Right (QC): 6 Sit to Lying (QC): 6 Lying-Sitting on Side/Bed(QC): 6 Sit to Stand (QC): 6 Chair/Khn-td-Druhl Xfer(QC): 6 Toilet Transfer (QC): 6 Car Transfer (QC): 6 Does the Patient Walk: Yes Walk 10 feet (QC): 6 Walk 50ft with 2 Turns (QC): 6 Walk 150 ft (QC): 6 Walking 10ft on Uneven Surface: 5 1 Step (curb) (QC): 6 4 Steps (QC): 6 12 Steps (QC): 9 Picking up an Object (QC): 9 Does the Pt use WC or Scooter?: No PT Plan Problem List Problem List: Activity Tolerance Treatment/Plan Treatment Plan: Continue Plan of Care Treatment Plan: Bed Mobility, Education, Functional Activity Scout, Functional Strength, Group Therapy, Gait, Safety, Therapeutic Exercise, Transfers Treatment Duration: Mar 03, 2019 Frequency: Modified Program (IRF) Estimated Hrs Per Day: 1.5 hours per day Patient and/or Family Agrees t: Yes Safety Risks/Education Patient Education: Correct Positioning, Safety Issues Teaching Recipient: Patient Teaching Methods: Discussion Time/GCodes Time In: 930 Time Out: 1045 Total Billed Treatment Time: 75 Total Billed Treatment 1, GT (20m), EX (15m) & FA x3 (40m) CAYLA ELLIS SALES PROMOTER Feb 26, 2019 10:52
--- NOTE | 2019-02-26 12:05 | Occupational Ther Daily Note ---
OT Current Status-Daily Note Subjective Pt seen in recliner chair post-PT session, pt denies pain, agreeable to OT tx session. Pt's d/c date tomorrow, pt states she does not want shower on this date but would like to shower tomorrow prior to d/c. Pt educated on no therapy services tomorrow, but possibility of showering with SUP if nursing staffing coordinator avail able. Pt agrees. Mental Status/Objective Patient Orientation: Normal For Age ADL-Treatment Therapy Code Descriptions/Definitions Functional [place] Measure: 0=Not Assessed/NA 4=Minimal Assistance 1=Total Assistance 5=Supervision or Setup 2=Maximal Assistance 6=Modified [place] 3=Moderate Assistance 7=Complete IndependenceSCALE: Activities may be completed with or without assistive devices. 6-Ulhgxthrhw-quwbobe completes the activity by him/herself with no assistance from a helper. 5-Set-up or Clean-up Assistance-helper sets up or cleans up; patient completes activity. [place] assists only prior to or following the activity. 4-Supervision or Touching Assistance-helper provides verbal cues and/or touching/steadying and/or contact guard assistance as patient completes activity. Assistance may be provided throughout the activity or intermittently. 3-Partial/Moderate Assistance-helper does LESS THAN HALF the effort. [place] lifts, holds or supports trunk or limbs, but provides less than half the effort. 2-Substantial/Maximal Assistance-helper does MORE THAN HALF the effort. [place] lifts or holds trunk or limbs and provides more than half the effort. 0-Nlwbdoxpa-gmdzoj does ALL the effort. Patient does none of the effort to com plete the activity. Or, the assistance of 2 or more helpers is required for the patient to complete the activity. If activity was not attempted, code reason: 7-Patient Refused. 9-Not Applicable-not attempted and the patient did not perform the activity before the current illness, exacerbation or injury. 10-Not Attempted due to Environmental Limitations-(lack of equipment, weather restraints, etc.). 88-Not Attempted due to Medical Conditions or Safety Concerns. Eating (QC): 6 Oral Hygiene (QC): 6 Shower/Bathe Self (QC): 7 Upper Body Dressing (QC): 6 Lower Body Dressing (QC): 6 On/Off Footwear: 6 (Pt complete TEX hose donning and sock donning with sock aide. DESTINY wrap placed over tex hose/ under sock on LLE) Toileting Hygiene (QC): 6 Toilet Transfer (QC): 6 Other Treatment Pt shares experience of pt finding tumor to process of recovery, pt states she is very blessed. Pt completes ADLs in room, denies showering on this date though she complete bottom/ yanni hygiene with wet wipe in stance with IND. Pt changes all clothes, ambulates to gym with quad cane/ SBA. Pt completes 15 minutes of arm bike with min-mod resistance and minimal breaks. Pt completes [employer] game, able to multitask during arm ex with cues to continue. Pt ambulates to room, sits in recliner chair, call light in reach, all needs met. Pt states daughter plans to stay with her through the weekend within her home, pt states she will "be fine," and doesn't expect any difficulties. Education OT Patient Education: Exercise program, Progress toward Goal/Update tx plan, Safety issues Teaching Recipient: Patient Teaching Methods: Demonstration, Discussion Response to Teaching: Verbalize Understanding, Return Demonstration OT Senior Care Goals Traffic Rate Clerk Goals Time Frame: Feb 23, 2019 Eating (QC): 6 (met) Oral Hygiene (QC): 6 (met) Toileting Hygiene (QC): 6 (met) Shower/Bathe Self (QC): 6 Upper Body Dressing (QC): 6 (met) Lower Body Dressing (QC): 6 (met) On/Off Footwear (QC): 6 (met) Additional Goals: 1-Demonstrate ADL Tasks, 2-Verbalize Understanding, 3- ImproveStrength/Scout 1=Demonstrate adherence to instructed precautions during ADL tasks. 2=Patient will verbalize/demonstrate understanding of assistive devices/modifications for ADL. 3=Patient will improve strength/tolerance for activity to enable patient to perform ADL's. OT Education/Plan Problem List/Assessment Assessment: Decreased Activ Tolerance Discharge Recommendations Plan/Recommendations: Continue POC Therapy Discharge Recommendati: Home & Family Equpiment Recommendations-D/C: Rails on Tub/Shower Treatment Plan/Plan of Care Treatment,Training & Education: Yes Patient would benefit from OT for education, treatment and training to promote independence in ADL's, mobility, safety and/or upper extremity function for A DL's. Plan of Care: ADL Retraining, Caregiver Training, Concurrent Therapy, Functional Mobility, Group Exercise/Act as Ind, UE Funct Exercise/Act, UE Neuromus Re-Ed/Coord Treatment Duration: Feb 23, 2019 Frequency: At least 5 of 7 days/Wk (IRF) Estimated Hrs Per Day: 1.5 hours per day Agreement: Yes Rehab Potential: Good Time/GCodes Start Time: 10:45 Stop Time: 12:00 Total Time Billed (hr/min): 75 Billed Treatment Time 1, ADL 3 (45), EX 2 (30)= 75 ALEIDA DIAZ OTR Feb 26, 2019 12:05
--- NOTE | 2019-02-26 13:42 | Speech Therapy Daily Note ---
Speech Daily Progress Note Subjective Date Seen by Provider: Feb 26, 2019 Time Seen by Provider: 08:45 Patient was upbeat and cooperative for all therapy tasks. Patient expressed that she is very excited to be returning home tomorrow. Objective Patient completed safety awareness tasks of home address, transportation, mobility, and new furniture within her home with 90% and greater with minimal cues. Assessment Assessment Current Status: Excellent Progress Treatment Plan Discontinue ST, Goals Met Speech Short Term Goals Short Term Goals Short Term Goals 1) Patient will complete memory tasks related to her daily needs with 90% or greater with minimal cues. 2) Patient will complete safety awareness tasks related to her daily needs with 90% or greater with minimal cues. 3) Patient will complete problem solving tasks related to her daily needs with 90% or greater with minimal cues. Speech Vocational Trainer Goals Vocational Trainer Goals Patient will improve cognitive-communication necessary for safety and daily living tasks with minimal assist. Speech-Plan Patient/Family Goals Patient/Family Goals: Patient will be returning back home tomorrow. Treatment Plan Speech Therapy Treatment Plan: Discontinue ST, Goals Met Treatment Duration: Feb 27, 2019 Frequency: 5 times per week Estimated Hrs Per Day: .5 hour per day Rehab Potential: Good Barriers to Learning: Cognitive deficits s/p brain surgery, which have resolved. Pt/Family Agrees to Plan: Yes Safety Risks/Education Teaching Recipient: Patient Teaching Methods: Demonstration, Discussion Response to Teaching: Verbalize Understanding, Return Demonstration Education Topics Provided: Saftey awareness of home layout and scheduling transportation for appointments. Time Speech Therapy Time In: 08:45 Speech Therapy Time Out: 09:15 Total Billed Time: 30 Billed Treatment Time 30 No QUALITY CODES EXPRESSION OF IDEAS/WANTS: 4 UNDERSTANDING VERBAL CONTENT: 4 BRIEF INTERVIEW MENTAL STATUS: YES REPETITION OF 3 WORDS: 3 TEMPORAL ORIENTATION YEAR:CORRECT, MONTH: CORRECT, DAY: CORRECT RECALL SOCK: CORRECT, COLOR: CORRECT, BED: CORRECT MEMORY/RECALL ABILITY OF SEASON, LOCATION OF ROOM, STAFF NAMES, AND THAT SHE IS IN THE [facility]OSPITAL [facility] Feb 26, 2019 13:42
--- NOTE | 2019-02-26 13:56 | NUR ---
"RD ASSESSMENT PMHx: craniotomy (01/2019); HTN; hypercholesterolemia; chronic constipation PT INTERACTION: Pt was awake and pleasant during nutrition follow-up. Pt states she has been eating well since last assessment. Note avg PO intake of 95% x5d, per chart review. Pt states no recent issues with n/v/c/d since last assessment. Note last BM was 02/25 and pt currently on bowel regimen of colace BID; miralax BID; and senna BID, per chart review. ABNORMAL NUTRITION-RELATED LAB VALUES TAKEN 02/23/19 LOW: Pro 5.7 HIGH: Cl 110; BUN 21; cr 1.37 Est. kcal needs: 6000-5251 kcal | 25-30 kcal/kg IBW Est. Pro needs: 57-67 g Pro | 1.2-1.4 g Pro/kg IBW PES STATEMENT: Given pt PO intake, no nutrition diagnosis at this time (NO-1.1) INTERVENTION: Continue with current diet order of Regular diet. Will continue to follow and reassess as pt needs and status change. MONITOR/EVALUATE: PO Intake; Plan of Care; Hydration Status; Weight Status; Lab Values Alayna Ramires, MS, RD, LD"
--- NOTE | 2019-02-26 15:36 | NUR ---
CM/SS DISCHARGE Patient will discharge tomorrow to her home with continuous family support and monitor. OP PT: [facility]. General Internal Medicine Physician did contact [facility] there, orders remain in effect and/or facility will get necessary orders from PCP Dr. Denise. Either republican can call to schedule sessions, updated daughter Diana. No other needs are anticipated unless situation changes to warrant alternate intervention.
[2019-02-26 16:00] VITALS: BP 120/71
--- NOTE | 2019-02-26 19:28 | NUR ---
bedside report received from SHI SALDIVAR, ASSUME CARE OF PT
--- NOTE | 2019-02-26 21:50 | NUR ---
refused miller, An & Seema, v/s [id number]/10
[2019-02-27] MEDS: LEVETIRACETAM 500 MG (KEPPRA) TAB PO SCH (08:24)
[2019-02-27] MEDS: VITAMIN D3 400 UNITS (CHOLECALCIFEROL) TABLET PO SCH (08:24)
[2019-02-27] MEDS: POLYETHYLENE GLYCOL 17 GM (MIRALAX) PACK PO SCH (08:24)
[2019-02-27] MEDS: OMEGA 3 (FISH OIL) 1000 MG CAP PO SCH (08:24)
[2019-02-27] MEDS: SENNA W/DOCUSATE (SENOKOT S) TABLET PO SCH (08:24)
[2019-02-27] MEDS: LOSARTAN 100 MG (COZAAR) TABLET PO SCH (08:24)
[2019-02-27] MEDS: DOCUSATE SODIUM 100 MG (COLACE) CAP PO SCH (08:24)
[2019-02-27] MEDS: meTOprolol TARTRATE 25 MG (LOPRESSOR) TABLET PO SCH (08:27)
[2019-02-27 08:55] VITALS: BP 139/68
--- NOTE | 2019-02-27 09:19 | Discharge Summary ---
Diagnosis/Chief Complaint Date of Admission Feb 09, 2019 at 15:23 Date of Discharge Discharge Date: Feb 27, 2019 Discharge Diagnosis Assessment: s/p craniotomy at [facility] Meningioma s/p resection Severe debility needs aggressive therapies HTN Anemia iron def completed Venofer 5 doses with midline but has a chronic condition Constipation GRADY? UTI with Proteus completed abx Left leg edema venous doppler normal so initiated DESTINY wraps Plan: Monitor closely Venofer completed Pain control Slow recovery so 01/09 IRF BM regimen to maintain Omnicef completed Left leg DESTINY wraps for edema since doppler negative for DVT Maddison completely removed Disposition pending (1) S/P craniotomy (2) Hypertension (3) Obesity (4) Constipation (5) History of hip replacement, total (6) Headache (7) Seizure prophylaxis Discharge Summary Discharge Physical Examination Allergies: Coded Allergies: Penicillins (Unverified Allergy, Unknown, SWELLED UP, pt has received Rocephin in the past, 02/13/19) Vitals & I&Os Vital Signs Date Time Temp Pulse Resp B/P (MAP) Pulse Ox O2 Delivery O2 Flow Rate FiO2 02/27/19 16:29 36.2 82 20 139/68 96 Room Air General Appearance: Alert, Oriented X3, Cooperative Respiratory: Clear to Auscultation Cardiovascular: Regular Rate Neuro: Normal Gait, Normal Speech, Strength at 5/5 X4 Ext Psych/Mental Status: Mental Status NL Hospital Course Was the Problem List Reviewed?: Yes Hospital course: Pt had an uneventful 18 day hospital course in inpatient rehab, she had no decompensation episodes during hospital stay. Pain was well controlled, maddison were removed ultimately from craniotomy surgery and she was able to regain enough function in the left hand and left arm to ambulate with a cane and a walker and regain enough independence to be go home with help from family and will resume outpatient PT. Labs (last 24 hrs) Laboratory Tests 02/09/19 15:23: Lab Scanned Report Referred Lab Report 02/10/19 04:47: White Blood Count 9.6, Red Blood Count 2.31L, Hemoglobin 7.3L, Hematocrit 23L, Mean Corpuscular Volume 98, Mean Corpuscular Hemoglobin 32, Mean Corpuscular Hemoglobin Concent 32, Red Cell Distribution Width 13.0, Platelet Count 142, Mean Platelet Volume 12.8H, Neutrophils (%) (Auto) 88H, Lymphocytes (%) (Auto) 8L, Monocytes (%) (Auto) 4, Eosinophils (%) (Auto) 0, Basophils (%) (Auto) 0, Neutrophils # (Auto) 8.5H, Lymphocytes # (Auto) 0.7L, Monocytes # (Auto) 0.4, Eosinophils # (Auto) 0.0, Basophils # (Auto) 0.0, Sodium Level 138, Potassium Level 4.7, Chloride Level 104, Carbon Dioxide Level 26, Anion Gap 8, Blood Urea Nitrogen 37H, Creatinine 1.22, Estimat Glomerular Filtration Rate 43, BUN/Creatinine Ratio 30, Glucose Level 147H, Calcium Level 8.3L, Corrected Calcium 9.0, Iron Level 46, Total Bilirubin 0.3, Aspartate Amino Transf (AST/SGOT) 17, Alanine Aminotransferase (ALT/SGPT) 33, Alkaline Phosphatase 62, Total Protein 5.1L, Albumin 3.1L 02/10/19 22:15: Urine Color YELLOW, Urine Clarity CLEAR, Urine pH 8.0, Urine Specific Sutton 1.015L, Urine Protein NEGATIVE, Urine Glucose (UA) NEGATIVE, Urine Ketones NEGATIVE, Urine Nitrite POSITIVE, Urine Bilirubin NEGATIVE, Urine Urobilinogen 0.2, Urine Leukocyte Esterase 1+H, Urine RBC (Auto) NEGATIVE, Urine RBC NONE, Urine WBC 10-25H, Urine Crystals NONE, Urine Bacteria LARGEH, Urine Casts NONE, Urine Mucus NEGATIVE, Urine Culture Indicated YES 02/16/19 05:20: White Blood Count 10.6, Red Blood Count 2.53L, Hemoglobin 8.1L, Hematocrit 25L, Mean Corpuscular Volume 100H, Mean Corpuscular Hemoglobin 32, Mean Corpuscular Hemoglobin Concent 32, Red Cell Distribution Width 14.0, Platelet Count 172, Mean Platelet Volume 12.7H, Neutrophils (%) (Auto) 87H, Lymphocytes (%) (Auto) 7L, Monocytes (%) (Auto) 5, Eosinophils (%) (Auto) 1, Basophils (%) (Auto) 0, Neutrophils # (Auto) 9.2H, Lymphocytes # (Auto) 0.7L, Monocytes # (Auto) 0.5, Eosinophils # (Auto) 0.1, Basophils # (Auto) 0.0, Sodium Level 139, Potassium Level 5.0, Chloride Level 107, Carbon Dioxide Level 21, Anion Gap 11, Blood Urea Nitrogen 35H, Creatinine 1.36H, Estimat Glomerular Filtration Rate 38, BUN/Creatinine Ratio 26, Glucose Level 112H, Calcium Level 8.5, Corrected Calcium 9.0, Total Bilirubin 0.3, Aspartate Amino Transf (AST/SGOT) 12, Alanine Aminotransferase (ALT/SGPT) 31, Alkaline Phosphatase 60, Total Protein 5.5L, Albumin 3.4 02/23/19 05:18: White Blood Count 4.9, Red Blood Count 2.35L, Hemoglobin 7.5L, Hematocrit 24L, Mean Corpuscular Volume 103H, Mean Corpuscular Hemoglobin 32, Mean Corpuscular Hemoglobin Concent 31L, Red Cell Distribution Width 15.3H, Platelet Count 120L, Mean Platelet Volume 11.8H, Neutrophils (%) (Auto) 77H, Lymphocytes (%) (Auto) 12, Monocytes (%) (Auto) 7, Eosinophils (%) (Auto) 3, Basophils (%) (Auto) 0, Neutrophils # (Auto) 3.8, Lymphocytes # (Auto) 0.6L, Monocytes # (Auto) 0.4, Eosinophils # (Auto) 0.2, Basophils # (Auto) 0.0, Sodium Level 142, Potassium Level 4.6, Chloride Level 110H, Carbon Dioxide Level 20L, Anion Gap 12, Blood Urea Nitrogen 21H, Creatinine 1.37H, Estimat Glomerular Filtration Rate 38, BUN/Creatinine Ratio 15, Glucose Level 98, Calcium Level 8.8, Corrected Calcium 9.4, Total Bilirubin 0.2, Aspartate Amino Transf (AST/SGOT) 12, Alanine Aminotransferase (ALT/SGPT) 21, Alkaline Phosphatase 60, Total Protein 5.7L, Albumin 3.3 02/24/19 09:23: Hemoglobin 8.2L, Hematocrit 27L, Iron Level 65, Total Iron Binding Capacity 279L , Unsaturated Iron Binding Capacity 214, Transferrin % Saturation 23, Ferritin 1225.6H, Vitamin B12 Level 357 Microbiology 02/10/19 Urine Culture - Final, Complete Proteus mirabilis Pending Labs Microbiology Date/Time Source Procedure Growth Status 02/10/19 22:15 Urine Straight Cath, In/Out Urine Culture - Final Proteus mirabilis Complete Laboratory Tests 02/09/19 15:23: Lab Scanned Report Referred Lab Report 02/10/19 04:47: White Blood Count 9.6, Red Blood Count 2.31, Hemoglobin 7.3, Hematocrit 23, Mean Corpuscular Volume 98, Mean Corpuscular Hemoglobin 32, Mean Corpuscular Hemoglobin Concent 32, Red Cell Distribution Width 13.0, Platelet Count 142, Mean Platelet Volume 12.8, Neutrophils (%) (Auto) 88, Lymphocytes (%) (Auto) 8, Monocytes (%) (Auto) 4, Eosinophils (%) (Auto) 0, Basophils (%) (Auto) 0, Neutrophils # (Auto) 8.5, Lymphocytes # (Auto) 0.7, Monocytes # (Auto) 0.4, Eosinophils # (Auto) 0.0, Basophils # (Auto) 0.0, Sodium Level 138, Potassium Level 4.7, Chloride Level 104, Carbon Dioxide Level 26, Anion Gap 8, Blood Urea Nitrogen 37, Creatinine 1.22, Estimat Glomerular Filtration Rate 43, BUN/Creatinine Ratio 30, Glucose Level 147, Calcium Level 8.3, Corrected Calcium 9.0, Iron Level 46, Total Bilirubin 0.3, Aspartate Amino Transf (AST/SGOT) 17, Alanine Aminotransferase (ALT/SGPT) 33, Alkaline Phosphatase 62, Total Protein 5.1, Albumin 3.1 02/10/19 22:15: Urine Color YELLOW, Urine Clarity CLEAR, Urine pH 8.0, Urine Specific Sutton 1. 015, Urine Protein NEGATIVE, Urine Glucose (UA) NEGATIVE, Urine Ketones NEGATIVE, Urine Nitrite POSITIVE, Urine Bilirubin NEGATIVE, Urine Urobilinogen 0.2, Urine Leukocyte Esterase 1+, Urine RBC (Auto) NEGATIVE, Urine RBC NONE, Urine WBC 10-25, Urine Crystals NONE, Urine Bacteria LARGE, Urine Casts NONE, Urine Mucus NEGATIVE, Urine Culture Indicated YES 02/16/19 05:20: White Blood Count 10.6, Red Blood Count 2.53, Hemoglobin 8.1, Hematocrit 25, Mean Corpuscular Volume 100, Mean Corpuscular Hemoglobin 32, Mean Corpuscular Hemoglobin Concent 32, Red Cell Distribution Width 14.0, Platelet Count 172, Mean Platelet Volume 12.7, Neutrophils (%) (Auto) 87, Lymphocytes (%) (Auto) 7, Monocytes (%) (Auto) 5, Eosinophils (%) (Auto) 1, Basophils (%) (Auto) 0, Neutrophils # (Auto) 9.2, Lymphocytes # (Auto) 0.7, Monocytes # (Auto) 0.5, Eosinophils # (Auto) 0.1, Basophils # (Auto) 0.0, Sodium Level 139, Potassium Level 5.0, Chloride Level 107, Carbon Dioxide Level 21, Anion Gap 11, Blood Urea Nitrogen 35, Creatinine 1.36, Estimat Glomerular Filtration Rate 38, BUN/Creatinine Ratio 26, Glucose Level 112, Calcium Level 8.5, Corrected Calcium 9.0, Total Bilirubin 0.3, Aspartate Amino Transf (AST/SGOT) 12, Alanine Aminotransferase (ALT/SGPT) 31, Alkaline Phosphatase 60, Total Protein 5.5, Albumin 3.4 02/23/19 05:18: White Blood Count 4.9, Red Blood Count 2.35, Hemoglobin 7.5, Hematocrit 24, Mean Corpuscular Volume 103, Mean Corpuscular Hemoglobin 32, Mean Corpuscular Hemoglobin Concent 31, Red Cell Distribution Width 15.3, Platelet Count 120, Mean Platelet Volume 11.8, Neutrophils (%) (Auto) 77, Lymphocytes (%) (Auto) 12, Monocytes (%) (Auto) 7, Eosinophils (%) (Auto) 3, Basophils (%) (Auto) 0, Neutrophils # (Auto) 3.8, Lymphocytes # (Auto) 0.6, Monocytes # (Auto) 0.4, Eosinophils # (Auto) 0.2, Basophils # (Auto) 0.0, Sodium Level 142, Potassium Level 4.6, Chloride Level 110, Carbon Dioxide Level 20, Anion Gap 12, Blood Urea Nitrogen 21, Creatinine 1.37, Estimat Glomerular Filtration Rate 38, BUN/Creatinine Ratio 15, Glucose Level 98, Calcium Level 8.8, Corrected Calcium 9.4, Total Bilirubin 0.2, Aspartate Amino Transf (AST/SGOT) 12, Alanine Aminotransferase (ALT/SGPT) 21, Alkaline Phosphatase 60, Total Protein 5.7, Albumin 3.3 02/24/19 09:23: Hemoglobin 8.2, Hematocrit 27, Iron Level 65, Total Iron Binding Capacity 279, Unsaturated Iron Binding Capacity 214, Transferrin % Saturation 23, Ferritin 1225.6, Vitamin B12 Level 357 Discharge Home Medications: Active Scripts Active Levetiracetam 500 Mg Tablet 500 Mg PO BID Reported Preservision Areds Softgel (Vit A/C/E/Zinc/Co) 1 Cap Capsule 1 Cap PO DAILY Acetaminophen 325 Mg Tablet 650 Mg PO Q4H PRN TAKE 2 (325MG) TABS Atorvastatin Calcium 20 Mg Tablet 20 Mg PO HS Losartan Potassium 100 Mg Tablet 100 Mg PO DAILY Metoprolol Tartrate 25 Mg Tablet 25 Mg PO BID Instructions to patient/family Please see electronic discharge instructions given to patient. Diagnosis/Problems Diagnosis/Problems (1) S/P craniotomy (2) Hypertension (3) Obesity (4) Constipation Qualifiers: Qualified Codes: K59.01 - Slow transit constipation (5) History of hip replacement, total (6) Headache (7) Seizure prophylaxis Clinical Quality Measures DVT/VTE Risk/Contraindication: Risk Factor Score Per Nursin RFS Level Per Nursing on Admit: 4+=Very High EVIE SAPP DO Feb 27, 2019 09:19
--- NOTE | 2019-02-27 09:45 | Progress Note ---
Subjective Date Seen by a Provider: Feb 27, 2019 Time Seen by a Provider: 09:40 Subjective/Events-last exam PT IS A 73 Y/O FEMALE WHO IS WELL KNOWN TO ME FROM CLINIC - SHE HAS MENINGIOMA WITH LEFT SIDED WEAKNESS FOR WHICH SHE IS RECEIVING PHYSICAL AND OCCUPATIONAL THERAPY. Review of Systems General: No Chills, No Fatigue Pulmonary: No Dyspnea, No Cough Gastrointestinal: No: Nausea, Abdominal Pain Musculoskeletal: No: back pain Neurological: No: Weakness, Confusion PT DENIES CHEST PAIN, SHORTNESS OF BREATH, ABDOMINAL PAIN, NAUSEA, CONSTIPATION, URINARY CONCERNS Objective Exam Last Set of Vital Signs Vital Signs Date Time Temp Pulse Resp B/P (MAP) Pulse Ox O2 Delivery O2 Flow Rate FiO2 02/27/19 09:10 Room Air 02/27/19 08:55 36.2 82 20 139/68 (91) 96 Capillary Refill : Less Than 3 Seconds I&O Intake and Output 02/27/19 00:00 Intake Total 1350 ml Balance 1350 ml Intake Oral 1350 ml # Voids 9 # Bowel Movements 1 General: Alert, Oriented X3, Cooperative HEENT: Atraumatic, PERRLA Neck: Supple Lungs: Clear to Auscultation, Normal Air Movement Heart: Regular Rate Abdomen: Normal Bowel Sounds, Soft, No Tenderness Neuro: Cranial Nerves 3-12 NL, Other (facial droop has resolved) Psych/Mental Status: Mental Status NL, Mood NL Results Lab Microbiology 02/10/19 Urine Culture - Final, Complete Proteus mirabilis Assessment/Plan Assessment/Plan Assess & Plan/Chief Complaint MENINGIOMA HYPERTENSION CHRONIC OSTEOARTHRITIS MUSCLE WEAKNESS LEFT SIDED MUSCLE WEAKNESS, LEFT SIDED FACIAL DROOP CHRONIC ANEMIA HYPERLIPIDEMIA MENINGIOMA - STATUS POST SURGICAL INTERVENTION - MONIQUE REMOVED - SITE HEALING WELL - keep follow up appt at [facility] with dr. ansari HYPERTENSION - MONITOR BLOOD PRESSURE, HOME REGIMEN RESTARTED - continue with home regimen on discharge CHRONIC OSTEOARTHRITIS WITH MUSCLE WEAKNESS - SUPPORTIVE CARE WITH THERAPY AND STRENGTHENING OF MUSCLES PLANNED. LEFT SIDED MUSCLE WEAKNESS, LEFT SIDED FACIAL DROOP - ANTICIPATE IMPROVEMENT WITH THERAPY CHRONIC ANEMIA - MONITOR HGB SERIALLY - SHE WAS GIVEN IV IRON, WILL CHECK VITAMIN B LEVEL HYPERLIPIDEMIA - HOME REGIMEN TO ME RESTARTED follow up in 2 weeks on discharge Clinical Quality Measures DVT/VTE Risk/Contraindication: Risk Factor Score Per Nursin RFS Level Per Nursing on Admit: 4+=Very High JOSEPH INMAN MD Feb 27, 2019 09:45
--- NOTE | 2019-02-27 10:51 | Progress Note ---
SAI ORDONEZMED STUDENT 02/27/19 1051: Progress Note Patient presented to inpatient rehab facility 09/02/2019 status post craniotomy and resection of meningioma at . She recieved 3 hours of physical, occupational and speech therapy for approximately two weeks in order to regain deficits in strength and return to previous functioning for ADLs. Patient had excellent hospital course and was discharged with PT eval and close follow up with primary doctor, Dr. Denise, and [facility]go. LALY VERA DO 02/28/19 1359: Supervisory-Addendum Brief Verification & Attestation Participated in pt care: history, MDM, physical Personally performed: exam, history, MDM, supervision of care Care discussed with: Medical Student Procedures: n/a Results interpretation: Verified all documentation Verification and Attestation of Medical Student E/M Service A medical student performed and documented this service in my presence. I reviewed and verified all information documented by the medical student and made modifications to such information, when appropriate. I personally performed the physical exam and medical decision making. Laly Vera, Feb 28, 2019,13:58 SAI ORDONEZ,MED STUDENT Feb 27, 2019 10:51 LALY VERA DO Feb 28, 2019 13:59
--- NOTE | 2019-02-27 11:27 | Therapy Team Discharge Summary ---
Therapy Discharge Summary Discharge Recommendations Date of Discharge Physical Therapy Patient came to rehab with cerebral meningioma. Upon evaluation patient performed bed mobility with dependence, transfers with max assist, ambulated a few steps with a rolling walker with mod assist. Patient has been performing bed mobility and transfer training, balance and endurance training, functional strengthening, stair training, gait training, and education. Patient has made good progress and has met all of her intermediate goals. Now, patient performs bed mobility and transfers with independence, car transfer with independence, ambulates 150' with a quad cane with independence (including 50' with at least 2 turns of 90 degrees and 10' over an uneven surface), can cone picker an object from the floor with independence, and can go up and down 8 steps using 2 handrails with independence. Patient is discharging from this facility today and will be discharged from PT at this time. Occupational Therapy Decreased Activ Tolerance PT Ice Bag Assembler Goals Ice Bag Assembler Goals PT Ice Bag Assembler Goals Time Frame: Mar 03, 2019 Roll Left to Right (QC): 6 Sit to Lying (QC): 6 Lying-Sitting on Side/Bed(QC): 6 Sit to Stand (QC): 6 Chair/Vqy-rx-Lyfgg Xfer(QC): 6 Car Transfer (QC): 6 Does the Patient Walk: Yes Walk 10 feet (QC): 6 Walk 10ft-Uneven Surface(QC): 5 Walk 50ft with 2 Turns (QC): 6 Walk 150 ft (QC): 6 Does the Pt use WC or Scooter?: No 1 Step (curb) (QC): 6 4 Steps (QC): 6 12 Steps (QC): 9 Picking up an Object (QC): 9 OT Ice Bag Assembler Goals Long-Term Goals Time Frame: Feb 23, 2019 Eating (QC): 6 (met) Oral Hygiene (QC): 6 (met) Shower/Bathe Self (QC): 6 Upper Body Dressing (QC): 6 (met) Lower Body Dressing (QC): 6 (met) On/Off Footwear (QC): 6 (met) Toileting Hygiene (QC): 6 (met) Toilet/Commode Transfer (QC): 6 Additional Goals: 1-Demonstrate ADL Tasks, 2-Verbalize Understanding, 3- ImproveStrength/Scout 1=Demonstrate adherence to instructed precautions during ADL tasks. 2=Patient will verbalize/demonstrate understanding of assistive devices/modifications for ADL. 3=Patient will improve strength/tolerance for activity to enable patient to perform ADL's. Speech Ice Bag Assembler Goals Long-Term Goals Patient will improve cognitive-communication necessary for safety and daily living tasks with minimal assist. ALEIDA PAZ PT Feb 27, 2019 11:27
--- NOTE | 2019-02-27 11:43 | Therapy Team Discharge Summary ---
Therapy Discharge Summary Discharge Recommendations Date of Discharge Occupational Therapy Pt admits onto ARU with meningioma resection. Upon admission, pt had decreased LUE/ LE strength/ AROM and completed most ADL tasks with min-max A. Pt and OT worked toward functional IND through AE training, UE strengthening, balance training, safety education. Pt limited by fatigue. Pt d/c's home with no further OT recommended. Pt IND with all ADLs with quad cane, demonstrates good safety and strength. OT recommends rails within shower. D/c OT at this time. Decreased Activ Tolerance PT Shelter Goals Database Management Specialist Goals PT Shelter Goals Time Frame: Mar 03, 2019 Roll Left to Right (QC): 6 Sit to Lying (QC): 6 Lying-Sitting on Side/Bed(QC): 6 Sit to Stand (QC): 6 Chair/Wso-gy-Unszn Xfer(QC): 6 Car Transfer (QC): 6 Does the Patient Walk: Yes Walk 10 feet (QC): 6 Walk 10ft-Uneven Surface(QC): 5 Walk 50ft with 2 Turns (QC): 6 Walk 150 ft (QC): 6 Does the Pt use WC or Scooter?: No 1 Step (curb) (QC): 6 4 Steps (QC): 6 12 Steps (QC): 9 Picking up an Object (QC): 9 OT Shelter Goals Database Management Specialist Goals Time Frame: Feb 23, 2019 Eating (QC): 6 (met) Oral Hygiene (QC): 6 (met) Shower/Bathe Self (QC): 6 Upper Body Dressing (QC): 6 (met) Lower Body Dressing (QC): 6 (met) On/Off Footwear (QC): 6 (met) Toileting Hygiene (QC): 6 (met) Toilet/Commode Transfer (QC): 6 Additional Goals: 1-Demonstrate ADL Tasks, 2-Verbalize Understanding, 3- ImproveStrength/Scout 1=Demonstrate adherence to instructed precautions during ADL tasks. 2=Patient will verbalize/demonstrate understanding of assistive devices/jonny fications for ADL. 3=Patient will improve strength/tolerance for activity to enable patient to perform ADL's. Speech Shelter Goals Database Management Specialist Goals Patient will improve cognitive-communication necessary for safety and daily living tasks with minimal assist. ALEIDA DIAZ OTR Feb 27, 2019 11:43
--- NOTE | 2019-02-27 13:23 | NUR ---
CM/SS DISCHARGE IMM2 presented, signed, charted. Patient dressed and ready to return to her home today. Progressive discharge planning over several days this week. OP PT: Updated patient that she can call [facility] to coordinate her own therapy schedule, daughter Diana notified yesterday. Diana will transport patient after her work day, around 1530.
--- NOTE | 2019-02-27 15:08 | NUR ---
Notified pt of follow up appt with Dr Denise in 1 wk. Pt stated her daughter would make the appt for her. Will discuss with pts daughter Diana
--- NOTE | 2019-02-27 15:40 | NUR ---
CHAGO RUFF demonstrates understanding of discharge instructions and accurately returns instructions upon questioning. Copy of Post-Discharge Instructions given to pt. CHAGO RUFF is able to manage continuing needs after discharge. Patients belongings returned to . Patient discharged from [facility] on 02-27-2019 at 1540. CHAGO RUFF left floor via , accompanied by .
[2019-02-27 16:29] VITALS: BP 139/68
--- NOTE | 2019-03-03 08:38 | Therapy Team Discharge Summary ---
Therapy Discharge Summary Discharge Recommendations Date of Discharge Feb 27, 2019 at 15:40 Occupational Therapy Decreased Activ Tolerance Speech-Language Pathology Patient was admitted to the [facility] s/p brain surgery. Patient received skilled ST for improving cognitive function with focus on safety and independence. Patient was discharged to her home on 02/27/2019 with family support. All ST goals were met at that time. PT Broker Assistant Goals Broker Assistant Goals PT Retirement Goals Time Frame: Mar 03, 2019 Roll Left to Right (QC): 6 Sit to Lying (QC): 6 Lying-Sitting on Side/Bed(QC): 6 Sit to Stand (QC): 6 Chair/Dkp-gm-Bifam Xfer(QC): 6 Car Transfer (QC): 6 Does the Patient Walk: Yes Walk 10 feet (QC): 6 Walk 10ft-Uneven Surface(QC): 5 Walk 50ft with 2 Turns (QC): 6 Walk 150 ft (QC): 6 Does the Pt use WC or Scooter?: No 1 Step (curb) (QC): 6 4 Steps (QC): 6 12 Steps (QC): 9 Picking up an Object (QC): 9 OT Broker Assistant Goals Retirement Goals Time Frame: Feb 23, 2019 Eating (QC): 6 (met) Oral Hygiene (QC): 6 (met) Shower/Bathe Self (QC): 6 Upper Body Dressing (QC): 6 (met) Lower Body Dressing (QC): 6 (met) On/Off Footwear (QC): 6 (met) Toileting Hygiene (QC): 6 (met) Toilet/Commode Transfer (QC): 6 Additional Goals: 1-Demonstrate ADL Tasks, 2-Verbalize Understanding, 3- ImproveStrength/Scout 1=Demonstrate adherence to instructed precautions during ADL tasks. 2=Patient will verbalize/demonstrate understanding of assistive devices/modifications for ADL. 3=Patient will improve strength/tolerance for activity to enable patient to perform ADL's. Speech Retirement Goals Retirement Goals Patient will improve cognitive-communication necessary for safety and daily living tasks with minimal assist. Met ALEX CROSS Mar 03, 2019 08:37
== END 2019-02-27 15:40 | disposition home or self-care (01) | DRG 57 ==
PROVIDERS: ADMIT Internal Medicine; ATTEND Internal Medicine
DX: G81.94 Hemiplegia, unspecified affecting left nondominant side (principal); R29.810 Facial weakness; Z86.011 Personal history of benign neoplasm of the brain; N39.0 Urinary tract infection, site not specified; I12.9 Hypertensive chronic kidney disease with stage 1 through stage 4 chronic kidney disease, or unspecified chronic kidney disease; N18.3 Chronic kidney disease, stage 3 (moderate); E66.9 Obesity, unspecified; Z68.42 Body mass index [BMI] 45.0-49.9, adult; M17.0 Bilateral primary osteoarthritis of knee; K59.09 Other constipation; E78.5 Hyperlipidemia, unspecified; R32 Unspecified urinary incontinence; D50.9 Iron deficiency anemia, unspecified; M79.89 Other specified soft tissue disorders; B96.4 Proteus (mirabilis) (morganii) as the cause of diseases classified elsewhere
CPT/HCPCS: 36415; 76937; 80053; 81000; 82607; 82728; 83540; 85014; 85018; 85025; 87077; 87088; 87186

== ENCOUNTER → 2019-08-03 | Outpatient (CLI) | payer MEDICARE ==
[~2019-08-03] MED LIST changes: +ACET325T49 PO; +ACHD5005 PO; +ATOR20TA66 PO; +CHOL400T PO; +DEXA2TAB PO; +FERR-84 PO; +GADOBUTROL 10 MMOL/10 ML (GADAVIST) VIAL IV ONE; +HEPA100D37 IV; +HEPARIN SQ; +LEVE500T6 PO; +LEVE500T99 PO; +LOSA100T57 PO; +METO-333 PO; +OMEG1CAP2 PO; +SENN-145 PO; +VIT1CAPS5 PO; +[UNRECOGNIZED DRUG - CODE] IV
--- NOTE | 2019-08-03 14:29 | Diagnostic Imaging Report ---
CLINICAL INDICATION: Patient had abnormal head CT in January 2019. Patient had brain surgery at to remove a tumor. Followup exam. EXAM: MRI of the brain performed without and with 10 cc of Gadavist IV contrast. Sequences include axial DWI, ADC map, coronal gradient echo, axial T2, axial FLAIR, axial T1, axial T1 post IV contrast, coronal T1 fat-sat post IV contrast, and sagittal T1 post IV contrast. COMPARISON: Brain performed without and with IV contrast dated 01/29/2019.. FINDINGS: There are interval postop changes with craniotomy involving the right lateral aspect of the skull and resection of the previously seen extra-axial mass involving the lateral right frontal region. There is no residual mass-like enhancement seen. There is fluid beneath the right craniotomy flap in the resection cavity with amorphous low signal within it which may be related to residual blood product. There is interval decrease in the right cerebral hemisphere, confluent increased T2 signal adjacent to the mass, with a small amount of residual increased T2 signal remaining. The previously seen [id number] midline shift has resolved. There are other focal, patchy, and mildly confluent areas of increased T2 signal seen throughout both cerebral hemispheres and periventricular regions, likely related to chronic small vessel ischemic disease and leukoaraiosis. There is no hydrocephalus. The basal cisterns are unremarkable. The [place] vascular structures show no gross abnormality as visualized. The pituitary gland, sella, and suprasellar regions are unremarkable as visualized. There is minimal mucosal thickening involving the left maxillary sinus. The mastoid air cells are clear. IMPRESSION: 1. There are interval postop changes with craniotomy involving the right side of the skull and resection of the previously seen lateral right frontal extra-axial mass. There is no residual mass-like enhancement seen. There is interval decrease in the parenchymal increased T2 signal with a small amount remaining which may be from postop changes or gliosis. This area should be followed on subsequent imaging. There is interval resolution of the previously seen [id number] midline shift. 2. Age related brain parenchymal changes with chronic small vessel ischemic disease and leukoaraiosis. Dictated by: Dictated on workstation # [id number]
== END ==
LOC: RAD 13:00
PROVIDERS: ATTEND Neurological Surgery
DX: D32.9 Benign neoplasm of meninges, unspecified (principal); I67.82 Cerebral ischemia; I67.81 Acute cerebrovascular insufficiency; Z98.890 Other specified postprocedural states
CPT/HCPCS: 70553

== ENCOUNTER → 2020-01-25 | Outpatient (CLI) | payer MEDICARE ==
--- NOTE | 2020-01-25 15:02 | Diagnostic Imaging Report ---
PROCEDURE: MR imaging of the brain with and without contrast. TECHNIQUE: Multiplanar, multisequence MR imaging of the brain was performed with and without contrast. INDICATION: Abnormal CTA head examination in January 2019. Brain surgery at [facility] to remove a tumor. Followup assessment. CORRELATION STUDY: MRI brain 01/29/2019, 08/03/2019. FINDINGS: Post operative changes of a right frontal craniotomy are again demonstrated. Resection of the previously identified large extra-axial right frontal region mass. There is some irregular, perhaps septated, fluid collection beneath the craniotomy flap at the surgical bed. Some overall generalized altered signal intensity through this area is present. There is slight distortion about the right frontal lobe which overall appears unchanged. Somewhat confluent increased T2 signal intensity in the area of the previously identified mass is again demonstrated, stable to perhaps minimally more prominent. There is no significant mass effect. There is no right to left midline shift. On post contrast imaging, there is no suggestion for abnormal nodular mass-like enhancement. The remainder of the brain parenchyma is otherwise unremarkable. The basilar cisterns are maintained. An empty sella is present. The craniocervical junction is unremarkable. Normal expected intracranial flow voids. There are no restricted areas of diffusion. There is mild mucosal thickening through the ethmoid air cells. IMPRESSION: Postop changes of right frontal craniotomy with resection of the previously identified right extra-axial mass. There are some localized fluid collections and distortion in the operative bed including along the right frontal lobe. There is no appreciable mass-like enhancement; however, some increased T2 signal intensity along the surgical cavity in the right frontal lobe may be perhaps slightly more prominent from prior. This favors perhaps some post operative change or gliosis. A definitive mass-like area of enhancement is not demonstrated; however, attention at followup is recommended. Dictated by: Dictated on workstation # [id number]
== END ==
LOC: RAD 13:40
PROVIDERS: ATTEND Neurological Surgery
DX: D32.9 Benign neoplasm of meninges, unspecified (principal)
CPT/HCPCS: 70553

== ENCOUNTER → 2020-07-20 | Outpatient (CLI) | payer MEDICARE ==
--- NOTE | 2020-07-20 16:55 | Diagnostic Imaging Report ---
PROCEDURE: MR imaging of the brain with and without contrast. TECHNIQUE: Multiplanar, multisequence MR imaging of the brain was performed with and without contrast. INDICATION: Status post brain tumor resection. Follow-up. Comparison is made to the prior study from 01/25/2020 and to a preoperative examination from 01/29/2019. There are operative changes of a right convexity craniotomy performed for resection of the patient's previous large irregular extra-axial mass overlying the right frontal lobe. The surgical resection cavity appears stable compared to the prior examination with stable T2 signal changes about the margins of the resection cavity. The postcontrast images demonstrate some linear postsurgical enhancement along the dura but no recurrent masslike enhancement to suggest local recurrence. The diffusion series demonstrates a small focus of high signal intensity posteriorly along the posterior margins of the left parietal lobe where there also appears to be an additional small dural based extra-axial enhancing mass. This measures 10 mm in maximum size and appears most compatible with a small meningioma. No other abnormal intracranial enhancement is demonstrated. There are no findings of acute ischemia. There is no MR evidence of acute intracranial hemorrhage. There is no midline shift. There is no hydrocephalus. There are some background microvascular changes in the subcortical and periventricular white matter which are not appreciably changed. The basilar cisterns are patent. The posterior fossa demonstrates no acute process. The pituitary gland and the pineal region are unremarkable. There is normal alignment of the craniocervical junction. The mastoids are clear. The paranasal sinuses are clear. The orbital contents demonstrate no significant abnormality. The major expected vascular flow voids are maintained. IMPRESSION: 1. Stable postoperative findings of a right convexity craniotomy with resection of a large irregular enhancing extra-axial mass overlying the right frontal lobe. The resection cavity and adjacent gliosis appear stable with no recurrent masslike enhancement. 2. There does appear to be a second tiny extra-axial mass along the posterior aspect of the left parietal lobe that is most suggestive of meningioma. This measures 10 mm in size. 3. Stable microvascular changes within the white matter. 4. No findings of acute ischemia, hemorrhage, mass effect or hydrocephalus. Dictated by: Dictated on workstation # [id number]
== END ==
LOC: RAD 13:15
PROVIDERS: ATTEND Neurological Surgery
DX: D32.9 Benign neoplasm of meninges, unspecified (principal); R90.82 White matter disease, unspecified
CPT/HCPCS: 70553

== ENCOUNTER → 2020-12-09 | Outpatient (CLI) | payer MEDICARE ==
[~2020-12-09] MED LIST changes: -GADOBUTROL 10 MMOL/10 ML (GADAVIST) VIAL IV ONE
== END ==
LOC: LABNPT 06:38
PROVIDERS: ATTEND Orthopaedic Surgery
DX: Z01.812 Encounter for preprocedural laboratory examination (principal); Z20.822 Contact with and (suspected) exposure to COVID-19
CPT/HCPCS: 87635

== ENCOUNTER → 2021-01-06 | Outpatient (CLI) | payer MEDICARE ==
--- NOTE | 2021-01-06 11:59 | Diagnostic Imaging Report ---
EXAMINATION: US Right Lower Extremity Venous Duplex. TECHNIQUE: Multiple real-time grayscale images were obtained over the right lower extremity in various projections. Additional spectral analysis and color Doppler duplex images were also obtained. HISTORY: Right lower extremity pain and swelling. COMPARISON: None available. FINDINGS: The right common femoral vein, deep femoral vein, superficial femoral vein and popliteal vein are patent with normal foy scale and doppler appearance. There is normal respiratory variation and augmentation. IMPRESSION: 1. No DVT of the right lower extremity. Dictated by: Dictated on workstation # [id number]
== END ==
LOC: RAD 11:07
PROVIDERS: ATTEND Nurse Practitioner Family
DX: M79.661 Pain in right lower leg (principal); M79.89 Other specified soft tissue disorders

== ENCOUNTER → 2021-07-19 | Outpatient (CLI) | payer MEDICARE ==
[~2021-07-19] MED LIST changes: +GADOTERATE 0.5 MMOL/ML (CLARISCAN) 20 ML VIAL IV ONE
--- NOTE | 2021-07-19 15:43 | Diagnostic Imaging Report ---
Clinical Indication: Patient with history of brain meningioma surgery. Exam: MRI of the brain performed without and with 20 cc of Clariscan IV contrast. Sequences include axial DWI, ADC map, coronal gradient echo, axial FLAIR, axial T1, axial T2, axial T1 post IV contrast whole brain, coronal T1 fat-sat post IV contrast whole brain, and sagittal T1 fat-sat post IV contrast whole brain. Comparison: MRI of the brain with and without contrast dated 07/20/2020. Findings: Again seen postop changes with craniotomy involving the right side of the skull. Stable resection changes, encephalomalacia with adjacent gliosis involving the lateral aspect the right frontal lobe. There is interval increase in the small to moderate amount of confluent high T2 signal involving the lateral right frontal lobe region adjacent to the resection cavity. There is no developing mass seen in the region. Stable 10 mm dural based area of enhancement involving the parasagittal posterior left parietal region seen on series 8, image 160. There are no other areas of abnormal IV contrast enhancement seen on this exam. There is focal, patchy confluent areas of high T2 signal white matter changes involving both cerebral hemispheres and periventricular regions likely representing chronic small vessel ischemic disease and leukoaraiosis. There is no brain herniation or midline shift. There is no hydrocephalus. Basal cisterns are unremarkable. The [place] vascular structures show no gross abnormality as visualized.. Orbits and globes are unremarkable. There is mild mucosal thickening involving left maxillary sinus and right ethmoid sinus region. There is a small amount of fluid involving the left mastoid air cells. IMPRESSION: 1: Again seen postoperative changes with right skull craniotomy and resection changes with encephalomalacia and gliosis involving the lateral aspect of the right frontal lobe. There is no developing enhancing mass in the region. No evidence of tumor recurrence. There is slight increased confluent high T2 signal in this region and should be followed on subsequent imaging. 2: Stable 10 mm dural based area of enhancement involving the parasagittal posterior left parietal lobe region which may represent a meningioma. 3: Stable chronic small vessel ischemic disease. Dictated by: Dictated on workstation # [id number]
== END ==
LOC: RAD 13:15
PROVIDERS: ATTEND Neurological Surgery
DX: D32.9 Benign neoplasm of meninges, unspecified (principal); G93.89 Other specified disorders of brain; I67.82 Cerebral ischemia; Z98.890 Other specified postprocedural states
CPT/HCPCS: 70553

== ENCOUNTER → 2022-01-30 | Outpatient (CLI) | payer MEDICARE ==
[~2022-01-30] MED LIST changes: -GADOTERATE 0.5 MMOL/ML (CLARISCAN) 20 ML VIAL IV ONE
--- NOTE | 2022-01-30 16:12 | Diagnostic Imaging Report ---
INDICATION: Routine screening. Comparison is made prior mammogram of 12/23/2017 and 12/06/2016. 2-D and 3-D bilateral screening mammography was performed with CAD. Both breasts are heterogeneously dense, limiting the sensitivity of mammography. The parenchymal pattern appears stable. No mass or malignant-appearing microcalcifications are seen. Axillae are unremarkable. IMPRESSION: No mammographic features suspicious for malignancy are identified. ACR BI-RADS Category 1: Negative. Result letter will be mailed to the patient. Note: At least 10% of breast cancer is not imaged by mammography. BI-RADS Category 1 Dictated by: Dictated on workstation # [id number]
--- NOTE | 2022-01-30 17:20 | Diagnostic Imaging Report ---
INDICATION: Postmenopausal screening for osteoporosis. COMPARISON: None FINDINGS: AP Spine L1-L4: [BMD (g/cm2): 1.257] [T-Score: 0.5] [Z-Score: 1.1] [BMD Previous: 1.318] [BMD % Change: -4.6] LT Hip Neck: [BMD (g/cm2): na] [T-Score: na] [Z-Score: na] LT Hip Total: [BMD (g/cm2):na] [T-Score:na] [Z-Score: na] [BMD Previous: na] [BMD % Change: na] RT Hip Neck: [BMD (g/cm2):na] [T-Score:na] [Z-Score:na] RT Hip Total: [BMD (g/cm2):na] [T-score:na] [Z-Score:na] [BMD Previous:na] [BMD % Change:na] *Indicates significant change from prior examination based on 95% confidence level. World Health Organization criteria for BMD interpretation classify patients as Normal (T-score at or above -1.0), Osteopenic (T-score between -1.0 and -2.5) or Osteoporotic (T-score at or below -2.5). LIMITATIONS AND MODIFICATION: None. FRACTURE RISK (FRAX SCORE): The ten year probability of (%): Major Osteoporotic Fracture: [na] Hip Fracture: [na] IMPRESSION: 1. Normal bone mineral density. 2. Baseline examination. 3. See below National Osteoporosis Foundation guidelines on when to potentially initiate pharmacologic therapy. Based on the National Osteoporosis Foundation Guidelines, pharmacologic treatment should be initiated in any of the following, unless clinical conditions suggest otherwise: * Any patient with prior fragility fracture of the hip or vertebrae. A spine fracture indicates 5X risk for subsequent spine fracture and 2X risk for subsequent hip fracture. * Osteoporosis (T-score <-2.5). * Postmenopausal women and men age 50 and older with low bone mass/osteopenia (T-score between -1.0 and -2.5) by DXA and 10-year major osteoporotic fracture greater than 20% or a 10-year probability of hip fracture greater than 3%. These fracture risks are supplied above in the FRAX score, if applicable. * Clinician judgement and/or patient preferences may indicate treatment for people with 10-year fracture probabilities above or below these levels. Dictated by: Dictated on workstation # [id number]
== END ==
LOC: RAD 13:02
PROVIDERS: ATTEND Family Medicine
DX: Z13.820 Encounter for screening for osteoporosis (principal); Z12.31 Encounter for screening mammogram for malignant neoplasm of breast; Z78.0 Asymptomatic menopausal state
CPT/HCPCS: 77063; 77067; 77080

== ENCOUNTER → 2022-07-17 | Outpatient (CLI) | payer MEDICARE ==
[~2022-07-17] MED LIST changes: +GADOTERATE 0.5 MMOL/ML (CLARISCAN) 20 ML VIAL IV ONE
--- NOTE | 2022-07-17 16:20 | Diagnostic Imaging Report ---
PROCEDURE: MR imaging of the brain with and without contrast. TECHNIQUE: Multiplanar, multisequence MR imaging of the brain was performed with and without contrast. INDICATION: Meningioma. Resection in 2019. COMPARISON: 07/19/2021. FINDINGS: Again seen postoperative findings of a right frontoparietal craniotomy and underlying gliosis in the right frontal lobe. No residual or recurrent enhancing mass in the operative bed is identified. Extra-axial enhancing mass overlying the left parietal lobe with dural tails measuring 1.0 cm is stable. No abnormal signal in the adjacent parenchyma. Mild generalized parenchymal volume loss is age appropriate. No new abnormal intracranial enhancement. Normal morphology including the major midline structures, sella, posterior fossa and cerebellopontine angle. No restricted water diffusion. No hemosiderin deposition outside the postoperative change. Normal intracranial flow voids. No hydrocephalus or extra-axial fluid collections. The orbits are unremarkable. Paranasal sinuses and mastoids are clear. IMPRESSION: 1. Stable postoperative changes in the right frontal lobe. No evidence of residual or recurrent enhancing mass. 2. Stable extra-axial enhancing mass measuring 1 cm overlying the left parietal lobe. 3. No acute intracranial MRI findings. Dictated by: Dictated on workstation # [id number]
== END ==
LOC: RAD 12:36
PROVIDERS: ATTEND Neurological Surgery
DX: D32.9 Benign neoplasm of meninges, unspecified (principal); Z98.890 Other specified postprocedural states
CPT/HCPCS: 70553